=== PATIENT | male | born 1960 | race African-American/Black ===

== ENCOUNTER 2016-05-25 14:31 | Day surgery (SDC) | payer OTHER ==
--- NOTE | 2016-05-24 14:34 | EKG Report ---
Test Performed on : 05/24/2016 10:07:10 AM Test Reason : PAT Blood Pressure : / mmHG Vent. Rate : 050 BPM Atrial Rate : 050 BPM P-R Int : 138 ms QRS Dur : 078 ms QT Int : 408 ms P-R-T Axes : 032 -08 -02 degrees QTc Int : 371 ms Sinus bradycardia. Nonspecific T wave abnormality Abnormal ECG When compared with ECG of 16-APR-2016 11:46, premature ventricular complexes. are no longer present QRS axis shifted right T wave inversion now evident in Anterior leads Confirmed by Romel Grady MD ([id number]) on 05/25/2016 9:39:58 PM
[2016-05-25 11:21] LABS: MANUAL DIFF NEEDED? NO
[2016-05-25 11:23] LABS: BASO% 0.7 % (0.0-0.8); EOS# 0.21 X1000 (0.0-0.7); EOS% 2.7 % (0.0-10.0); HEMATOCRIT 45.1 % (42.0-52.0); HEMOGLOBIN 16.3 g/dL (14.0-18.0); LYMPH% 48.3 % (20.5-51.1); MCH 32.7 PG (27-31); MCHC 36.1 g/dL (33-37); MCV 90.4 FL (81-99); MONO% 13.1 % (1.7-9.3); MPV 12.1 FL (7.4-10.4); NEUT% 35.2 % (42.2-75.2); PLT 131 X1000 (130-400); RBC 4.99 XMIL (4.7-6.1)
[2016-05-25 11:52] LABS: AGAP 15; BUN 11 mg/dL (8-22); CALCIUM 8.6 mg/dL (8.8-10.2); CHLORIDE 96 mmol/L (98-107); COSMO 269; POTASSIUM 4.1 mmol/L (3.5-5.1); SODIUM 133 mmol/L (136-145); TCO2 22 mmol/L (25-35)
[~2016-05-25 14:31] MED LIST: DECADRON ONE; KEFZOL 1 GM/D5W 50 ML ONE; LR 1,000 ML ONE; MARCAINE 0.25% PF/EPI 1:200,000 ONE; NORCO-7.5 ONE; NORCO-7.5 PO PRN; XYLOCAINE 1% ONE; XYLOCAINE-MPF 2% ONE; ZOFRAN IV PRN; ZOFRAN ONE
--- NOTE | 2016-05-25 15:15 | OPERATIVE NOTE ---
PROCEDURE DATE : 05/25/2016 PREOPERATIVE DIAGNOSIS: Left chest wall epidermal cyst. POSTOPERATIVE DIAGNOSIS: Left chest wall epidermal cyst. PROCEDURE: Excision of left chest epidermal cyst. SURGEON: Austin Greenberg MD ANESTHESIA: General. ESTIMATED BLOOD LOSS: 3 mL. COMPLICATIONS: None apparent. SPECIMENS: Cyst. FINDINGS: The cyst measured 3.5 x 1 cm in greatest dimension with margins. TECHNIQUE: He was brought to the operating room and placed supine on the table. General anesthesia was induced. He was prepped and draped in the usual sterile fashion and 0.25% Marcaine with 1% lidocaine was used to anesthetize the skin and subcutaneous tissues around the cyst which was at the left superior outer areola border. An elliptical incision was made with the knife down through the dermis into the subcutaneous fat on the borders of the cyst. This was carried down into the subcutaneous fat circumferentially excising this cyst and overlying skin from the surrounding soft tissue. Cautery was used for hemostasis. The wound was closed with interrupted subcutaneous 3-0 Polysorb and a running 4-0 subcuticular Monocryl and then Steri-Strips. There were no apparent complications. He was awakened in stable condition and transferred to the recovery room.
[2016-05-25 15:32] VITALS: BP 140/88
[2016-05-25] MEDS ORDERED: DIPRIVAN 1% ONE (15:51)
== END 2016-05-25 15:10 | disposition home or self-care (01) ==
LOC: PAT 14:31
PROVIDERS: ATTEND Surgery
DX: L72.0 Epidermal cyst (principal); Z87.891 Personal history of nicotine dependence; I10 Essential (primary) hypertension
CPT/HCPCS: 80048; 85025; 88304; 93005; 93010; J0690; J1100; J2405; J7120; S0020

== ENCOUNTER 2018-06-28 17:02 | Inpatient (IN) ==
--- NOTE | 2018-06-28 17:55 | Diag Imaging Result Doc PS360 ---
EXAM: ABDOMEN FLAT/UPRIGHT 06/28/2018 HISTORY: abd pain TECHNIQUE: Flat and upright abdomen COMMENT: There are air-fluid levels in distended small bowel loops. There is some gas in the stomach and colon without evidence of dilatation. There is some gas and stool in the rectum. There is no evidence of organomegaly or mass. IMPRESSION: Early small bowel obstruction. Electronically signed by Delonte Warner 06/28/2018 5:53 PM
[2018-06-28 21:42] LABS: BASO# 0.08 X1000 (0.0-0.2); BASO% 0.9 % (0.0-0.8); EOS# 0.05 X1000 (0.0-0.7); EOS% 0.6 % (0.0-10.0); HEMATOCRIT 39.3 % (42.0-52.0); HEMOGLOBIN 14.8 g/dL (14.0-18.0); IMM GRAN# 0.02 X1000 (0.0-0.04); IMM GRAN% 0.2 % (0.0-0.5); LYMPH# 2.91 X1000 (1.2-3.4); LYMPH% 34.5 % (20.5-51.1); MCH 33.6 PG (27-31); MCHC 37.7 g/dL (33-37); MCV 89.3 FL (81-99); MONO% 15.4 % (1.7-9.3); MPV 11.9 FL (7.4-10.4); NEUT# 4.08 X1000 (1.4-6.5); NEUT% 48.4 % (42.2-75.2); PLT 128 X1000 (130-400); RDW 14.3 % (11.5-14.5); WBC 8.44 X1000 (4.8-10.8)
[2018-06-28 22:07] LABS: AGAP 11; ALBUMIN 2.9 g/dL (3.5-5.0); ALKALINE PHOSPHATASE 96 U/L (32-122); AMYLASE 101 U/L (20-200); BUN 21 mg/dL (8-22); CALCIUM 9.2 mg/dL (8.8-10.2); CHLORIDE 93 mmol/L (98-107); COSMO 269; CREATININE 1.1 mg/dL (0.7-1.2); ESTIMATED GFR > 60; GLUCOSE 152 mg/dL (70-104); GOT 39 U/L (10-34); GPT 22 U/L (10-44); LIPASE 21 U/L (13-60); POTASSIUM 3.7 mmol/L (3.5-5.1); SODIUM 131 mmol/L (136-145); TCO2 27 mmol/L (25-35); TOTAL PROTEIN 8.4 g/dL (6.3-8.3)
[2018-06-29] LABS: BILIRUBIN URINE 2+ (NEGATIVE); BLOOD URINE TRACE (NEGATIVE); CLARITY CLEAR (CLEAR); COLOR ORANGE; KETONE URINE 1+(Small) mg/dL (NEGATIVE); LEUKOCYTES URINE 1+ (NEGATIVE); NITRITE URINE POSITIVE (NEGATIVE); PH URINE 6.5; PROTEIN URINE 1+(30 mg/dL) mg/dL (NEGATIVE); SP GRAVITY URINE 1.015; UROBILINOGEN URINE 12 mg/dL
[2018-06-29 00:11] LABS: URINE WBC TNTC /HPF (<10)
[2018-06-29 00:16] LABS: URINE EPITHELIAL CELLS <10 /HPF (<10); URINE RBC <10 /HPF (<10)
[2018-06-29 00:17] LABS: URINE BACTERIA 3+ /HFP; URINE CAST WHITE CELL PRESENT /LPF; URINE SOURCE CLEAN CATCH
[2018-06-29] MEDS ORDERED: NS 2,000 ML IV ONE (02:54)
[2018-06-29] MEDS ORDERED: ZOSYN 3.375 GM in NS 50 ML IV ONE (02:55)
--- NOTE | 2018-06-29 07:23 | Diag Imaging Result Doc PS360 ---
EXAM: CT ABD/PELVIS W/IV CONT ONLY INDICATION: pain TECHNIQUE: This exam was performed using automated exposure control, adjustment of mA or kV according to patient size, and/or use of iterative reconstruction technique. COMPARISON: 09/16/2013 FINDINGS: There is mild tree-in-bud opacity involving the lingula suggesting bronchiolitis, likely an atypical infectious process. There is a tiny hypodense focus involving the posterior aspect of the right hepatic lobe superiorly, probably a small cyst. The liver is unremarkable, otherwise. The gallbladder is partially contracted. The spleen, pancreas, adrenal glands, and kidneys are grossly unremarkable. The urinary bladder is nondistended. The appendix is normal. There are multiple moderately distended loops of small bowel with air-fluid levels suggesting obstruction. The transition point is probably in the right lower quadrant (see image 105, series 2). There is mild bowel wall thickening in this region. No discrete mass is identified. Consider obstruction due to adhesion. The remainder of the GI tract is essentially unremarkable. IMPRESSION: 1.Moderately distended loops of small bowel with air-fluid levels and apparent transition point in the right lower quadrant suggesting obstruction. 2.Mild tree-in-bud infiltrate in the lingula suggesting bronchiolitis. Electronically signed by Rodney Lang 06/29/2018 7:21 AM
--- NOTE | 2018-06-29 09:24 | Diag Imaging Result Doc PS360 ---
EXAM: KUB ABDOMEN INDICATION: re-eval sbo, feeling better TECHNIQUE: 2 views COMPARISON: 06/28/2018 FINDINGS: Multiple gas-distended loops of small bowel throughout the abdomen are again noted consistent with bowel obstruction. The degree of distention is approximately stable but it appears to involve more loops of small bowel as compared to the previous study. The abdomen is stable, otherwise. IMPRESSION: Gas-distended loops of small bowel consistent with obstruction that appears to involve more bowel than the previous study. Electronically signed by Rodney Lang 06/29/2018 9:22 AM
[2018-06-29] MEDS ORDERED: ZOFRAN IV PRN (12:42)
[2018-06-29] MEDS: ZOSYN 3.375 GM in NS 50 ML IV SCH ×2 (13:08→18:49)
[2018-06-29 13:50] LABS: HEMATOCRIT 37.9 % (42.0-52.0); MCH 33.9 PG (27-31); MCHC 36.9 g/dL (33-37); MCV 91.8 FL (81-99); MPV 11.9 FL (7.4-10.4); RBC 4.13 XMIL (4.7-6.1); RDW 14.5 % (11.5-14.5); WBC 6.47 X1000 (4.8-10.8)
[2018-06-29 14:03] LABS: AGAP 7; ALBUMIN 2.6 g/dL (3.5-5.0); ALKALINE PHOSPHATASE 88 U/L (32-122); BUN 19 mg/dL (8-22); CALCIUM 8.5 mg/dL (8.8-10.2); CHLORIDE 94 mmol/L (98-107); COSMO 267; CREATININE 0.9 mg/dL (0.7-1.2); ESTIMATED GFR > 60; GLUCOSE 166 mg/dL (70-104); GOT 44 U/L (10-34); GPT 21 U/L (10-44); POTASSIUM 3.5 mmol/L (3.5-5.1); SODIUM 130 mmol/L (136-145); TCO2 29 mmol/L (25-35); TOTAL PROTEIN 7.9 g/dL (6.3-8.3)
--- NOTE | 2018-06-29 14:46 | GENERAL SURGERY CONSULTATION ---
DATE: 06/29/2018 REASON FOR CONSULTATION: Small bowel obstruction. HISTORY OF PRESENT ILLNESS: This is a 58-year-old male, who presents to the emergency department with a several-day history of abdominal pain, diffuse in nature with associated nausea and vomiting and constipation. No exacerbating factors. However, today he has had some relief as he has had multiple bowel movements. His pain has resolved at this time. He is not having nausea or vomiting. PAST MEDICAL HISTORY: None. PAST SURGICAL HISTORY: None pertinent. HOME MEDICATIONS: None. ALLERGIES: No known drug allergies. SOCIAL HISTORY: He smokes about 5 or 6 cigarettes per day. He has 2 to 3 alcoholic drinks per day. REVIEW OF SYSTEMS: Ten systems reviewed and negative, except as noted above. PHYSICAL EXAMINATION: Vital Signs: Temperature 98.5 degrees, pulse 51, respirations 20, blood pressure 106/74, O2 saturation 96%. General: Well-developed, well-nourished male in no distress, who looks his stated age. HEENT: Normocephalic, atraumatic. Extraocular muscles intact. Pupils equal, round, reactive to light. Sclerae anicteric. Moist mucous membranes. Neck: Supple. No thyromegaly. CV: Regular rate and rhythm. Respiratory: Bilateral equal breath sounds. No work of breathing. GI: Soft, nontender, nondistended. No organomegaly or mass. No hernias. He has good bowel sounds. Extremities: No clubbing, cyanosis, or edema. Skin: Warm and dry. No rash. Musculoskeletal: Moves all extremities equally and well. LABORATORY: CBC and complete metabolic profile reviewed and notable for sodium of 131, total bilirubin 3.2, AST 39, ALT 22, alkaline phosphatase 96. IMAGING: Abdominal x-rays done last night showed early small bowel obstruction. An abdominal/pelvis CT scan done last night showed moderately distended loops of small bowel with air- fluid levels and apparent transition point suggestive of a small bowel obstruction. Follow-up x- ray this morning of the abdomen again shows gas-distended loops of small bowel. ASSESSMENT/PLAN: A 58-year-old male with abdominal pain, nausea, vomiting and imaging suggestive of small bowel obstruction. However, his symptoms have resolved. His physical exam is benign. I suspect this was not a mechanical bowel obstruction, and he is getting better. I will start a liquid diet and, if he tolerates this today, then I would let him be discharged. cc: Austin Greenberg MD
[2018-06-29] MEDS: NS 1,000 ML IV ONE ×2 (15:44→18:51)
[2018-06-29 15:49] LABS: INR 1.34; PROTIME 17.6 Seconds (11.0-16.0)
[2018-06-29] MEDS: PROTONIX IV SCH (15:57)
[2018-06-29] MEDS: SODIUM CHLORIDE 0.9% INJ SCH (15:58)
--- NOTE | 2018-06-29 18:57 | Diag Imaging Result Doc PS360 ---
US GB < RUQ (LIMITED) - 06/29/2018 INDICATION: abd pain, distention, elevated LFTs TECHNIQUE: COMPARISON: CT abdomen pelvis earlier 06/29/2018 FINDINGS: The patient is not nothing by mouth. The gallbladder is collapsed. Thick-walled appearance is nonspecific. No biliary dilation. Common bile duct measures 4 mm. The liver is normal. Pancreas is obscured. Main portal vein is patent. Aorta and IVC are mostly obscured. IMPRESSION: Gallbladder collapsed with nonspecific wall thickening. Otherwise negative exam. Electronically signed by Jesus Faith 06/29/2018 6:55 PM
--- NOTE | 2018-06-29 19:51 | HISTORY AND PHYSICAL ---
PRIMARY CARE PROVIDER: Dr. Quang Hart. CHIEF COMPLAINT: Abdominal pain. HISTORY OF PRESENT ILLNESS: Mr. Mcduffie is a 58-year-old male with a history of seizures and cerebral aneurysm, who presents with five days of nausea, vomiting, and abdominal pain. He has been unable to hold down anything, no foods or liquids. He has not had any fever. No hematemesis or hematochezia. He presented to the ER initially last night. A CT of the abdomen and pelvis revealed moderately distended loops of small bowel with air fluid levels with a transition point in the right lower quadrant suggesting obstruction. He was also noted to have mild tree-in-bud infiltrate in the lingula, suggesting bronchiolitis. This morning he is actually feeling somewhat better. He has had some diarrhea and his distention has actually gone down some. However, repeat abdominal x-ray did reveal continued obstruction with more bowel involvement than previous study. His vital signs are stable. He is going to be admitted to [facility] for further treatment and evaluation. Dr. Greenberg with the surgical team has been consulted. PAST MEDICAL HISTORY: 1. Cerebral aneurysm status post craniotomy. 2. Hypertension. 3. Nicotine dependence. 4. Reflux esophagitis. 5. Chronic back and neck pain. PAST SURGICAL HISTORY: He has had brain surgery x2. He has had a cyst removed by Dr. Greenberg on his chest wall and two back surgeries. SOCIAL HISTORY: He smokes around five cigarettes a day. He will smoke marijuana on occasion. He occasionally drinks alcohol. He is , is at the bedside. FAMILY HISTORY: Noncontributory. REVIEW OF SYSTEMS: A 10-point review of systems obtained and found to be negative with the exception of the HPI. HOME MEDICATIONS: Cardizem 240 mg daily, Depakote 500 mg daily, hydrochlorothiazide 25 mg daily. PHYSICAL EXAMINATION: VITAL SIGNS: Blood pressure 126/88, heart rate 72, respiratory rate 18, O2 saturation 97% on room air. Temperature 98 degrees Fahrenheit. GENERAL: Well developed, well nourished, 58-year-old male, lying in hospital bed in no acute distress. NEUROLOGICAL: He is awake, alert, and oriented and follows commands. No focal deficits. HEENT: Head is atraumatic and normocephalic. Pupils are equal, round, and reactive to light. Oral mucosa is dry. NECK: Trachea is midline. There is no JVD. CHEST: Diminished at the bases but clear to auscultation bilaterally. CARDIOVASCULAR: Regular rate and rhythm. S1 and S2 is noted. GASTROINTESTINAL: Epigastric and right upper quadrant tenderness to palpation. Abdomen is soft and slightly distended. No rigidity. Bowel sounds are hypoactive. EXTREMITIES: No edema. Pulses are 1+ bilaterally. DIAGNOSTIC DATA: Abdomen and pelvic CT, please see HPI. Abdomen x-ray shows slightly worsened SBO. WBC 6.47, hemoglobin 14, hematocrit 37.9, platelet count 113,00. Sodium 130, potassium 3.5, chloride 94, C02 29, anion gap 7, BUN 19, creatinine 0.9, glucose 166. Calcium 8.5. Bilirubin 3.1. AST 43, ALT 21, albumin 2.6. TSH 0.99. UA does show nitrite positive, 2+ bilirubin, and trace urine glucose with too numerous to count WBCs, 3+ bacteria. ASSESSMENT AND PLAN: 1. Small bowel obstruction: The patient will be transferred to [facility] where he will be seen by hospitalist group as well as Dr. Greenberg. Dr. Greenberg has ordered clear liquids so will try him on that and see how he does. Will check serial KUBs. Continue intravenous fluids. Also check a right upper quadrant ultrasound as he does have elevated liver function tests. 2. Urinary tract infection: Continue antibiotics. Culture is pending. 3. Elevation in liver function tests: Will check a hepatitis panel and right upper quadrant ultrasound and follow daily comprehensive metabolic panels. He does have decreased protein and platelet function. Will check an INR as well to evaluate his overall synthetic function. He may need Gastroenterology evaluation for possible liver disease. CT does show mild hypodense cysts on the liver, otherwise nothing acute. Will also advise him to stay away from any alcohol or illicit substances. 4. History of cerebral aneurysm: Aware. Will monitor. Denies any headache, visual changes, or neurologic deficits. 5. Nicotine dependence: Will write a nicotine patch and continue cessation education. 6. Deep venous thrombosis prophylaxis with sequential compression devices. Further recommendations to follow. Dictated by TURNER Bautista for Yusef Hernandez MD cc: TURNER Bautista MD
--- NOTE | 2018-06-29 22:29 | HISTORY AND PHYSICAL ---
ADDENDUM TO HISTORY AND PHYSICAL: Patient seen and examined by myself. Full note dictated and discussed with nurse practitioner. Patient presented to the hospital with nausea, vomiting, abdominal pain. Subsequently was noted to have small-bowel obstruction. We will admit to the hospital, treat in the usual fashion. We will ask surgery for evaluation. Advance diet as tolerated. cc: Yusef Hernandez MD
[2018-06-30] MEDS: ZOSYN 3.375 GM in NS 50 ML IV SCH ×4 (01:15→18:16)
[2018-06-30 06:28] LABS: BASO# 0.06 X1000 (0.0-0.2); BASO% 1.2 % (0.0-0.8); EOS# 0.11 X1000 (0.0-0.7); EOS% 2.1 % (0.0-10.0); HEMATOCRIT 32.8 % (42.0-52.0); HEMOGLOBIN 11.9 g/dL (14.0-18.0); IMM GRAN# 0.02 X1000 (0.0-0.04); IMM GRAN% 0.4 % (0.0-0.5); LYMPH# 2.37 X1000 (1.2-3.4); LYMPH% 45.8 % (20.5-51.1); MCH 33.1 PG (27-31); MCHC 36.3 g/dL (33-37); MCV 91.4 FL (81-99); MONO# 0.61 X1000 (0.11-0.59); MONO% 11.8 % (1.7-9.3); MPV 12.3 FL (7.4-10.4); NEUT# 2.01 X1000 (1.4-6.5); NEUT% 38.7 % (42.2-75.2); PLT 88 X1000 (130-400); RBC 3.59 XMIL (4.7-6.1); RDW 13.8 % (11.5-14.5); WBC 5.18 X1000 (4.8-10.8)
[2018-06-30 07:24] LABS: AGAP 7; ALB/GLOB RATIO 0.5; ALKALINE PHOSPHATASE 65 U/L (32-122); BUN 19 mg/dL (8-22); CALCIUM 7.2 mg/dL (8.8-10.2); CHLORIDE 96 mmol/L (98-107); COSMO 260; CREATININE 0.9 mg/dL (0.7-1.2); ESTIMATED GFR > 60; GLUCOSE 108 mg/dL (70-104); GOT 43 U/L (10-34); GPT 21 U/L (10-44); MAGNESIUM 2.2 mg/dL (1.5-2.7); SODIUM 128 mmol/L (136-145); TCO2 25 mmol/L (25-35); TOTAL BILIRUBIN 3.19 mg/dL (0.20-1.00); TOTAL PROTEIN 6.1 g/dL (6.3-8.3)
[2018-06-30 07:34] LABS: LYMPHS 34 % (21-51); MONO 4 % (1-9); SEGS 62 % (42-75)
--- NOTE | 2018-06-30 08:43 | Diag Imaging Result Doc PS360 ---
EXAM: KUB ABDOMEN 06/30/2018 HISTORY: sbo TECHNIQUE: KUB COMMENT: There is diffuse small bowel dilatation. There is some gas present in the colon which is not distended including the rectum. Compared to 06/29/2018 there is less colonic gas. IMPRESSION: Small bowel obstruction. Electronically signed by Delonte Warner 06/30/2018 8:41 AM
--- NOTE | 2018-06-30 12:15 | PROVIDER DOCUMENTATION ---
HPI-Abdominal Pain/GI Problem - General Chief Complaint: Constipation Stated Complaint: ABD PAINS Time Seen by Provider: 06/28/18 21:17 Source: patient, family Allergies/Adverse Reactions: Patient Allergies Allergy/AdvReac Type Severity Reaction Status Date / Time No Known Allergies Allergy Verified 06/29/18 14:42 Home Medications: Home Medication List Medication Instructions Recorded Confirmed Last Taken Type Divalproex [Depakote] 500 mg PO DAILY 09/16/13 06/28/18 06/28/18 09:00 History Hydrochlorothiazide 25 mg PO DAILY 09/16/13 06/28/18 06/28/18 09:00 History Diltiazem HCl [Cardizem Cd] 240 mg PO DAILY 05/24/16 06/28/18 06/28/18 09:00 History Hydrocodone/Acetaminophen [[place] 1 each PO Q4H PRN #25 tablet 05/25/16 06/28/18 Unknown Rx 7.5-325 Tablet] - History of Present Illness-ABD Nature of Presenting Problems: 58yom c/o constipation and abdominal pain for 3 days. He additionally reports nausea, weakness, and loss of appetite. He reports small bowel movement today. He denies fever, chills, diarrhea, cp, and sob. Abdominal Pain Onset Location: reports: generalized abdomen Pain Radiation: reports: no radiation Quality of Pain: reports: aching, cramping, fullness Severity in ED: reports: moderate Onset/Duration: reports: 3 days ago Timing: reports: still present, constant, getting worse Activities at Onset: reports: none Modifying Factors: improves with: nothing Associated Symptoms: reports: constipation, loss of appetite, nausea, weakness. denies: vomiting Last BM: this morning (small bowel movement) Similar Symptoms Previously?: No Recently seen or treated by another doctor?: No Review of Systems - Adult - REVIEW OF SYSTEMS - ADULT Constitutional: reports: other (loss of appetite). denies: chills, fever Eyes: denies: discharge, dry eyes Ears, Nose, Mouth & Throat: denies: ear discharge, ear pain Cardiovascular: denies: chest pain, palpitations Respiratory: denies: cough, shortness of breath Gastrointestinal: reports: abdominal pain, constipation, nausea. denies: diarrhea Genitourinary: denies: dysuria, hematuria Musculoskeletal: reports: muscle weakness. denies: back pain, muscle aches Integumentary: reports: no symptoms reported Neurological: denies: dizziness/vertigo, headache/migraines Psychiatric: reports: no symptoms reported Endocrine: reports: no symptoms reported Hematologic/Lymphatic: reports: no symptoms reported Allergic/Immunologic: reports: no symptoms reported All Other Systems: Reviewed and Negative Past History - Adult - PAST MEDICAL HISTORY-ADULT Review of Records: reports: Old Records Reviewed, Nursing Assessment Review, Medications Reviewed Major Childhood Illnesses: reports: denies history Cardiovascular: reports: HTN Respiratory: reports: denies history Gastrointestinal: reports: denies history Obstetrical/Gynecological: reports: denies history Genitourinary: reports: denies history Musculoskeletal: reports: denies history Neurological: reports: denies history, Seizures/Epilepsy Psychiatric: reports: denies history Endocrine/Immune: reports: denies history Other Conditions: reports: denies history Additional History: cerebral aneurysm, chronic back pain, chronic neck pain - PRIOR SURGERIES/PROCEDURES Surgical/Procedure History: reports: orthopedic (extremity) - IMMUNIZATION STATUS Childhood Immunizations: See Nurse Assessment Flu Vaccine: See Nurse Assessment - FAMILY HISTORY Family History: reviewed, not pertinent - SOCIAL HISTORY Substance Use: denies Living Situation: family Physical Exam-General - PHYSICAL EXAM-ADULT Initial Vital Signs Reviewed: Yes - CONSTITUTIONAL General Appearance: alert, no apparent distress - EYES Eyes: PERRL/EOMI - NECK Neck: non-tender, supple - RESPIRATORY Respiratory: chest non-tender, lungs clear, normal breath sounds, no pleuratic chest pain, no respiratory distress, no accessory muscle use. negative: crackles, wheezing - CARDIOVASCULAR Cardiovascular: regular rate, rhythm, no murmur - GASTROINTESTINAL (ABDOMEN) Abdominal Exam: distended, guarding, rigid, tenderness - MUSCULOSKELETAL Extremity: normal range of motion, non-tender, normal inspection, no pedal edema - SKIN Integumentary: normal color, warm/dry - NEUROLOGIC Neurologic: grossly normal, no motor/sensory deficits - PSYCHIATRIC Psych/Mental Status: normal mood/affect, normal thought content, normal thought process, oriented x 3 Progress - PLAN OF CARE/RESULTS Progress/Plan/Lab Results: Orders Category Date Time Status Saline Loc DIRECTED Care 06/28/18 20:07 Completed NPO Diet 06/28/18 20:[address] ABD/PELVIS W/IV CONT ONLY [CT] Stat Exams 06/28/18 23:14 Completed flat [ABDOMEN FLAT/UPRIGHT] [RAD] Stat Exams 06/28/18 17:28 Completed AMYLASE [CHEM] Stat Lab 06/28/18 21:26 Completed CBC WITH ELECTRONIC DIFF [HEME] Stat Lab 06/28/18 21:26 Completed COMPREHENSIVE METABOLIC PANEL [CHEM] Stat Lab 06/28/18 21:26 Completed LIPASE [CHEM] Stat Lab 06/28/18 21:[address] W/POSS RFLX CULT [URINALYSIS] Stat Lab 06/28/18 23:35 Completed URINE CULTURE [RM] Routine Lab 06/29/18 00:17 Results 0.9% Sodium Chloride Inj [Ns] 2,000 ml Med 06/29/18 02:54 Discontinued IV 125 mls/hr Piperacillin/Tazobactam [Zosyn] 3.375 gm Med 06/29/18 02:55 Discontinued 0.9% Sodium Chloride Inj [Ns] 50 ml IV NOW Transfer/Admit Order [TRANSFER] Routine Transfer 06/29/18 04:49 Completed Result Diagrams: 06/30/18 05:30 06/30/18 05:30 - XRAY 1 XRAY Study: Abdomen Impression: Abnormal (COMMENT: There are air-fluid levels in distended small bowel loops. There is some gas in the stomach and colon without evidence of dilatation. There is some gas and stool in the rectum. There is no evidence of organomegaly or mass. IMPRESSION: Early small bowel obstruction.) - CT/MRI 1 CT Study: Abdomen, Pelvis Impression: Abnormal (FINDINGS: There is mild tree-in-bud opacity involving the lingula suggesting bronchiolitis, likely an atypical infectious process. There is a tiny hypodense focus involving the posterior aspect of the right hepatic lobe superiorly, probably a small cyst. The liver is unremarkable, otherwise. The gallbladder is partially contracted. The spleen, pancreas, adrenal glands, and kidneys are grossly unremarkable. The urinary bladder is nondistended. The appendix is normal. There are multiple moderately distended loops of small bowel with air-fluid levels suggesting obstruction. The transition point is probably in the right lower quadrant (see image 105, series 2). There is mild bowel wall thickening in this region. No discrete mass is identified. Consider obstruction due to adhesion. The remainder of the GI tract is essentially unremarkable. IM PRESSION: 1.Moderately distended loops of small bowel with air-fluid levels and apparent transition point in the right lower quadrant suggesting obstruction. 2.Mild tree-in-bud infiltrate in the lingula suggesting bronchiolitis.) - CONSULTS/PCP/HOSPITALIST Notification #1 *Consult/PCP/Hospitalist*: Dr. Greenberg Time Discussed: 00:04 Consult Disposition: Admit (admit to hospitalist at [place]) #2 Consult: Dr. Rai Time Discussed: 02:00 Consult Disposition: Admit (no current beds available, pt will be admitted when beds are available) Departure - Departure Date of Disposition Decision: 06/30/18 Time of Disposition Decision: 12:21 DIAGNOSIS: Small bowel obstruction Disposition: ACUTE [facility] Certified Medical Emergency: Emergent Condition: Stable - Critical Care Note This patient required my direct & personal management of CC.: No Attestation - Physician/ LILIYA Attestation Patient care was provided by Advanced Practice Provider:: No The physician spent face to face time with patient:: Yes Advanced Practice Provider documentation review:: Supervising physician onsite and consulted in the evaluation and care of this patient. The physician did have a face to face encounter with the patient.
[2018-06-30] MEDS ORDERED: KLOR-CON PO ONE (13:56)
[2018-06-30] MEDS ORDERED: ATIVAN IV PRN (13:59)
[2018-06-30] MEDS ORDERED: THIAMINE 100 MG in NS 50 ML IV SCH (14:00)
[2018-06-30] MEDS: SODIUM CHLORIDE 0.9% INJ SCH (14:50)
[2018-06-30] MEDS: PROTONIX IV SCH (14:50)
[2018-06-30] MEDS: POTASSIUM CHLORIDE 40 MEQ in NS 1,000 ML IV SCH (14:54)
--- NOTE | 2018-06-30 15:39 | PROGRESS NOTE ---
DATE: 06/30/2018 SUBJECTIVE: This patient is feeling much better. He is hyponatremic and hypokalemic, so I will put this patient on IV fluids, normal saline with potassium, and I will also give him a one time dose of potassium by mouth. His abdomen is still distended but he is passing gases. As per the patient, no bowel movement today, but he had a bowel movement yesterday. X-ray today showed some gas pattern in the colon which is not distended including the rectum. Also, there is diffuse small bowel dilatation. Compared with 06/29/2018, there is less colonic gas. The impression is small bowel obstruction, which probably is partial. OBJECTIVE: Vital Signs: Temperature 98.3 degrees, pulse 53, respiratory rate 16, blood pressure 118/78, and oxygen saturation 99 percent on room air. HEENT: Head normocephalic. No trauma. PERRLA. Neck: Supple. No JVD. Central trachea. Chest: Clear to auscultation. No wheezing. No rales. Abdomen: Soft. Distended. Positive bowel sounds but decreased. No signs of peritoneal irritation. Extremities: No edema. No clubbing. No cyanosis. Neurological: The patient is alert and oriented x3. No focal deficits. LABORATORY: WBC 5.1, hemoglobin 11.9, hematocrit 32.8, and platelets 88,000. Sodium 128, potassium 3, chloride 96, bicarbonate 25, BUN 19, creatinine 0.9 glucose 108, and calcium 7.2. ASSESSMENT AND PLAN: 1. Small-bowel obstruction. This patient has been transferred from [facility] to [facility] to be followed and evaluated by Surgery Department. He has been placed on a liquid diet. X-ray showed a small bowel obstruction. He is not having nausea or vomiting today, and he is feeling better. I will continue monitoring this patient. Surgery Department on board. 2. He does have some infiltrates at the level of the lingula, probably bronchiolitis/bronchitis. He has been placed on antibiotics. We will continue with the same management, and we will monitor. 3. Possible UTI. This patient has not been having symptoms. As per the patient, his urine was different and darker before coming to the hospital, but no burning, sensation or pain. No fever. No chills. He has been placed on antibiotics for the possible respiratory infection that will cover the urine as well. 4. Hyponatremia and hypokalemia. I will put this patient on normal saline. I will replace the potassium as well. I will monitor. He seems to be a little bit dry to me, I checked his lab work before, and he has been chronically hyponatremic since 2014. 5. Elevated liver function tests. No clear etiology. We asked for a hepatitis panel. This is actually not a new issue. They have been elevated since 2013. Probably, this patient will need to be evaluated by Gastroenterology Department probably as an outpatient. 6. History of cerebral aneurysm aware. 7. Nicotine dependence. This patient has been highly advised against tobacco use. I will continue with daily cessation education. 8. Deep vein thrombosis prophylaxis with SCD's. cc: Jaime Faith MD
[2018-07-01] MEDS: ZOSYN 3.375 GM in NS 50 ML IV SCH ×2 (00:35→06:29)
[2018-07-01] MEDS: POTASSIUM CHLORIDE 40 MEQ in NS 1,000 ML IV SCH (06:28)
[2018-07-01 07:34] LABS: BASO# 0.15 X1000 (0.0-0.2); BASO% 2.5 % (0.0-0.8); EOS% 1.7 % (0.0-10.0); HEMATOCRIT 33.5 % (42.0-52.0); HEMOGLOBIN 12.2 g/dL (14.0-18.0); IMM GRAN# 0.03 X1000 (0.0-0.04); IMM GRAN% 0.5 % (0.0-0.5); LYMPH# 3.37 X1000 (1.2-3.4); LYMPH% 55.6 % (20.5-51.1); MCH 33.3 PG (27-31); MCHC 36.4 g/dL (33-37); MCV 91.5 FL (81-99); MONO# 0.72 X1000 (0.11-0.59); MONO% 11.9 % (1.7-9.3); MPV 12.2 FL (7.4-10.4); NEUT# 1.69 X1000 (1.4-6.5); NEUT% 27.8 % (42.2-75.2); PLT 104 X1000 (130-400); RBC 3.66 XMIL (4.7-6.1); RDW 13.8 % (11.5-14.5); WBC 6.06 X1000 (4.8-10.8)
[2018-07-01 07:35] VITALS: BP 127/67
[2018-07-01 07:57] LABS: AGAP 10; ALB/GLOB RATIO 0.5; ALKALINE PHOSPHATASE 66 U/L (32-122); BUN 15 mg/dL (8-22); CALCIUM 7.2 mg/dL (8.8-10.2); CHLORIDE 103 mmol/L (98-107); COSMO 266; CREATININE 0.8 mg/dL (0.7-1.2); ESTIMATED GFR > 60; GLUCOSE 109 mg/dL (70-104); GOT 53 U/L (10-34); GPT 24 U/L (10-44); SODIUM 132 mmol/L (136-145); TCO2 19 mmol/L (25-35); TOTAL BILIRUBIN 3.15 mg/dL (0.20-1.00); TOTAL PROTEIN 6.2 g/dL (6.3-8.3)
[2018-07-01 08:02] LABS: EOS 4 % (1-10); LYMPHS 48 % (21-51); MONO 2 % (1-9); NRBC 1 % (0-0); SEGS 44 % (42-75)
--- NOTE | 2018-07-01 10:36 | GENERAL SURGERY PROGRESS NOTE ---
DATE: 07/01/2018 SUBJECTIVE: Patient seems to be doing okay. OBJECTIVE: Vital Signs: Patient is currently afebrile. His vital signs stable. General: No acute distress. HEENT: Normocephalic, atraumatic. Pupils equal, round, reactive to light. Mucous membranes moist. Oropharynx benign. Neck: Supple. Trachea midline. Cardiovascular: Regular rate and rhythm. Lungs: Grossly clear. Abdomen: Soft, nondistended, nontender. Extremities: Moves all extremities. Neurologic: Grossly intact. Skin: No signs of jaundice. Vascular: All extremities perfused. LABORATORY: None this morning as of yet. ASSESSMENT AND PLAN: A 58-year-old with resolving small bowel obstruction. 1. Small bowel obstruction: At this time, the patient seems to be improving from his bowel obstruction. I will advance him to a gastrointestinal soft diet and we will see how he does. 2. Multiple medical comorbidities. Currently being managed by the hospitalist service. cc: Orion Potter MD
[2018-07-01 14:57] LABS: HEPATITIS PROFILE ACUTE SEE COMMENTS
--- NOTE | 2018-07-02 04:32 | DISCHARGE SUMMARY ---
ADMISSION DATE: 06/29/2018 DISCHARGE DATE: 07/01/2018 DIAGNOSES: 1. Small-bowel obstruction, resolved. 2. Infiltrates at the level of the lingula, probably bronchitis, bronchiolitis. 3. Possible urinary tract infection. 4. Hyponatremia and hypokalemia. 5. Elevated liver function test. 6. History of cerebral aneurysm. 7. Nicotine dependence. DIAGNOSTICS: 1. On 06/29/2017, abdominal x-ray reveals gas distended loops of small bowel consistent with obstruction. 2. CT of the abdomen and pelvis revealed moderately distended loops of small bowel with air-fluid levels and apparent transition point in the right lower quadrant suggesting obstruction. Mild tree-in-bud infiltrate in the lingula suggesting bronchiolitis. 3. Abdominal ultrasound reveals gallbladder collapse with nonspecific wall thickening, otherwise negative exam. 4. On 06/30/2018, repeat abdominal x-ray reveals small bowel obstruction with less colonic gas compared to 06/29/2018. MICROBIOLOGY: Urine culture revealed no growth. CONSULTS: Dr. Austin Greenberg, general surgery. HOSPITAL COURSE: Ms Mcduffie presented to the emergency room with several days of diffuse abdominal pain, nausea, vomiting, and constipation. He was found to have a small-bowel obstruction for which he was admitted, placed on bowel rest with IV hydration as well as pain and nausea medications. General Surgery did follow with the patient. He is tolerating a GI soft diet without any nausea, vomiting or abdominal pain. He has had 1 bowel movement. He continues to pass flatus. We trended electrolytes, repleted these as was appropriate. He does have a history of elevated liver function tests and according to our records going back to 2013, although this is not new we have drawn hepatitis panel which is pending and informed the patient that he does need to be evaluated by Gastroenterology. We did discuss with the patient the perils of continuing to smoke. We discussed smoking cessation having been given written materials on admission. DISCHARGE VITAL SIGNS: Blood pressure is 127/67 with a heart rate of 60, respirations are 20, temperature is 98.5 degrees oral with room air saturations 97-100%. DISCHARGE PHYSICAL EXAMINATION: Cardiovascular: Regular rate and rhythm. S1, S2 appreciated. He has no lower extremity edema. Calves are nontender bilaterally with peripheral pulses palpable x4 extremities. Pulmonary: Breath sounds are clear. No increased work of breathing noted. Chest: Rise and fall symmetric with respiration. Chest wall is nontender to palpation. Gastrointestinal: Abdomen is soft, nondistended, nontender with bowel sounds in all 4 quadrants. Neurologic: He is alert and oriented x3. Skin: Warm and dry. DISCHARGE MEDICATIONS: 1. Hydrochlorothiazide 25 mg p.o. daily. 2. Depakote 500 mg p.o. daily. 3. Cardizem CD 240 mg p.o. daily. FOLLOWUP: 1. Dr. Leno Hernandez. He needs to call July 03, to schedule an appointment for followup for elevated liver function test. 2. Dr. Austin Greenberg, general surgery, as needed. 3. Dr. Quang Alexander, his primary care physician. He is to follow up in a week. He needs to call July 03, to schedule an appointment. 4. He has been instructed to call to be seen sooner or return to the emergency room for any syncope, dizziness, chest pain, palpitation, any recurring nausea, vomiting, diarrhea, constipation, abdominal pain, abdominal distention, any black or bloody vomitus or stools, temperature greater than 101, any hematuria or for any questions or concerns that he may have. 5. He is being discharged home in stable condition with family members. TIME SPENT: This is a greater than 30 minute discharge. Dictated by TURNER Stephens for Jaime Faith MD This chart was documented by, TURNER Stephens and accurately reflects the services performed, treatment plan and medical decisions as attested by the providers signature Jaime Faith MD. cc: TURNER Stephens MD Manish Arora, MD MTDD
[2018-07-05 08:31] LABS: HCV BY PCR SEE COMMENTS
== END 2018-07-01 09:35 | disposition home or self-care (01) | DRG 389 ==
LOC: P.ED 17:02 → SUATTDRO 06-29 07:53 → P.EDIPHOLD 06-29 07:53 → 4N 06-29 13:30
PROVIDERS: ATTEND Internal Medicine
CPT/HCPCS: 74000; 74018; 74019; 74020; 74177; 76705; 80053; 80074; 81001; 82150; 82607; 82746; 83690; 83735; 84443; 85025; 85027; 85610; 87088; 87522; 96365; 96366; 99285; A9270; C9113; J2543; J3411; J3480; J7030; Q9967; S0164

== ENCOUNTER 2019-04-20 17:35 | Inpatient (IN) ==
[2019-04-20 18:16] LABS: BASO# 0.02 X1000 (0.0-0.2); BASO% 0.2 % (0.0-0.8); EOS# 0.03 X1000 (0.0-0.7); EOS% 0.3 % (0.0-10.0); HEMATOCRIT 26.1 % (42.0-52.0); IMM GRAN# 0.03 X1000 (0.0-0.04); IMM GRAN% 0.3 % (0.0-0.5); LYMPH# 3.55 X1000 (1.2-3.4); LYMPH% 39.1 % (20.5-51.1); MCH 32.1 PG (27-31); MCHC 34.5 g/dL (33-37); MCV 93.2 FL (81-99); MONO# 1.26 X1000 (0.11-0.59); MONO% 13.9 % (1.7-9.3); MPV 11.5 FL (7.4-10.4); NEUT% 46.2 % (42.2-75.2); PLT 100 X1000 (130-400); RDW 14.4 % (11.5-14.5); WBC 9.09 X1000 (4.8-10.8)
[2019-04-20] MEDS ORDERED: NS 1,000 ML IV ONE ×2 (18:51→18:55)
[2019-04-20 18:56] LABS: ALBUMIN 2.3 g/dL (3.5-5.0); CALCIUM 7.3 mg/dL (8.8-10.2); CREATININE 3.6 mg/dL (0.7-1.2); TOTAL BILIRUBIN 1.2 mg/dL (0.20-1.00); TOTAL PROTEIN 7.7 g/dL (6.3-8.3)
--- NOTE | 2019-04-20 19:23 | PROVIDER DOCUMENTATION ---
This chart was entered by Amy Cartwright Scribe, acting as scribe for Kirt Hussein MD. HPI-General Adult - General Source: patient - History of Present Illness -Gen Adult Nature of Presenting Problems: pt is a 59 yr old male presenting with 3 week complaint of abdominal distention, nausea, constipation and poor appetite, pt also reports several month complaint of increasing pedal edema and tremors to hands. pt also reports decreased urine output. last normal bowel movement more than 3 weeks ago, pt is taking milk of magnesia with minimal relief. pt followed by Dr Hart. Location of Pain/Injury: reports: abdomen, feet Pain Radiation: reports: no radiation Quality of Pain: reports: fullness, pressure, tightness Severity: reports: moderate Onset/Duration: reports: other (3weeks) Timing: reports: getting worse Context/Activities at Onset: reports: light activity Modifying Factors: improves with: other medication (milk of magnesia with minimal relief) Associated Symptoms: reports: constipation, genitourinary problems, muscle aches , nausea. denies: chest pain, fever/chills, shortness of breath Similar Symptoms Previously?: No Recently seen or treated by another doctor?: No <Kirt Hussein - Last Filed: 04/20/19 19:23> <Juan Mcclure - Last Filed: 04/20/19 23:07> - General Chief Complaint: Abdominal Pain Stated Complaint: sick x 3 weeks Time Seen by Provider: 04/20/19 17:57 Allergies/Adverse Reactions: Patient Allergies Allergy/AdvReac Type Severity Reaction Status Date / Time No Known Allergies Allergy Verified 08/19/18 10:51 Home Medications: Home Medication List Medication Instructions Recorded Confirmed Last Taken Type Divalproex [Depakote] 500 mg PO DAILY 09/16/13 06/28/18 06/28/18 09:00 History Hydrochlorothiazide 25 mg PO DAILY 09/16/13 06/28/18 06/28/18 09:00 History Diltiazem HCl [Cardizem Cd] 240 mg PO DAILY 05/24/16 06/28/18 06/28/18 09:00 History Ciprofloxacin HCl [Cipro] 500 mg PO BID #20 tab 08/19/18 Unknown Rx Furosemide [Lasix] 20 mg PO DAILY PRN #14 tab 08/19/18 Unknown Rx Review of Systems - Adult - REVIEW OF SYSTEMS - ADULT Constitutional: reports: fatique, weight gain. denies: chills, fever Eyes: reports: no symptoms reported Ears, Nose, Mouth & Throat: denies: ear pain, sinus problem, throat pain Cardiovascular: reports: edema. denies: chest pain, palpitations, syncope Respiratory: denies: cough, shortness of breath, wheezing Gastrointestinal: reports: abdominal pain, constipation, nausea, poor appetite Genitourinary: reports: other (decreased urine output) Musculoskeletal: reports: muscle aches, muscle weakness Integumentary: reports: no symptoms reported Neurological: reports: tremors Psychiatric: reports: no symptoms reported Endocrine: reports: no symptoms reported Hematologic/Lymphatic: reports: no symptoms reported Allergic/Immunologic: reports: no symptoms reported All Other Systems: Reviewed and Negative <Kirt Hussein - Last Filed: 04/20/19 19:23> Past History - Adult - PAST MEDICAL HISTORY-ADULT Review of Records: reports: Old Records Reviewed, Nursing Assessment Review, Medications Reviewed, Social history reviewed & non-contributory. Major Childhood Illnesses: reports: denies history Cardiovascular: reports: CHF (pt unsure, believes he has been DX as CHF), HTN Respiratory: reports: denies history Gastrointestinal: reports: denies history Obstetrical/Gynecological: reports: denies history Genitourinary: reports: denies history Musculoskeletal: reports: denies history Neurological: reports: denies history, Seizures/Epilepsy Psychiatric: reports: denies history Endocrine/Immune: reports: denies history Other Conditions: reports: denies history Additional History: cerebral aneurysm, chronic back pain, chronic neck pain - PRIOR SURGERIES/PROCEDURES Surgical/Procedure History: reports: orthopedic (extremity), other (cerebral anuerysm repair) - IMMUNIZATION STATUS Childhood Immunizations: See Nurse Assessment Flu Vaccine: See Nurse Assessment - FAMILY HISTORY Family History: reviewed, not pertinent - SOCIAL HISTORY Smoking: cigarettes Provider spent 3-5 mins advising pt. on dangers of tobacco.: Discussed manners to quit use, and f/u contacts for add'l counseling. Substance Use: alcohol Living Situation: family <Kirt Hussein - Last Filed: 04/20/19 19:23> Physical Exam-General - PHYSICAL EXAM-ADULT Initial Vital Signs Reviewed: Yes - CONSTITUTIONAL General Appearance: alert, no apparent distress - EYES Eyes: PERRL/EOMI - HEAD, EARS, NOSE, MOUTH & THROAT HENMT: normocephalic/atraumatic, normal ENT inspection, other (dry oral mucosa) - NECK Neck: non-tender, full range of motion, supple, normal inspection - RESPIRATORY Respiratory: lungs clear, normal breath sounds, no respiratory distress, no accessory muscle use - CARDIOVASCULAR Cardiovascular: normal peripheral pulses, other (2/4 pedal edema). negative: no edema - GASTROINTESTINAL (ABDOMEN) Abdominal Exam: normal bowel sounds, distended, tenderness (minimal diffuse tenderness) - LYMPHATIC Lymphatic: no adenopathy - MUSCULOSKELETAL Back Exam: normal inspection Extremity: normal range of motion, non-tender, pedal edema (2/4 edema) Peripheral Pulses: radial (R): 2+, radial (L): 2+ - SKIN Integumentary: normal color, normal turgor, warm/dry - NEUROLOGIC Neurologic: grossly normal, no motor/sensory deficits - PSYCHIATRIC Psych/Mental Status: normal mood/affect <Kirt Hussein - Last Filed: 04/20/19 19:23> Progress - PLAN OF CARE/RESULTS Progress/Plan/Lab Results: Vital Signs - 8 hr 04/20/19 17:45 Temperature 97.8 F Pulse Rate 80 Respiratory Rate 18 Blood Pressure 108/76 O2 Sat by Pulse Oximetry 94 L Orders Category Date Time Status AMYLASE [CHEM] Stat Lab 04/20/19 17:56 Received BNP [PRO B-NATRIURETIC PEPTIDE] Stat Lab 04/20/19 17:56 Received CBC WITH DIFF [HEME] Stat Lab 04/20/19 17:56 Results COMPREHENSIVE METABOLIC PANEL [CHEM] Stat Lab 04/20/19 17:56 Received LIPASE [CHEM] Stat Lab 04/20/19 17:56 Received URINALYSIS W/POSS RFLX CULT [URINALYSIS] Stat Lab 04/20/19 17:54 Uncollected Result Diagrams: 04/20/19 17:56 04/20/19 17:56 - CHANGE OF SHIFT REPORT (ED Provider) 1 Report Given and Care Transferred to:: Dr Mcclure Time of Transfer: 19:00 Items Pending: Labs, XRAY Results <Kirt Hussein - Last Filed: 04/20/19 19:23> - PLAN OF CARE/RESULTS Progress/Plan/Lab Results: Vital Signs - 8 hr 04/20/19 17:45 04/20/19 19:41 Temperature 97.8 F Pulse Rate 80 63 Respiratory Rate 18 22 Blood Pressure 108/76 92/53 O2 Sat by Pulse Oximetry 94 L 94 L Laboratory Results - last 24 hr 04/20/19 04/20/19 04/20/19 17:56 17:56 17:56 WBC 9.09 RBC 2.80 L Hgb 9.0 L Hct 26.1 L MCV 93.2 MCH 32.1 H MCHC 34.5 RDW Std Deviation 14.4 Plt Count 100 L MPV 11.5 H Immature Gran % (Auto) 0.3 Neut % (Auto) 46.2 Lymph % (Auto) 39.1 Armstrong % (Auto) 13.9 H Eos % (Auto) 0.3 Baso % (Auto) 0.2 Immature Gran # (Auto) 0.03 Neut # (Auto) 4.20 Lymph # (Auto) 3.55 H Armstrong # (Auto) 1.26 H Eos # (Auto) 0.03 Baso # (Auto) 0.02 Sodium 129 L Potassium 5.0 Chloride 94 L Carbon Dioxide 24 L Anion Gap 11 BUN 55 H Creatinine 3.6 H Estimated GFR/1.73 m2 18 BUN/Creatinine Ratio 15 Glucose 137 H Calculated Osmolality 276 Calcium 7.3 L Total Bilirubin 1.20 H AST 35 H ALT 13 Alkaline Phosphatase 65 Gwa-U-Vugbuqsmxvl Pept Total Protein 7.7 Albumin 2.3 L Globulin 5.0 Albumin/Globulin Ratio 0.0 Amylase 98 Lipase 24 04/20/19 17:56 WBC RBC Hgb Hct MCV MCH MCHC RDW Std Deviation Plt Count MPV Immature Gran % (Auto) Neut % (Auto) Lymph % (Auto) Armstrong % (Auto) Eos % (Auto) Baso % (Auto) Immature Gran # (Auto) Neut # (Auto) Lymph # (Auto) Armstrong # (Auto) Eos # (Auto) Baso # (Auto) Sodium Potassium Chloride Carbon Dioxide Anion Gap BUN Creatinine Estimated GFR/1.73 m2 BUN/Creatinine Ratio Glucose Calculated Osmolality Calcium Total Bilirubin AST ALT Alkaline Phosphatase Occ-N-Porilancvwf Pept 385 H Total Protein Albumin Globulin Albumin/Globulin Ratio Amylase Lipase Orders Category Date Time Status Lopez Cath Insertion ORDERED Care 04/20/19 20:06 Active Nursing- Obtain EKG once Care 04/20/19 20:01 Active CHEST-PORTABLE [RAD] Stat Exams 04/20/19 20:[address] ABDOMEN/PELVIS W/O CONTRAST [CT] Stat Exams 04/20/19 18:13 Taken ALCOHOL BLOOD Stat Lab 04/20/19 19:59 Uncollected AMMONIA [CHEM] Stat Lab 04/20/19 19:59 Uncollected AMYLASE [CHEM] Stat Lab 04/20/19 17:56 Completed BLOOD CULTURE [BLDCUL] Stat Lab 04/20/19 19:59 Uncollected BNP [PRO B-NATRIURETIC PEPTIDE] Stat Lab 04/20/19 17:56 Completed CBC WITH DIFF [HEME] Stat Lab 04/20/19 17:56 Completed COMPREHENSIVE METABOLIC PANEL [CHEM] Stat Lab 04/20/19 17:56 Completed LACTATE, PLASMA [CHEM] Stat Lab 04/20/19 19:58 Uncollected LIPASE [CHEM] Stat Lab 04/20/19 17:56 Completed MAGNESIUM [CHEM] Stat Lab 04/20/19 19:59 Uncollected PROTIME WITH INR [COAG] Stat Lab 04/20/19 20:00 Uncollected PTT [COAG] Stat Lab 04/20/19 20:00 Uncollected TROPONIN T HIGH SENSITIVITY Stat Lab 04/20/19 20:00 Uncollected URINALYSIS W/POSS RFLX CULT [URINALYSIS] Stat Lab 04/20/19 17:54 Uncollected VALPROIC ACID [TDM] Stat Lab 04/20/19 17:56 Received phos [PHOSPHORUS] [CHEM] Stat Lab 04/20/19 19:59 Uncollected 0.9% Sodium Chloride Inj [Ns] 1,000 ml Med 04/20/19 18:51 Discontinued IV 999 mls/hr 0.9% Sodium Chloride Inj [Ns] 1,000 ml Med 04/20/19 18:55 Discontinued IV 999 mls/hr 0.9% Sodium Chloride Inj [Ns] 500 ml Med 04/20/19 19:59 Active IV 999 mls/hr Calcium Gluconate 1 gm Med 04/20/19 20:06 Active 0.9% Sodium Chloride Inj [Ns] 50 ml IV NOW Hydromorphone [Dilaudid] Med 04/20/19 19:30 Discontinued 0.5 mg IV NOW ONE Ondansetron [Zofran] Med 04/20/19 19:30 Discontinued 4 mg IV NOW ONE Piperacillin/Tazobactam [Zosyn] 3.375 gm Med 04/20/19 20:02 Active 0.9% Sodium Chloride Inj [Ns] 50 ml IV NOW EKG [EKG] Stat Ther 04/20/19 20:01 Ordered Result Diagrams: 04/20/19 17:56 04/20/19 17:56 - REASSESSMENT Reassessment #1 Time Reassessed: 20:07 Status: improving (Seen and examined by me. Case discussed with Dr. Hussein at shift change. Awaiting CT reports. Labs show CAITLYN with anemia, elebated LFTs, hypocalcemia, possible sepsis. Has transient hypotension. Will give 30ml/kg bolus, IV zosyn d/t abd pain. Has recieved IV dialudid/zofran. Will add levaphed if pressure doesn't come up. Abdomen is tense, appears to be ascites, CT scan prelim by me shows ileus/obstruction and large amount of free fluid in abdomen. Awaiting radiology interp, but will likely need transfer to .) - XRAY 1 XRAY Study: Chest Impression: Abnormal ( Signed CHEST-PORTABLE - 04/20/2019 INDICATION: sepsis COMPARISON: 09/14/2018 FINDINGS: Lung volumes are critically low with bibasilar atelectasis. Otherwise no infiltrates. Heart size is grossly normal. IMPRESSION: Critically low lung volumes. Electronically signed by Jesus Faith 04/20/2019 8:35 PM 04/20/192034 Interpreting Physician: Jesus Faith MD Dictated Date/Time: 04/20/192033 cc: Juan Mcclure MD; None,PCP), See EMR Report - CT/MRI 1 CT Study: Abdomen Impression: Abnormal, See EMR Report ( CT ABDOMEN/PELVIS W/O CONTRAST - INDICATION: distended swollen abdomen COMPARISON: 06/29/2018 FINDINGS: There is some patchy atelectasis in the lung bases. Heart size is normal. Anemia is present. There is moderate ascites. The liver is atrophic with a micronodular contour compatible with severe cirrhosis. Spleen size is normal. Other abdominal organs are normal. No bowel obstruction or inflammation. No free air. Urinary bladder, prostate, and rectum are normal. There are fusion rods at L4-L5. No acute bony lesions. IMPRESSION: Severe cirrhosis. Moderate ascites. This exam was performed using automated exposure control, adjustment of mA or kV according to patient size, and/or use of iterative reconstruction technique Electronically signed by Jesus Faith 04/20/2019 8:28 PM 04/20/192027 Interpreting Physician: Jesus Faith MD Dictated Date/Time: 04/20/192024 cc: Kirt Hussein MD; None,PCP) 2 CT Study: Head Impression: Normal, See EMR Report (Per [facility], no acute intracranial findings, no mass, ICH. There is post-surgical changes of right occipital craniotomy) - CONSULTS/PCP/HOSPITALIST Notification #1 *Consult/PCP/Hospitalist*: [place] Time Discussed: 22:30 Consult Disposition: Admit (to ICU) <Juan Mcclure - Last Filed: 04/20/19 23:07> Departure <Kirt Hussein - Last Filed: 04/20/19 19:23> - Departure Date of Disposition Decision: 04/20/19 Time of Disposition Decision: 23:07 Certified Medical Emergency: Emergent - Critical Care Note This patient required my direct & personal management of CC.: Yes Total Time (mins): 50 Critical Care Statement: This patient required my direct personal management to treat or rule out processes, the absence of which, could potentiallly result in sudden, clinically significant life or limb threatening deterioration. <Juan Mcclure - Last Filed: 04/20/19 23:07> - Departure DIAGNOSIS: Hepatorenal syndrome Cirrhosis of liver with ascites Qualifiers: Hepatic cirrhosis type: alcoholic cirrhosis Qualified Code(s): K70.31 - Alcoholic cirrhosis of liver with ascites Hypotension Qualifiers: Hypotension type: unspecified hypotension type Qualified Code(s): I95.9 - Hypotension, unspecified Anemia Qualifiers: Anemia type: unspecified type Qualified Code(s): D64.9 - Anemia, unspecified Altered mental status Qualifiers: Altered mental status type: somnolence Qualified Code(s): R40.0 - Somnolence Disposition: ADMITTED INPATIENT 09 Condition: Critical Referrals and Follow-Ups: None,PCP [Primary Care Provider] - Attestation - Physician/ LILIYA Attestation Patient care was provided by Advanced Practice Provider:: No The physician spent face to face time with patient:: Yes Advanced Practice Provider documentation review:: Supervising physician onsite and consulted in the evaluation and care of this patient. The physician did have a face to face encounter with the patient. <Juan Mcclure - Last Filed: 04/20/19 23:07> This chart was documented by the indicated scribe, (Amy Cartwright, [place]) and accurately reflects the services I performed and decisions made by me, Kirt Hussein MD, as attested by the provider's signature.
[2019-04-20] MEDS ORDERED: DILAUDID IV ONE ×2 (19:30→22:20)
[2019-04-20] MEDS ORDERED: ZOFRAN IV ONE (19:30)
[2019-04-20] MEDS ORDERED: NS 500 ML IV ONE (19:59)
[2019-04-20] MEDS ORDERED: ZOSYN 3.375 GM in NS 50 ML IV ONE (20:02)
[2019-04-20] MEDS ORDERED: CALCIUM GLUCONATE 1 GM in NS 50 ML IV ONE (20:06)
[2019-04-20 20:25] LABS: INR 1.3; PROTIME 16.9 Seconds (11.0-16.0)
[2019-04-20 20:26] LABS: PTT 30.5 Seconds (22.3-41.8)
[2019-04-20] MEDS ORDERED: LEVOPHED 8 MG in D5 1/2 NS 250 ML IV SCH (20:30)
--- NOTE | 2019-04-20 20:31 | Diag Imaging Result Doc PS360 ---
CT ABDOMEN/PELVIS W/O CONTRAST - 04/20/2019 INDICATION: distended swollen abdomen COMPARISON: 06/29/2018 FINDINGS: There is some patchy atelectasis in the lung bases. Heart size is normal. Anemia is present. There is moderate ascites. The liver is atrophic with a micronodular contour compatible with severe cirrhosis. Spleen size is normal. Other abdominal organs are normal. No bowel obstruction or inflammation. No free air. Urinary bladder, prostate, and rectum are normal. There are fusion rods at L4-L5. No acute bony lesions. IMPRESSION: Severe cirrhosis. Moderate ascites. This exam was performed using automated exposure control, adjustment of mA or kV according to patient size, and/or use of iterative reconstruction technique Electronically signed by Jesus Faith 04/20/2019 8:28 PM
--- NOTE | 2019-04-20 20:37 | Diag Imaging Result Doc PS360 ---
CHEST-PORTABLE - 04/20/2019 INDICATION: sepsis COMPARISON: 09/14/2018 FINDINGS: Lung volumes are critically low with bibasilar atelectasis. Otherwise no infiltrates. Heart size is grossly normal. IMPRESSION: Critically low lung volumes. Electronically signed by Jesus Faith 04/20/2019 8:35 PM
[2019-04-20 20:50] LABS: MAGNESIUM 5.1 mg/dL (1.5-2.7); PHOSPHORUS 6.1 mg/dL (2.7-4.5)
[2019-04-20] MEDS ORDERED: LASIX IV ONE (21:03)
[2019-04-20 21:21] LABS: BE -2.3 mmoll (-3.0-3.0); BLOOD TYPE ARTERIAL; METHB 1.3 % (0.0-1.5); O2(CT) 12.6 mL/dL (15.0-23.0); O2HB 90.8 % (95.0-99.0); PCO2(98.6) 42 mmHg (35-45); PO2(98.6) 70 mmHg (60-100); SAMPLE BLOOD; SAO2 95.6 % (95.0-100.0); THB 9.8 g/dL (11.5-17.4); pH(98.6) 7.35 (7.35-7.45)
[2019-04-20 21:22] LABS: ALLEN TEST YES; MODALITY ROOM AIR
[2019-04-20 22:43] LABS: URINE SOURCE CATH
[2019-04-20 22:48] LABS: BILIRUBIN URINE NEGATIVE (NEGATIVE); BLOOD URINE NEGATIVE (NEGATIVE); COLOR YELLOW; GLUCOSE URINE TRACE mg/dL (NEGATIVE); KETONE URINE NEGATIVE (NEGATIVE); LEUKOCYTES URINE NEGATIVE (NEGATIVE); NITRITE URINE NEGATIVE (NEGATIVE); PROTEIN URINE NEGATIVE (NEGATIVE); SP GRAVITY URINE 1.014; TURBIDITY URINE CLEAR (CLEAR); UR EPITHELIAL CELLS <10 /HPF (<10); URINE BACTERIA NEGATIVE /HPF; URINE RBC <10 /HPF (<10); URINE WBC <10 /HPF (<10); UROBILINOGEN URINE 2 mg/dL (NORMAL)
[2019-04-20 23:16] LABS: UR AMPHETAMINES QUAL NONE DETECTED (NONE DETECT); UR BARBITUATES QUAL NONE DETECTED (NONE DETECT); UR BENZODIAZEPIN QUAL NONE DETECTED (NONE DETECT); UR CANNABINOIDS QUAL PRESUMPTIVE POSITIVE (NONE DETECT); UR COCAINE QUAL NONE DETECTED (NONE DETECT); UR METHADONE QUAL NONE DETECTED (NONE DETECT); UR METHAMPHETAMINE QUAL NONE DETECTED (NONE DETECT); UR OPIATES QUAL PRESUMPTIVE POSITIVE (NONE DETECT); UR OXYCODONE QUAL NONE DETECTED (NONE DETECT); UR PCP QUAL NONE DETECTED (NONE DETECT); UR PROPOXYPHENE QUAL NONE DETECTED (NONE DETECT); UR TCA QUAL NONE DETECTED (NONE DETECT)
[2019-04-20 23:17] LABS: URINE CASTS GRANULAR PRESENT; URINE CRYSTALS NONE SEEN; URINE SMALL ROUND CELLS NONE SEEN; URINE YEAST NONE SEEN
--- NOTE | 2019-04-20 23:37 | ED EKG INTERP ---
This chart was entered by Amy Cartwright Scribe, acting as scribe for Juan Mcclure MD. EKG Interpretation - EKG Time of EKG reading by physician:: 23:32 EKG Read and Signed by:: Juan Mcclure EKG Interpretation (*Must complete 3 of following elements*): Abnormal Rate: 63 Rhythm: nsr QRS: poor R wave progression, other (low voltage QRS) Attestation - Physician/ LILIYA Attestation Patient care was provided by Advanced Practice Provider:: No The physician spent face to face time with patient:: Yes Advanced Practice Provider documentation review:: Supervising physician onsite and consulted in the evaluation and care of this patient. The physician did have a face to face encounter with the patient. This chart was documented by the indicated scribe, (Amy Cartwright, Delores) and accurately reflects the services I performed and decisions made by Ren peguero Kent A., MD, as attested by the provider's signature.
--- NOTE | 2019-04-20 23:50 | EKG Report ---
Test Performed on : 04/20/2019 11:32:54 PM Test Reason : sepsis Blood Pressure : / mmHG Vent. Rate : 063 BPM Atrial Rate : 063 BPM P-R Int : 166 ms QRS Dur : 078 ms QT Int : 406 ms P-R-T Axes : 043 010 015 degrees QTc Int : 415 ms Normal sinus rhythm. Normal ECG When compared with ECG of 14-SEP-2018 10:12, QRS voltage has decreased Confirmed by Denver MAGALLON, Smay Kaplan ([id number]) on 04/23/2019 5:56:26 PM
[2019-04-21] MEDS ORDERED: DILAUDID IV ONE (01:34)
[2019-04-21] MEDS ORDERED: LASIX IV ONE (01:53)
[2019-04-21] MEDS ORDERED: LASIX ONE (02:00)
[2019-04-21] MEDS ORDERED: ALBUMIN 25% IV ONE (02:14)
[2019-04-21] MEDS: ROCEPHIN 2 GM in NS 50 ML IV SCH (03:09)
[2019-04-21] MEDS: PITRESSIN 40 UNIT in NS 100 ML IV SCH (03:19)
--- NOTE | 2019-04-21 04:06 | HISTORY AND PHYSICAL ---
ADDENDUM: PRIMARY CARE PHYSICIAN: Quang Hart MD. HISTORY OF PRESENT ILLNESS: The patient reports a 3-week history of abdominal swelling with subsequent difficulty breathing and abdominal pain. He was seen in the ER today. He also reports that his urine output has declined over the same period of time. He complains of being constipated and has been taking Milk of Magnesia for the last couple of weeks. CT scan was done and it showed severe cirrhosis with moderate ascites. CT scan done less than a year ago, there was no mention of any liver pathology, even though his bilirubin was about the same as it was. Ultrasound ordered at that time to evaluate the reason for elevated LFTs was done, but for some unusual reason, there was no comment on the liver. Currently on his CT scan, it shows moderate ascites. PHYSICAL EXAMINATION: GENERAL: The patient is in a lot of pain. He is alert and oriented x3, although he has a somewhat stuporous gaze. He has positive asterixis. He has icteric sclera. GASTROINTESTINAL: His abdomen is markedly distended and diffusely tender without any rebound or guarding. EXTREMITIES: He has 1+ pitting edema. LABORATORY DATA: His other lab work which I failed to mention, of note is that his BUN is 55, creatinine is 3.6. He had a normal creatinine in August of last year. Oddly enough, his bilirubin has come down to 1.2 from 3 a year ago. ASSESSMENT/PLAN: He was given 3 L of fluid in [place] and given subsequently 40 IV Lasix, I presume the former was given because he was borderline hypotensive and they were concerned he may be septic, but this was later not the case and after realizing this, they gave him Lasix to try and mobilize that fluid, being that some of the fluid was probably going into his peritoneum. My working diagnosis is hepatorenal syndrome, probably and unfortunately type 1, which portends a poor prognosis, which could have been triggered from possible spontaneous bacterial peritonitis. The patient has mild hepatic encephalopathy. The patient has hepatitis C/alcohol-induced cirrhosis, which is the primary insult here. We will start patient on Claforan, which is the approved antibiotic of choice, 1 g q.8, adjust for renal function. Patient is in a lot of pain. We will have to treat him with opioids in the short term, even though with the potential to worsen encephalopathy. The patient will benefit from therapeutic and diagnostic paracentesis in the morning. The decision to start patient on albumin, octreotide, and midodrine will be left to the GI physician. Patient is somewhat between critically ill and non-critically ill. I do believe that if the patient is to undergo paracentesis, albumin and octreotide at least should be started. Alternatively, might start the patient on vasopressin. Our goal is maintain and increase the vascular pressure of GI tract and will start the patient on vasopressin. Hopefully, this may reverse or assist and increase renal profusion. cc: Lurdes Rai MD
[2019-04-21] MEDS: DILAUDID IV PRN ×5 (06:32→23:28)
[2019-04-21 07:04] LABS: INR 1.76; PROTIME 20.9 Seconds (11.0-16.0)
[2019-04-21 08:04] LABS: IRON SATURATION 30 %; TIBC 114 ug/dL; TOTAL IRON 34 ug/dL (53-167); UNBOUND IRON 80 ug/dL (112-346)
[2019-04-21 08:08] LABS: ALB/GLOB RATIO 1.1; ALBUMIN 3.8 g/dL (3.5-5.0); CALCIUM 7.7 mg/dL (8.8-10.2); FERRITIN 799 ng/mL (30-400); MAGNESIUM 4.6 mg/dL (1.5-2.7); PHOSPHORUS 5.6 mg/dL (2.7-4.5); POTASSIUM 5.1 mmol/L (3.5-5.1); TOTAL BILIRUBIN 1.24 mg/dL (0.20-1.00); TOTAL PROTEIN 7.3 g/dL (6.3-8.3)
--- NOTE | 2019-04-21 08:16 | Diag Imaging Result Doc PS360 ---
CT HEAD W/O CONTRAST - 04/20/2019 INDICATION: altered mental status COMPARISON: None FINDINGS: There is mild cerebral atrophy. No intracranial mass or hemorrhage. There are changes of previous right suboccipital craniotomy. No evidence of common location. No cerebellar tonsillar ectopia. No herniation. The sinuses, mastoids, and middle ears are clear. IMPRESSION: No acute disease. This exam was performed using automated exposure control, adjustment of mA or kV according to patient size, and/or use of iterative reconstruction technique Electronically signed by Jesus Faith 04/21/2019 8:14 AM
[2019-04-21 09:45] LABS: BASO# 0.03 X1000 (0.0-0.2); BASO% 0.7 % (0.0-0.8); EOS# 0.01 X1000 (0.0-0.7); EOS% 0.2 % (0.0-10.0); HEMATOCRIT 22.9 % (42.0-52.0); HEMOGLOBIN 7.9 g/dL (14.0-18.0); IMM GRAN# 0.03 X1000 (0.0-0.04); IMM GRAN% 0.7 % (0.0-0.5); LYMPH# 1.47 X1000 (1.2-3.4); LYMPH% 35.6 % (20.5-51.1); MCH 32.9 PG (27-31); MCHC 34.5 g/dL (33-37); MCV 95.4 FL (81-99); MONO# 0.49 X1000 (0.11-0.59); MONO% 11.9 % (1.7-9.3); MPV 10.9 FL (7.4-10.4); NEUT% 50.9 % (42.2-75.2); PLT 64 X1000 (130-400); RDW 14.4 % (11.5-14.5); WBC 4.13 X1000 (4.8-10.8)
[2019-04-21] MEDS ORDERED: FOLIC ACID PO ONE (09:56)
[2019-04-21] MEDS: DEPAKOTE PO SCH (10:24)
[2019-04-21] MEDS: SODIUM CHLORIDE 0.9% INJ SCH (10:25)
[2019-04-21] MEDS: PROTONIX IV SCH (10:25)
[2019-04-21 10:55] LABS: UR CREAT RANDOM 53.2 mg/dL (14-26); UR PROT RANDOM 5.4 mg/dL
[2019-04-21] MEDS: ALBUMIN 25% IV SCH ×3 (11:51→23:27)
[2019-04-21] MEDS: VITAMIN B-1 PO SCH (11:51)
--- NOTE | 2019-04-21 12:53 | HISTORY AND PHYSICAL ---
PRIMARY CARE PROVIDER: Dr. Quang Hart MD. DATE AND TIME: 04/21/2019 at 0200. CHIEF COMPLAINT: Abdominal pain. HISTORY OF PRESENT ILLNESS: Mr. Mcduffie is a 59-year-old male who presented to the ER for complaints of abdominal pain. The patient states for approximately a 3 week period now he has had progressively worsening swelling in his abdomen. He reports pain generalized across his abdomen around to his bilateral flanks, and his back. He does report some intermittent nausea and vomiting at times since his abdominal pain and swelling started. Though he denies any diarrhea, he actually reports that he has been constipated, and has been taking Milk of Magnesia for the last couple of days. He also reports bilateral lower extremity swelling that has been ongoing for approximately 1 month. The patient is reporting some shortness of breath, though this is likely due to his distended abdomen. The patient has not previously had any issues with ascites or having to undergo paracentesis. He does have a history of hepatitis C, and some alcohol use. The patient reports to me at this time that he has drank approximately 5 beers over the whole entire course of March. He does report that he smoked 2 to 3 marijuana cigarettes this morning. He does smoke as well though it is down to 2 to 3 cigarettes a day at this time. The patient is a little unsure about some of his medicines and doses, though did state that he takes Depakote for seizures. He takes lisinopril hydrochlorothiazide for his blood pressure. He does take Cardizem from what I can tell though he cannot tell me exactly why he takes this. He denied any known history of having any irregular heart rhythms or tachy dysrhythmias. Though he denies any fever or body aches, he is reporting chills. He denies any headache or dizziness. He denies any chest pain. He was reporting a little shortness of breath. He denies any cough. He denies any known hematemesis or coffee-ground appearing emesis. He denies any hematochezia or melena. The patient has noted a decrease in the amount of his urine output, though denies any dysuria. He does report the swelling in his bilateral lower extremities from approximately the knee level down bilaterally though denies any other pain, numbness, tingling or swelling in other extremities. Upon evaluation in the ER at [facility], he was noted to be slightly anemic with a hemoglobin of 9 and hematocrit 26. INR is 1.3. He was slightly hyponatremic with a sodium of 129, though does have an acute kidney injury noted with BUN 55 and creatinine of 3.6 with a GFR of 18. Last known creatinine was 0.8 in August of 2018. Though his total bilirubin is elevated at 1.2. This is actually improved from previous studies. Urine drug screen was positive for opiates and cannabinoids. The patient did admittedly state that he smoked marijuana, and he does have a prescription for [place]. Valproic acid level was 72. Serum alcohol was 0. Given laboratory results and patient's physical examination, they did perform a chest x-ray which did not show any acute abnormalities, just low lung volumes. CT abdomen and pelvis though did show severe cirrhosis with moderate ascites. His CT without contrast showed no acute intracranial findings. It looks as though the patient was mildly hypotensive in the ER at [facility]. They did give him what appears to be a total of either 2500 mL normal saline or 3000 mL normal saline. He was given 1 dose of Lasix 40 mg IV after administration of fluids. The patient has been transferred to [facility] for inpatient admission to the ICU. He was resting in the ICU bed. He was awake, alert, and able to answer questions appropriately. The patient is alert and oriented x4. He does maybe have some beginnings of hepatic encephalopathy. He does have asterixis noted in bilateral hands though his ammonia level was within normal limits at 35. He has been placed for inpatient admission. REVIEW OF SYSTEMS: A 14 point review of systems was conducted with the patient, and all were negative except for pertinent positives mentioned above in HPI. PAST MEDICAL HISTORY: 1. Cerebral aneurysm status post craniotomy. 2. Hypertension. 3. Nicotine dependence. 4. Seizure disorder. 5. Reflux esophagitis. 6. Chronic back and neck pain. 7. Reported history of possible COPD. 8. Reported history of possible CHF. 9. History of hepatitis C. PAST SURGICAL HISTORY: 1. Brain surgery x2. 2. Chest wall cyst removal by Dr. Greenberg. 3. Two back surgeries. SOCIAL HISTORY: The patient does live at home. He is a 2 to 3 cigarettes per day smoker, and has done so for 10 to 15 years. He does report that he frequently smokes marijuana and did smoke 2 to 3 marijuana cigarettes reportedly this morning prior to coming to the ER. He reports that he only very rarely occasionally drinks alcohol, and has drank a total of 5 beers during the whole month of March. FAMILY HISTORY: Positive for his mother having a history of lung cancer. His father did not have any known medical problems. He does have 1 brother who had a history of renal failure and was on dialysis. He has a brother who did have what he believed was gastric cancer. ALLERGIES: Patient has no known allergies. HOME MEDICATIONS: We are waiting for the patient's home medication list to be updated and verified. They were able to get verbal report that he does take Depakote daily for seizures. He takes lisinopril/hydrochlorothiazide for blood pressure. He was unsure of exactly for what reason he took Cardizem though does not report any known history of tachycardia or irregular heartbeat. The patient does also have chronic pain and takes I believe [place] for this. We are going to try to contact his pharmacy today on Tuesday once they open to verify his medications and dosages especially his Depakote given his history of seizures. DIAGNOSTIC DATA/LABORATORY RESULTS: White blood cell count is 9990, hemoglobin 9, hematocrit 26.1, and platelet count is 100,000. PT 16.9, INR 1.3, PTT is 30.5. Sodium 129, potassium 5, chloride 94, serum bicarbonate is 24, BUN 55, and creatinine 3.6. GFR of 18, glucose 137, calcium 7.3, phosphorus 6.1, magnesium 5.1, and total bilirubin is 1.2. AST 35, ALT 13, alkaline phosphatase is 65. Ammonia is 35. Troponin T high sensitivity was 48. ProBNP was 385. Amylase is 98. Lipase 24. Lactate is 1.7. Valproic acid level was 72.1. Serum alcohol was 0. Arterial blood gases were obtained on room air, pH 7.35, pCO2 42, PO2 70, HC03 is 23, base excess is -2.3 with a oxyhemoglobin of 90.8, and O2 saturation of 95.6. Urinalysis was obtained via catheter was negative for protein, ketones, blood, nitrites, leukocytes, white blood cells, or bacteria. Urine drug screen was positive for opiates and cannabinoids. EKG showed normal sinus rhythm at a rate of 63 with a QTc of 415. Chest x-ray showed critically low lung volumes, though no other acute abnormalities were noted. CT of the head without contrast did not show any acute intracranial abnormalities. CT abdomen and pelvis without contrast showed severe cirrhosis and moderate ascites. PHYSICAL EXAMINATION: VITAL SIGNS: Temperature 97.9 degrees, heart rate 67, respirations 16, blood pressure is 104/65 with a MAP of 78. Oxygen saturations 98% on room air. GENERAL: Mr. Mcduffie is a pleasant 59-year-old male who is resting in the ICU bed. He was in no acute distress. He was awake, alert, and able to answer questions appropriately. HEENT: Head is atraumatic, normocephalic. Pupils are equal, round, and reactive to light, were 3 mm bilaterally and brisk. Oral mucosa is moist. Oropharynx is clear. NECK: Supple. Trachea midline. CARDIOVASCULAR: Patient has S1-S2 present. No murmurs, gallops, or rubs appreciated with a regular rate and rhythm. PULMONARY: Patient has symmetrical chest expansion bilaterally. Lung sounds clear to auscultation in bilateral full toribio. ABDOMEN: Soft. Slightly firm, and was distended. He did have generalized tenderness noted upon palpation. Bowel sounds were present in all 4 quadrants, and were normoactive. EXTREMITIES: The patient does have 1+ pitting edema noted in bilateral lower extremities from the level of the knee down. Pulse, motor and sensory is intact in all extremities. Radial pulses were 2+ bilaterally. Pedal pulses were 1+ bilaterally. INTEGUMENTARY: The patient's skin color is normal for his race, is dry and intact. NEUROLOGICAL: The patient is alert and oriented to person, place, time, and situation. He is able to move all extremities. There are really no focal neurological deficits noted. The patient did have some asterixis noted upon dorsal flexion of his bilateral hands. ASSESSMENT AND PLAN: 1. Liver cirrhosis. 2. Ascites. 3. History of hepatitis C. For treatment of these, we have placed orders for a diagnostic and therapeutic ultrasound-guided paracentesis in the morning. We have placed orders for peritoneal fluid studies as well. The patient will be NPO at this time. He is experiencing quite a bit of abdominal pain due to his abdominal distention. We have placed p.r.n. orders for pain medication though once his ascites has improved, this pain medication may need to be discontinued given his liver dysfunction, and for altered mental status secondary to this. We have placed a consult with Dr. Molina with Gastroenterology. We will await his evaluation and further recommendations for management. 4. Hepatorenal syndrome. We will continue with treatment as mentioned above for #1, 2 and 3. We will continue with the paracentesis and diagnostic studies of peritoneal fluid. We will place the patient with antibiotics of Rocephin 2 g q.24 hours. The initial choice was Claforan though we do not have this available in our pharmacy. Blood cultures have already been obtained. The patient will given albumin vasopressin. We will await Gastroenterology's evaluation as well. We have also placed a consult with Dr. Dominguez with Nephrology. We will await his recommendations also. 5. Possible spontaneous bacterial peritonitis. We will continue to be as mentioned above from #1. We have obtained blood cultures. We are awaiting diagnostic studies of the peritoneal fluid. We have placed him with IV Rocephin for antibiotic coverage. 6. Hepatic encephalopathy. The patient is alert and oriented to person, place, time, and situation at this time though does have some asterixis noted bilaterally upon dorsal flexion. We will continue to monitor this closely for any worsening symptoms. Ammonia level was within normal limits. We have placed neuro checks. 7. History of seizures. The patient does report he takes Depakote. We are going to confirm this dose. Hopefully, today, his [facility] is open today. We can call and verify this, and we will continue this as well. 8. Deep vein thrombosis prophylaxis provided with sequential compression devices. The patient has been placed in the ICU for close monitoring. We will repeat his CBC and chemistry studies in the morning. We have also added an anemia profile. Further orders and recommendations pending hospital course, diagnostic studies, and physician evaluation. Dictated by TURNER Keyes for Lurdes Rai MD cc: Lurdes Rai MD [facility]
--- NOTE | 2019-04-21 20:17 | NEPHROLOGY CONSULTATION ---
DATE: 04/21/2019 REASON FOR CONSULTATION: Possible hepatorenal syndrome. HISTORY OF PRESENT ILLNESS: Mr. Mcduffie is a 59-year-old, man with a history of cirrhosis secondary to alcohol and hepatitis C. Has a history of CHF, COPD, seizure disorder, and hypertension. He presented to the emergency room with a 3-week period of progressively worsening abdominal distention and lower extremity swelling. These symptoms led to shortness of breath and generalized declining functional status that ultimately resulted in him to come to the emergency room. His initial evaluation found a blood pressure of 108/76 with heart rate 80 and respirations 18. His initial creatinine was 3.6. There was concern for hepatorenal syndrome. He was treated with IV albumin beginning last evening, and continues. With this intervention, his urine output has improved, and he had 1500 mL of urine overnight. Creatinine improved from 3.6 to 3.0 with a concomitant fall in BUN from [address] of the abdomen disclosed "severe cirrhosis, moderate ascites." PAST MEDICAL HISTORY: As above. HOME MEDICATIONS: Include divalproate, diltiazem, hydrocodone, lisinopril, hydrochlorothiazide, cetirizine. ALLERGIES: None. SOCIAL HISTORY: He is . Has a 38-year-old son. He continues to smoke tobacco and marijuana, and very rare alcohol. FAMILY HISTORY: Noncontributory. REVIEW OF SYSTEMS: Noncontributory. PHYSICAL EXAMINATION: Vital Signs: Blood pressure 106/61, heart rate 85, respirations 23. Afebrile. General: No acute distress. Chronically ill. Skin: Warm and dry. Neck: Neck veins are not appreciated. Trachea is midline. HEENT: Facial wasting is present. Chest: PMI is displaced. Heart: Regular with systolic murmur. Lungs: Equal, shallow. A few crackles. Abdomen: Soft, nontender. Bowel sounds are present. He is markedly distended. Extremities: With 2+ to 3+ edema. No clubbing or cyanosis. IMPRESSION/PLAN: Acute kidney injury. Likely prerenal. His lisinopril has been appropriately withheld, and he has received IV albumin and furosemide. He seems to be responding to this therapy, and so we will continue. Lasix will not be ordered in a standing fashion, however. He has modest hyperkalemia with a potassium of 5.0. Moderate hyponatremia with sodium of 129. Continue current care. cc: Vic Dominguez MD
--- NOTE | 2019-04-22 01:11 | GASTROENTEROLOGY CONSULTATION ---
DATE: 04/21/2019 REASON FOR CONSULTATION: Decompensated cirrhosis with ascites. HISTORY OF PRESENT ILLNESS: Mr. Regino Mcduffie is a 59-year-old gentleman with past medical history of hypertension, seizure disorder, GERD, chronic hepatitis C and COPD. He presents with 3 weeks of worsening abdominal distention and lower extremity edema. He reports having intermittent nausea and vomiting, difficulty breathing and taking deep breaths, chills, and diffuse abdominal pain. He has noticed streaks of bright red blood per rectum with straining. No jaundice, chest pain, shortness of breath at rest, fever, gross hematemesis or melena. He has gained about 10 pounds over this same period. He drinks heavily, about 3-4 beers per day. His last drink was yesterday. No family history of liver disease. He denies any prior diagnosis of cirrhosis. He was treated for hepatitis C back in the , which failed. 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 REVIEW OF SYSTEMS: As per HPI, otherwise 12-point review of systems is negative. PAST MEDICAL HISTORY: As per HPI. Tobacco abuse, marijuana abuse, alcoholism. PAST SURGICAL HISTORY: History of brain aneurysm, status post craniotomy and clip; back surgery x2. FAMILY HISTORY: Mother and brother have lung cancer. Another brother had liver cancer. SOCIAL HISTORY: He drinks 3-4 beers per day, 1/4 pack smoker per day, marijuana use. MEDICATIONS: Lisinopril, Depakote, Ambien, hydrocodone. ALLERGIES: No known drug allergies. PHYSICAL EXAMINATION: Vital Signs: Temperature is 98.6 degrees, heart rate 79, respiratory rate 14, blood pressure 90/56, O2 saturation 100% on 2 L nasal cannula. General: The patient is awake, alert, oriented x3. HEENT: Sclerae anicteric. Moist mucous membranes. Extraocular motor intact. Neck: Supple. No JVD or lymphadenopathy. Cardiac: Regular rate and rhythm. No murmurs. Lungs: Clear to auscultation bilaterally. No wheezing. Abdomen: Distended. Tympanic anteriorly with dullness to percussion on the flank. Extremities: Minimal edema. Neurologic: Moving extremities symmetrically bilaterally. He does have some mild asterixis. LABORATORY DATA: White count of 4.13, hemoglobin 9.7 from 9.0, platelets of 64,000. INR of 1.76. Sodium 132, potassium 5.1, chloride 95, bicarbonate 24, anion gap 13, BUN of 51, creatinine 3.0, glucose of 146, calcium 7.7, phosphorus 5.6, magnesium 4.6. Iron 34, ferritin of 799. Total bilirubin of 1.24, AST is 21, ALT of 8, alkaline phosphatase 44. Vitamin B12 is 14.5, folate 8.4. Lipase 24. UA negative. Urine toxicology positive for opiates and cannabinoids. Alcohol not detected. DIAGNOSTIC DATA: CT abdomen and pelvis from 04/20 shows severe cirrhosis with moderate ascites. Chest x-ray shows critically low lung volumes. Head CT shows no acute disease. PROBLEM LIST: - HCV/ETOH Cirrhosis with ascites - Nausea and vomiting - Anemia of chronic disease - Thrombocytopenia - Coagulopathy - Hyponatremia - Acute kidney injury - COPD - Alcoholism ASSESSMENT AND PLAN: Mr. Regino Mcduffie is a 59-year-old gentleman with past medical history of chronic hepatitis C, alcoholism, tobacco abuse, seizure disorder and hypertension. He presents with newly decompensated hepatitis C virus alcohol cirrhosis with ascites. His labs are notable for significant anemia, thrombocytopenia, hyponatremia, acute kidney injury and anemia of chronic disease. He was given an antibiotic on presentation, including ceftriaxone; vasopressin, as his blood pressures were borderline; 100 g of albumin; Dilaudid intravenously in the emergency room. He also was given Zosyn. I recommend that we hold the diuretics at this time, continue albumin 25 g q.6 hours. Low threshold to start him on CIWA protocol; oral thiamine and folate. Clear liquid diet. Trend his liver function tests, CBC and INR. We will give vitamin K in the setting of coagulopathy. The patient will need a diagnostic and therapeutic paracentesis on Tuesday. In the meantime, we will treat supportively and empirically with antibiotics for spontaneous bacterial peritonitis. Thank you for this consult. We will follow with you. Please call with any questions or concerns. [facility]
[2019-04-22] MEDS: ROCEPHIN 2 GM in NS 50 ML IV SCH (02:10)
[2019-04-22] MEDS: DILAUDID IV PRN ×5 (02:58→16:47)
[2019-04-22] MEDS: ALBUMIN 25% IV SCH ×5 (04:44→23:14)
[2019-04-22 06:15] LABS: HEMATOCRIT 23.4 % (42.0-52.0); MCH 33.3 PG (27-31); MCHC 34.2 g/dL (33-37); MCV 97.5 FL (81-99); MPV 11.6 FL (7.4-10.4); RBC 2.4 XMIL (4.7-6.1); RDW 14.6 % (11.5-14.5); WBC 8.48 X1000 (4.8-10.8)
[2019-04-22 06:16] LABS: INR 1.71; PROTIME 20.4 Seconds (11.0-16.0)
[2019-04-22 07:31] LABS: ALB/GLOB RATIO 1.4; ALBUMIN 4.2 g/dL (3.5-5.0); CALCIUM 7.8 mg/dL (8.8-10.2); CREATININE 2.9 mg/dL (0.7-1.2); PHOSPHORUS 5.5 mg/dL (2.7-4.5); POTASSIUM 4.9 mmol/L (3.5-5.1); TOTAL BILIRUBIN 1.07 mg/dL (0.20-1.00); TOTAL PROTEIN 7.2 g/dL (6.3-8.3)
[2019-04-22] MEDS: FOLIC ACID PO SCH (08:43)
[2019-04-22] MEDS: VITAMIN B-1 PO SCH (08:43)
[2019-04-22] MEDS: VITAMIN K 10 MG in NS 50 ML IV SCH (08:43)
[2019-04-22] MEDS: DEPAKOTE PO SCH (08:43)
[2019-04-22] MEDS: PROTONIX IV SCH (09:28)
--- NOTE | 2019-04-22 11:15 | PROVIDER PROGRESS NOTE ---
Progress Note US-GUIDED DIAGNOSTIC AND THERAPEUTIC PARACENTESIS INDICATION: Ascites PROCEDURE MARKETING PR INTERN: Catracho Molina MD ATTENDING PHYSICIAN: Catracho Molina MD Ultrasound used to rich location: Y CONSENT: Consent was obtained from patient prior to the procedure. Indications, risks, and benefits were explained at length. PROCEDURE SUMMARY: A time-out was performed. My hands were washed immediately prior to the procedure. I wore sterile gown and sterile gloves throughout the procedure. The area was cleansed and draped in usual sterile fashion using iodine. Anesthesia was achieved with 1% lidocaine. The _ of the abdomen was prepped and draped in a sterile fashion using iodine. 1% lidocaine was used to numb the skin, soft tissue and peritoneum. The paracentesis catheter was inserted and advanced with negative pressure until clear yellow-colored fluid was aspirated. The catheter was then connected to the vaccutainer and 4.5 liters of ascitic fluid were drained. Ascitic fluid was collected and sent for laboratory analysis. The catheter was removed and no leaking was noted. A bandaid was placed over the puncture wound. The patient tolerated the procedure well without any immediate complications. Estimated blood loss was minimal Impression: Technically successful Ultrasound-guided paracentesis yielding 4500 mL of serous fluid. Patient is receiving albumin 25g every 6 hours.
[2019-04-22 12:21] LABS: BODY FLUID SOURCE PERITONEAL FLUID; WBC BF 320 /cumm
[2019-04-22 12:40] LABS: MONOS 53 %; POLYS 47 %
[2019-04-22 12:47] LABS: ALBUMIN BODY FLUID 1.5 g/dL; GLUCOSE BODY FLUID 140 mg/dL; LDH BODY FLUID 120 U/L; TOTAL PROT BODY FLUID 3.7 g/dL
--- NOTE | 2019-04-22 21:21 | PROGRESS NOTE ---
DATE: 04/22/2019 SUBJECTIVE: The patient was complaining of severe abdominal pain and distention due to his ascites. He underwent a bedside ultrasound guided paracentesis done by Dr. Molina this morning. At this time, he feels much better. OBJECTIVE: Vital Signs: Temperature 98.8 degrees, blood pressure 95/64, heart rate 92, respirations 15, O2 saturations 100% on 2 L nasal cannula. Intake 1.2 L, output is 1.1 L. General: This is a chronically ill-appearing elderly male lying in bed in no acute distress. Heart: S1, S2 normal. Regular rate and rhythm. Lungs: Equal air entry bilaterally. No wheezing. No rales. No rhonchi. Abdomen: Positive bowel sounds. Soft, mildly distended. Extremities: No edema, no cyanosis. Neurologic: The patient is alert and oriented x3. LABS: White blood cell count 8.4, hemoglobin 8, hematocrit 23, platelets 66,000. INR 1.7. Sodium 136, potassium 4.9, chloride 99, CO2 25, BUN 51, creatinine 2.9, glucose 134. Mag 5.5, calcium 7.8, AST 24, ALT 8, alkaline phosphatase 38. ASSESSMENT AND PLAN: 1. Decompensated liver failure in the setting of hepatitis C and alcoholic liver cirrhosis. The patient underwent a paracentesis today at which time 4.2 L of ascitic fluid were removed. Continue supportive care. 2. Status post ultrasound-guided paracentesis secondary to ascites. Continue with albumin. Gastroenterology is following. 3. Acute kidney injury. Unchanged. Continue to monitor closely for improvement. 4. Alcohol dependence. The patient has been counseled about cessation. 5. Anemia. The hemoglobin and hematocrit is low, but stable. 6. Chronic thrombocytopenia. Continue to monitor the platelet count closely. 7. Coagulopathy. Continue on vitamin K. 8. Hepatitis C status post treatment. Aware. cc: Tamiko Gomez MD
[2019-04-22] MEDS: PITRESSIN 40 UNIT in NS 100 ML IV SCH (22:27)
[2019-04-23] MEDS: ROCEPHIN 2 GM in NS 50 ML IV SCH (02:23)
[2019-04-23] MEDS: DILAUDID IV PRN (04:38)
[2019-04-23 06:41] LABS: HEMATOCRIT 21.2 % (42.0-52.0); HEMOGLOBIN 7.3 g/dL (14.0-18.0); MCH 32.6 PG (27-31); MCHC 34.4 g/dL (33-37); MCV 94.6 FL (81-99); MPV 11.5 FL (7.4-10.4); RBC 2.24 XMIL (4.7-6.1); RDW 14.6 % (11.5-14.5); WBC 6.44 X1000 (4.8-10.8)
[2019-04-23 06:55] LABS: ALB/GLOB RATIO 1.5; ALBUMIN 3.7 g/dL (3.5-5.0); CREATININE 2.2 mg/dL (0.7-1.2); POTASSIUM 4.8 mmol/L (3.5-5.1); TOTAL BILIRUBIN 1.18 mg/dL (0.20-1.00); TOTAL PROTEIN 6.1 g/dL (6.3-8.3)
[2019-04-23 07:15] LABS: INR 1.79; PROTIME 21.2 Seconds (11.0-16.0)
--- NOTE | 2019-04-23 09:01 | Diag Imaging Result Doc PS360 ---
EXAM: FLAT/UPRIGHT ABD/1 VIEW CHEST INDICATION: constipation/dyspnea TECHNIQUE: 3 views COMPARISON: Chest radiograph dated 04/20/2019 FINDINGS: There are multiple mildly gas distended loops of small bowel throughout the abdomen suggesting ileus versus low-grade obstruction. Patchy gas is seen within the colon. There is no evidence of large volume free abdominal gas. There is no evidence of organomegaly. Inspiration is suboptimal. There is bibasilar atelectasis similar to the previous study. No definite new consolidation is appreciated, otherwise. The cardiac silhouette is stable. IMPRESSION: 1.Nonspecific mild gaseous distended loops of small bowel throughout the abdomen suggesting ileus versus low-grade obstruction. 2.Low lung volumes and subsegmental atelectasis at the lung bases similar to the previous study. Electronically signed by Rodney Lang 04/23/2019 8:59 AM
[2019-04-23] MEDS ORDERED: DULCOLAX PR ONE (09:27)
[2019-04-23] MEDS: DEPAKOTE PO SCH (10:00)
[2019-04-23] MEDS: VITAMIN K 10 MG in NS 50 ML IV SCH (10:00)
[2019-04-23] MEDS: VITAMIN B-1 PO SCH (10:00)
[2019-04-23] MEDS: FOLIC ACID PO SCH (10:00)
[2019-04-23] MEDS: PROTONIX IV SCH (10:19)
[2019-04-23] MEDS: SODIUM CHLORIDE 0.9% INJ SCH (10:20)
--- NOTE | 2019-04-23 13:03 | GASTROENTEROLOGY PROGRESS NOTE ---
DATE: 04/23/2019 SUBJECTIVE: Mr. Mcduffie is a 59-year-old, male, resting in bed. He has denied any nausea or vomiting and has some abdominal tenderness. He says he feels much better than what it was yesterday. OBJECTIVE: Vital Signs: Temperature 98.2 degrees, pulse 73, respirations 13, blood pressure 103/72, oxygen saturation 99% on 2 L nasal cannula. The patient's weight is 178 pounds. BMI is 28.7 kg/m2. General: He is alert, oriented x3, and in no acute distress. HEENT: Pale conjunctivae. No icterus. PERRL. Neck: Supple. Lungs: Clear to auscultation. Cardiovascular: Regular rate and rhythm. Abdomen: Distended, firm, tender. Hypoactive bowel sounds heard in all 4 quadrants. Extremities: No clubbing, no cyanosis. Generalized edema in the lower extremities. Neurologic: Alert and oriented x3. Laboratory Data: WBCs are 6.44, RBCs 2.24, hemoglobin is 7.3, hematocrit is 21.2, platelet count is 51,000. PT 21.2, INR is 1.79. Sodium 135, potassium 4.8, chloride 99, carbon dioxide 26, anion gap 10, BUN 45, creatinine 2.2, glucose 168, calcium 8.0. Total bilirubin is 1.18, AST 26, ALT 7, alkaline phosphatase 39, albumin is 3.7. Vitamin D is 5.6. TSH is 0.60. His peritoneal fluid has shown WBCs 47, mononuclear WBCs of 53, fluid glucose was 140, total protein was 3.7, fluid albumin was 1.5, and fluid LDH was 120. IMAGING: His abdomen x-ray today showed nonspecific mild gaseous distended loops of small bowel throughout the abdomen, suggesting ileus versus low-grade obstruction, low lung volumes and subsegmental atelectasis at the lung bases, similar to the previous study. IMPRESSION AND PLAN: 1. Hepatitis C. 2. Alcoholism. 3. Tobacco abuse. 4. Seizure disorder. 5. Decompensated cirrhosis. PLAN: Mr. Mcduffie is a 59-year-old, male with a history of hepatitis C, alcoholism, tobacco abuse, seizure disorder, and hypertension. GI is following him for his decompensated cirrhosis with ascites. A paracentesis was done yesterday by Dr. Molina. 4.5 L of ascitic fluid drained. His peritoneal fluid culture has shown no growth and the peritoneal fluid Gram stain has shown a few white blood cells but no bacteria. The patient is currently on antibiotic Rocephin. He is receiving vitamin K 10 mg at 50 mL per hour for his coagulopathy. The patient is on Protonix 40 mg IV daily. He is also on folic acid 1 mg and thiamine 100 mg daily. We will continue to monitor the patient and follow his LFTs, CBCs, and INR. This plan was discussed with Dr. Hernandez. Please call us for any further questions or concerns. Dictated by TURNER Bazan for Leno Hernandez MD cc: Leno Hernandez MD I have seen and examined the patient myself and I agree with the above plan of care. Please call us with any further questions or concerns. MTDD
--- NOTE | 2019-04-23 14:46 | PROVIDER PROGRESS NOTE ---
Progress Note Subjective: no uremic complaints. Objective: temperature 98.2, pulse 73, respirations 13, blood pressure 103/72, 02 sat 99% on 2 L nasal cannula. General: Chronically ill appearing -[place] male in no acute distress. HEENT: normocephalic, atraumatic, conjunctiva pink, pupils equal and reactive. Mucous membranes moist, Trachea midline. Skin: Warm and dry. Neck: supple, 8cm JVD with hepatojugular reflux Cardiovascular: S1s2, regular rate and rhythm. No murmur or gallop. Respiratory: clear with equal air entry Abdomen: firm, distended, nontender. Bowel sounds active. :non inspected, doe in place Extremities: no clubbing, cyanosis, or edema. Neurological: alert, oriented to person, place, and time. Labs: WBC 6.44, hemoglobin 7.3, hematocrit 21.2, platelet count 51, sodium 135, potassium 4.8, chloride 99, carbon dioxide 26, BUN 45, creatinine 2.2, intake 1662, output 1185. Impression: Acute kidney injury. Likely prerenal and not HRS. Adequate urine output with albumin and fluids. Creatinine improving. No changes. Blood pressure. Stable. Fluid volume. 4.2 Liters off from paracentesis. Euvolemic on exam. Anemia. Low, does not meet transfusion criteria. Defer to primary. Electrolytes and acid base balance. Stable. Medication review. No changes.
[2019-04-23] MEDS: PITRESSIN 40 UNIT in NS 100 ML IV SCH (15:30)
[2019-04-23] MEDS: VITAMIN D PO SCH (15:45)
--- NOTE | 2019-04-23 15:50 | PROGRESS NOTE ---
DATE: 04/23/2019 SUBJECTIVE: The patient is resting comfortably in bed. He states that he feels much better. He has had 2 bowel movements and he was able to eat. No acute events noted overnight. OBJECTIVE: Vital Signs: Temperature 98.6 degrees, blood pressure 103/73, heart rate 93, respirations 15, O2 saturation is 96% on 2 L nasal cannula. Intake 1.6 L. Output 1.1 L. General: This is a chronically ill-appearing, elderly male lying in bed, in no acute distress. Heart: S1, S2 normal. Regular rate and rhythm. Lungs: Equal air entry bilaterally. No wheezing. No rales. No rhonchi. Abdomen: Positive bowel sounds. Soft, nontender, nondistended. Extremities: No edema. No cyanosis. Neurologic: The patient is alert and oriented x3. LABS: White blood cell count 6.4, hemoglobin 7.3, hematocrit 21, platelets 51,000. INR 1.79. Sodium 135, BUN 45, creatinine 2.2, glucose 168, potassium 4.8, total bilirubin 1.1. Vitamin D level 5.6. Albumin 3.7. Abdominal x-ray shows an ileus. ASSESSMENT AND PLAN: 1. Acute hypoxemic respiratory failure. We will continue to try and wean the patient off of supplemental oxygen. 2. Severe alcoholic liver cirrhosis with ascites. The patient underwent an ultrasound-guided paracentesis on April 22, at which time 4.5 L of ascites was removed. Continue with the albumin infusion. Further management as per GI. 3. Coagulopathy. The patient is on vitamin K. Continue to monitor the coagulation profile. 4. Acute kidney injury. Slowly improving. Nephrology is following. 5. Vitamin D deficiency. We will start the patient on vitamin D replacement. 6. Seizure disorder. Continue on Depakote. 7. Alcohol dependence. The patient has been counseled about alcohol cessation. 8. Hepatitis C. Aware. 9. Chronic thrombocytopenia. The platelet count is slowly trending downward. We will continue to monitor closely. 10. Anemia. The hemoglobin and hematocrit are trending down. We will continue to monitor. The patient will likely require blood transfusion tomorrow. 11. Ileus. The patient had 2 bowel movements today. 12. Disposition. The patient is stable for transfer to [facility] once the vasopressin has been titrated off. We will consult physical therapy to mobilize the patient. cc: Taimko Gomez MD MTDD
[2019-04-24] MEDS: DILAUDID IV PRN ×6 (01:28→23:34)
[2019-04-24] MEDS: ROCEPHIN 2 GM in NS 50 ML IV SCH (01:28)
[2019-04-24 05:08] LABS: HEMATOCRIT 23.9 % (42.0-52.0); HEMOGLOBIN 8.2 g/dL (14.0-18.0); MCH 32.4 PG (27-31); MCHC 34.3 g/dL (33-37); MCV 94.5 FL (81-99); MPV 11.4 FL (7.4-10.4); RBC 2.53 XMIL (4.7-6.1); RDW 14.9 % (11.5-14.5); WBC 5.95 X1000 (4.8-10.8)
[2019-04-24 05:28] LABS: AGAP 9; ALBUMIN 3.4 g/dL (3.5-5.0); ALKALINE PHOSPHATASE 47 U/L (32-122); BUN 29 mg/dL (8-22); CHLORIDE 101 mmol/L (98-107); COSMO 279; CREATININE 1.3 mg/dL (0.7-1.2); ESTIMATED GFR > 60; GLUCOSE 113 mg/dL (70-104); GOT 35 U/L (10-34); GPT 12 U/L (10-44); INR 1.65; POTASSIUM 4.8 mmol/L (3.5-5.1); PROTIME 19.9 Seconds (11.0-16.0); SODIUM 136 mmol/L (136-145); TCO2 26 mmol/L (25-35); TOTAL PROTEIN 6.7 g/dL (6.3-8.3)
[2019-04-24] MEDS ORDERED: LACTULOSE PO PRN (07:12)
--- NOTE | 2019-04-24 07:51 | Diag Imaging Result Doc PS360 ---
CHEST-PORTABLE - 04/24/2019 INDICATION: dyspnea COMPARISON: 04/23/2019 FINDINGS: Lung volumes have improved but are still severely low. Stable central crowding. Stable hazy atelectasis or infiltrate at the left lung base with obscuration of the diaphragm. Heart size remains grossly normal. IMPRESSION: Very little change from prior. Electronically signed by Jesus Faith 04/24/2019 7:48 AM
--- NOTE | 2019-04-24 07:52 | Diag Imaging Result Doc PS360 ---
ABDOMEN FLAT/UPRIGHT - 04/24/2019 INDICATION: ileus COMPARISON: 04/23/2019 FINDINGS: There has been severe worsening in the severely gaseous distended loops of small bowel. There is very little colon or rectal gas. No free air. IMPRESSION: Worsening distal small bowel obstruction. Electronically signed by Jesus Faith 04/24/2019 7:49 AM
--- NOTE | 2019-04-24 08:25 | PROGRESS NOTE ---
DATE: 04/24/2019 INTERVAL HISTORY: No acute events overnight. His vitals suggested he was hypotensive, requiring vasopressin. Otherwise, he was asymptomatic. SUBJECTIVE: Mr. Mcduffie is awake and answers all questions appropriately. He denies chest pain, shortness of breath, or cough. He denies nausea, vomiting. His abdominal pain is better. We discussed about stopping alcohol and smoking and tobacco and all recreational substances and he understood it. He denies any vision disturbance. VITALS: Temperature of 98.4 degrees pulse 80 respiratory blood pressure 105/66 on vasopressin, saturating 96% on room air. PHYSICAL EXAMINATION: General: Not in acute distress. He is alert he is oriented x3. He does not have any tremors. Mouth: Oral cavity is moist. Lungs: Air entry bilaterally equal. He does have decreased respiratory. No wheeze, rhonchi. Mild crackles in infrascapular region. He has emphysematous chest. Cardiovascular: S1, S2 normal. Regular. No murmur, rub, or gallop. Abdomen: Distended, soft. Tympanic to percussion without any shifting dullness. Active bowel sounds. He has urine catheter. Extremities: No lower extremity edema. INPUT AND OUTPUT: Suggest he had 1.9 L of urine so far. LABORATORY DATA: Suggestive of normal WBC, normocytic anemia, thrombocytopenia, elevated INR. He continues to have improvement in kidney function. No positive microbiological. IMAGING DATA: Chest x-ray suggests no poor respiratory support and atelectasis. There is severe gaseous distention with loops of bowels. There was little colonic or rectal bleed gas. He did have 2 documented bowel movements yesterday. ASSESSMENT AND PLAN: 1. Acute hypoxic respiratory failure due to gaseous distention of abdomen, pressing on the diaphragm as well as left lower lobe infiltrate. Continue oxygen to maintain saturation more than 92%. Incentive spirometry has been ordered. Continue intravenous ceftriaxone. Physical therapy has been ordered. 2. Severe alcoholic liver cirrhosis with history of chronic hepatitis C and now decompensated cirrhosis with ascites, status post 4.5 L of paracentesis. He received a total of 175 g of intravenous albumin. In future I will consider starting him on diuretic once his blood pressure stabilizes. Follow up hepatitis panel. Continue lactulose for 1 to 2 soft formed bowel movements a day as a prevention for hepatic encephalopathy, which appears to have resolved since admission. His coagulopathy and thrombocytopenia is because of cirrhosis and he is receiving intravenous vitamin K and daily CBC. 3. Small-bowel obstruction. He does have active he does have bowel sounds on examination. No tenderness and documented bowel movements yesterday. I will continue to manage him medically and keep him on current diet and stool softeners. 4. Acute kidney injury due to prerenal etiology now improving. Continue to monitor close input and output through Lopez catheter. 5. Shock due to poor nutritional status, intravascular volume depletion due to ascites. Culture data so far negative. There were concerns for spontaneous bacterial peritonitis. Though ascitic fluid Gram stain and culture have been negative, it was performed after a few days of antibiotics. Continue intravenous ceftriaxone and intravenous vasopressin. I will start him on oral midodrine with a close eye over heart rate. 6. Substance use disorder including alcohol, tobacco, and marijuana. He was counseled about stopping these substances. 7. Others: Continue home Depakote for history of brain aneurysm requiring craniotomy and seizure; vitamin D supplementation for vitamin D deficiency; close monitoring of CBC for his normocytic anemia. DISPOSITION: I will continue to monitor patient in ICU. Plan of care discussed with the patient's nursing team. All of their questions have been answered. cc: Kelechi Hutton MD ADDENDUM: I updated Mr. Mcduffie' son at bedside about his clinical condition and answered all of his questions. JAYY
[2019-04-24] MEDS: VITAMIN B-1 PO SCH (08:30)
[2019-04-24] MEDS: DEPAKOTE PO SCH (08:30)
[2019-04-24] MEDS: FOLIC ACID PO SCH (08:30)
[2019-04-24] MEDS: PROAMATINE PO SCH ×4 (08:31→20:56)
[2019-04-24] MEDS: PROTONIX IV SCH (10:39)
[2019-04-24] MEDS: VITAMIN K 10 MG in NS 50 ML IV SCH (11:30)
--- NOTE | 2019-04-24 12:07 | GASTROENTEROLOGY PROGRESS NOTE ---
DATE: 04/24/2019 SUBJECTIVE: Mr. Mcduffie is a 59-year-old male resting in bed. The patient has denied any nausea, vomiting. He does have some abdominal tenderness. The patient had 2 bowel movements yesterday. He has denied having any today. Patient is on a GI soft diet and is tolerating his diet fairly well. OBJECTIVE: Vital Signs: Temperature 97.4 degrees, pulse 99, respirations 14, blood pressure 111/86, and oxygen saturation 98% on 2 L nasal cannula. The patient's weight is 176 pounds. BMI is 28.5 kg/m2. General: The patient is alert and oriented x3, and in no acute distress. HEENT: Pale conjunctivae. No icterus. PERRL. Neck: Supple. Lungs: Clear to auscultation. Cardiovascular: Regular rate and rhythm. Abdomen: Distended, firm, and tender. Hypoactive bowel sounds heard in all 4 quadrants. Extremities: No clubbing. No cyanosis. Generalized edema in the lower extremities. Neurologic: He is alert and oriented x3. Cardiovascular: Patient is tachycardic. LABORATORY DATA: WBCs are 5.95, RBC 2.53, hemoglobin 8.2, hematocrit is 23.9, and platelet count is 57,000. PT is 19.9. An INR is 1.65. Sodium is 136, potassium 4.8, chloride 101, carbon dioxide 26, anion gap 9, BUN 29, creatinine 1.3, glucose 113, calcium 8.0, total bilirubin is 1.70, AST is 35, ALT is 12, alkaline phosphatase is 47. Albumin is 3.4. IMAGING: The patient's abdominal x-ray today showed worsening distal small-bowel obstruction. Chest x-ray today showed very little change from the prior. IMPRESSION AND PLAN: - Decompensated ETOH/HCV cirrhosis with ascites - [place] - SBO - Anemia - Thrombocytopenia - Alcoholism - Chronic HCV - Tobacco abuse - Seizure disorder PLAN: Mr. Mcduffie is a 59-year-old male with a history of hepatitis C, alcoholism, tobacco abuse, seizure disorder, and hypertension. GI has been following him for his decompensated cirrhosis with ascites. Paracentesis done on 04/[address] Molina, and 4.5 L of ascitic fluids was drained. His fluid culture has shown no growth. The peritoneal fluid Gram stain had shown few white blood cells, but no bacteria. The patient is currently receiving antibiotic Rocephin. We will continue it for 1 more day with a total of 5 days. The patient is also on vitamin K 10 mg at 50 mL for his coagulopathy. He is receiving thiamine 100 mg and folic acid 1 mg daily. He is on Protonix 40 mg IV daily. His liver functions have been elevated, we will continue to monitor his LFT's and follow the plan of care per PCP. This plan was discussed with Dr. Molina. Please call us for any further questions or concerns. Dictated by TRUNER Bazan for Catracho Molina MD Physician Attestation I have seen and examined the patient. I have discussed and reviewed the note by Claudia TOMPKINS and agree with findings and plan as documented. MTDD
[2019-04-24 13:27] LABS: HEPATITIS PROFILE ACUTE SEE COMMENTS
--- NOTE | 2019-04-24 13:28 | PROVIDER PROGRESS NOTE ---
Progress Note Subjective: He denies any uremic complaints and voices feeling well. Objective: temperature 97.4, pulse 99, respirations 14, blood pressure 111/86, 02 sat 98% on 2 L nasal cannula. General: Chronically ill appearing -[place] male in no acute distress. HEENT: normocephalic, atraumatic, conjunctiva pink, pupils equal and reactive. Mucous membranes moist, Trachea midline. Skin: Warm and dry. Neck: supple, 6cm JVD with hepatojugular reflux Cardiovascular: S1s2s4, regular rate and rhythm. No murmur or gallop. Respiratory: clear with equal air entry Abdomen: firm, distended, nontender. Bowel sounds active. :non inspected, doe in place Extremities: no clubbing, cyanosis, or edema. Neurological: alert, oriented to person, place, and time. Labs: WBC 5.95, hemoglobin 8.2, hematocrit 23.9, sodium 136, potassium 4.8, chloride 101, carbon dioxide 26, BUN 29, creatinine 1.3. Intake 820, output 1950. Impression: Acute kidney injury. Likely prerenal. Creatinine and urine output continue to improve. No further recommendations. We will sign off and available if needed in the future. Blood pressure. Stable. Fluid volume. Euvolemic on exam except for his ascites. Anemia. Low, does not meet transfusion criteria. Defer to primary. Electrolytes and acid base balance. Stable. Medication review. Lactulose and midodrine started.
--- NOTE | 2019-04-24 13:46 | EKG Report ---
Test Performed on : 04/24/2019 11:56:01 AM Test Reason : TACHYCARDIA Blood Pressure : / mmHG Vent. Rate : 134 BPM Atrial Rate : 134 BPM P-R Int : 140 ms QRS Dur : 070 ms QT Int : 278 ms P-R-T Axes : 032 004 029 degrees QTc Int : 415 ms Sinus tachycardia. Nonspecific ST abnormality Abnormal ECG No previous ECGs available Confirmed by Samy Goff MD ([id number]) on 04/26/2019 7:29:10 AM
[2019-04-24] MEDS: ZOFRAN IV PRN (23:40)
[2019-04-25] MEDS: ROCEPHIN 2 GM in NS 50 ML IV SCH (01:56)
[2019-04-25] MEDS: DILAUDID IV PRN ×4 (02:01→17:10)
[2019-04-25 06:11] LABS: ALB/GLOB RATIO 0.9; ALBUMIN 3.3 g/dL (3.5-5.0); CALCIUM 8.1 mg/dL (8.8-10.2); CREATININE 1.9 mg/dL (0.7-1.2); INR 1.57; POTASSIUM 4.8 mmol/L (3.5-5.1); PROTIME 19.1 Seconds (11.0-16.0); TOTAL BILIRUBIN 1.92 mg/dL (0.20-1.00); TOTAL PROTEIN 6.9 g/dL (6.3-8.3)
--- NOTE | 2019-04-25 07:55 | PROGRESS NOTE ---
DATE: 04/25/2019 INTERVAL HISTORY: I had detailed discussion about the patient's clinical condition with the patient's son at bedside yesterday. I had explained to him about the patient's clinical condition including alcoholic cirrhosis, kidney dysfunction, low blood pressure requiring life support in terms of vasopressors and had answered all of his questions. Mr. Mcduffie had an episode of tachycardia yesterday and I had evaluated him at bedside with an EKG which had suggested sinus tachycardia and his heart rate which initially jumped up to 150 had come down to 110. No other acute overnight events. His Lopez catheter was discontinued. However, he has not had any urine output since then in the night team shifts. SUBJECTIVE: Mr. Mcduffie denies new complaint. He is feeling fine. He denies chest pain, shortness of breath, cough. He denies nausea, vomiting. He had a bowel movement yesterday. VITALS: Temperature of 98.2 degrees, pulse 112, respiratory rate 14, blood pressure 107/63, saturating 99% on room air. PHYSICAL EXAMINATION: General: Not in acute distress. HEENT: Oral cavity is moist. Lungs: Air entry bilaterally equal. No wheeze, rhonchi, crackles. Cardiovascular: S1, S2 normal. Regular. No murmur or gallop. Abdomen: Soft, distended with gas. Tympanic to percussion most of the abdomen, nontender. He does have shifting dullness. Active bowel sounds. Extremities: No lower extremity edema. He does not have urine catheter. Neurologic: He is alert and oriented x3. CBC is pending. INR is 1.5. BMP suggestive of increase in BUN and creatinine. Microbiology: No new data. No new imaging. ASSESSMENT AND PLAN: 1. Acute hypoxic respiratory failure due to compressive atelectasis due to abdominal distention as well as suspected left lower lobe pneumonia, now resolved. Continue to monitor oxygen. He is breathing well on room air. I will keep him on intravenous ceftriaxone for 5 to 7 days. 2. Severe alcoholic liver cirrhosis with history of chronic hepatitis C and now decompensated cirrhosis with ascites status post 4.5 L of paracentesis. He received 175 g of intravenous albumin. Hepatitis panel is pending. He is getting intravenous vitamin K for coagulopathy associated with alcoholic cirrhosis. His thrombocytopenia appears stable. I will follow up with daily CBC. 3. Small-bowel obstruction, likely ileus since he has had multiple bowel movements. There is no tenderness to suggest acute abdomen. Continue him on current diet and stool softeners. 4. Acute kidney injury due to prerenal etiology. He has worsening renal function and no urine output. I asked the nurse to perform a bladder scan. Based on that I will consider putting Lopez catheter. 5. Shock due to intravascular volume depletion due to massive ascites, poor nutritional status. Culture data have been negative though there were concerns for spontaneous bacterial peritonitis. His ascitic fluid, which was performed several days after antibiotics has been unremarkable. He has been status post intravenous vasopressin. I will keep him on midodrine. In future I will consider adding octreotide based on his course. 6. Substance abuse including alcohol, tobacco, marijuana. He was counseled about stopping it. 7. Others. Continue Depakote for history of seizures after brain aneurysm requiring craniotomy; vitamin D supplementation for deficiency. 8. Close monitoring of CBC. DISPOSITION: Continue to monitor patient in the ICU. He still has worsening kidney function and fluctuating heart rate. Plan of care discussed with the nursing team and the patient. All of their questions have been satisfactorily answered. cc: Kelechi Hutton MD
[2019-04-25] MEDS: VITAMIN B-1 PO SCH (08:40)
[2019-04-25] MEDS: FOLIC ACID PO SCH (08:40)
[2019-04-25] MEDS: DEPAKOTE PO SCH (08:40)
[2019-04-25] MEDS: PROAMATINE PO SCH ×2 (08:41→16:31)
[2019-04-25] MEDS: LACTULOSE PO SCH (08:41)
[2019-04-25 08:55] LABS: HEMATOCRIT 30.3 % (42.0-52.0); HEMOGLOBIN 10.3 g/dL (14.0-18.0); MCH 32.5 PG (27-31); MCV 95.6 FL (81-99); MPV 11.1 FL (7.4-10.4); RBC 3.17 XMIL (4.7-6.1); RDW 15.5 % (11.5-14.5); WBC 13.41 X1000 (4.8-10.8)
[2019-04-25] MEDS: ZOFRAN IV PRN ×2 (09:24→20:57)
--- NOTE | 2019-04-25 10:02 | Diag Imaging Result Doc PS360 ---
KUB ABDOMEN - 04/25/2019 INDICATION: Vomiting, rule out obstruction COMPARISON: 04/24/2018 FINDINGS: There is continued worsening in the severe distal small bowel obstruction. IMPRESSION: Severe worsening distal small bowel mechanical obstruction. Electronically signed by Jesus Faith 04/25/2019 9:59 AM
[2019-04-25] MEDS ORDERED: FLOMAX PO ONE (10:48)
--- NOTE | 2019-04-25 11:59 | GASTROENTEROLOGY PROGRESS NOTE ---
DATE: 04/25/2019 SUBJECTIVE: Mr. Mcduffie is a 59-year-old, -Y[place] male. He is sitting in bed. The patient has been having nausea and vomiting with some abdominal tenderness. The patient has denied having any bowel movements today. He is currently NPO. OBJECTIVE: Vital Signs: Temperature 96.8 degrees, pulse 102, respirations 27, blood pressure 127/85, oxygen saturation 97% on room air. The patient's weight is 165 pounds. BMI is 26.7 kg/m2. General: He is alert, oriented x3, and in no acute distress. HEENT: Pale conjunctivae. No icterus. PERRL. Neck: Supple. Lungs: Clear to auscultation. Cardiovascular: Patient is tachycardic and tachypneic. Abdomen: Firm, distended, tender. Hypoactive bowel sounds heard in all 4 quadrants. Extremities: No clubbing, no cyanosis. Generalized edema in the lower extremities. Neurologic: He is alert, oriented x3. Laboratory Data: WBCs of 13.41, RBCs 3.17, hemoglobin is 10.3, hematocrit is 30.3, platelet count is 94,000. PT is 19.1, INR is 1.57. Sodium 136, potassium 4.8, chloride 99, carbon dioxide 24, anion gap 13, BUN 37, creatinine 1.9, glucose 130, calcium 8.1. Total bilirubin 1.92, AST 33, ALT 13, alkaline phosphatase is 56, albumin is 3.3. IMAGING: His abdominal x-ray has shown severe worsening of distal small-bowel mechanical obstruction. CT scan showed mild interval worsening. IMPRESSION PLAN: - Decompensated ETOH/HCV cirrhosis with ascites - CAITLYN - SBO - Anemia - Thrombocytopenia - Alcoholism - Chronic HCV - Tobacco abuse - Seizure disorder PLAN: Mr. Regino Mcduffie is a 59-year-old gentleman with past medical history of chronic hepatitis C, alcoholism, tobacco abuse, seizure disorder, hypertension who presented newly decompensated hepatitis C virus alcohol cirrhosis with ascites and CAITLYN. His course has been complicated by SBO. The patient is now NPO. We have put NG tube with intermittent suction. The patient is currently on antibiotic Rocephin 100 mL per hour. He is receiving Protonix 40 mg IV. He is also getting vitamin B1 100 mg and folic acid 1 mg daily. We will continue to monitor the patient and follow the plan of care per PCP. This plan was discussed with Dr. Molina. Please call us for any further questions or concerns. Dictated by TURNER Bazan for Catracho Molina MD Physician Attestation I have seen and examined the patient. I have discussed and reviewed the note by Claudia TOMPKINS and agree with findings and plan as documented. Changes made in document above MTDD
--- NOTE | 2019-04-25 12:03 | Diag Imaging Result Doc PS360 ---
CHEST-PORTABLE - 04/25/2019 INDICATION: NGT placement COMPARISON: 04/24/2019 FINDINGS: There is a nasogastric tube in good position in the stomach. There is a small bowel obstruction. IMPRESSION: Nasogastric tube in the stomach. Electronically signed by Jesus Faith 04/25/2019 12:00 PM
[2019-04-25] MEDS: PROTONIX IV SCH (12:20)
--- NOTE | 2019-04-25 17:11 | Diag Imaging Result Doc PS360 ---
EXAM: CT ABDOMEN/PELVIS W/O CONTRAST HISTORY: Small bowel obstruction TECHNIQUE: CT abdomen and pelvis without oral or intravenous contrast COMPARISON: 04/20/2019 FINDINGS: There is a small left-sided pleural effusion measuring 2.4 cm posteriorly and inferiorly in the midline. This is slightly larger than on the prior study. Trace right pleural fluid. There are bilateral lower lobe infiltrates. These are more prominent in the left lower lobe than they were. Moderate abdominal fluid similar to the prior exam. There continue to be air distended loops of small bowel. These are slightly more distended than on the prior exam. No change to the organs in the upper abdomen. Severe atherosclerosis. No hydronephrosis. There is a Lopez catheter within the urinary bladder. IMPRESSION: Mild interval worsening This exam was performed using automated exposure control, adjustment of mA or kV according to patient size, and/or use of iterative reconstruction technique. Electronically signed by Luis Coronel 04/25/2019 5:09 PM
[2019-04-25 18:35] LABS: CALCIUM 8.2 mg/dL (8.8-10.2); CREATININE 2.8 mg/dL (0.7-1.2)
[2019-04-25] MEDS ORDERED: ALBUMIN 25% IV ONE (20:00)
[2019-04-25] MEDS: FLAGYL 500 MG/NS 500 MG/100 ML IVPB IV SCH (20:48)
[2019-04-25] MEDS: SANDOSTATIN SUBQ SCH (20:49)
[2019-04-25] MEDS ORDERED: PROAMATINE PO SCH (21:00)
[2019-04-26] MEDS: FLOMAX PO SCH ×2 (00:45→20:11)
[2019-04-26] MEDS: FLAGYL 500 MG/NS 500 MG/100 ML IVPB IV SCH ×4 (01:24→18:24)
[2019-04-26] MEDS: ROCEPHIN 2 GM in NS 50 ML IV SCH (01:24)
[2019-04-26] MEDS: DILAUDID IV PRN ×7 (02:09→22:56)
[2019-04-26] MEDS ORDERED: ALBUMIN 25% IV ONE ×2 (04:00→08:17)
[2019-04-26] MEDS: SANDOSTATIN SUBQ SCH (04:20)
[2019-04-26 05:52] LABS: BASO# 0.02 X1000 (0.0-0.2); BASO% 0.2 % (0.0-0.8); EOS# 0.04 X1000 (0.0-0.7); EOS% 0.5 % (0.0-10.0); HEMATOCRIT 23.3 % (42.0-52.0); LYMPH# 2.66 X1000 (1.2-3.4); LYMPH% 31.8 % (20.5-51.1); MCH 33.5 PG (27-31); MCHC 34.3 g/dL (33-37); MCV 97.5 FL (81-99); MONO% 20.3 % (1.7-9.3); MPV 11.1 FL (7.4-10.4); NEUT# 3.94 X1000 (1.4-6.5); NEUT% 47.2 % (42.2-75.2); PLT 67 X1000 (130-400); RBC 2.39 XMIL (4.7-6.1); RDW 15.5 % (11.5-14.5); WBC 8.36 X1000 (4.8-10.8)
[2019-04-26 06:11] LABS: ALB/GLOB RATIO 1.3; ALBUMIN 3.7 g/dL (3.5-5.0); CALCIUM 8.6 mg/dL (8.8-10.2); CREATININE 3.1 mg/dL (0.7-1.2); POTASSIUM 5.5 mmol/L (3.5-5.1); TOTAL BILIRUBIN 1.97 mg/dL (0.20-1.00); TOTAL PROTEIN 6.6 g/dL (6.3-8.3)
[2019-04-26 06:22] LABS: INR 1.94; PROTIME 22.6 Seconds (11.0-16.0)
[2019-04-26 06:34] LABS: LYMPHS 35 % (21-51); MONO 11 % (1-9); SEGS 54 % (42-75)
[2019-04-26] MEDS ORDERED: LEVOPHED 8 MG in D5 1/2 NS 250 ML IV SCH (08:15)
--- NOTE | 2019-04-26 08:56 | PROGRESS NOTE ---
DATE: 04/26/2019 INTERVAL HISTORY: Mr. Mcduffie yesterday had worsening small bowel obstruction. He was vomiting, so the GI team had started him on an NG tube under suction. I also started him on midodrine along with octreotide and gave him intravenous albumin, which did not help him. In the morning time, he continues to have abdominal distention and NG tube has been placed. SUBJECTIVE: Mr. Mcduffie is awake. He is following simple commands. He denies chest pain, shortness of breath, or cough. He appears slightly confused, though he is following simple commands. OBJECTIVE: Vital Signs: Temperature 98.3 degrees, pulse 87, respiratory rate 18, blood pressure 100/70. He is saturating at 97% on room air. General: He is not in any acute distress. HEENT: Oral cavity is moist. He has an NG tube. Lungs: Air entry bilaterally equal. No wheeze, rhonchi, crackles. Cardiovascular: S1, S2 normal. No murmur, rub, or gallop. He does have poor inspiratory effort. Abdomen: Soft, distended, tympanic to percussion throughout the abdomen. There is only mild dullness which has shifting pattern. No bowel sounds. He is alert. Oriented to himself, place. not entirely to situation or time. GENITOURINARY: He has urine catheter. Extremities: No lower extremity edema. Musculoskeletal: He is able to raise both upper extremity and lower extremity above ground level. He is able to flex and extend knee, ankle, elbow, shoulder and hip joints. Input and output suggests 350 mL of NG tube. His urine output has significantly decreased to 130 mL. LABORATORY DATA: Suggestive of hemoglobin of 8, platelets of 67,000. He does have elevated INR of 1.9. He has hyperkalemia with potassium of 5.5, elevated BUN of 47, creatinine of 3.1. Microbiology: No positive data so far. IMAGING: Abdomen and pelvis CT performed yesterday had interval worsening of small bowel obstruction. ASSESSMENT AND PLAN: 1. Small bowel obstruction. He has not had a bowel movement in 48 hours. Continue NG tube under suction, NPO status, and I will closely monitor electrolytes and follow up electrolytes closely. 2. Acute kidney injury due to prerenal etiology though fractional excretion of sodium initially was more than 1%. Differential includes intravascular volume depletion. The possibility of hepatorenal syndrome could not be ruled out. Continue Lopez catheter for close input and output monitoring. I will repeat BMP. If his blood pressure drops, I will start him on norepinephrine to maintain MAP more than 70 mmHg for possible hepatorenal syndrome. I will give him intravenous albumin and some intravenous fluids. Nephrology team has been reconsulted. 3. Severe alcoholic cirrhosis with history of chronic hepatitis C and now decompensated cirrhosis with ascites status post 4.5 L of paracentesis. His hepatitis panel had positive hepatitis C. His thrombocytopenia coagulopathy is related to alcoholic cirrhosis. I will monitor him with daily CBC. 4. Shock due to intravascular volume depletion due to massive ascites, poor nutritional status. He does have bilateral lower lobe pneumonia and though the ascitic fluid culture was negative, it was drawn several days after antibiotics. I will continue intravenous ceftriaxone and metronidazole. 5. Substance abuse including alcohol, tobacco, marijuana. He was counseled about smoking it in the past. Continue Depakote for history of seizures after brain aneurysm requiring craniotomy. 6. Vitamin D supplementation for deficiency. Considering his thrombocytopenia and coagulopathy I would avoid chemical DVT prophylaxis. Continue pneumatic compression. 7. Disposition. Mr. Mcduffie' condition is still critical. More than 30 minutes of critical care time was spent taking care of this patient thank you. cc: Kelechi Hutton MD MTDD
[2019-04-26] MEDS: PROTONIX IV SCH (09:25)
[2019-04-26] MEDS: VITAMIN B-1 PO SCH (09:32)
[2019-04-26] MEDS: LACTULOSE PO SCH ×4 (09:32→16:00)
[2019-04-26] MEDS: DEPAKOTE PO SCH (09:32)
[2019-04-26] MEDS: FOLIC ACID PO SCH (09:32)
[2019-04-26] MEDS: VITAMIN K 10 MG in NS 50 ML IV SCH (11:09)
[2019-04-26] MEDS: NS 1,000 ML IV SCH ×2 (11:10→15:58)
--- NOTE | 2019-04-26 12:46 | GASTROENTEROLOGY PROGRESS NOTE ---
DATE: 04/26/2019 SUBJECTIVE: Mr. Mcduffie is a 59-year-old, -[place] male resting in bed. The patient has been complaining about his NG tube causing him to have discomfort. The patient is still complaining of nausea and vomiting. He has denied having any bowel movements today and c/o of generalized abdominal tenderness. OBJECTIVE: Vital Signs: Temperature 98.3 degrees, pulse 87, respirations 18, blood pressure 100/70, oxygen saturation 94% on room air. His weight is 165 pounds. BMI is 26.7 kg/m2. General: He is alert, oriented x2, and in no acute distress. HEENT: Pale conjunctivae. Mild icterus. PERRL. NG tube in place. Neck: Supple. Lungs: Clear to auscultation. Cardiovascular: Regular rate and rhythm. Abdomen: Distended, firm, tender. Hypoactive bowel sounds heard in all 4 quadrants. Extremities: No clubbing, no cyanosis. Generalized edema in the lower extremities. Neurologic: He is alert and oriented x3. Labs: WBCs are 8.36, RBCs 2.39, hemoglobin 8.0, hematocrit is 23.3, platelet count is 67,000. PT is 22.6, INR is 1.94. Sodium 136, potassium 5.5, chloride 99, carbon dioxide is 27, anion gap 10, BUN 47, creatinine 31, glucose 117, calcium 8.6. Total bilirubin 1.97, AST 23, ALT 10, alkaline phosphatase is 44. IMAGING: The patient's abdomen and pelvis CT yesterday showed mild interval worsening. His abdominal x-ray has shown that he has worsening distal small bowel mechanical obstruction IMPRESSION PLAN: 1. Pleural effusion. 2. Hepatitis C. 3. Alcoholism. 4. Tobacco abuse. 5. Seizure disorder. 6. Anemia. 7. Low platelets. 8. Constipation 9. Ascites PLAN: Mr. Mcduffie is a 59-year-old, -[place] male with a history of hepatitis C, alcoholism, tobacco abuse, seizure disorder, and hypertension. GI is following him for his decompensated cirrhosis and ascites. The patient is currently having nausea and vomiting. He is having an NG tube in place. His abdominal x-ray has shown that he has worsening distal small bowel mechanical obstruction. CT scan has shown mild interval worsening. The patient has not had any bowel movements. We will be giving him a one time 2 soapsuds enemas and we started him on lactulose 3 times a day via NG tube. We have ordered a paracentesis for his ascitic fluid. We will continue to monitor the patient and follow the plan of care per PCP. This plan was discussed with Dr. Hernandez. Please call us for any further questions or concerns. Dictated by TURNER Bazan for Leno Hernandez MD cc: Leno Hernandez MD I have seen and examined the patient myself and I agree with the above plan of care. Please call us with any questions or concerns. JAYY
--- NOTE | 2019-04-26 12:53 | PROVIDER PROGRESS NOTE ---
Progress Note Subjective: He is upset that he has a nasogastric tube and is denying he has a small bowel obstruction. He denies any complaints.Doe cath was discontinued on the . He only had 500ml output in 24 hours. Bladder scan showed Objective: temperature 97.4, pulse 99, respirations 14, blood pressure 111/86, 02 sat 98% on 2 L nasal cannula. General: Chronically ill appearing -Swazi male in no acute distress. HEENT: normocephalic, atraumatic, conjunctiva pink, pupils equal and reactive. Mucous membranes moist, Trachea midline. Skin: Warm and dry. Neck: supple, 8cm JVD Cardiovascular: S1s2s4, regular rate and rhythm. No murmur or gallop. Respiratory: clear with equal air entry Abdomen: firm, distended, nontender. Bowel sounds active. :non inspected, doe in place with red/orange urine Extremities: no clubbing, cyanosis, or edema. Neurological: alert, oriented to person and place. Labs: WBC 8.36, hemoglobin 8.0, hematocrit 23.3, 67, sodium 136, potassium 5.5, chloride 99, carbon dioxide 27, BUN 47, creatinine 3.1. Intake 250, output 790. Impression: Acute kidney injury. Likely prerenal for intravascular depletion. He is net negative. He had 120ml output from 0600 to 0930 today. We will give him normal saline and see if his kidneys respond. Until then, hold levophed. Blood pressure. Stable. Fluid volume. Euvolemic on exam. Anemia. Low, does not meet transfusion criteria. Electrolytes. Mild Hyperkalemia. Observe. Medication review. No changes.
[2019-04-26 13:07] LABS: HCV BY PCR SEE COMMENTS
[2019-04-26 14:42] LABS: CALCIUM 8.4 mg/dL (8.8-10.2); CREATININE 3.1 mg/dL (0.7-1.2); POTASSIUM 5.1 mmol/L (3.5-5.1)
[2019-04-26 15:06] LABS: URINE SOURCE CATH
[2019-04-26 15:11] LABS: BILIRUBIN URINE NEGATIVE (NEGATIVE); BLOOD URINE MODERATE (NEGATIVE); COLOR ORANGE; GLUCOSE URINE TRACE mg/dL (NEGATIVE); KETONE URINE NEGATIVE (NEGATIVE); LEUKOCYTES URINE SMALL (NEGATIVE); NITRITE URINE NEGATIVE (NEGATIVE); PH URINE 5.5; PROTEIN URINE 50 mg/dL (NEGATIVE); SP GRAVITY URINE 1.019; TURBIDITY URINE CLEAR (CLEAR); UROBILINOGEN URINE NORMAL (NORMAL)
[2019-04-26 15:18] LABS: UR EPITHELIAL CELLS <10 /HPF (<10); URINE BACTERIA NEGATIVE /HPF; URINE RBC <10 /HPF (<10); URINE WBC <10 /HPF (<10)
[2019-04-26 15:25] LABS: UR CREAT RANDOM 135.5 mg/dL (14-26); UR PROT RANDOM 56.2 mg/dL
[2019-04-26 15:44] LABS: URINE CRYSTALS NONE SEEN
[2019-04-27] MEDS: FLAGYL 500 MG/NS 500 MG/100 ML IVPB IV SCH ×4 (00:50→18:00)
[2019-04-27] MEDS: ROCEPHIN 2 GM in NS 50 ML IV SCH (02:11)
[2019-04-27] MEDS: DILAUDID IV PRN ×5 (03:43→20:42)
[2019-04-27 05:50] LABS: BASO# 0.11 X1000 (0.0-0.2); BASO% 1.1 % (0.0-0.8); EOS# 0.03 X1000 (0.0-0.7); EOS% 0.3 % (0.0-10.0); HEMATOCRIT 24.5 % (42.0-52.0); HEMOGLOBIN 8.3 g/dL (14.0-18.0); IMM GRAN# 0.03 X1000 (0.0-0.04); IMM GRAN% 0.3 % (0.0-0.5); LYMPH# 2.11 X1000 (1.2-3.4); LYMPH% 21.5 % (20.5-51.1); MCH 32.7 PG (27-31); MCHC 33.9 g/dL (33-37); MCV 96.5 FL (81-99); MONO# 2.29 X1000 (0.11-0.59); MONO% 23.3 % (1.7-9.3); NEUT# 5.26 X1000 (1.4-6.5); NEUT% 53.5 % (42.2-75.2); PLT 72 X1000 (130-400); RBC 2.54 XMIL (4.7-6.1); WBC 9.83 X1000 (4.8-10.8)
[2019-04-27 06:12] LABS: ALB/GLOB RATIO 1.3; ALBUMIN 3.7 g/dL (3.5-5.0); CALCIUM 8.5 mg/dL (8.8-10.2); CREATININE 2.7 mg/dL (0.7-1.2); POTASSIUM 5.4 mmol/L (3.5-5.1); TOTAL BILIRUBIN 2.33 mg/dL (0.20-1.00); TOTAL PROTEIN 6.6 g/dL (6.3-8.3)
[2019-04-27 06:58] LABS: BANDS 6 % (0-1); EOS 1 % (1-10); LYMPHS 29 % (21-51); MONO 8 % (1-9); SEGS 56 % (42-75)
[2019-04-27] MEDS: DEPACON 250 MG in NS 50 ML IV SCH ×2 (08:18→18:07)
[2019-04-27] MEDS: THIAMINE 100 MG in NS 50 ML IV SCH (08:19)
[2019-04-27] MEDS: LACTULOSE PO SCH ×3 (09:21→17:50)
[2019-04-27] MEDS: FOLIC ACID PO SCH (09:21)
[2019-04-27] MEDS: VITAMIN K 10 MG in NS 50 ML IV SCH (09:31)
[2019-04-27] MEDS: PROTONIX IV SCH (09:31)
[2019-04-27] MEDS: CLINIMIX E 4.25%-5% SOLUTION 1,000 ML IV SCH (09:31)
--- NOTE | 2019-04-27 10:07 | PROGRESS NOTE ---
DATE: 04/27/2019 INTERVAL HISTORY: No acute events overnight. SUBJECTIVE: Mr. Mcduffie is denying any new complaints. He is answering questions appropriately, though he is not sure about the date and year and intermittently appears confused. VITALS: Temperature 97.3 degrees, pulse 113, respiratory 20, blood pressure 97/81. He is saturating 93% on room air. PHYSICAL EXAMINATION: General: Not in acute distress. HEENT: Oral cavity is dry. He has a nasogastric tube. Lungs: Air entry bilaterally equal. No wheeze, rhonchi, crackles. Cardiovascular: S1, S2 normal. No murmur, rub, or gallop. Tachycardic. He does have poor inspiratory effort. Abdomen: Soft, distended. No bowel sounds. Tympanic to percussion. Neuro: He is alert. He is oriented to himself, to the place, not with the year, time or situation entirely. : He has urine catheter. Extremities: No lower extremity edema. Eyes: His pupils are bilaterally equal reacting to light. Input and output suggests he had 800 mL of urine output and 500 mL of NG tube output. LABS: Suggestive of normocytic anemia with hemoglobin of 8.3, platelets 72,000. Potassium of 5.4, BUN of 53, creatinine 2.7. MICROBIOLOGY: No positive data so far. IMAGING: No new imaging. ASSESSMENT AND PLAN: 1. Small-bowel obstruction. Continue NG tube under suction, NPO status and monitor electrolytes. Continue lactulose as per Gastroenterology recommendations. 2. Acute kidney injury due to prerenal etiology. His urine output improved after intravenous fluid resuscitation modestly. Hepatorenal syndrome is also a possibility. Continue Lopez catheter for close input and output monitoring. 3. Severe alcoholic cirrhosis due to chronic active hepatitis C, now decompensated with ascites, status post 4.5 L of a paracentesis. His thrombocytopenia and coagulopathy is related to alcoholic cirrhosis. Continue to monitor CBC, intravenous vitamin K, and patient is likely to undergo paracentesis according to GI team. I will follow up on it. 4. Shock due to intravascular volume depletion and massive ascites requiring intravenous albumin multiple times. I will continue to monitor him. In future I may consider starting him on norepinephrine if he becomes hypotensive again. 5. Substance abuse including alcohol, tobacco, marijuana. Change Depakote to intravenous valproic acid for history of seizures and brain aneurysm requiring craniotomy in the past. 6. Continue vitamin D supplementation for deficiency, intravenous antibiotics, which I will stop after paracentesis fluid results accordingly. 7. Disposition: His condition is critical. More than 30 minutes of critical care time was spent taking care of this patient. I will keep the family updated. cc: Kelechi Hutton MD
--- NOTE | 2019-04-27 12:03 | Diag Imaging Result Doc PS360 ---
EXAM: CHEST-PORTABLE HISTORY: cvl placement TECHNIQUE: Single view COMPARISON: 04/25/2019 FINDINGS: Poor inspiratory effort. Interval placement of a right jugular line. Tip overlies the right atrium. No pneumothorax. Nasogastric tube has been pulled back. This now lies in the mid esophagus. No infiltrates. No cardiomegaly. IMPRESSION: No postprocedural pneumothorax. Nasogastric tube no longer enters the stomach. This report was discussed with Cristela the patient's nurse in ICU on 04/27/2019 at noon and was readback. Electronically signed by Luis Coronel 04/27/2019 12:00 PM
--- NOTE | 2019-04-27 13:47 | GASTROENTEROLOGY PROGRESS NOTE ---
DATE: 04/27/2019 SUBJECTIVE: Mr. Mcduffie is a 59-year-old male. He is resting in bed. The patient was in tears today complaining that he wants his NG tube to be taken out. He is complaining of abdominal pain. The patient has not yet had a bowel movement today. He was given soapsuds enemas yesterday. He is currently n.p.o. and awaiting for his paracentesis to be done. OBJECTIVE: Vital Signs: Temperature 98.2 degrees, pulse 112, respirations 21, blood pressure 102/72, oxygen saturation 97% on room air. General: He is alert, oriented x2. His weight is 167 pounds. BMI is 27.0 kg/m2. HEENT: Pale conjunctivae, mild icterus. PERRL. NG tube in place with intermittent suction. Neck: Supple. Lungs: Clear to auscultation. Cardiovascular: Patient is tachycardic and tachypneic. Abdomen: Firm, distended, tender, hypoactive bowel sounds heard in all four quadrants. Extremities: No clubbing no cyanosis no edema. Pedal pulses 2+ present bilaterally. Neurologic: Alert oriented times 2. LABORATORY DATA: WBCs are 9.83, RBCs 2.54, hemoglobin is 8.3, hematocrit is 24.5, platelet count is 72,000 sodium 140, potassium 5.4, chloride 105, carbon dioxide 22, anion gap 13, BUN 53, creatinine 2.7, glucose 121, calcium is 8.5, total bilirubin is 2.33, AST 22, ALT 8, alkaline phosphatase is 45. The patient's urinalysis yesterday showed urine protein of 50, moderate amount of blood, a small amount of leukocytes. IMAGING: The patient's chest x-ray today has shown no postprocedural pneumothorax. NG tube no longer enters the stomach. IMPRESSION AND PLAN: - Decompensated ETOH/HCV cirrhosis with ascites - CAITLYN - SBO - Anemia - Thrombocytopenia - Alcoholism - Chronic HCV - Tobacco abuse - Seizure disorder PLAN: Mr. Regino Mcduffie is a 59-year-old gentleman with past medical history of chronic hepatitis C, alcoholism, tobacco abuse, seizure disorder, hypertension who presented newly decompensated hepatitis C virus alcohol cirrhosis with ascites and CAITLYN. His course has been complicated by SBO. Surgery was consulted. CT shows worsening SBO; reviewed imaging. NGT placed to LIWS. Continue supportive care. On clinimix and PPI. She is on flagyl and CTX. No signs of PSE. Abdomen is tympanic and TTP throughout. We will continue to monitor the patient and follow the plan of care. This plan was discussed with Dr. Molina. Please call us for any further questions or concerns. Dictated by TURNER Bazan for Catracho Molina MD Physician Attestation I have seen and examined the patient. I have discussed and reviewed the note by Claudia TOMPKINS and agree with findings and plan as documented. Changes made in note above. MTDD
--- NOTE | 2019-04-27 13:49 | Diag Imaging Result Doc PS360 ---
EXAM: CHEST-PORTABLE INDICATION: NGT placement TECHNIQUE: One view COMPARISON: 04/27/2019 FINDINGS: The NG tube projects below the diaphragm and is assumed to be in the lumen of the stomach in the expected position. The visualized portion of the chest is essentially stable. There are distended loops of small bowel consistent with known obstruction. IMPRESSION: NG tube in expected position as described. Electronically signed by Rodney Lang 04/27/2019 1:47 PM
--- NOTE | 2019-04-27 16:25 | OPERATIVE NOTE ---
PROCEDURE DATE: 04/27/2019 SURGEON: Kirt Ellis MD. INDICATIONS: I have been asked to place a central venous line for IV access. DESCRIPTION: The patient was placed in Trendelenburg position. The right upper anterior chest and neck were prepped and draped in a sterile fashion. We anesthetized the skin below the clavicle. We made one attempt to the subclavian vein, but failed to gain access. So, we sheathed the ultrasound probe in a sterile fashion and imaged the right internal jugular vein. We anesthetized the skin, made a stab incision, and accessed the right internal jugular vein. We then passed the guidewire without difficulty. We dilated the tract and then passed the triple- lumen catheter to the extent that it would go. We aspirated blood from each lumen and flushed each lumen with saline. We placed a Biostep patch at the exit site and secured the flange to the skin with the silk contained within the tray. A sterile OpSite was applied. He tolerated it well. A chest x-ray was ordered. cc: Kirt Ellis MD
[2019-04-27 17:37] LABS: CALCIUM 8.5 mg/dL (8.8-10.2); CREATININE 2.4 mg/dL (0.7-1.2); POTASSIUM 5.2 mmol/L (3.5-5.1)
[2019-04-27] MEDS: ZOFRAN IV PRN (17:59)
--- NOTE | 2019-04-27 18:00 | NEPHROLOGY PROGRESS NOTE ---
DATE: 04/27/2019 SUBJECTIVE: The patient resting in bed. He opens his eyes and responds appropriately. OBJECTIVE: Vital Signs: Temperature 98.3 degrees, pulse 116 respiratory rate 12, blood pressure 111/81. Intake 3.1 L output 1.3 L. General: Chronically ill-appearing, middle-aged gentleman resting in bed in no acute distress. HEENT: Normocephalic, atraumatic. Conjunctivae are pink. Oral mucosa moist. Neck: Supple. Trachea midline. Cardiovascular: Regular rate and rhythm. Pulmonary: Clear bilaterally. Abdomen: Distended, firm, positive bowel sounds. : Lopez catheter. Extremities: Trace pretibial edema. No clubbing, cyanosis. Integumentary: Skin is warm and dry. Neurologic: He responds but altered at time. LAB DATA: WBC of 9.8, hemoglobin 8.3 platelets of 72,000 sodium 140, potassium 5.4, CO2 of 22, creatinine 2.7 (3.1). ASSESSMENT AND PLAN: 1. Acute kidney injury. Likely prerenal secondary to intravascular volume depletion. The patient is to have a paracentesis today, and if he has fluid mobility after that, we may see a rise in his creatinine tomorrow. Urine output has been adequate, and his intake yet remains in positive territory over the last 24 hours. No indications for intervention other than current treatment plan, continue. 2. Electrolytes, acid-base balance anemia, these are stable. 3. Nutrition. Clinimix was started today. Dictated by TURNER Peres for Vic Dominguez MD cc: Vic Dominguez MD
[2019-04-27] MEDS: FLOMAX PO SCH (20:42)
[2019-04-28] MEDS: FLAGYL 500 MG/NS 500 MG/100 ML IVPB IV SCH ×4 (00:52→19:07)
[2019-04-28] MEDS: CLINIMIX E 4.25%-5% SOLUTION 1,000 ML IV SCH ×2 (00:52→13:49)
[2019-04-28] MEDS: DILAUDID IV PRN ×4 (00:52→23:55)
[2019-04-28] MEDS: ROCEPHIN 2 GM in NS 50 ML IV SCH (02:25)
[2019-04-28] MEDS: THIAMINE 100 MG in NS 50 ML IV SCH (06:08)
[2019-04-28] MEDS: DEPACON 250 MG in NS 50 ML IV SCH ×2 (06:08→19:07)
[2019-04-28 06:22] LABS: BASO# 0.04 X1000 (0.0-0.2); BASO% 0.4 % (0.0-0.8); EOS# 0.03 X1000 (0.0-0.7); EOS% 0.3 % (0.0-10.0); HEMATOCRIT 23.1 % (42.0-52.0); HEMOGLOBIN 7.9 g/dL (14.0-18.0); IMM GRAN# 0.04 X1000 (0.0-0.04); IMM GRAN% 0.4 % (0.0-0.5); LYMPH# 2.45 X1000 (1.2-3.4); LYMPH% 24.7 % (20.5-51.1); MCH 33.2 PG (27-31); MCHC 34.2 g/dL (33-37); MCV 97.1 FL (81-99); MONO# 2.02 X1000 (0.11-0.59); MONO% 20.4 % (1.7-9.3); MPV 11.2 FL (7.4-10.4); NEUT# 5.33 X1000 (1.4-6.5); NEUT% 53.8 % (42.2-75.2); PLT 60 X1000 (130-400); RBC 2.38 XMIL (4.7-6.1); RDW 16.5 % (11.5-14.5); WBC 9.91 X1000 (4.8-10.8)
[2019-04-28 06:24] LABS: INR 1.92; PROTIME 22.4 Seconds (11.0-16.0)
[2019-04-28 06:35] LABS: ALBUMIN 3.3 g/dL (3.5-5.0); CALCIUM 8.7 mg/dL (8.8-10.2); CREATININE 2.1 mg/dL (0.7-1.2); POTASSIUM 4.9 mmol/L (3.5-5.1); TOTAL BILIRUBIN 2.65 mg/dL (0.20-1.00); TOTAL PROTEIN 6.6 g/dL (6.3-8.3)
[2019-04-28] MEDS: ZOFRAN IV PRN (06:44)
[2019-04-28] MEDS: LACTULOSE PO SCH ×3 (08:24→19:06)
[2019-04-28] MEDS: VITAMIN K 10 MG in NS 50 ML IV SCH (08:24)
[2019-04-28] MEDS: FOLIC ACID PO SCH (08:26)
--- NOTE | 2019-04-28 09:02 | NEPHROLOGY PROGRESS NOTE ---
DATE: 04/28/2019 SUBJECTIVE: Patient is sitting up in a chair. He is awake and alert this morning. OBJECTIVE: Vital Signs: Temperature 97.9 degrees, pulse 124, respiratory rate 16, blood pressure 96/68. Intake 2.6 L. Output 1.6 L via Lopez catheter. General: Chronically ill-appearing gentleman sitting up in a chair. No acute distress. HEENT: Normocephalic, atraumatic. Conjunctivae are pale. Oral mucosa moist. Neck: Supple. No JVD. Cardiovascular: Regular rate and rhythm. Tachy. Pulmonary: He is clear. Abdomen: Distended with positive bowel sounds. Firm. Nontender. : Lopez catheter. Extremities: Trace edema. No clubbing, cyanosis. Integumentary: Skin is warm and dry. Neurologic: Awake and alert today. LAB DATA: WBC of 9.9, hemoglobin 7.9. Sodium 141, potassium 4.9, CO2 25, creatinine 2.1. ASSESSMENT AND PLAN: 1. Acute kidney injury, likely prerenal secondary to intravascular volume depletion in the setting of cirrhosis and ascites. The patient's renal function has continued to improve. Continue to monitor closely for fluid volume shifts. I was told he was to have a paracentesis yesterday. Cannot find that documentation that happened and his abdomen still feels quite tight. 2. Electrolytes, acid-base balance. These are acceptable. 3. Anemia fairly stable. We will defer to Primary. 4. Hypertension, controlled. Dictated by TURNER Peres for Vic Dominguez MD cc: Vic Dominguez MD
[2019-04-28 09:03] LABS: BANDS 6 % (0-1); LYMPHS 24 % (21-51); MONO 18 % (1-9); SEGS 52 % (42-75)
--- NOTE | 2019-04-28 09:21 | PROGRESS NOTE ---
DATE: 04/28/2019 INTERVAL HISTORY: He underwent right-sided central line catheter placement, which he tolerated well. He has not had any bowel movement. He continues to have abdominal distention. SUBJECTIVE: Mr. Mcduffie is sitting in the chair by the bedside. He is asking if the nasogastric tube could be removed. He is asking if he could be fed and I informed him about his small bowel obstruction and bowel rest. VITALS: Temperature of 97.9 degrees, pulse 124, respiratory 16, blood pressure 96/68. He is saturating 97% on room air. PHYSICAL EXAMINATION: Not in any acute distress.HEENT: Oral cavity is dry. Lungs: Air entry bilaterally equal. No wheeze or rhonchi. He had mild crackles inspiratory infrascapular region. He has a right-sided chest central venous catheter. Heart: S1, S2 normal, tachycardic. No murmur, rub, or gallop. Abdomen: Distended, soft, nontender, tympanic to percussion on most part and dullness on the lower abdominal quadrants. No bowel sounds. Extremities: No lower extremity edema. He has urine catheter. HEENT: His pupils are bilaterally equal reacting to light. Oral cavity is moist. Neurologic: He is alert. He is oriented to himself and place, not with the situation. He tells me that he underwent paracentesis yesterday, which is not correct. Input and output suggest 800 mL of urine output, 750 mL of nasogastric tube output. LABS: Suggestive of hemoglobin of 7.9, platelet of 60,000. INR of 1.9, BUN 54, creatinine 2.1 with improvement in acute kidney injury. Calcium of 8.7. He does have hypomagnesemia with magnesium of 3. Total bilirubin is 2.6. MICROBIOLOGY: No new data. No new imaging. Abdominal x-ray has been ordered. ASSESSMENT AND PLAN: 1. Small-bowel obstruction. Continue nasogastric tube under suction, NPO. Physical activity as tolerated. General surgical team has been consulted. Appreciate GI recommendations as well. 2. Acute kidney injury due to intravascular volume depletion. He improved after intravenous fluid resuscitation. Nephrology team on board. 3. Chronic active hepatitis C, alcohol abuse disorder and decompensated cirrhosis with ascites status post 4.5 L of paracentesis on April 23. His thrombocytopenia and coagulopathy is related to his cirrhosis. Continue intravenous vitamin K as per Gastroenterology recommendations. Repeat paracentesis is pending. I will keep him on intravenous thiamine, intravenous Clinimix and oral folic acid as tolerated. I will also keep him on intravenous Protonix. 4. Others: His shock due to intravascular volume depletion and massive ascites requiring intravenous albumin and oral midodrine appears to be stable; he has alcohol, tobacco, and marijuana use disorder; vitamin D deficiency for which he is getting supplementation. I am continuing intravenous valproic acid for history of brain aneurysm causing seizures. DISPOSITION: Continue to monitor patient inside ICU. We will continue physical therapy. Plan of care discussed with the patient. His questions have been answered. I called his and left her a voice message. cc: Kelechi Hutton MD MTDD
[2019-04-28] MEDS: PROTONIX IV SCH (10:34)
[2019-04-28] MEDS ORDERED: DULCOLAX PR ONE (11:41)
--- NOTE | 2019-04-28 12:54 | Diag Imaging Result Doc PS360 ---
EXAM: ABDOMEN FLAT/UPRIGHT INDICATION: Follow up SBO TECHNIQUE: 2 views COMPARISON: 04/25/2019 FINDINGS: There are still gas-distended loops of small bowel throughout the abdomen. However, the degree of distention appears to have improved slightly. No large volume free abdominal gas is appreciated. The abdomen is essentially stable, otherwise. IMPRESSION: Slight improvement of gaseous distention of small bowel. Electronically signed by Rodney Lang 04/28/2019 12:52 PM
--- NOTE | 2019-04-28 14:55 | GENERAL SURGERY CONSULTATION ---
DATE: 04/28/2019 HISTORY OF PRESENT ILLNESS: Mr. Mcduffie is a 59-year-old gentleman, admitted on the with abdominal distention and pain. He said he had some nausea and vomiting, reported some constipation. He says his last colonoscopy was a year 2 ago out at the at the [facility] and apparently was found to be okay. He says he is passing some flatus but he remains distended. PAST MEDICAL HISTORY: Pertinent for hepatitis C, alcohol abuse, nicotine dependence, history of cerebral aneurysm post craniotomy. PAST SURGICAL HISTORY: Includes the brain surgery, back surgeries and chest wall cyst removal. MEDICATIONS: Are listed. SOCIAL HISTORY: He lives at home. He does smoke cigarettes and marijuana. Says he rarely drinks alcohol now. FAMILY HISTORY: Pertinent for lung cancer, renal failure. ALLERGIES: He has no known drug allergies. REVIEW OF SYSTEMS: As noted above. Other subsystems including the other of 10 subsystems are negative. PHYSICAL EXAMINATION: Vital Signs: He is afebrile. Heart rate is 112, blood pressure 87/69. HEENT: NG tube is in place. Lungs: Sound clear. Heart: Regular rate and rhythm. Abdomen: Distended, tympanitic. Bowel sounds are active. Intake and output: Intake 2270, output 1630. Extremities: He does have some peripheral edema. Neurologic: He is awake and alert. LABORATORY DATA: White count 9000, hemoglobin 7.9, hematocrit 23. Protime 22. INR 1.9. BUN 54, creatinine 2.1. Total bilirubin 2.65. ASSESSMENT: His admission CT as well as his subsequent CT shows air in his small bowel as well as colon. The increase in air was noted on his 2nd CT. There is no point of obstruction noted. He has ascites consistent with known cirrhosis. I suspect this is an ileus; however, he has been complaining about symptoms for a month. He does have air in his colon. He seems to have less air in his distal colon and sigmoid. Certainly, an ileus can occur with spontaneous bacterial peritonitis from cirrhosis. PLAN: I would continue with NG suction. I would ask GI to consider him for a flexible sigmoidoscopy study to look and see if there is any pathology in the sigmoid that might enhance this picture of obstruction. cc: Kirt Ellis MD
[2019-04-28] MEDS ORDERED: LR 1,000 ML IV SCH (18:30)
[2019-04-29] MEDS: CLINIMIX E 4.25%-5% SOLUTION 1,000 ML IV SCH ×2 (01:48→15:39)
[2019-04-29] MEDS: ROCEPHIN 2 GM in NS 50 ML IV SCH (01:48)
[2019-04-29] MEDS: FLAGYL 500 MG/NS 500 MG/100 ML IVPB IV SCH ×2 (01:48→06:11)
[2019-04-29] MEDS: DILAUDID IV PRN ×3 (05:01→23:29)
[2019-04-29] MEDS: THIAMINE 100 MG in NS 50 ML IV SCH (06:10)
[2019-04-29] MEDS: DEPACON 250 MG in NS 50 ML IV SCH ×2 (06:11→18:26)
[2019-04-29 06:36] LABS: BASO# 0.03 X1000 (0.0-0.2); BASO% 0.3 % (0.0-0.8); EOS# 0.02 X1000 (0.0-0.7); EOS% 0.2 % (0.0-10.0); HEMATOCRIT 22.6 % (42.0-52.0); HEMOGLOBIN 7.6 g/dL (14.0-18.0); IMM GRAN# 0.06 X1000 (0.0-0.04); IMM GRAN% 0.7 % (0.0-0.5); LYMPH% 25.2 % (20.5-51.1); MCH 32.2 PG (27-31); MCHC 33.6 g/dL (33-37); MCV 95.8 FL (81-99); MONO# 1.68 X1000 (0.11-0.59); MONO% 18.4 % (1.7-9.3); MPV 11.2 FL (7.4-10.4); NEUT# 5.02 X1000 (1.4-6.5); NEUT% 55.2 % (42.2-75.2); PLT 52 X1000 (130-400); RBC 2.36 XMIL (4.7-6.1); RDW 16.9 % (11.5-14.5); WBC 9.11 X1000 (4.8-10.8)
[2019-04-29 06:54] LABS: INR 2.18; PROTIME 24.8 Seconds (11.0-16.0)
[2019-04-29 07:01] LABS: ALB/GLOB RATIO 0.8; ALBUMIN 2.8 g/dL (3.5-5.0); CALCIUM 9.1 mg/dL (8.8-10.2); CREATININE 1.8 mg/dL (0.7-1.2); POTASSIUM 4.8 mmol/L (3.5-5.1); TOTAL BILIRUBIN 2.7 mg/dL (0.20-1.00); TOTAL PROTEIN 6.3 g/dL (6.3-8.3)
--- NOTE | 2019-04-29 07:54 | GENERAL SURGERY PROGRESS NOTE ---
DATE: 04/29/2019 His clinical exam looks about the same. He still is tympanitic. He denies any flatus. We will get a flat plate of his abdomen today. We will talk with GI about a possible flexible sigmoidoscopy to be certain his sigmoid is not obstructed from a tumor. cc: Kirt Ellis MD
[2019-04-29] MEDS: LACTULOSE PO SCH ×3 (08:50→17:20)
[2019-04-29] MEDS: VITAMIN K 10 MG in NS 50 ML IV SCH (08:50)
[2019-04-29] MEDS: DULCOLAX PR SCH ×2 (08:51→21:12)
[2019-04-29] MEDS: FOLIC ACID PO SCH (08:51)
[2019-04-29] MEDS: ZOSYN 2.25 GM in NS 50 ML IV SCH ×3 (09:16→21:13)
[2019-04-29] MEDS: PROTONIX IV SCH (09:17)
--- NOTE | 2019-04-29 09:39 | PROGRESS NOTE ---
DATE: 04/29/2019 INTERVAL HISTORY: General surgical team was consulted and conservative management was recommended. He had a small smear of bowel movement yesterday, though his abdomen is still distended. Mr. Mcduffie denies any new complaints. VITALS: Temperature 97.9 degrees, pulse 113, respiratory 29 blood pressure 103/77, saturating 98% on room air. PHYSICAL EXAMINATION: He is not in any acute distress. He has an NG tube. Oral cavity is dry.Lungs: Air entry bilaterally equal. No wheeze, rhonchi. Mild inspiratory crackles. Abdomen: Distended soft. Tympanic to percussion in the center of the abdomen. Mild dullness towards flanks. I could appreciate some bowel sounds. : He has urine catheter. Extremity: No lower extremity edema. Neurologic: He is alert. He is oriented to himself and place and to some extent with situation. He wanted the NG tube out. LABS: Suggestive of normocytic anemia with hemoglobin of 7.6, platelet of 52,000. He does have elevated INR of 2.1. His BUN is 54, creatinine 1.8. Microbiology no positive data. No new imaging. ASSESSMENT AND PLAN: 1. Small bowel obstruction. Could be related to ileus versus spontaneous bacterial peritonitis contributing to small-bowel obstruction. He denies any known history of abdominal surgery. Continue NG tube under suction, NPO, physical activity as tolerated, lactulose and add bisacodyl suppositories. Gastroenterology team and surgical team on board. Awaiting decrease in INR before any procedure or surgical intervention could be planned. 2. Acute kidney injury due to intravascular volume depletion. I will give him intravenous fluids as necessary. Nephrology team on board. He had adequate urine output through Lopez catheter. Continue Lopez catheter. 3. Chronic active hepatitis C, alcohol abuse, and decompensated cirrhosis with ascites status post 4.5 L of paracentesis on April 23. His thrombocytopenia and coagulopathy is related to his cirrhosis. Continue intravenous vitamin K, repeat paracentesis is pending, continue intravenous thiamine intravenous, Clinimix and folic acid. I will change antibiotics to intravenous Zosyn for suspected spontaneous bacterial peritonitis since he did not respond to intravenous ceftriaxone. Culture data have been negative so far. 4. Others: He has required multiple intravenous albumin, oral midodrine for his suspected hepatorenal syndrome; he does have polysubstance use disorder including alcohol, tobacco, and marijuana and vitamin D deficiency. I am keeping him on his valproic acid for history of seizures and a brain aneurysm. DISPOSITION: The patient's condition is still critical considering decompensated hepatic cirrhosis. I will keep monitoring him in ICU. Plan of care was discussed with him. cc: Kelechi Hutton MD
--- NOTE | 2019-04-29 10:38 | NEPHROLOGY PROGRESS NOTE ---
DATE: 04/29/2019 SUBJECTIVE: Patient resting in bed. No complaints today. OBJECTIVE: Vital Signs: Temperature afebrile, pulse 113, respiratory rate 29, blood pressure 103/77. Intake 3.4 L. Output 2.1 L. 975 of this was urine output. General: Chronically ill-appearing gentleman resting in bed. He is awake and alert. He is in no acute distress. HEENT: Normocephalic, atraumatic. DENISA. Neck: Supple without JVD. Cardiovascular: Tachycardic, regular. Pulmonary: He is clear bilaterally. He is on 2 L nasal cannula. Abdomen: Remains distended with positive bowel sounds. He has an NG tube to LIS. : Lopez catheter. Small amount of urine. Extremities: Trace edema. No clubbing, cyanosis. Integumentary: Skin is warm and dry. LABORATORY DATA: WBC of 9.1, hemoglobin 7.6. Sodium 143, potassium 4.8, CO2 24, BUN 54, creatinine 1.8. ASSESSMENT AND PLAN: 1. Acute kidney injury secondary to intravascular volume depletion in the setting of cirrhosis, ascites. Renal function continues to improve. No changes to current treatment plan. 2. Electrolytes, acid-base balance, anemia. These have been fairly stable. We will defer his anemia to primary. Hypertension is controlled. 3. He had a CT scan that showed increase in air in the small bowel and colon. He has had a surgical consult already. Dictated by TURNER Peres for Vic Dominguez MD cc: Vic Dominguez MD
--- NOTE | 2019-04-29 11:22 | Diag Imaging Result Doc PS360 ---
EXAM: KUB ABDOMEN INDICATION: distended abdomen TECHNIQUE: One view COMPARISON: 04/28/2019 FINDINGS: There are multiple loops of gas-distended small bowel throughout the abdomen that are approximately stable as compared to the previous study. No large volume free abdominal gas is appreciated. The abdomen is stable, otherwise. IMPRESSION: Approximately stable gaseous distention of small bowel. Electronically signed by Rodney Lang 04/29/2019 11:20 AM
[2019-04-29] MEDS: ZOFRAN IV PRN (13:05)
[2019-04-29] MEDS: ALBUMIN 25% IV SCH (21:12)
[2019-04-30] MEDS: DILAUDID IV PRN ×2 (02:47→13:42)
[2019-04-30] MEDS: ALBUMIN 25% IV SCH ×2 (02:55→11:16)
[2019-04-30] MEDS: CLINIMIX E 4.25%-5% SOLUTION 1,000 ML IV SCH ×2 (02:55→17:01)
[2019-04-30] MEDS: ZOSYN 2.25 GM in NS 50 ML IV SCH ×4 (02:55→20:39)
[2019-04-30] MEDS: DEPACON 250 MG in NS 50 ML IV SCH ×2 (05:24→18:08)
[2019-04-30] MEDS: THIAMINE 100 MG in NS 50 ML IV SCH (05:24)
[2019-04-30 05:48] LABS: INR 2.59; PROTIME 28.5 Seconds (11.0-16.0)
[2019-04-30 06:09] LABS: ALB/GLOB RATIO 1.1; ALBUMIN 3.5 g/dL (3.5-5.0); CALCIUM 9.2 mg/dL (8.8-10.2); CREATININE 1.9 mg/dL (0.7-1.2); POTASSIUM 4.7 mmol/L (3.5-5.1); TOTAL BILIRUBIN 2.83 mg/dL (0.20-1.00); TOTAL PROTEIN 6.7 g/dL (6.3-8.3)
[2019-04-30 07:05] LABS: BASO# 0.04 X1000 (0.0-0.2); BASO% 0.5 % (0.0-0.8); EOS# 0.03 X1000 (0.0-0.7); EOS% 0.3 % (0.0-10.0); HEMATOCRIT 21.6 % (42.0-52.0); HEMOGLOBIN 7.3 g/dL (14.0-18.0); IMM GRAN# 0.05 X1000 (0.0-0.04); IMM GRAN% 0.6 % (0.0-0.5); LYMPH# 2.09 X1000 (1.2-3.4); LYMPH% 23.8 % (20.5-51.1); MCH 32.6 PG (27-31); MCHC 33.8 g/dL (33-37); MCV 96.4 FL (81-99); MONO# 1.45 X1000 (0.11-0.59); MONO% 16.5 % (1.7-9.3); MPV 11.8 FL (7.4-10.4); NEUT# 5.12 X1000 (1.4-6.5); NEUT% 58.3 % (42.2-75.2); PLT 39 X1000 (130-400); RBC 2.24 XMIL (4.7-6.1); RDW 17.1 % (11.5-14.5); WBC 8.78 X1000 (4.8-10.8)
[2019-04-30] MEDS ORDERED: NS 500 ML IV ONE (07:24)
[2019-04-30 07:59] LABS: BANDS 4 % (0-1); LYMPHS 18 % (21-51); MONO 6 % (1-9); SEGS 70 % (42-75)
[2019-04-30] MEDS: LACTULOSE PO SCH ×3 (09:03→17:01)
[2019-04-30] MEDS: PROTONIX IV SCH (09:03)
[2019-04-30] MEDS: VITAMIN K 10 MG in NS 50 ML IV SCH (09:03)
[2019-04-30] MEDS: DULCOLAX PR SCH ×2 (09:03→20:37)
[2019-04-30] MEDS: FOLIC ACID PO SCH (09:03)
[2019-04-30] MEDS: SODIUM CHLORIDE 0.9% INJ SCH (09:03)
--- NOTE | 2019-04-30 12:09 | PROGRESS NOTE ---
DATE: 04/30/2019 INTERVAL HISTORY: No acute events overnight. SUBJECTIVE: Mr. Mcduffie says his abdomen is hurting. He has not had any bowel movement. OBJECTIVE: Vital Signs: Temperature of 96.9 degrees, pulse 105, respiratory rate 21, blood pressure 108/73, saturating 100% on room air. General: He appears in mild distress. HEENT: Oral cavity is dry. He has an NG tube. Lungs: Air entry bilaterally equal. No wheeze, rhonchi. He had inspiratory crackles, infrascapular region. Cardiovascular: S1, S2 normal. Tachycardic. No murmur or gallop. Abdomen: Distended, soft. Generalized tenderness. No bowel sounds. Tympanic to percussion in the center of the abdomen. Dullness over towards the end. Input and output suggests he had 900 mL of urine output and 250 mL of NG tube output. LABORATORY DATA: WBC of 8.7, hemoglobin 7.3, platelets 39,000. A unit of packed pheresis platelets have been ordered. INR continues to increase to 2.5. BUN is 58, creatinine 1.9. MICROBIOLOGY: No positive data. IMAGING: No new data. ASSESSMENT AND PLAN: 1. Small-bowel obstruction. Could be related to ileus versus spontaneous bacterial peritonitis contributing to small-bowel obstruction. He denies known history of abdominal surgery. Continue nasogastric tube per suction, nothing by mouth, and physical activity as tolerated. He is also on lactulose and bisacodyl suppositories. Gastroenterology team and surgical team are on board. Appreciate recommendations. 2. Acute kidney injury due to intravascular volume depletion and ascites and hypoalbuminemia. Now appears stable. I will give him intravenous fluids and intravenous albumin as necessary. He has had 800 to 900 mL urine output so far. 3. Chronic active hepatitis C, alcohol abuse, and decompensated cirrhosis with ascites, status post 4.5 liters of paracentesis on 04/23/2019. His thrombocytopenia coagulopathy is due to his cirrhosis. Continue intravenous vitamin K. Repeat paracentesis is pending today. I will keep him on intravenous Zosyn for suspected spontaneous bacterial peritonitis. I will change his ceftriaxone as he continues to have abdominal tenderness. 4. Others. He has required multiple doses of intravenous albumin, oral midodrine, briefly intravenous norepinephrine for his suspected hepatorenal syndrome. He also has history of polysubstance abuse, including alcohol, tobacco, and marijuana, as well as vitamin D deficiency. I will continue him on valproic acid for history of seizures due to brain aneurysm and intracranial bleeding. 5. Disposition. Continue to monitor the patient in intensive care unit. Plan of care discussed with the patient and the nursing team. cc: Kelechi Hutton MD
--- NOTE | 2019-04-30 15:51 | Diag Imaging Result Doc PS360 ---
EXAM: US ABDOMEN-COMPLETE 04/30/2019 HISTORY: ascites TECHNIQUE: Abdominal ultrasound COMMENT: The aorta pancreas inferior vena cava are not well seen due to the patient's body habitus. The kidneys are without evidence of hydronephrosis or mass. There are no gross hepatic abnormalities. The gallbladder wall is somewhat thickened however it is slightly contracted and there are no apparent stones or sediment. This is actually improved since the previous study of 06/29/2018. The spleen is not well seen. There is considerable ascites. Common bile duct measures 7 mm. IMPRESSION: Suboptimal study. Ascites. Gallbladder wall thickening. Electronically signed by Delonte Warner 04/30/2019 3:49 PM
[2019-04-30] MEDS: VITAMIN D PO SCH (15:56)
--- NOTE | 2019-04-30 15:57 | Diag Imaging Result Doc PS360 ---
EXAM: US ABD PARACENTESIS W S/I 04/30/2019 HISTORY: ascitic fluid TECHNIQUE: Ultrasound-guided paracentesis COMMENT: The risks and benefits the procedure including the possibility of bleeding, infection, reaction to lidocaine, or puncture of hollow viscus was discussed with the patient and he agreed to the procedure. Following sterile preparation the skin laterally over the right abdomen and administration 1% lidocaine to the skin and deeper soft tissues, the paracentesis catheter was placed and subsequently 6.2 L of straw-colored fluid was drained. The patient tolerated the procedure well. IMPRESSION: Successful paracentesis. Electronically signed by Delonte Warner 04/30/2019 3:55 PM
--- NOTE | 2019-04-30 16:06 | PROVIDER PROGRESS NOTE ---
Progress Note Subjective: He denies any complaints and says he has been passing gas and stool. However, staff says he has not. Objective: temperature 96.9, pulse 105, respirations 21, blood pressure 108/73, O2 sat 100% on room air. General: Chronically ill appearing -[place] male in no acute distress. HEENT: normocephalic, atraumatic, conjunctiva pink, pupils equal and reactive. Mucous membranes moist, NG tube in place. Trachea midline. Skin: Warm and dry. Neck: supple, no JVD observed. Cardiovascular: S1s2s4, regular rate and rhythm. No murmur or gallop. Respiratory: clear with equal air entry Abdomen: firm, distended, nontender. High pitched tickle noises to right and left upper quadrant. :non inspected, doe in place with orange/ freddy urine Extremities: trace edema to bilateral ankles. Neurological: alert, oriented to person and place. Confused about situation. Labs: WBC 8.78, hemoglobin 7.3, hematocrit 21.6, platelet count 39, sodium 143, potassium 4.7, chloride 108, carbon dioxide 24, BUN 58, creatinine 1.9. Intake 2500, output 1150. Impression: Acute kidney injury. Likely prerenal for intravascular depletion. BUN and Creatinine stable. Blood pressure. Stable. Intravascular Fluid volume. Marked ascites but otherwise no evidence of volume overload. Anemia. Low. Thrombocytopenia. Pheresis platelets ordered by primary Electrolytes and acid base balance. Stable. Medication review. Zosyn started yesterday.
--- NOTE | 2019-04-30 17:02 | GASTROENTEROLOGY PROGRESS NOTE ---
DATE: 04/30/2019 SUBJECTIVE: Mr. Mcduffie is a 59-year-old male resting in bed. The patient has an NG tube in place on intermittent suction. He is still NPO. The patient had not had a bowel movement today. OBJECTIVE: Vital Signs: Temperature 98.8 degrees, pulse 101, respirations 16, blood pressure 69/49. O2 saturation 100% on room air. The patient's weight is 176 pounds. BMI is 28.5 kg/m2. General: He is alert and oriented x2, and in no acute distress. HEENT: Pale conjunctivae. Mild icterus. PERRL. NG tube in place. Neck: Supple. Lungs: Clear to auscultation. Cardiovascular: Patient is tachycardic. Abdomen: Firm. Distended. Tender. Hypoactive bowel sounds heard in all 4 quadrants. Extremities: No clubbing. No cyanosis. Generalized edema. Neurological: Alert and oriented x2. LABORATORY DATA: WBCs are 8.78, RBC 2.24, hemoglobin 7.3, hematocrit is 21.6, and platelet count is 39,000. PT is 28.5. INR is 2.59. Sodium 143, potassium 4.7, chloride 108, carbon dioxide 24, anion gap 11, BUN is 58, and creatinine 1.9. Glucose 157, calcium is 9.2, total bilirubin 2.83, AST 31, ALT 11, alkaline phosphatase is 45, and albumin is 3.5. Abdominal ultrasound today showed suboptimal study, ascites, and gallbladder wall thickening. IMPRESSION AND PLAN: Cirrhosis Ascites Small bowel obstruction versus colonic obstruction vs ileus Thrombocytopenia Anemia Coagulopathy Alcoholism Hepatics C PLAN: Mr. Mcduffie is a 59-year-old male with a history of hepatitis C and cirrhosis. GI is following him for his ascites and decompensated cirrhosis. We have ordered an ultrasound-guided paracentesis of the abdomen and the ascitic fluid studies are pending. The patient is currently on Protonix 40 mg IV. He is on lactulose 30 mg p.o. 3 times a day. The patient is also receiving Clinimix 75 mL for his nutrition. He is on antibiotic Zosyn. He is also on thiamine and folic acid daily. The patient is having constipation, we have ordered rectal tube placement. We will plan to do a flexible sigmoidoscopy to evaluate for any colonic obstruction but we need his platelet counts to be greater than 50,000, and his INR to be less than 1.5. As per PCP patient has received 1 unit of platelets. We will continue to monitor his labs and follow the plan of care per PCP. This plan was discussed with Dr. Hernandez. Please call us for any further questions or concerns. Dictated by TURNER Bazan for Leno Hernandez MD cc: Leno Hernandez MD I have seen and examined the patient myself and I agree with the above plan of care. Please call us with any questions or concerns. JAYY
[2019-04-30 17:44] LABS: TOTAL PROT BODY FLUID 3.4 g/dL
[2019-04-30 17:51] LABS: ALBUMIN BODY FLUID 2.1 g/dL; AMYLASE BODY FLUID 15 U/L
[2019-04-30 18:21] LABS: BODY FLUID SOURCE PERITONEAL FLUID; WBC BF 283 /cumm
[2019-04-30 18:26] LABS: MONOS 51 %; POLYS 49 %
--- NOTE | 2019-04-30 20:10 | GENERAL SURGERY PROGRESS NOTE ---
DATE: 04/30/2019 Mr. Mcduffie's abdomen feels softer after a paracentesis producing 6 L of fluid. He, however, denies flatus. No bowel movement. His platelet count today is 39,000, protime 28.5, INR 2.6. BUN is 58, creatinine is down to 1.9. ASSESSMENT: This is still a bowel obstruction versus ileus. Whenever it is safe to do the sigmoidoscopy, I think that would be valuable information to see if in fact he has any evidence of a rectal tumor. cc: Kirt Ellis MD
[2019-05-01] MEDS: ZOSYN 2.25 GM in NS 50 ML IV SCH ×4 (03:09→20:10)
[2019-05-01] MEDS: DILAUDID IV PRN (03:52)
[2019-05-01] MEDS: CLINIMIX E 4.25%-5% SOLUTION 1,000 ML IV SCH ×3 (05:54→19:00)
[2019-05-01] MEDS: THIAMINE 100 MG in NS 50 ML IV SCH (05:59)
[2019-05-01] MEDS: DEPACON 250 MG in NS 50 ML IV SCH ×2 (05:59→18:17)
[2019-05-01 06:47] LABS: INR 2.46; PROTIME 27.3 Seconds (11.0-16.0)
[2019-05-01 07:03] LABS: ALB/GLOB RATIO 1.1; CREATININE 2.1 mg/dL (0.7-1.2); POTASSIUM 5.4 mmol/L (3.5-5.1); TOTAL BILIRUBIN 2.9 mg/dL (0.20-1.00); TOTAL PROTEIN 5.7 g/dL (6.3-8.3)
[2019-05-01 07:08] LABS: BASO# 0.03 X1000 (0.0-0.2); BASO% 0.3 % (0.0-0.8); EOS# 0.02 X1000 (0.0-0.7); EOS% 0.2 % (0.0-10.0); HEMATOCRIT 20.4 % (42.0-52.0); HEMOGLOBIN 6.9 g/dL (14.0-18.0); IMM GRAN# 0.06 X1000 (0.0-0.04); IMM GRAN% 0.7 % (0.0-0.5); LYMPH# 2.98 X1000 (1.2-3.4); LYMPH% 33.5 % (20.5-51.1); MCH 32.9 PG (27-31); MCHC 33.8 g/dL (33-37); MCV 97.1 FL (81-99); MONO# 1.33 X1000 (0.11-0.59); MONO% 14.9 % (1.7-9.3); NEUT# 4.48 X1000 (1.4-6.5); NEUT% 50.4 % (42.2-75.2); PLT 90 X1000 (130-400); RDW 17.9 % (11.5-14.5)
[2019-05-01] MEDS ORDERED: NS 1,000 ML IV SCH (07:30)
--- NOTE | 2019-05-01 08:33 | Diag Imaging Result Doc PS360 ---
EXAM: FLAT/UPRIGHT ABD/1 VIEW CHEST INDICATION: dyspnea/ileus TECHNIQUE: 3 views COMPARISON: 04/29/2019 FINDINGS: Multiple gas-distended loops of small bowel throughout the abdomen are approximately stable. There is no evidence of large volume free abdominal gas. The remainder of the GI tract is essentially unremarkable. There is suggestion of mild left basilar atelectasis. No new consolidation is identified, otherwise. Cardiac silhouette is stable. IMPRESSION: 1.Approximately stable gaseous distention of small bowel throughout the abdomen. 2.Mild left basilar atelectasis. Electronically signed by Rodney Lang 05/01/2019 8:30 AM
[2019-05-01] MEDS: LACTULOSE PO SCH ×3 (08:55→17:03)
[2019-05-01] MEDS: FOLIC ACID PO SCH (08:55)
[2019-05-01] MEDS: DULCOLAX PR SCH ×2 (08:55→20:10)
[2019-05-01] MEDS: PROTONIX IV SCH (09:13)
[2019-05-01] MEDS: SODIUM CHLORIDE 0.9% INJ SCH (09:13)
[2019-05-01] MEDS ORDERED: ALBUMIN 25% IV ONE (10:31)
--- NOTE | 2019-05-01 15:08 | GENERAL SURGERY PROGRESS NOTE ---
DATE: 05/01/2019 Mr. Rousseau temperature is 99.9 degrees, heart rate 95, blood pressure 97/60. Intakes 2660, output 1100. NG output is only 250 mL. Today his hemoglobin is 6.9, hematocrit 20, white count 8900, platelet count is 90,000. This is after platelet transfusion. Pro time 27.3, INR 2.46, BUN 68, creatinine 2.1, total bilirubin 2.9, AST 61, ALT 16, alk phos 46. ASSESSMENT: His clinical exam was essentially the same. He says he has passed a little flatus. His x-ray continues to show gases distention. It appears that he will not undergo sigmoidoscopy so we will have to evaluate his colon with barium enema, will order that. cc: Kirt Ellis MD
--- NOTE | 2019-05-01 15:52 | Diag Imaging Result Doc PS360 ---
BARIUM ENEMA - 05/01/2019 INDICATION: EVALUATE FOR COLONIC OBSTRUCTION TECHNIQUE: COMPARISON: None FINDINGS: The colon is mostly collapsed but otherwise normal. There is no colonic mass or stricture. There is severe distal small bowel obstruction. This has been previously evaluated, best on the CT from 04/25/2019. IMPRESSION: Negative exam of the colon. High-grade distal small bowel obstruction. Electronically signed by Jesus Faith 05/01/2019 3:50 PM
[2019-05-01 16:12] LABS: HEMATOCRIT 28.3 % (42.0-52.0); HEMOGLOBIN 9.6 g/dL (14.0-18.0)
--- NOTE | 2019-05-01 16:22 | PROVIDER PROGRESS NOTE ---
Progress Note Subjective: He is resting in bed and arouses to verbal stimuli. He voices relief of pressure in his abdomen. He denies any uremic complaints. Objective: temperature 98.4, pulse 107, respiration 16, blood pressure 83/63, 02 sat 99% on room air. General: Chronically ill appearing -[place] male in no acute distress. HEENT: normocephalic, atraumatic, conjunctiva pink, pupils equal and reactive. Mucous membranes moist, NG tube in place. Trachea midline. Skin: Warm and dry. Neck: supple, no JVD observed. Cardiovascular: S1s2, regular rate and rhythm. No murmur or gallop. Respiratory: clear with equal air entry Abdomen: slightly firm, less distended, nontender. High pitched bowel sounds appreciated. :non inspected, doe in place with orange/ freddy urine Extremities: trace edema to bilateral ankles. Neurological: alert, oriented to person and place. Confused about situation. Labs: WBC 8.9, hemoglobin 6.9, hematocrit 20.4, platelet count 90, PT 27.3, sodium 142, potassium 5.4, chloride 109, carbon dioxide 24, BUN 68, creatinine 2.1, intake 2660, output 1100. Impression: Acute kidney injury. Likely prerenal for intravascular depletion. BUN and Creatinine stable. Continue current treatment. Blood pressure. Low, 6 L fluid removal during paracentesis yesterday. We ordered normal saline. However, CBC resulted and a hemoglobin of 6.9 is noted. Cancel normal saline and treat with PRBCs. Intravascular Fluid volume. Euvolemic on exam. Anemia. Low. Transfusion ordered. Electrolytes and acid base balance. Stable. Medication review. Monitor platelets with zosyn. Monitor BUN with clinimix.
--- NOTE | 2019-05-01 16:44 | GASTROENTEROLOGY PROGRESS NOTE ---
DATE: 05/01/2019 SUBJECTIVE: Mr. Mcduffie is a 59-year-old male resting in bed. NG tube in place with intermittent suction. Patient is still NPO. The patient has still not had any bowel movements so far. He did have a rectal tube put in place. OBJECTIVE: Vital signs: Temperature 99.6 degrees, pulse 95, respirations 15, blood pressure 97/60, oxygen saturation 99% on room air. The patient's weight is 173 pounds. BMI is 27.9 kg/m2. General: He is alert, oriented x2, in no acute distress. HEENT: Pale conjunctivae. Mild icterus. PERRL. NGT in place. Neck: Supple. Lungs: Clear to auscultation. Cardiovascular: The patient is tachycardic. Abdomen: Distended, firm, tender. Hypoactive bowel sounds heard in all 4 quadrants. Extremities: No clubbing. No cyanosis. Generalized edema. Neurologic: Alert and oriented x2. LABORATORY DATA: WBC is 8.90, RBC 2.10, hemoglobin 6.9, hematocrit is 20.4, platelet count is 90,000. Sodium 142, potassium 5.4, chloride 109, carbon dioxide 24, anion gap 9, BUN 68, creatinine 2.1, glucose 126, calcium 9.0, total bilirubin 2.90, AST 61, ALT 16, alkaline phosphatase is 46. Cortisol level 11.8. The patient's peritoneal fluid showed WBC of 283, polynuclear WBC is 49, mononuclear WBC is 51, fluid protein of 3.4, fluid amylase of 15, and albumin of 2.1. IMAGING: Abdominal x-ray has shown approximately stable gaseous distention of small bowel throughout the abdomen. Mild left basilar atelectasis. Patient's barium enema has shown a negative exam of the colon. High-grade distal small bowel obstruction. IMPRESSIONS PLAN: - Decompensated ETOH/HCV cirrhosis with ascites - CAITLYN - SBO - Anemia - Thrombocytopenia - Alcoholism - Chronic HCV - Tobacco abuse - Seizure disorder PLAN: Mr. Mcduffie is a 59-year-old male with a history of hepatitis C and cirrhosis. GI is following him for his ascites and decompensated cirrhosis. The patient had a barium enema done today and it showed negative exam of the colon, but he has high-grade distal small bowel obstruction. The patient's abdominal x-ray has shown approximately stable gaseous distention of the small bowel throughout the abdomen. Mild left basilar atelectasis. He is on Clinimix 75 mL for his nutrition. The patient isreceiving Dulcolax 10 mg p.r. twice a day for his bowel regimen. He is on Protonix 40 mg IV daily. We will continue to monitor the patient and follow the plan of care per PCP and the surgeon. This plan was discussed with Dr. Molina. Please call us for any further questions or concerns. Dictated by TURNER Bazan for Catracho Molina MD Physician Attestation I have seen and examined the patient. I have discussed and reviewed the note by Claudia TOMPKINS and agree with findings and plan as documented. In brief, Mr. Mcduffie is a 59 year old man who presented with newly decompensated HCV/ETOH cirrhosis with ascites, empirically treated for SBP, and CAITLYN. His course complicated by high grade SBO with minimal improvement with NGT decompression. Barium enema was negative for colonic mass/obstruction. CAITLYN worsening likely from ATN, less likely HRS. Avoid diuretics. He is NPO and receiving clinimix. Continue PPI. He will likely need surgical intervention. Surgery following; defer mgmt of SBO to surgery. Will follow with you. JAYY
--- NOTE | 2019-05-01 20:36 | PROGRESS NOTE ---
DATE: 05/01/2019 SUBJECTIVE: The patient is resting in bed. He complains of abdominal pain. He currently has an NG tube to low intermittent suction. He was noted to be severely hypotensive this morning and is currently receiving a blood transfusion. OBJECTIVE: Vital Signs: Temperature 99.6 degrees, blood pressure 104/67, heart rate 109, respirations 19, O2 saturations 100% on room air, intake 2.6 L, output 1.1 L. General: This is a chronically ill-appearing elderly male lying in bed in no acute distress. Heart: S1, S2 normal. Tachycardic. Lungs: Equal air entry bilaterally. No wheezing, no rales. Abdomen: Firm with hypoactive bowel sounds. Extremities: No edema, no cyanosis. Neuro: The patient is alert and oriented x3. LABS: White blood cell count 8.9, hemoglobin 9.6, hematocrit 28, platelets 90,000, INR 2.4. Sodium 142, potassium 5.4, chloride 109, CO2 24, BUN 68, creatinine 2.1, glucose 126, total bilirubin 2.9, AST 61, ALT 16, alkaline phosphatase 46, cortisol 11.8. Abdominal x-ray shows gaseous distention of the small bowel throughout the abdomen. Barium enema reveals a high-grade distal small-bowel obstruction. ASSESSMENT AND PLAN: 1. High grade distal small bowel obstruction. The patient currently has an nasogastric tube in place to low intermittent suction. The barium enema is showing a small bowel obstruction as well. Will continue bowel decompression and await further recommendations from the general surgeon. Will continue on Clinimix for nutrition. 2. Acute kidney injury. Unchanged. Will continue on the current course of therapy as directed by the knockup worker. 3. Status post large volume paracentesis secondary to recurrent ascites. The patient received albumin yesterday and again this morning. 4. Decompensated alcoholic liver cirrhosis. Aware. Continue with supportive care. 5. Chronic hepatitis C. Aware. 6. Coagulopathy. We will continue to monitor closely. 7. Hepatic encephalopathy. Improved. Continue on lactulose. 8. Thrombocytopenia. This is likely secondary to the patient's liver cirrhosis. We will continue to monitor closely. 9. Severe anemia. The patient is receiving a blood transfusion. A repeat hemoglobin and hematocrit is due this afternoon. 10. Tobacco dependence. Aware. 11. Seizure disorder. Continue on valproic acid. 12. Disposition. The patient is critically ill with a high risk of mortality. The patient is currently a full code. cc: Tamiko Gomez MD MTDD
[2019-05-02] MEDS: DILAUDID IV PRN ×6 (01:46→21:56)
[2019-05-02] MEDS: ZOSYN 2.25 GM in NS 50 ML IV SCH ×4 (01:59→20:39)
[2019-05-02] MEDS: THIAMINE 100 MG in NS 50 ML IV SCH (06:25)
[2019-05-02] MEDS: DEPACON 250 MG in NS 50 ML IV SCH ×2 (06:25→18:08)
[2019-05-02 06:40] LABS: INR 2.63; PROTIME 28.8 Seconds (11.0-16.0)
[2019-05-02 07:10] LABS: CALCIUM 8.9 mg/dL (8.8-10.2); CREATININE 1.8 mg/dL (0.7-1.2); PHOSPHORUS 4.2 mg/dL (2.7-4.5); POTASSIUM 4.6 mmol/L (3.5-5.1)
--- NOTE | 2019-05-02 07:39 | Diag Imaging Result Doc PS360 ---
EXAM: CHEST-PORTABLE HISTORY: ng TUBE PLACEMENT TECHNIQUE: Chest abdomen single view COMPARISON: 05/01/2019 FINDINGS: There is a nasogastric tube overlying the esophagus and stomach. Persistent distended bowel loops. No organomegaly. IMPRESSION: Nasogastric tube in the stomach. Electronically signed by Luis Coronel 05/02/2019 7:37 AM
[2019-05-02 07:49] LABS: BASO# 0.04 X1000 (0.0-0.2); BASO% 0.4 % (0.0-0.8); EOS# 0.04 X1000 (0.0-0.7); EOS% 0.4 % (0.0-10.0); HEMATOCRIT 26.7 % (42.0-52.0); HEMOGLOBIN 9.1 g/dL (14.0-18.0); IMM GRAN# 0.06 X1000 (0.0-0.04); IMM GRAN% 0.5 % (0.0-0.5); LYMPH# 2.67 X1000 (1.2-3.4); LYMPH% 23.7 % (20.5-51.1); MCH 32.5 PG (27-31); MCHC 34.1 g/dL (33-37); MCV 95.4 FL (81-99); MONO# 1.55 X1000 (0.11-0.59); MONO% 13.8 % (1.7-9.3); MPV 11.4 FL (7.4-10.4); NEUT% 61.2 % (42.2-75.2); PLT 47 X1000 (130-400); RDW 17.9 % (11.5-14.5); WBC 11.26 X1000 (4.8-10.8)
[2019-05-02] MEDS ORDERED: NS 1,000 ML IV ONE ×2 (08:00→15:51)
--- NOTE | 2019-05-02 08:09 | NEPHROLOGY PROGRESS NOTE ---
DATE: 05/02/2019 TIME SEEN: 0710. SUBJECTIVE: Mr. Mcduffie is resting quietly in bed. He arouses to verbal stimuli. Has been moaning aloud this a.m. secondary to abdominal discomfort. NG tube has recently been placed. IMAGING AND LABORATORY DATA: Sodium is 146, potassium 4.6, chloride 112, CO2 of 22, BUN 66, creatinine 1.8, glucose 141. His anion gap is 12. His calcium is 8.9. Phosphorus 4.2. Albumin is 3. His previous hemoglobin is 9.6, with a CBC pending. His PT is 28.8, with an INR of 2.63. Chest x-ray shows NG tube in place with distended small bowel loop. OBJECTIVE: Most Recent Vital Signs: Temperature 98.3 degrees, blood pressure 95/62, heart rate 116, respirations 17. He is on room air. Last recorded saturation 100%. He has had 3060 in, 1380 out, with 470 mL of that to NG tube. General: This is a 59-year-old, male. He is resting quietly in bed. He appears chronically ill. No acute distress. Skin: Warm and dry. HEENT: Normocephalic, atraumatic. Conjunctiva is pale pink. He has DENISA. Mucous membranes are dry. NG tube remains in place to low intermittent suction. Neck: Supple. Trachea midline. No evidence of JVD. Cardiovascular: Regular rate and rhythm. He has an S4 present. Lungs: Clear to auscultation bilaterally. Equal excursion. He is on room air. Abdomen: Slightly firm, slightly distended, nontender. Positive bowel sounds. Genitourinary: Not inspected. Lopez catheter is in place with adequate urine output documented. Extremities: Continues with trace pretibial edema, otherwise no clubbing or cyanosis. Neurological: Alert and oriented to person and place. ASSESSMENT AND PLAN: 1. Acute kidney injury, more than likely prerenal secondary to volume depletion. BUN and creatinine remain stable. BUN disproportionately elevated secondary to his Clinimix infusion. 2. Electrolytes and acid-base balance. These are acceptable. 3. Anemia. Previous hemoglobin of 9.6. INR remains elevated at 2.63. He has a pending CBC this morning. We will evaluate if hemoglobin is low, to transfuse 2 units of packed red blood cells. 4. Fluid volume status. The patient appears volume depleted. If his hemoglobin is low, then we will proceed with 2 units of packed red blood cells for transfusion. If these remain stable, then we will give him 1 liter of normal saline today only, and re-evaluate labs in the morning. Repeated NS at 16:00. romario I would like to thank you for allowing us to follow with this patient. Dictated by TURNER Leon for Vic Dominguez MD Face to face encounter, data reviewed, discussed with Samuel Oneil on 05/02/19. I agree with the above assessment and plan of care. romario cc: TURNER Leon MD [facility]
[2019-05-02] MEDS: DULCOLAX PR SCH ×2 (08:19→20:39)
[2019-05-02] MEDS: LACTULOSE PO SCH ×3 (08:19→17:04)
[2019-05-02] MEDS: FOLIC ACID PO SCH (08:20)
[2019-05-02] MEDS: CLINIMIX E 4.25%-5% SOLUTION 1,000 ML IV SCH (08:27)
[2019-05-02] MEDS: SODIUM CHLORIDE 0.9% INJ SCH (09:57)
[2019-05-02] MEDS: PROTONIX IV SCH (09:57)
--- NOTE | 2019-05-02 11:19 | GENERAL SURGERY PROGRESS NOTE ---
DATE: 05/02/2019 The findings of the barium enema are noted. There is no obstructive lesion noted in his colon. The distal ileum still seems to be the point of concern. Upon admission, his CT scan did not show really evidence of obstruction. There was air in the colon both in the CT scan of 04/20 as well as 04/25. I think we will try to give him contrast barium or at least Gastrografin through his NG tube to see if that will relieve his obstruction, possibly pull water into his small bowel to enhance passage. If this fails to relieve his obstruction, then he will be faced with surgery, but this way, we will left tried every possible method to relieve his obstruction short of surgery. Operation carries high risk in him because of his other medical problems. I have discussed this situation with Mr. Mcduffie and he understands. cc: Kirt Ellis MD
[2019-05-02] MEDS: ALBUMIN 25% IV SCH ×2 (13:32→20:39)
[2019-05-02 13:44] LABS: LYMPHS 37 % (21-51); MONO 2 % (1-9); SEGS 61 % (42-75)
--- NOTE | 2019-05-02 18:38 | GASTROENTEROLOGY PROGRESS NOTE ---
DATE: 05/02/2019 SUBJECTIVE: Mr. Mcduffie is a 59-year-old male resting in bed. He did complain of abdominal pain. The patient has an NG tube in place with low intermittent suction. The patient is still NPO. The patient did have a bowel movement today. He is currently on lactulose 30 mL p.o. 3 times a day. OBJECTIVE: Vital Signs: Temperature 98.1 degrees, pulse 107, respirations 14, blood pressure 93/63, oxygen saturation 99% on room air. His weight is 165 pounds. BMI is 26.6 kg/m2. General: He is alert, oriented x3, and in no acute distress. HEENT: Pale conjunctivae. Mild icterus. NG tube in place. Neck: Supple. Lungs: Clear to auscultation. Cardiovascular: Patient is tachycardic. Abdomen: Abdomen is firm, distended, tender. Hypoactive bowel sounds heard in all 4 quadrants. Extremities: No clubbing. No cyanosis. No edema. Neurologic: He is alert and oriented x3. LABORATORY DATA: WBCs 11.26, RBCs 2.80, hemoglobin 9.1, hematocrit is 26.7, platelet count is 47,000. PT is 28.8, INR is 2.63. Sodium 146, potassium 4.6, chloride 112, carbon dioxide 22, anion gap 12, BUN 66, creatinine is 1.8, glucose is 141, calcium is 8.9, phosphorus is 4.2, albumin is 3.0. IMAGING: Chest x-ray today has shown nasogastric tube in place overlying the esophagus and the stomach. Persistent distending bowel lobes. No organomegaly. The patient had a barium enema done yesterday and it showed that it was a negative exam of the colon. High-grade distal small bowel obstruction. Abdominal x-ray showed approximately stable gaseous distention of small bowel throughout the abdomen. Mild left basilar atelectasis. IMPRESSIONS PLAN: - Decompensated ETOH/HCV cirrhosis with ascites - CAITLYN - SBO - Anemia - Thrombocytopenia - Alcoholism - Chronic HCV - Tobacco abuse - Seizure disorder PLAN: Mr. Mcduffie is a 59-year-old male with a history of hepatitis C and cirrhosis. GI is following him for his ascites and decompensated cirrhosis. The patient's chest x-ray today has shown that he has persistent distended bowel loops. No organomegaly. The patient's albumin has been low. We have ordered albumin 25 g every 6 hours with the parameters if his albumin level is greater than 3.5 we can stop it. We will continue patient with lactulose. He is on PPIs daily. Patient is also receiving Clinimix 75 mL for his nutrition. He is on antibiotic, Zosyn. We will continue to monitor the patient and follow the plan of care per PCP. This plan was discussed with Dr. Molina. Please call us for any further questions or concerns. Dictated by TURNER Bazan for Catracho Molina MD Physician Attestation I have seen and examined the patient. I have discussed and reviewed the note by Claudia TOMPKINS and agree with findings and plan as documented. In brief, Mr. Mcduffie is a 59 year old man who presented with newly decompensated HCV/ETOH cirrhosis with ascites, empirically treated for SBP, and CAITLYN. His course complicated by high grade SBO with minimal improvement with NGT decompression. Barium enema was negative for colonic mass/obstruction. CAITLYN worsening likely from ATN, less likely HRS. Avoid diuretics. Will given albumin today. He is NPO and receiving clinimix. Continue PPI. Surgery following; defer mgmt of SBO to surgery. Will follow with you. JAYY
--- NOTE | 2019-05-02 20:23 | PROGRESS NOTE ---
DATE: 05/02/2019 SUBJECTIVE: The patient is resting comfortably. He has been complaining of abdominal pain on and off. He did have 2 bowel movements yesterday and 1 early this morning. OBJECTIVE: Vital Signs: Temperature 98.6 degrees, blood pressure 102/68, heart rate 109, respirations 15, O2 saturations 100% on room air. Intake 3.8 L, output 2.1 L. General: This is a chronically ill-appearing elderly male lying in bed in no acute distress. Heart: S1, S2 normal. Tachycardic. Lungs: Equal air entry bilaterally. No wheezing. No rales. Abdomen: Positive bowel sounds. Soft. Distended. Extremities: Trace pedal edema. No cyanosis. No calf tenderness. Neurologic: The patient is alert and oriented x3. LABORATORY DATA: White blood cell count 11, hemoglobin 9.1, hematocrit 26, platelets 47,000. INR 2.6. The sodium 146, potassium 4.6, chloride 112, CO2 22, BUN 66, creatinine 1.8, glucose 141, albumin 3. Chest x-ray shows persistent distended bowel loops. ASSESSMENT AND PLAN: 1. Small bowel obstruction. We will continue to monitor closely for improvement. Management as per the general surgeon. 2. Acute kidney injury. Improved today. The patient's urine output remains adequate. 3. Status post a large volume paracentesis secondary to recurrent ascites. Stable at this time. 4. Decompensated alcoholic liver cirrhosis. Aware. Continue with supportive care. 5. Chronic hepatitis C. Aware. 6. Thrombocytopenia. The platelet count is lower today. The patient does not have any active bleeding. We will continue to monitor closely. 7. Hepatic encephalopathy. Improved. 8. Coagulopathy. The INR is a little bit higher today. Will order vitamin K to be given in the morning. 9. Anemia. Stable. 10. Seizure disorder. Continue on valproic acid. 11. Tobacco dependence. Aware. 12. Disposition. The patient is currently a full code. The patient remains critically ill with a high risk of mortality. cc: Tamiko Gomez MD [facility]
[2019-05-03] MEDS: ALBUMIN 25% IV SCH ×2 (01:17→07:30)
[2019-05-03] MEDS: CLINIMIX E 4.25%-5% SOLUTION 1,000 ML IV SCH ×2 (01:17→10:41)
[2019-05-03] MEDS: ZOSYN 2.25 GM in NS 50 ML IV SCH ×4 (04:02→20:20)
[2019-05-03 04:42] LABS: BASO# 0.04 X1000 (0.0-0.2); BASO% 0.5 % (0.0-0.8); EOS# 0.06 X1000 (0.0-0.7); EOS% 0.7 % (0.0-10.0); HEMATOCRIT 21.8 % (42.0-52.0); HEMOGLOBIN 7.4 g/dL (14.0-18.0); IMM GRAN# 0.07 X1000 (0.0-0.04); IMM GRAN% 0.8 % (0.0-0.5); LYMPH# 2.44 X1000 (1.2-3.4); LYMPH% 28.4 % (20.5-51.1); MCH 33.2 PG (27-31); MCHC 33.9 g/dL (33-37); MCV 97.8 FL (81-99); MONO# 1.04 X1000 (0.11-0.59); MONO% 12.1 % (1.7-9.3); MPV 11.5 FL (7.4-10.4); NEUT# 4.93 X1000 (1.4-6.5); NEUT% 57.5 % (42.2-75.2); RBC 2.23 XMIL (4.7-6.1); RDW 18.5 % (11.5-14.5); WBC 8.58 X1000 (4.8-10.8)
[2019-05-03 04:43] LABS: PLT 34 X1000 (130-400)
[2019-05-03 05:09] LABS: ALBUMIN 3.2 g/dL (3.5-5.0); CREATININE 1.6 mg/dL (0.7-1.2); PHOSPHORUS 3.8 mg/dL (2.7-4.5); POTASSIUM 4.6 mmol/L (3.5-5.1)
[2019-05-03 05:29] LABS: INR 3.05; PROTIME 32.5 Seconds (11.0-16.0)
[2019-05-03] MEDS: DILAUDID IV PRN ×6 (05:44→23:19)
[2019-05-03] MEDS: THIAMINE 100 MG in NS 50 ML IV SCH (06:10)
[2019-05-03] MEDS: DEPACON 250 MG in NS 50 ML IV SCH ×2 (06:10→18:10)
[2019-05-03] MEDS ORDERED: VITAMIN K 10 MG in NS 50 ML IV ONE (08:00)
[2019-05-03] MEDS: DULCOLAX PR SCH ×2 (08:57→20:20)
[2019-05-03] MEDS: LACTULOSE PO SCH ×3 (08:58→16:09)
[2019-05-03] MEDS: FOLIC ACID PO SCH (08:58)
[2019-05-03] MEDS: PROTONIX IV SCH (09:15)
[2019-05-03] MEDS: SODIUM CHLORIDE 0.9% INJ SCH (09:16)
--- NOTE | 2019-05-03 12:28 | GENERAL SURGERY PROGRESS NOTE ---
DATE: 05/03/2019 Mr. Mcduffie is afebrile. Heart rate is 112, blood pressure 107/66. 4270 in, 1450 out. He had 200 recorded out of his NG tube. He has had a small bowel movement. He has passed a little flatus. His small-bowel follow-through at 20 hours shows some air in his colon. Contrast is still in his small bowel. I would recommend to allow the contrast to migrate on into the colon if it will to see if it will help induce active bowel activity. If he is not improved over the weekend, then we would certainly consider him for operative intervention. We would have to correct his coagulopathy as best as possible before considering operative intervention. Dr. Greenberg will cover in my absence. cc: Kirt Ellis MD
--- NOTE | 2019-05-03 13:27 | GASTROENTEROLOGY PROGRESS NOTE ---
DATE: 05/03/2019 SUBJECTIVE: Mr. Mcduffie is a 59-year-old, male. He is resting in bed. Has an NG tube in place on low intermittent suction. The patient is still n.p.o. The patient did have 1 bowel movement yesterday. He is still complaining of abdominal tenderness. OBJECTIVE: Vital Signs: Temperature 98.2 degrees, pulse is 98, respirations 15, blood pressure 120/78, oxygen saturation 100% on room air. The patient's weight is 165 pounds. BMI is 26.6 kg/m2. General: He is alert and oriented x3, and in no acute distress. HEENT: Pale conjunctivae. Mild icterus. NG tube in place. Neck: Supple. Lungs: Clear to auscultation. Cardiovascular: The patient is tachycardic. Abdomen: Firm, distended, tender. Hypoactive bowel sounds heard in all 4 quadrants. Extremities: No clubbing, no cyanosis. Generalized edema in the lower extremities. Neurologic: He is alert and oriented x3. IMAGING AND LABORATORY DATA: WBCs 8.58, RBCs 2.23, hemoglobin is 7.4, hematocrit is 21.8, platelet count is 34,000. PT 32.5, INR is 3.05. Sodium 146, potassium 4.6, chloride 114, carbon dioxide 23, anion gap 9, BUN 58, creatinine is 1.6, glucose 154, calcium is 9.0. Phosphorus is 3.8. Albumin is 3.6. IMAGING: The patient's chest x-ray yesterday showed nasogastric tube in the stomach. They did an upper GI and a small bowel series yesterday; awaiting the results. His barium enema has shown that there was negative exam of the colon, high-grade distal small-bowel obstruction. IMPRESSION AND PLAN: Small bowel obstruction Cirrhosis Ascites Chronic Active Hepatitis C Anemia Coagulopathy Thrombocytopenia PLAN Mr. Mcduffie is a 59-year-old, male with a history of hepatitis C and cirrhosis. Gastroenterology is following him for his ascites and decompensated cirrhosis. The patient's albumin level has come up, so we have stopped his albumin. Surgery is following the patient for his SBO, and waiting for his INR to get stabilized. The patient is NPO and is receiving Clinimix for his nutrition. We will continue with PPI's and lactulose. We will continue to monitor the patient and follow the plan of care per PCP and the surgeon. This plan was discussed with Dr. Hernandez. Please call us for any further questions or concerns. Dictated by TURNER Bazan for Leno Hernandez MD cc: Leno Hernandez MD I have seen and examined the patient myself and I agree with the above plan of care. Please call us with any questions or concerns.Follow up in clinic in 4-6 weeks. JAYY
[2019-05-03 14:42] LABS: HEMATOCRIT 27.3 % (42.0-52.0)
--- NOTE | 2019-05-03 19:01 | NEPHROLOGY PROGRESS NOTE ---
DATE: 05/03/2019 Time Seen: 07:20 SUBJECTIVE: Mr. Mcduffie is resting in bed. He does not make eye contact. No verbal response. OBJECTIVE: Vital Signs: Temperature 98.2 degrees, blood pressure 98/69, heart rate is 107, respirations are 13, he is on 2 L nasal cannula, last recorded saturation 98%, he has had 4270 in and he has had 1450 out. He is currently 8 L positive. LABORATORY: Sodium is 146, potassium 4.6, chloride 114, CO2 is 23, BUN 58, creatinine 1.6, glucose 154, anion gap of 9, calcium 9, phosphorus 3.8, albumin 3.2. White count 8.58, hemoglobin 7.4, hematocrit 21.8 with a platelet count of 34,000. His ProTime is 32.5 with an INR 3.05. PHYSICAL EXAMINATION: General: This is a 59-year-old white male who is currently resting quietly in bed. He appears chronically ill. He is in no acute distress. Skin: Warm and dry. HEENT: Normocephalic, atraumatic. Conjunctiva is pale. He has DENISA. Mucous membranes are dry. Neck: Supple, trachea midline. He has positive JVD. Cardiovascular: Regular rate and rhythm. Tachycardic on the monitor. Decreased inspiratory effort. Lungs: Decreased breath sounds to the posterior bases otherwise shallow. Remains on O2 support. Abdomen: Soft, quiet bowel sounds present. Genitourinary: Not inspected. Lopez catheter is in place. Extremities: Have trace pretibial edema. No clubbing or cyanosis. Neurological: He is alert and oriented x3. ASSESSMENT AND PLAN: 1. Acute kidney injury. This has slowly resolved. BUN remains slightly elevated at 58, but the creatinine has improved to 1.6. He has had adequate urine output. Related to cirrhosis, hypoalbuminemia, ascites. 2. Electrolytes and acid-base balance patient continues to slowly improve with acidosis. 3. Anemia. Coagulopathy. The INR is elevated into the 3 range. Vitamin K was to be ordered. He is to receive 1 unit of packed red blood cells today. I would like to thank you for allowing us to follow with this patient. Dictated by TURNER Leon for Vic Dominguez MD Face to face encounter, data reviewed, discussed with Samuel Oneil on 05/03/19. I agree with the above assessment and plan of care. cc: TURNER Leon MD [facility]TDD
--- NOTE | 2019-05-03 21:03 | PROGRESS NOTE ---
DATE: 05/03/2019 SUBJECTIVE: The patient is resting in bed. He has been complaining of persistent abdominal pain and back pain. OBJECTIVE: Vital Signs: Temperature 98.3 degrees, blood pressure 107/71, heart rate 101, respirations 20, O2 saturation 100% on 2 L nasal cannula. Intake 4.2 L. Output 1.4 L. General: This is a chronically ill-appearing elderly male lying in bed in no acute distress. Heart: S1, S2 normal. Tachycardic. Lungs: Equal air entry bilaterally. No wheezing. No rales. Abdomen: Firm and distended. Hypoactive bowel sounds. Extremities: 1+ edema bilaterally. Neurologic: The patient is alert and oriented x3. LABORATORY DATA: White blood cell count 8.5, hemoglobin 9, hematocrit 27, platelets 34,000. INR 3. Sodium 146, potassium 4.6, chloride 114, CO2 23, BUN 58, creatinine 1.6, glucose 154. ASSESSMENT AND PLAN: 1. Small bowel obstruction. The patient's abdomen is pretty distended. He continues to complain of persistent abdominal pain. The patient did have a liquid bowel movement early this morning. Continue with management as directed by the general surgeon. 2. Acute kidney injury. Slowly improving. Management as per the brands editor. 3. Status post large volume paracentesis secondary to recurrent ascites. Aware. 4. Decompensated alcoholic liver cirrhosis. Aware. 5. Chronic hepatitis C. Aware. 6. Thrombocytopenia. Worse today. The patient has no active bleeding at this time. We will continue to monitor closely and transfuse as necessary. 7. Coagulopathy. Worse today. We will give the patient another dose of vitamin K today. 8. Anemia. Stable. 9. Hypernatremia. We will continue to monitor closely. 10. Seizure disorder. Continue on valproic acid. 11. Tobacco dependence. Aware. 12. Disposition. The patient remains critically ill with a high risk of mortality. cc: Tamiko Gomez MD MTDD
[2019-05-04] MEDS: DILAUDID IV PRN ×5 (02:06→22:39)
[2019-05-04] MEDS: ZOSYN 2.25 GM in NS 50 ML IV SCH ×4 (02:07→20:44)
[2019-05-04 05:56] LABS: BASO# 0.06 X1000 (0.0-0.2); BASO% 0.5 % (0.0-0.8); EOS# 0.06 X1000 (0.0-0.7); EOS% 0.5 % (0.0-10.0); HEMATOCRIT 30.4 % (42.0-52.0); IMM GRAN# 0.06 X1000 (0.0-0.04); IMM GRAN% 0.5 % (0.0-0.5); LYMPH% 26.2 % (20.5-51.1); MCH 31.6 PG (27-31); MCHC 32.9 g/dL (33-37); MCV 96.2 FL (81-99); MONO# 1.48 X1000 (0.11-0.59); MONO% 12.9 % (1.7-9.3); MPV 11.7 FL (7.4-10.4); NEUT# 6.77 X1000 (1.4-6.5); NEUT% 59.4 % (42.2-75.2); RBC 3.16 XMIL (4.7-6.1); RDW 18.7 % (11.5-14.5); WBC 11.43 X1000 (4.8-10.8)
[2019-05-04 05:58] LABS: PLT 34 X1000 (130-400)
[2019-05-04 05:59] LABS: INR 2.5; PROTIME 27.6 Seconds (11.0-16.0)
[2019-05-04 06:05] LABS: ESTIMATED GFR > 60
[2019-05-04] MEDS: DEPACON 250 MG in NS 50 ML IV SCH ×2 (06:05→18:25)
[2019-05-04] MEDS: THIAMINE 100 MG in NS 50 ML IV SCH (06:05)
[2019-05-04 06:06] LABS: AGAP 7; ALBUMIN 3.2 g/dL (3.5-5.0); BUN 51 mg/dL (8-22); CALCIUM 9.2 mg/dL (8.8-10.2); CHLORIDE 118 mmol/L (98-107); COSMO 313; CREATININE 1.3 mg/dL (0.7-1.2); GLUCOSE 154 mg/dL (70-104); PHOSPHORUS 3.6 mg/dL (2.7-4.5); POTASSIUM 4.7 mmol/L (3.5-5.1); SODIUM 149 mmol/L (136-145); TCO2 24 mmol/L (25-35)
--- NOTE | 2019-05-04 06:46 | Diag Imaging Result Doc PS360 ---
FLAT/UPRIGHT ABD/1 VIEW CHEST - 05/04/2019 INDICATION: obstruction/dyspnea TECHNIQUE: COMPARISON: Multiple exams FINDINGS: Support lines and tubes are stable. The chest remains clear. There is extensive barium in the distal obstructed small bowel. Very little gas in colon. No rectal gas. IMPRESSION: Persistent distal small bowel obstruction. Electronically signed by Jesus Faith 05/04/2019 6:43 AM
--- NOTE | 2019-05-04 07:52 | Diag Imaging Result Doc PS360 ---
GI/SW/ BOWEL - 05/02/2019 INDICATION: possible sbo TECHNIQUE: 13 images were obtained COMPARISON: CT from 04/25/2018 FINDINGS: There is a nasogastric tube. There is a severe, distal small bowel obstruction. This is stable from prior exams. Even after 20 hours of imaging, contrast did not pass into the cecum. There is only trace gas in the transverse colon. No rectal gas. No stool. IMPRESSION: High-grade distal small bowel obstruction. Electronically signed by Jesus Faith 05/04/2019 7:50 AM
[2019-05-04] MEDS ORDERED: VITAMIN K 10 MG in NS 50 ML IV ONE (08:00)
[2019-05-04] MEDS: CLINIMIX E 4.25%-5% SOLUTION 1,000 ML IV SCH (08:21)
[2019-05-04] MEDS: D5W 1,000 ML IV SCH ×2 (08:21→19:48)
[2019-05-04] MEDS: FOLIC ACID PO SCH (08:31)
[2019-05-04] MEDS: DULCOLAX PR SCH ×2 (08:31→20:44)
[2019-05-04] MEDS: LACTULOSE PO SCH ×3 (08:31→16:22)
[2019-05-04] MEDS: PROTONIX IV SCH (10:00)
--- NOTE | 2019-05-04 11:03 | GASTROENTEROLOGY PROGRESS NOTE ---
DATE: 05/04/2019 SUBJECTIVE: Mr. Mcduffie is a 59-year-old male. He is resting in bed with NG tube in place with low intermittent suction. The patient is complaining of abdominal pain. He is NPO. The patient denied having any bowel movements today. OBJECTIVE: Vital Signs: Temperature 97 degrees, pulse 110, respirations 17, blood pressure 117/89, oxygen saturation 99% on room air. The patient's weight is 182 pounds, BMI is 29.5 kg/m2. General: He is alert, oriented x3, in no acute distress. HEENT: Pale conjunctivae mild icterus. PERRL. NG tube in place. Neck: Supple. Lungs: Clear to auscultation. Cardiovascular: Patient is tachycardic. Abdomen: Firm, distended, tender. Hypoactive bowel sounds heard in all 4 quadrants. Extremities: No clubbing, no cyanosis. Generalized edema in the lower extremities. Neurologic: Alert and oriented x3. LABORATORY DATA: WBC is 11.43, RBC is 3.16, hemoglobin is 10.0, hematocrit is 30.4, platelet count is 34,000. PT 27.6, INR is 2.50. Chemistry is sodium is 149, potassium is 4.7, chloride is 118, carbon dioxide 24, anion gap 7, BUN 51, creatinine is 1.3, glucose 154, calcium is 9.2. Phosphorus is 6.6. The patient's albumin is 3.2. IMPRESSION AND PLAN: - Decompensated ETOH/HCV cirrhosis with ascites - CAITLYN - SBO - Anemia - Thrombocytopenia - Alcoholism - Coagulopathy - Tobacco abuse - Seizure disorder PLAN: Mr. Mcduffie is a 59-year-old male with a history of hepatitis C and cirrhosis. GI has been following him for his ascites and decompensated cirrhosis. The patient currently has small-bowel obstruction for which Surgery is following him. The patient's abdominal x-ray today showed persistent distal small-bowel obstruction. We will continue him on PPI daily. The patient is on Clinimix at 50 mL/hour for his nutrition. We will continue to monitor the patient and follow the plan of care per PCP and the surgeon. This plan was discussed with Dr. Molina. Please call us for any further questions or concerns. Dictated by TURNER Bazan for Catracho Molina MD Physician Attestation I have seen and examined the patient. I have discussed and reviewed the note by Claudia TOMPKINS and agree with findings and plan as documented. Changes made in document above. MTDD
--- NOTE | 2019-05-04 18:12 | NEPHROLOGY PROGRESS NOTE ---
DATE: 05/04/2019 SUBJECTIVE: He is awake, alert. He wants the tube out of his nose but no other specific complaints. OBJECTIVE: Vital Signs: Blood pressure 117/89, heart rate 110, respirations 17, afebrile. Intake is 2.8 L. Output 1.6 L. General: No acute distress. Chronically ill. Skin: Warm and dry. Neck: Neck veins are not appreciated. Heart: Regular, tachycardic with an S4. Lungs: Equal. No crackles are audible. Abdomen: Markedly distended and ballotable bowel sounds are present. Extremities: Zero to trace edema. IMPRESSION: Acute kidney injury. He has developed two episodes of acute kidney injury during hospitalization, both which responded to intravenous fluids. The unfortunate conundrum is that as we address his intravascular volume depletion he develops worsening ascites. We have given albumin on multiple occasions and his albumin today is 3.2 so I do not think he would benefit from more. His creatinine is down to 3.1 so we are minimizing his fluids overall. No further recommendations. cc: Vic Dominguez MD
--- NOTE | 2019-05-04 19:16 | PROGRESS NOTE ---
DATE: 05/04/2019 SUBJECTIVE: The patient is lying down in the recliner. He has no complaints at this time. His abdomen remains severely distended. OBJECTIVE: Vital Signs: Temperature 98.6 degrees blood pressure 98/61, heart rate 97, respirations 18, O2 saturation 98% on 2 L nasal cannula. Intake 2.8 L, output 1.6 L. General: This is a chronically ill-appearing elderly male lying on a recliner in no acute distress. Heart: S1, S2. Normal. Tachycardic. Lungs: Equal air entry bilaterally. No wheezing. No rales. No rhonchi. Abdomen: Hypoactive bowel sounds. Severely distended abdomen. Extremities: No edema. No cyanosis. Neurologic: The patient is alert and oriented x3. LABS: White blood cell count 11, hemoglobin 10, hematocrit 30, platelets 34,000. INR 2.5. BUN 51, creatinine 1.3 glucose 154, sodium 149, potassium 4.7, chloride 118, CO2 24. Abdominal x-ray reveals a persistent distal small bowel obstruction. ASSESSMENT AND PLAN: 1. Small bowel obstruction. Unchanged on today's imaging. Management as per the general surgeon. Possible surgical intervention planned for this week. 2. Acute kidney injury. Slowly improving. Continue to monitor the patient's urine output. Will avoid nephrotoxic agents. 3. Status post large volume paracentesis secondary to recurrent ascites. The patient may have more ascites present in his abdomen. 4. Decompensated alcoholic liver cirrhosis. Aware. 5. Chronic hepatitis C. Aware. 6. Thrombocytopenia. Stable. The patient is not actively bleeding. We will continue to monitor. 7. Coagulopathy. Improved. The patient received vitamin K yesterday. Will give another dose today. Will likely need FFP prior to surgery. 8. Hypernatremia. We will start the patient on D5W. 9. Seizure disorder. Continue on valproic acid. 10. Anemia. Stable. 11. Disposition. The patient is a full code. We will continue with the current treatment plan. cc: Tamiko Gomez MD MTDD
[2019-05-04] MEDS: MINERAL OIL NG SCH (20:44)
--- NOTE | 2019-05-04 21:34 | GENERAL SURGERY PROGRESS NOTE ---
DATE: 05/04/2019 SUBJECTIVE: The patient reports feeling a little better today with less abdominal discomfort. He feels some nauseated though during my exam. He reports passing some flatus and he and the nurse confirm at least a small passage of stool today. OBJECTIVE: Temperature 96.4 degrees, pulse 102, respiratory rate 19, blood pressure 122/92, O2 saturation 100%. General: Chronically ill-appearing man in no acute distress. CV: Tachycardic and regular. Respiratory: No increased work of breathing. GI: Distended, tight, nontender. LABORATORY: White blood cell count 04388, hemoglobin 10, hematocrit 30, platelet count 34,000. INR 2.5. Sodium 149, potassium 4.7, chloride 118, BUN 51, creatinine 1.3. IMAGING: Abdominal x-ray today shows persistent distal small bowel obstruction with very little gas in the colon. ASSESSMENT/PLAN: 59-year-old male with distal small bowel obstruction of unknown etiology in the setting of severe ascites, portal hypertension, and liver failure. He is not in any condition for surgery this evening. Dr. Ellis is considering laparoscopy with or without laparotomy next week. I will add mineral oil to his NG tube to try to encourage passage of barium through the small bowel. Continue the NG tube to low wall suction otherwise, and begin to replace his platelets and clotting factors in case Dr. Ellis does operate on him. cc: Austin Greenberg MD
[2019-05-05] MEDS: DILAUDID IV PRN ×4 (02:23→16:15)
[2019-05-05] MEDS: CLINIMIX E 4.25%-5% SOLUTION 1,000 ML IV SCH (02:37)
[2019-05-05] MEDS: ZOSYN 2.25 GM in NS 50 ML IV SCH ×4 (02:38→20:42)
[2019-05-05] MEDS: THIAMINE 100 MG in NS 50 ML IV SCH (06:02)
[2019-05-05] MEDS: DEPACON 250 MG in NS 50 ML IV SCH ×2 (06:02→19:18)
[2019-05-05 06:45] LABS: HEMATOCRIT 29.8 % (42.0-52.0); HEMOGLOBIN 9.7 g/dL (14.0-18.0); MCH 31.5 PG (27-31); MCHC 32.6 g/dL (33-37); MCV 96.8 FL (81-99); RBC 3.08 XMIL (4.7-6.1); RDW 18.8 % (11.5-14.5); WBC 11.24 X1000 (4.8-10.8)
[2019-05-05 06:46] LABS: BASO# 0.06 X1000 (0.0-0.2); BASO% 0.5 % (0.0-0.8); EOS# 0.09 X1000 (0.0-0.7); EOS% 0.8 % (0.0-10.0); IMM GRAN# 0.03 X1000 (0.0-0.04); IMM GRAN% 0.3 % (0.0-0.5); LYMPH# 3.24 X1000 (1.2-3.4); LYMPH% 28.8 % (20.5-51.1); MONO# 1.45 X1000 (0.11-0.59); MONO% 12.9 % (1.7-9.3); MPV 11.7 FL (7.4-10.4); NEUT# 6.37 X1000 (1.4-6.5); NEUT% 56.7 % (42.2-75.2)
[2019-05-05 07:02] LABS: INR 2.51; PROTIME 27.8 Seconds (11.0-16.0)
[2019-05-05 07:03] LABS: ESTIMATED GFR > 60
[2019-05-05 07:04] LABS: PLT 31 X1000 (130-400)
--- NOTE | 2019-05-05 07:13 | Diag Imaging Result Doc PS360 ---
EXAM: FLAT/UPRIGHT ABD/1 VIEW CHEST HISTORY: dyspnea/small bowel obstruction TECHNIQUE: Four views COMPARISON: 05/04/2019 FINDINGS: There is contrast within distal small bowel loops. Several bowel loops measure over 5 cm. No passage into the colon. Poor inspiratory effort. No change in the right jugular line. No cardiomegaly. Left basilar atelectasis. IMPRESSION: Persistent small bowel obstruction with no improvement Electronically signed by Luis Coronel 05/05/2019 7:10 AM
[2019-05-05 07:27] LABS: AGAP 10; ALBUMIN 2.8 g/dL (3.5-5.0); BUN 54 mg/dL (8-22); CALCIUM 8.9 mg/dL (8.8-10.2); CHLORIDE 116 mmol/L (98-107); COSMO 308; CREATININE 1.3 mg/dL (0.7-1.2); GLUCOSE 140 mg/dL (70-104); PHOSPHORUS 3.6 mg/dL (2.7-4.5); POTASSIUM 5.1 mmol/L (3.5-5.1); SODIUM 146 mmol/L (136-145); TCO2 20 mmol/L (25-35)
[2019-05-05] MEDS ORDERED: VITAMIN K 10 MG in NS 50 ML IV ONE (08:00)
[2019-05-05] MEDS ORDERED: ROBINUL ONE (08:00)
[2019-05-05] MEDS ORDERED: VERSED ONE (08:00)
[2019-05-05] MEDS: MINERAL OIL NG SCH ×2 (08:20→20:41)
[2019-05-05] MEDS: LACTULOSE PO SCH ×3 (08:20→16:12)
[2019-05-05] MEDS: FOLIC ACID PO SCH (08:20)
[2019-05-05] MEDS: DULCOLAX PR SCH ×2 (08:20→20:43)
[2019-05-05] MEDS: PROTONIX IV SCH (09:18)
[2019-05-05] MEDS: D5W 1,000 ML IV SCH ×2 (09:18→23:19)
[2019-05-05 09:45] LABS: ANISOCYTOSIS 1+; BASO 1 % (0-1); EOS 1 % (1-10); LYMPHS 29 % (21-51); MONO 8 % (1-9); SEGS 55 % (42-75)
[2019-05-05 09:46] LABS: BURR CELLS 2+; HYPOCHROM 2+
[2019-05-05] MEDS ORDERED: NS 500 ML IV SCH (13:30)
[2019-05-05] MEDS: ZOFRAN IV PRN (14:53)
[2019-05-05] MEDS: MORPHINE IV PRN ×2 (19:18→21:37)
--- NOTE | 2019-05-05 21:21 | PROGRESS NOTE ---
DATE: 05/05/2019 SUBJECTIVE: The patient is resting comfortably in bed. He has no complaints at this time. He had 1 bowel movement last night. OBJECTIVE: Vital signs: Temperature 97.6 degrees, blood pressure 103/65, heart rate 88, respirations 18, O2 saturation 93% on room air. General: This is a chronically ill-appearing elderly male, lying in bed in no acute distress. Heart: S1, S2 normal. Regular rate and rhythm. Lungs: Equal air entry bilaterally. No wheezing. No rales. Abdomen: Positive bowel sounds. Firm, distended, tympanic. Extremities: Edema 1+ bilaterally. Neurologic: The patient is alert and oriented x4. LABORATORY DATA: White blood cell count 11, hemoglobin 9.7, hematocrit 29, platelets 31,000. Sodium 146, potassium 5, chloride 116, CO2 is 20, BUN 54, creatinine 1.3, glucose 140. DIAGNOSTIC DATA: Abdominal x-ray reveals persistent small-bowel obstruction. ASSESSMENT AND PLAN: 1. Small-bowel obstruction. Unchanged. Further management as per the general surgeon. 2. Acute kidney injury. Stable. We will continue to monitor closely. Avoid nephrotoxic agents. 3. Status post large-volume paracentesis secondary to refractory ascites. The patient likely has recurrence of his ascites. Continue to monitor closely. 4. Decompensated alcoholic liver cirrhosis. Aware. 5. Thrombocytopenia. The patient will receive 2 units of platelets today. 6. Coagulopathy. Unchanged. The patient will require fresh frozen plasma prior to surgical intervention. He has received vitamin K for the last few days. 7. Hypernatremia. Slightly improved. Continue on D5W. 8. Seizure disorder. Continue on valproic acid. 9. Chronic hepatitis C. Aware. 10. Anemia. Stable. cc: Tamiko Gomez MD [facility]
--- NOTE | 2019-05-05 22:37 | GENERAL SURGERY PROGRESS NOTE ---
DATE: 05/05/2019 SUBJECTIVE: The patient reports no worsening of abdominal pain. He remains quite distended and in some discomfort. OBJECTIVE: Vital Signs: He is afebrile. Vital signs are stable. General: He is awake and alert, appears chronically ill, in no acute distress. CV: Tachycardic and regular. Respiratory: No increased work of breathing. GI: Firm, distended, minimally tender. LABORATORY: White blood cell count 11, hemoglobin 9, hematocrit 29, platelet count 31,000, INR 2.5. ASSESSMENT AND PLAN: A 59-year-old male with persistent small bowel obstruction in the setting of liver failure and thrombocytopenia. We will go ahead and order fresh frozen plasma. He is getting vitamin K. Hopefully, his INR will improve. He is also getting platelets as it appears that he may ultimately come to surgical intervention in the near future. cc: Austin Greenberg MD
--- NOTE | 2019-05-05 23:48 | NEPHROLOGY PROGRESS NOTE ---
DATE: 05/05/2019 SUBJECTIVE: He is about the same. No complaints. OBJECTIVE: Vital Signs: Blood pressure 104/75, heart rate 94, respiration 18, afebrile. General: No acute distress, lying on his left side. Lungs: Equal, clear. Abdomen: Distended, soft. Extremities: No edema. IMPRESSION: Acute kidney injury. Laboratories are roughly stable over the last 48 hours. Intravascular volume depletion that has been treated successfully. No changes at this time. cc: Vic Dominguez MD
[2019-05-06] MEDS: MORPHINE IV PRN ×6 (01:51→20:55)
[2019-05-06] MEDS: ZOFRAN IV PRN (01:51)
[2019-05-06] MEDS: ZOSYN 2.25 GM in NS 50 ML IV SCH ×4 (03:02→20:56)
--- NOTE | 2019-05-06 04:29 | GASTROENTEROLOGY PROGRESS NOTE ---
DATE: 05/05/2019 SUBJECTIVE: Resting in bed. His family was at bedside. As per the patient's sister and brother- in-law, patient is not passing any bowels, he has small-bowel obstruction. He is being followed by Dr. Ellis and Dr. rGeenberg. He is NPO. He is on fresh frozen plasma and platelets, and he was getting Clinimix, which has been held for now since the patient is getting blood products transfused. OBJECTIVE: Vital signs: Temperature 97.4 degrees, pulse of 98, respiratory 20, blood pressure 91/74, saturating 94% on room air. Body weight of 169 pounds 6 ounces. BMI 27.3 kg/m2. General Appearance: Moderately-built, lying in bed, in no acute distress. HEENT: Positive pallor. Mild icterus. NG tube in place. Neck: Supple. Abdomen: Distended, tympanic on percussion. Positive ascites. Extremities: No cyanosis, clubbing. Neurology: He is awake, alert, oriented, answers simple questions. LABS: Hemoglobin and hematocrit is 9.7 and 29.8, white count 11.24, platelet count of 31,000. PT of 27.8, INR 2.5. Sodium 140, potassium 5.1, chloride 116, bicarb of 29, anion gap 10, BUN of 54, creatinine 1.3. Glucose of 140, calcium is 8.9, phosphorus 3.6, total albumin of 2.8. Abdominal x-ray done today showing persistent small-bowel obstruction with no improvement. Several bowel loops measure over 5 cm. No passage of the colon. IMPRESSION AND PLAN: 1. Small-bowel obstruction being followed by general surgery. 2. Cirrhosis secondary to history of alcoholism and chronic active hepatitis. 3. Ascites. 4. Chronic hepatitis C. 5. Anemia. 6. Coagulopathy and thrombocytopenia. RECOMMENDATION: We will continue with the current plan of care. We will continue on Clinimix for nutritional support. He may need to be transitioned to TPN per the primary team. He is receiving blood products, platelets and FFP to help correct the coagulopathy and thrombocytopenia related to liver cirrhosis. General surgery is following him, possible laparotomy may be needed but the risks of any surgery is high. Keeping in mind his history of chronic liver disease and liver cirrhosis. He is on Dulcolax per rectal b.i.d. for bowel regimen. He is getting thiamine once daily. He is on pain relief with IV morphine. He is also getting Medrol 30 mL per NG b.i.d. per Dr. Greenberg. He is on lactulose 30 mL p.o. t.i.d. He is getting vitamin K IV once for the last 2 days. He is on Protonix once daily for GI prophylaxis. We will continue to watch his labs for now. The above plans were discussed with the patient and the family at bedside. All questions answered. Please call us with any further questions. cc: MD Michael Kennedy MD
[2019-05-06] MEDS: DEPACON 250 MG in NS 50 ML IV SCH ×2 (06:01→20:56)
[2019-05-06] MEDS: THIAMINE 100 MG in NS 50 ML IV SCH (06:01)
[2019-05-06 06:32] LABS: BASO# 0.03 X1000 (0.0-0.2); BASO% 0.3 % (0.0-0.8); EOS# 0.08 X1000 (0.0-0.7); EOS% 0.7 % (0.0-10.0); HEMATOCRIT 29.1 % (42.0-52.0); HEMOGLOBIN 9.7 g/dL (14.0-18.0); LYMPH# 2.84 X1000 (1.2-3.4); LYMPH% 26.3 % (20.5-51.1); MCH 32.6 PG (27-31); MCHC 33.3 g/dL (33-37); MCV 97.7 FL (81-99); MONO# 1.21 X1000 (0.11-0.59); MONO% 11.2 % (1.7-9.3); MPV 11.9 FL (7.4-10.4); NEUT# 6.64 X1000 (1.4-6.5); NEUT% 61.5 % (42.2-75.2); PLT 63 X1000 (130-400); RBC 2.98 XMIL (4.7-6.1); RDW 18.6 % (11.5-14.5)
[2019-05-06 07:01] LABS: INR 1.95; PROTIME 22.7 Seconds (11.0-16.0)
[2019-05-06 07:58] LABS: CALCIUM 9.1 mg/dL (8.8-10.2); CREATININE 1.5 mg/dL (0.7-1.2); PHOSPHORUS 3.4 mg/dL (2.7-4.5); POTASSIUM 4.5 mmol/L (3.5-5.1)
[2019-05-06] MEDS: FOLIC ACID PO SCH (08:40)
[2019-05-06] MEDS: LACTULOSE PO SCH ×3 (08:40→16:06)
[2019-05-06] MEDS: MINERAL OIL NG SCH ×2 (08:40→20:56)
[2019-05-06] MEDS: DULCOLAX PR SCH ×2 (08:41→20:56)
[2019-05-06] MEDS: PROTONIX IV SCH (10:03)
[2019-05-06] MEDS: CLINIMIX E 4.25%-5% SOLUTION 1,000 ML IV SCH (10:03)
--- NOTE | 2019-05-06 15:30 | GENERAL SURGERY PROGRESS NOTE ---
DATE: 05/06/2019 SUBJECTIVE: The patient has no new complaints. Continues to have abdominal distention and discomfort. No bowel function recorded yet. OBJECTIVE: He is afebrile, pulse 102, blood pressure 100/80, O2 saturation 100%. General: Chronically ill-appearing male lying still in bed, in no acute distress. GI: Distended, tympanic, tight. Minimally tender though. Laboratory: White blood cell count 10.8, hemoglobin 9.7, hematocrit 29, platelet count 63,000. INR 1.9. ASSESSMENT/PLAN: A 59-year-old male with liver failure and small bowel obstruction with coagulopathy and thrombocytopenia. His platelets have improved and are at a reasonable level. His INR also has improved. We will order another unit of fresh frozen plasma. Dr. Ellis will reevaluate him tomorrow for possible surgical intervention. cc: Austin Greenberg MD
[2019-05-06] MEDS: VITAMIN K 10 MG in NS 50 ML IV SCH (16:03)
[2019-05-06] MEDS ORDERED: NS 250 ML ONE (16:53)
[2019-05-07] MEDS: MORPHINE IV PRN ×4 (00:23→20:14)
[2019-05-07] MEDS: CLINIMIX E 4.25%-5% SOLUTION 1,000 ML IV SCH ×2 (00:23→11:48)
--- NOTE | 2019-05-07 04:10 | GASTROENTEROLOGY PROGRESS NOTE ---
DATE: 05/06/2019 REASON FOR VISIT: Resting in bed. He complains of abdominal soreness. Abdomen is distended. Surgery is following, likely planning for laparotomy tomorrow. He has NG tube in place. He has not passed any flatus or moved bowels. He has not passed any flatus. OBJECTIVE: Vital Signs: Temperature 96.7 degrees, pulse 101, respiratory rate 19, blood pressure 84/64 and saturating 97% on room air. Body weight of 180 pounds and 7 ounces. BMI 29.1 kg per meter sq. General: Moderately malnourished lying in bed in no acute distress. HEENT: Pale conjunctiva. Mild icterus. NG tube in place. Neck: Supple. Abdomen: Distended. Tympanic on percussion. Positive ascites. Extremities: No cyanosis or clubbing. Neurologic: He is alert and awake answering some questions. LABORATORY: Hemoglobin and hematocrit 9.7 and 29.1, white count of 10.8, platelet count of 63,000 sodium 143, potassium 4.5, chloride 111, bicarb 22, anion gap 10, BUN of 58, creatinine 1.5, glucose of 131, calcium 9.1, phosphorus 3.4, albumin of 3.0, INR 1.95, and PT of 22.7. IMPRESSION AND PLAN: 1. Small bowel obstruction being followed by General Surgery. 2. Cirrhosis secondary to history of alcoholism and chronic active hepatitis C. 3. Chronic active hepatitis C. 4. Ascites. 5. Anemia. 6. Coagulopathy. 7. Thrombocytopenia. RECOMMENDATIONS: 1. We will continue with the current plan of care. He will continue to be on Clinimix for nutritional support. He is getting FFP's and platelets to help correct the coagulopathy and thrombocytopenia associated with liver cirrhosis. General Surgery is following him. They are planning for possible surgery tomorrow. He is also on Dulcolax per rectal b.i.d. He is getting thiamine once daily. He is on pain control IV morphine. He is on lactulose 30 mL p.o. t.i.d. He is getting vitamin K IV once daily. Per the primary care team, he is on Protonix once daily for GI prophylaxis. He is on Zofran 4 mg IV q.4-6 hours as needed. He is on antibiotics with IV Zosyn per the primary care team. 2. The above plans discussed with the patient, and all questions answered. Discussed with RN at bedside, and all questions answered. Please call with any further questions. cc: MD Tamiko Kennedy MD Dr. Walker MTDD
--- NOTE | 2019-05-07 04:13 | PROGRESS NOTE ---
DATE: 05/06/2019 SUBJECTIVE: The patient is resting comfortably. The patient has been moaning in pain on and off all day according to the nursing staff. His abdomen remains firm and distended. OBJECTIVE: Vital Signs: Temperature 97.1 degrees, blood pressure 126/90, heart rate 95, respirations 19, O2 saturations 100% on 2 L nasal cannula. Intake 2.4 L, and output 1 L. General: This is a chronically ill-appearing elderly male lying in bed in no acute distress. Heart: S1, S2 normal. Lungs: Equal air entry bilaterally. No wheezing. No rales. No rhonchi. Abdomen: Positive bowel sounds. Firm and distended. Extremities: 1+ edema bilaterally. Neurologic: The patient is alert and oriented x3. LABORATORY: White blood cell count 10, hemoglobin 9.7, hematocrit 29, and platelets 63,000. INR 1.9, sodium 143, potassium 4.5, chloride 111, CO2 22, BUN 58, creatinine 1.5, glucose 131, and albumin 3. ASSESSMENT AND PLAN: 1. Small bowel obstruction. We will await further recommendations from the general surgeon regarding surgical intervention. 2. Acute kidney injury. Stable. Continue to avoid nephrotoxic agents. 3. Status post large volume paracentesis secondary to refractory ascites. Aware. 4. Alcoholic liver cirrhosis. Aware. 5. Thrombocytopenia. Improved. The patient received 2 units of platelets yesterday. 6. Coagulopathy. Improved. The patient received 1 unit of FFP yesterday. He will probably require another unit prior to surgery. 7. Seizure disorder. Continue on valproic acid. 8. Chronic hepatitis C. Aware. 9. Gastrointestinal prophylaxis. Continue on Protonix. cc: Tamiko Gomez MD MTDD
[2019-05-07] MEDS: ZOSYN 2.25 GM in NS 50 ML IV SCH ×4 (04:27→20:14)
[2019-05-07] MEDS: THIAMINE 100 MG in NS 50 ML IV SCH (06:00)
[2019-05-07] MEDS: DEPACON 250 MG in NS 50 ML IV SCH ×2 (06:00→19:32)
[2019-05-07 06:10] LABS: HEMATOCRIT 29.3 % (42.0-52.0); HEMOGLOBIN 9.8 g/dL (14.0-18.0); MCH 32.7 PG (27-31); MCHC 33.4 g/dL (33-37); MCV 97.7 FL (81-99); MPV 12.5 FL (7.4-10.4); RDW 18.6 % (11.5-14.5); WBC 12.87 X1000 (4.8-10.8)
[2019-05-07 06:40] LABS: INR 1.99
[2019-05-07 06:50] LABS: ALB/GLOB RATIO 0.7; ALBUMIN 2.8 g/dL (3.5-5.0); CALCIUM 8.9 mg/dL (8.8-10.2); CREATININE 1.9 mg/dL (0.7-1.2); POTASSIUM 5.2 mmol/L (3.5-5.1); TOTAL BILIRUBIN 6.52 mg/dL (0.20-1.00); TOTAL PROTEIN 6.6 g/dL (6.3-8.3)
[2019-05-07] MEDS: VITAMIN K 10 MG in NS 50 ML IV SCH (08:39)
[2019-05-07] MEDS: DULCOLAX PR SCH ×2 (08:39→20:14)
[2019-05-07] MEDS: MINERAL OIL NG SCH ×2 (08:39→20:14)
[2019-05-07] MEDS: LACTULOSE PO SCH ×3 (08:39→17:01)
[2019-05-07] MEDS: FOLIC ACID PO SCH (08:39)
--- NOTE | 2019-05-07 10:28 | PROGRESS NOTE ---
DATE: 05/07/2019 SUBJECTIVE: The patient is resting comfortably in bed. He continues to complain of abdominal pain. No acute events noted overnight. OBJECTIVE: Vital Signs: Temperature 98.2 degrees, blood pressure 91/70, heart rate 104, respirations 24, and O2 saturations 99% on room air. Intake 2.1 liters, output 715. General: This is a chronically ill-appearing elderly male lying in bed in no acute distress. Heart: S1 and S2 normal. Tachycardic. Lungs: Clear to auscultation bilaterally. No wheezing. No rales. No rhonchi. Abdomen: Hypoactive bowel sounds. Firm and distended. Extremities: Trace pedal edema. Neurologic: The patient is alert and oriented x4. LABS: White blood cell count 12, hemoglobin 9.8, hematocrit 29, platelets 46,000. INR 1.9. Sodium 144, potassium 5.2, chloride 112, CO2 of 22, BUN 72, creatinine 1.9, glucose 124. AST 43, ALT 17, and alkaline phosphatase 97, albumin 2.8. ASSESSMENT AND PLAN: 1. Small bowel obstruction. Unchanged. Surgery is planned on Tuesday. 2. Acute kidney injury. BUN and creatinine are worse today. The patient continues to have adequate urine output. We will await further recommendations from the utilization manager. 3. Status post large volume paracentesis secondary to refractory ascites. Aware. The patient likely has reaccumulated the ascites at this time. 4. Alcoholic liver cirrhosis. Aware. 5. Thrombocytopenia. The patient received 2 units of platelets on Tuesday. However, the platelet count is now down to 46,000 today. Will transfuse 2 units of platelets. 6. Coagulopathy. Improved. Continue to monitor closely. We will give the patient a dose of vitamin K today. The patient received fresh frozen plasma on Tuesday. Will also give 1 unit of FFP. 7. Seizure disorder. Continue on the valproic acid. 8. Chronic hepatitis C. Aware. 9. Severe protein-calorie malnutrition. The patient is currently receiving Clinimix. 10. Gastrointestinal prophylaxis. Continue on Protonix. cc: Tamiko Gomez MD [facility]
[2019-05-07] MEDS: PROTONIX IV SCH (11:24)
--- NOTE | 2019-05-07 12:46 | GENERAL SURGERY PROGRESS NOTE ---
DATE: 05/07/2019 SUBJECTIVE: Mr. Mcduffie' clinical exam is the same. He has passed minimal amount of flatus, he says. OBJECTIVE: Vital Signs: He is afebrile. Heart rate 96, blood pressure 101/64. Abdomen: His abdomen is distended and tympanitic. I'S AND O'S: Intake is 2165, output 715. LABORATORY DATA: His white count is 12,800, hemoglobin 9.8, hematocrit 29.3, pro-time 23, INR 1.99, BUN 72, creatinine 1.9. PLAN: The plan will be to proceed with laparoscopy, possible laparotomy tomorrow, that is 05/07/2019. I have discussed this with him, the benefits, risks. He understands and agrees to proceed. We will have to give him platelets preoperatively as well as fresh frozen plasma in preparation for his intervention. cc: Kirt Ellis MD
[2019-05-07] MEDS ORDERED: NS 500 ML IV ONE (12:55)
--- NOTE | 2019-05-07 14:23 | PROVIDER PROGRESS NOTE ---
Progress Note Subjective: He denies any complaints. When asked if he felt pressure in his abdomen while laying flat he said yes. Objective: temperature 96.7, pulse 96, respirations 19, blood pressure 101/64, 02 sat 100% on room air. General: Chronically ill appearing -[place] male in no acute distress. HEENT: normocephalic, atraumatic, conjunctiva pink, pupils equal and reactive. Mucous membranes moist, NG tube in place to LIS. Trachea midline. Skin: Warm and dry. Neck: supple, 6cm JVD observed. Cardiovascular: S1s2s4, tachycardic rate and rhythm. No murmur or gallop. Respiratory: clear with equal air entry Abdomen: firm, distended, nontender. High pitched tickle noises :non inspected, doe in place with orange/ freddy urine Extremities: t1+ pitting edema to BLE. Neurological: alert, oriented to person and place. Confused about situation. Labs: WBC 12.87, hemoglobin 9.8, hematocrit 29.3, platelet count 46, sodium 144, potassium 5.2, chloride 112, BUN 72, creatinine 1.9, albumin 2.8. Intake 2165, output 715. Impression: Acute kidney injury. Likely prerenal with intravascular depletion despite edema and ascites. BUN and Creatinine elevated. Albumin prn. rg Blood pressure. Stable. Intravascular Fluid volume. Euvolemic. Possibly dry. Anemia. Stable. Thrombocytopenia.2 units FFP given yesterday. Electrolytes and acid base balance. Stable. Medication review. On zosyn, started morphine 2 days ago.
[2019-05-07] MEDS: ALBUMIN 25% IV SCH (15:20)
[2019-05-07] MEDS: VITAMIN D PO SCH (15:49)
--- NOTE | 2019-05-07 17:42 | GASTROENTEROLOGY PROGRESS NOTE ---
DATE: 05/07/2019 SUBJECTIVE: Mr. Mcduffie is a 59-year-old, male resting in bed. NG tube in place. The patient is still complaining of abdominal discomfort and pain. He has denied having any bowel movements today. OBJECTIVE: Vital signs: Temperature is 96.7, pulse 94, respirations 18, blood pressure 97/71, oxygen saturation 100% on room air. His weight is 180 pounds. BMI is 29.1 kg/m2. General: He is alert and oriented x3 in no acute distress. HEENT: Pale conjunctivae. Mild icterus. PERRL. Neck: Supple. Lungs: Clear to auscultation. Cardiovascular: Regular rate and rhythm. Abdomen: Firm, distended, tender. Hypoactive bowel sounds in all four quadrants. Extremities: No clubbing, no cyanosis. Generalized edema. Neurological: He is alert and oriented x3. LABORATORY DATA: WBC is 12.87, RBC is 3.0, hemoglobin is 9.8, hematocrit is 29.3, platelet count is 46,000, PT 23.0. INR is 1.96. Sodium 144, potassium 5.2, chloride 112, carbon dioxide 22, anion gap 10, BUN 72, creatinine 1.9, glucose is 154, calcium is 8.9, total bilirubin 6.52, AST 43, ALT 70, alkaline phosphatase of 97. Albumin is 2.8. IMPRESSION AND PLAN: Small bowel obstruction Cirrhosis Ascites Hepatitis C Coagulopathy Thrombocytopenia PLAN: Mr. Mcduffei is a 59-year-old male with a history of cirrhosis. GI has been following for his ascites and decompensated cirrhosis. The patient's platelet count today is 46,000, and his PT is 23, and INR is 1.9. Patient has so far received 3 units of fresh frozen plasma and 3 units of platelets. As per surgery, they are planning to do the surgery tomorrow. We will continue to monitor the patient and follow the plan of care per PCP and the surgeon. This plan was discussed with Dr. Hernandez. Please call us for any further questions or concerns. Dictated by TURNER Bazan for Leno Hernandez MD cc: Leno Hernandez MD I have seen and examined the patient myself and I agree with the above plan of care. I have spoken to Dr Ellis as well. Please call us with any questions or concerns. MTDD
[2019-05-08] MEDS: MORPHINE IV PRN ×5 (00:03→20:00)
[2019-05-08] MEDS: ZOSYN 2.25 GM in NS 50 ML IV SCH ×4 (03:03→21:52)
[2019-05-08] MEDS: THIAMINE 100 MG in NS 50 ML IV SCH (06:19)
[2019-05-08] MEDS: DEPACON 250 MG in NS 50 ML IV SCH ×2 (06:19→19:00)
--- NOTE | 2019-05-08 06:37 | Diag Imaging Result Doc PS360 ---
FLAT/UPRIGHT ABD/1 VIEW CHEST - 05/08/2019 INDICATION: dyspnea/small bowel obstruction TECHNIQUE: COMPARISON: 05/05/2019 FINDINGS: Stable right central line and nasogastric tube in good position. Lung volumes remain critically low. No dense infiltrates. There is a stable severe distal small bowel obstruction. There is still a lot of barium in the distal small bowel. IMPRESSION: No change from prior. Electronically signed by Jesus Faith 05/08/2019 6:35 AM
[2019-05-08 06:55] LABS: INR 2.04; PROTIME 23.5 Seconds (11.0-16.0)
[2019-05-08 07:07] LABS: HEMATOCRIT 24.5 % (42.0-52.0); HEMOGLOBIN 8.1 g/dL (14.0-18.0); MCH 31.9 PG (27-31); MCHC 33.1 g/dL (33-37); MCV 96.5 FL (81-99); MPV 11.9 FL (7.4-10.4); RBC 2.54 XMIL (4.7-6.1); RDW 18.6 % (11.5-14.5); WBC 11.5 X1000 (4.8-10.8)
[2019-05-08 07:40] LABS: ALB/GLOB RATIO 0.8; ALBUMIN 3.1 g/dL (3.5-5.0); CALCIUM 8.8 mg/dL (8.8-10.2); CREATININE 1.8 mg/dL (0.7-1.2); POTASSIUM 4.3 mmol/L (3.5-5.1); TOTAL BILIRUBIN 5.61 mg/dL (0.20-1.00); TOTAL PROTEIN 6.9 g/dL (6.3-8.3)
[2019-05-08] MEDS: DULCOLAX PR SCH ×2 (08:01→21:49)
[2019-05-08] MEDS: VITAMIN K 10 MG in NS 50 ML IV SCH (08:01)
[2019-05-08] MEDS: CLINIMIX E 4.25%-5% SOLUTION 1,000 ML IV SCH ×2 (08:43→16:24)
[2019-05-08] MEDS: ALBUMIN 25% IV SCH (08:44)
[2019-05-08] MEDS: FOLIC ACID PO SCH (08:51)
[2019-05-08] MEDS: LACTULOSE PO SCH ×3 (08:52→17:59)
[2019-05-08] MEDS: MINERAL OIL NG SCH (08:53)
[2019-05-08] MEDS ORDERED: DIPRIVAN 1% ONE (09:31)
[2019-05-08] MEDS ORDERED: XYLOCAINE-MPF 2% ONE (09:31)
[2019-05-08] MEDS ORDERED: QUELICIN (DOSE) ONE (09:32)
[2019-05-08] MEDS ORDERED: ROBINUL ONE (09:32)
[2019-05-08] MEDS ORDERED: NIMBEX ONE (10:16)
[2019-05-08] MEDS ORDERED: ALBUMIN 25% ONE ×2 (10:22)
[2019-05-08] MEDS ORDERED: SENSORCAINE-MPF 0.5%/EPI 1:200,000 ONE (10:24)
[2019-05-08] MEDS ORDERED: LR 1,000 ML ONE (10:24)
[2019-05-08] MEDS ORDERED: NEO-SYNEPHRINE ONE ×2 (10:57→11:58)
[2019-05-08] MEDS ORDERED: STERILE WATER INJ. ONE (10:57)
[2019-05-08] MEDS ORDERED: VERSED ONE (12:12)
--- NOTE | 2019-05-08 12:14 | PROGRESS NOTE ---
DATE: 05/08/2019 INTERVAL HISTORY: No acute events overnight. He has not had any bowel movement. He is likely to undergo surgery today. SUBJECTIVE: Mr. Mcduffie denies any complaints. He says that he is to go for surgery today because of his abdomen still being distended. He denies any chest pain or shortness of breath. OBJECTIVE: Vital Signs: Temperature 96.6 degrees, pulse 89, respiratory rate 17, blood pressure 110/81, he is saturating 100% on room air. General: He is not in acute distress. HEENT: Oral cavity is dry. He has scleral icterus. He also has swelling of his bilateral upper and lower extremities. Lungs: Air entry bilaterally equal. No wheeze or rhonchi. He does have inspiratory crackles in the infra-axillary region. Heart: S1, S2 normal. No murmur or gallop. Abdomen: Significantly distended. Tympanic to percussion. No bowel sounds. Nontender. He has a urine catheter. He also has a right-sided internal jugular catheter, NG tube. Neurologic: He is alert. He is oriented to himself, and partially with the situation. LABORATORY DATA: Suggestive of WBC of 11.5, hemoglobin 8.1, platelets 55,000. Sodium of 146, chloride 114, BUN 74, creatinine 1.8. MICROBIOLOGY: No positive data. IMAGING: Abdominal x-ray performed this morning shows that he still has distal small-bowel obstruction with a lot of barium in the distal small bowel. ASSESSMENT AND PLAN: 1. Small-bowel obstruction of unclear etiology, which did not get better with conservative management. The patient is likely to undergo surgical intervention today. Appreciate General Surgery recommendations. I will continue to monitor his electrolytes, and replete as necessary. 2. Acute kidney injury due to prerenal acute renal failure due to intravascular volume depletion, hypoalbuminemia in the setting of liver cirrhosis. I will continue to monitor electrolytes, and Nephrology team has been on board. He has been receiving intravenous albumin. I will keep close input and output monitoring through Lopez catheter. 3. Decompensated liver cirrhosis with history of alcohol abuse and chronic active hepatitis C leading to ascites, coagulopathy, and thrombocytopenia. Continue intravenous vitamin K as per Gastroenterology recommendation. He is status post 6 units of red blood cells, 7 units of fresh frozen plasma, and 7 units of platelet transfusion during this hospital admission. 4. History of seizure disorder. Continue intravenous valproate. Continue intravenous thiamine for alcohol abuse. He is not showing any signs of withdrawal at the moment; intravenous pantoprazole for stress ulcer prophylaxis, oral folic acid. 5. Nutrition. Continue intravenous Clinimix until his oral intake improves. 6. Disposition. His condition is critical. More than 30 minutes of critical care time was spent in taking of this patient. I will keep the family informed. cc: Kelechi Hutton MD
--- NOTE | 2019-05-08 12:41 | PROVIDER PROGRESS NOTE ---
Progress Note Subjective: He denies any uremic complaints. Objective: temperature 96.6, pulse 90, respiration 16, blood pressure 110/81, O2 sat 100% on room air. General: Chronically ill appearing -Dutch male in no acute distress. HEENT: normocephalic, atraumatic, conjunctiva pink, pupils equal and reactive. Mucous membranes moist, NG tube in place to LIS. Trachea midline. Skin: Warm and dry. Neck: supple, 8cm JVD observed. Cardiovascular: S1s2s4, tachycardic rate and rhythm. No murmur or gallop. Respiratory: clear with equal air entry Abdomen: firm, distended, nontender. Hypoactive bowel sounds. :non inspected, doe in place with orange/ freddy urine Extremities: 1+ pitting edema to BLE. Neurological: alert, oriented to person and place. Confused about situation. Labs: WBC 11.5, hemoglobin 8.1, hematocrit 24.5, platelet count 55, PT 23.5, fibrinogen 168, sodium 146, potassium 4.3, chloride 114, carbon dioxide 20, BUN 74, creatinine 1.8, albumin 3.1. Intake 2950, outfit 950. Impression: Acute kidney injury. Likely prerenal from intravascular depletion related to third spacing into the abdomen and hypoalbuminemia.. BUN and Creatinine stable. He is going for an exploratory lap today and paracentesis. Blood pressure. Stable. Intravascular Fluid volume. Euvolemic. Albumin restarted yesterday. Anemia. Stable. Thrombocytopenia. FFP given this AM. Electrolytes and acid base balance. Stable. Nutrition. Clinimix Medication review. No changes.
[2019-05-08] MEDS: PROTONIX IV SCH (13:22)
[2019-05-08 13:33] LABS: ALLEN TEST YES; BE -6.3 mmoll (-3.0-3.0); BLOOD TYPE ARTERIAL; METHB 1.1 % (0.0-1.5); O2(CT) 11.2 mL/dL (15.0-23.0); O2HB 97.6 % (95.0-99.0); PCO2(98.6) 35 mmHg (35-45); PO2(98.6) 141 mmHg (60-100); SAMPLE BLOOD; SAO2 99.8 % (95.0-100.0); SRATE 14 BPM; THB 7.9 g/dL (11.5-17.4); TVOL 500 mL; pH(98.6) 7.34 (7.35-7.45)
[2019-05-08 13:35] LABS: MODALITY VENTILATOR
[2019-05-08] MEDS: LEVOPHED 8 MG in D5 1/2 NS 250 ML IV SCH (14:33)
[2019-05-08 14:42] LABS: BASO# 0.03 X1000 (0.0-0.2); BASO% 0.6 % (0.0-0.8); EOS# 0.03 X1000 (0.0-0.7); EOS% 0.6 % (0.0-10.0); HEMATOCRIT 22.9 % (42.0-52.0); HEMOGLOBIN 7.3 g/dL (14.0-18.0); IMM GRAN# 0.02 X1000 (0.0-0.04); IMM GRAN% 0.4 % (0.0-0.5); LYMPH# 2.18 X1000 (1.2-3.4); LYMPH% 40.4 % (20.5-51.1); MCH 30.2 PG (27-31); MCHC 31.9 g/dL (33-37); MCV 94.6 FL (81-99); MONO# 0.22 X1000 (0.11-0.59); MONO% 4.1 % (1.7-9.3); MPV 11.2 FL (7.4-10.4); NEUT# 2.91 X1000 (1.4-6.5); NEUT% 53.9 % (42.2-75.2); PLT 63 X1000 (130-400); RBC 2.42 XMIL (4.7-6.1); RDW 19.7 % (11.5-14.5); WBC 5.39 X1000 (4.8-10.8)
[2019-05-08 15:27] LABS: ALB/GLOB RATIO 1.5; ALBUMIN 3.2 g/dL (3.5-5.0); CALCIUM 8.3 mg/dL (8.8-10.2); CREATININE 1.9 mg/dL (0.7-1.2); POTASSIUM 4.4 mmol/L (3.5-5.1); TOTAL BILIRUBIN 3.97 mg/dL (0.20-1.00); TOTAL PROTEIN 5.4 g/dL (6.3-8.3)
--- NOTE | 2019-05-08 15:52 | PROVIDER PROGRESS NOTE ---
Progress Note The patient has been seen and examined. A full dictation to follow.
--- NOTE | 2019-05-08 20:30 | OPERATIVE NOTE ---
PROCEDURE DATE: 05/08/2019 PROCEDURE: Diagnostic laparoscopy; laparotomy with open appendectomy and ileocolonic [id number] bypass. SURGEON: Kirt Ellis MD. CONTINUITY MANAGER: Raul Perla RN. PREOP DIAGNOSIS: 1. Small-bowel obstruction. 2. Portal venous hypertension with ascites. 3. Cirrhosis of the liver. POSTOP DIAGNOSIS: 1. Small-bowel obstruction. 2. Portal venous hypertension with ascites. 3. Cirrhosis of the liver. FINDINGS: That the distal ileum did not have any evidence of band occlusion or adhesion. No tumor was present. The only abnormality was some mild thickening of the distal ileum. DESCRIPTION OF PROCEDURE: Satisfactory general endotracheal anesthesia was achieved. The abdomen was prepped and draped in a sterile fashion. We anesthetized the skin above the umbilicus, incised the skin vertically into the abdominal cavity using a 10 trocar, Optiview technique. We decompressed the abdominal cavity by draining over 3 L of fluid. Then, we were able to insufflate, add another 11 trocar in the right upper quadrant and a 5 trocar in the mid hypogastrium. We continued to drain ultimately over 6 L of ascitic fluid. We then airplaned the patient to the left. We could visualize the cecum. We then visualized the small bowel that was dilated and we identified the terminal ileum. The terminal ileum felt somewhat thickened when palpating it with laparoscopic instruments. No adhesion was present. The appendix was identified and curled. Because of the apparent thickening to the ileum, I decided to go ahead and open the patient, so we made a midline incision. After making a midline incision, we then were able to palpate the ileum, and there was no tumor present and again was only mildly thickened. I would not even consider it consistent with Crohn's. We did mobilize the cecum from the retroperitoneum. I did decide to mobilize the appendix and I was able to lift it out of the retroperitoneum and staple it at its base using a PEDRO LUIS blue cartridge 60 mm long. The trying to mobilize the cecum and the ileum up in order to do some intervention, we did get quite a bit of bleeding from the retroperitoneum, so we packed it off. I decided at this point that resection with removal of this segment carried quite a bit more risk with further dissection in the retroperitoneum, so I decided simply to do a [id number] bypass which would bypass this questionably abnormal segment of ileum, so I chose a spot in the dilated small bowel and then the cecum. We placed 3-0 silk pursestring in both, opened both and introduced the each limb of the PEDRO LUIS blue cartridge stapler 60 mm long and then did a [id number] stapled anastomosis. The open end of the bowel was then grasped with Allis and closed with a TA 60 blue cartridge. We then inverted the staple line where we had closed the bowel with interrupted 3-0 silks in a Lembert fashion. This thereby completed a side- by-side stapled anastomosis between the ileum proximal to its most distal segment and the proximal cecal area. An additional 3-0 silk stitch was placed at the opposite end of the staple line. We then looked at the retroperitoneum. There was oozing. We achieved acceptable hemostasis with electrocautery. We then placed a significant 5 g of Avitene into the area followed by a Gel-Foam wafer and then simply left it to assist with complete hemostasis. I did feel like the hemostasis was acceptable to proceed with closure. We then closed the peritoneum with 2-0 chromic. We closed the fascia with running #2 Prolene. The right upper quadrant trocar site was closed with 2- 0 Polysorb stitch x3. The skin was then closed at the midline incision in the right upper quadrant trocar site with bud. Sterile dressings were applied. He tolerated it satisfactorily, was sent to recovery room in stable but serious condition. cc: Kirt Ellis MD
[2019-05-08] MEDS: ATIVAN IV PRN (23:07)
[2019-05-09] MEDS: MORPHINE IV PRN ×3 (00:25→21:15)
[2019-05-09] MEDS: LEVOPHED 8 MG in D5 1/2 NS 250 ML IV SCH ×3 (01:09→21:15)
[2019-05-09] MEDS: ZOSYN 2.25 GM in NS 50 ML IV SCH ×4 (03:41→21:14)
[2019-05-09] MEDS: CLINIMIX E 4.25%-5% SOLUTION 1,000 ML IV SCH ×2 (04:23→19:03)
[2019-05-09 04:47] LABS: ALLEN TEST YES; BE -8.2 mmoll (-3.0-3.0); BLOOD TYPE ARTERIAL; HCO3-(ACT) 18.6 mmoll (20.0-26.0); METHB 1.1 % (0.0-1.5); O2HB 98.1 % (95.0-99.0); PCO2(98.6) 28 mmHg (35-45); PO2(98.6) 148 mmHg (60-100); SAMPLE BLOOD; SAO2 100.7 % (95.0-100.0); SRATE 14 BPM; TVOL 500 mL; pH(98.6) 7.37 (7.35-7.45)
[2019-05-09 04:53] LABS: MODALITY VENTILATOR
[2019-05-09 05:49] LABS: BASO# 0.05 X1000 (0.0-0.2); BASO% 0.3 % (0.0-0.8); EOS# 0.05 X1000 (0.0-0.7); EOS% 0.3 % (0.0-10.0); HEMATOCRIT 25.3 % (42.0-52.0); HEMOGLOBIN 8.2 g/dL (14.0-18.0); IMM GRAN# 0.08 X1000 (0.0-0.04); IMM GRAN% 0.5 % (0.0-0.5); LYMPH# 3.37 X1000 (1.2-3.4); LYMPH% 20.9 % (20.5-51.1); MCH 30.1 PG (27-31); MCHC 32.4 g/dL (33-37); MONO# 1.56 X1000 (0.11-0.59); MONO% 9.7 % (1.7-9.3); NEUT# 11.04 X1000 (1.4-6.5); NEUT% 68.3 % (42.2-75.2); PLT 83 X1000 (130-400); RBC 2.72 XMIL (4.7-6.1); RDW 20.9 % (11.5-14.5); WBC 16.15 X1000 (4.8-10.8)
[2019-05-09 05:54] LABS: INR 2.69; PROTIME 29.4 Seconds (11.0-16.0)
[2019-05-09] MEDS: THIAMINE 100 MG in NS 50 ML IV SCH (06:00)
[2019-05-09] MEDS: DEPACON 250 MG in NS 50 ML IV SCH ×2 (06:00→19:03)
[2019-05-09 06:07] LABS: ALB/GLOB RATIO 0.9; ALBUMIN 2.7 g/dL (3.5-5.0); CALCIUM 8.3 mg/dL (8.8-10.2); CREATININE 2.7 mg/dL (0.7-1.2); MAGNESIUM 2.6 mg/dL (1.5-2.7); PHOSPHORUS 5.7 mg/dL (2.7-4.5); POTASSIUM 5.7 mmol/L (3.5-5.1); TOTAL BILIRUBIN 5.67 mg/dL (0.20-1.00); TOTAL PROTEIN 5.6 g/dL (6.3-8.3)
--- NOTE | 2019-05-09 06:59 | PULMONOLOGY CONSULTATION ---
DATE: 05/08/2019 REQUESTING PROVIDER: Dr. Siddhartha Hutton. REASON FOR CONSULTATION: Ventilator management. HISTORY OF PRESENT ILLNESS: This is a 59-year-old male with medical history of cerebral aneurysm, hypertension, nicotine dependence, seizure disorder, gastroesophageal reflux with esophagitis, possible COPD, possible congestive heart failure, history of hepatitis C. He was initially admitted on 04/21/2019 with decompensated liver failure in the setting of hepatitis C and alcoholic liver cirrhosis and acute kidney injury. During this hospital stay, patient developed small bowel obstruction. He underwent surgical intervention today and after the surgery, he remained intubated and transferred to ICU for further evaluation and management. Patient currently still intubated and sedated. He was just transferred from surgery. There is no family at the bedside. All other information is obtained from the E-chart. PAST MEDICAL HISTORY: 1. Cerebral aneurysm, status post craniotomy. 2. Hypertension. 3. Nicotine dependence. 4. Seizure disorder. 5. Gastroesophageal reflux disease with reflux esophagitis. 6. Chronic back and neck pain. 7. Possible COPD with tobacco use. 8. Possible congestive heart failure. 9. Hepatitis C. PAST SURGICAL HISTORY: 1. Brain surgery x2. 2. Chest wall cyst removal. 3. Back surgery x2. SOCIAL HISTORY: Per H and P. Patient lives at home. He smokes 2 to 3 cigarettes per day for over 10 to 15 years. He smokes marijuana frequently. He drinks alcohol occasionally. He has no history of illicit drug use. FAMILY HISTORY: Positive for lung cancer, renal failure and gastric cancer. ALLERGIES: No known drug allergies. REVIEW OF SYSTEMS: Unable to be obtained. PHYSICAL EXAMINATION: Vital Signs: Temperature 96.7, blood pressure 105/70, pulse 84, respiratory rate 14, oxygen saturation 100% on mechanical ventilator with spontaneous rate 14, FiO2 of 60%, tidal volume 500 and PEEP 5. General: Lying in bed intubated and sedated. No acute distress noted. HEENT: Atraumatic, normocephalic. ET tube in place. Trachea midline. Mucosa pink and dry. Respiratory: Mechanical ventilated. Symmetrical excursion. Clear to auscultation bilaterally with some mild inspiratory crackles bibasilarly. Cardiovascular: Regular rate and rhythm with S1 and S2 appreciated. Gastrointestinal: Round, and mildly distended. Abdominal midline surgical incision side covered with dry and clean dressing. No bowel sounds noted. Neurologic: Sedated, unresponsive to verbal stimuli. Extremities: Bilateral lower extremity pitting edema 1+. No cyanosis. No clubbing. LAB DATA: White blood cell 5.39, hemoglobin 7.3, hematocrit 22.9, platelet 63,000. PTT 23.5, INR 2.04, fibrinogen 168.0. Sodium 146, potassium 4.4, chloride 114, carbon dioxide 20, BUN 74, creatinine 1.9, glucose 117. ABG, pH 7.34, pCO2 35, PO2 141, HC03 20, base excess -6.3, oxyhemoglobin 97.6 on AC mechanical ventilator with spontaneous rate 14, FiO2 of 60%, tidal volume 500 and PEEP 5. IMAGING DATA: Abdominal x-ray today showed lung volumes remain critical low, no dense infiltrates, stable severe distal small bowel obstruction, a lot of barium in the distal small bowel. ASSESSMENT: This is a 59-year-old male with a medical history of cerebral aneurysm, hypertension, nicotine dependence, seizure disorder, gastroesophageal reflux disease with reflux esophagitis, chronic back and neck pain, possible COPD, possible congestive heart failure and hepatitis C. He has been admitted since 04/20/2019 with decompensated liver failure in the setting of hepatitis C and alcoholic liver cirrhosis and acute kidney injury. He developed small bowel obstruction and underwent surgical intervention today. After surgery, he remained intubated and transferred to ICU for further evaluation and management. 1. Acute respiratory failure. 2. Shock. 3. Acute renal failure. 4. Acute abdominal small bowel obstruction status post surgical intervention. 5. Decompensated liver thyrosis with history of alcohol abuse and chronic active hepatitis C leading to ascites. 6. Possible COPD with tobacco use. PLAN: 1. Ventilator check and titrate to patient's needs per clinical protocol with closely monitoring. 2. Sedation with p.r.n. Ativan and morphine. 3. Follow up with ABG, CBC, BMP and chest x-ray. 4. Tobacco cessation education when appropriate. 5. Further recommendations pending hospital course. Thank you for the courtesy of this consult. Dr. Westbrook did the examination, evaluation and management orders. TURNER did the dictation only for Dr. Westbrook, according to his direction. TOTAL EVALUATION TIME IN MINUTES: 34 minutes. Dictated by TURNER Manriquez for David Westbrook MD cc: TURNER Manriquez MD MTDD
--- NOTE | 2019-05-09 07:14 | Diag Imaging Result Doc PS360 ---
EXAM: CHEST-1 VIEW 05/09/2019 HISTORY: SOB TECHNIQUE: AP portable at 0514 COMMENT: There is an endotracheal tube with its tip slightly below the thoracic inlet and an NG tube with its tip in the stomach. There is a right internal jugular central venous catheter with its tip in the right atrium. The inspiration is somewhat suboptimal. There is retrocardiac opacity in the left lower lobe which was also present on 05/08/2019. IMPRESSION: Atelectasis versus pneumonia left lower lobe. Electronically signed by Delonte Warner 05/09/2019 7:12 AM
[2019-05-09] MEDS ORDERED: D50W SYRINGE IV ONE (07:29)
[2019-05-09] MEDS ORDERED: ALBUTEROL 0.5% INH CONC FOR HYPERKALEMIA INH ONE (07:29)
[2019-05-09] MEDS ORDERED: HUMALOG IV ONE (07:29)
[2019-05-09 07:53] LABS: LYMPHS 16 % (21-51); SEGS 76 % (42-75)
[2019-05-09] MEDS: FOLIC ACID PO SCH (08:20)
[2019-05-09] MEDS: DULCOLAX PR SCH ×2 (08:21→21:09)
[2019-05-09] MEDS: LACTULOSE PO SCH ×3 (08:49→18:56)
[2019-05-09] MEDS ORDERED: SODIUM BICARBONATE 8.4% 150 MEQ in D5W 1,000 ML IV SCH (09:00)
[2019-05-09] MEDS: PROTONIX IV SCH (09:03)
[2019-05-09] MEDS: VITAMIN K 10 MG in NS 50 ML IV SCH (09:05)
[2019-05-09] MEDS: ALBUMIN 25% IV SCH (09:28)
--- NOTE | 2019-05-09 11:15 | GASTROENTEROLOGY PROGRESS NOTE ---
DATE: 05/09/2019 SUBJECTIVE: The patient continues to have abdominal pain, abdominal distention, inability to have bowel movements. He is preparing to go to the OR for exploratory laparoscopy with Dr. Ellis. OBJECTIVE: Vital Signs: His vital signs have been stable. He does have some tachycardia and some low temperature 96.5 degrees, blood pressure 98/60, heart rate of 16 with O2 saturation 100% on room air. General: The patient is cachectic, chronically ill-appearing, in moderate distress from pain. HEENT: There is some mild scleral icterus, but moist mucous membranes. Extraocular movements intact. Neck: Supple. No JVD or lymphadenopathy. Cardiac: Tachycardic, regular rhythm. No murmurs. Lungs: Clear to auscultation anteriorly. Abdomen: Tense, distended, tympanic with ascites. Extremities: No clubbing, cyanosis, or edema. Neurologic: He is alert and oriented x3. Moving all extremities symmetrically. LABORATORIES: From the morning show a white count of 5.3, hemoglobin 7.3, platelets of 62,000. INR 2. Sodium 146, potassium 4.4, chloride of 114, bicarbonate 20, BUN of 74, creatinine of 1.9, glucose of 117, bilirubin 3.9, AST of 27, ALT of 12, alkaline phosphatase 57, total protein of 5.4, albumin of 3.2. IMAGING: Shows stable NG tube in place, no dense infiltrates. There is stable severe distal small bowel obstruction. There is still a lot of barium in the distal small. ASSESSMENT AND PLAN: Mr. Regino Mcduffie is a 59-year-old gentleman with a past medical history who presented with newly decompensated hemoglobin of alcohol cirrhosis with ascites, empirically treated for spontaneous bacterial endocarditis, acute kidney injury, and course complicated by high-grade small bowel obstruction. The patient is going to the operating room today for exploratory laparotomy, and recommended using colloid over crystalloid for fluid resuscitation, maintain his platelets of 50,000, and minimize sedating medications postoperatively. Continue antibiotics, trending his coagulation and CBC and creatinine. We will follow closely and monitor for signs of hepatic encephalopathy and bleeding postoperatively. We will follow with you. Please call with questions.
--- NOTE | 2019-05-09 11:34 | PROGRESS NOTE ---
DATE: 05/09/2019 INTERVAL HISTORY: Mr. Mcduffie underwent laparoscopy, laparotomy, appendectomy and ileocolic bypass yesterday. There was no real adhesions or point of obstruction identifiable during surgery. He was intubated during surgery and he was transferred back to ICU on ventilator. Since then, he was detected to be hypotensive and was started on intravenous norepinephrine. SUBJECTIVE: He is currently not on sedation. He usually wakes up to strong verbal stimuli and is able to synchronize with the ventilator. VITALS: Temperature of 97.5 degrees, pulse 108, respiratory 23, blood pressure 97/76. He is saturating 100% on 40% mechanical ventilation. PHYSICAL EXAMINATION: Does not appear in any acute distress. He has scleral icterus, endotracheal tube, urine catheter, right-sided internal jugular catheter. Lungs: Air entry bilaterally equal. No wheeze or rhonchi. Crackles bilateral infrascapular region. Cardiovascular: S1, S2 normal. No murmur, rub, or gallop. Abdomen: Distended, tympanic to percussion. No bowel sounds. His NG tube under suction. : He has urine catheter. Extremities: He has mild bilateral lower extremity edema. Neurologic: He flickers to strong verbal stimuli. Input and Output: Suggest 4.9 L of input, 7.7 L of output including 6.9 L of ascites aspirate. His urine output has been just 165 mL. LABS: Suggestive of WBC of 16,000, hemoglobin 8.2, platelet 83,000. His ABG suggest a lactic acidosis of 4.6. He does have hyperkalemia with potassium of 5.7, BUN 83, creatinine 2.7. MICROBIOLOGY: No new data. IMAGING: Chest x-ray suggests atelectasis versus pneumonia of left lower lobe. ASSESSMENT AND PLAN: 1. Small bowel obstruction of unclear etiology, which did not get better with conservative management. He is status post laparotomy on 05/08/2019 with ileocolic bypass without any identifiable reason of obstruction. I will continue to monitor his electrolytes and replete as necessary. 2. Septic shock in the setting of multiple comorbidities, suspected peritonitis, pneumonia and intravascular volume depletion leading to hypovolemia. Continue intravenous Zosyn, intravenous norepinephrine to maintain MAP more than 65 mmHg. 3. Acute kidney injury due to prerenal acute renal failure due to intravascular volume depletion, hypoalbuminemia, and multiple paracentesis. I will give him intravenous bicarbonate for 1 L and additional intravenous albumin. We will follow up with followup with close input and output and BMP. Appreciate Nephrology recommendation. 4. Decompensated liver cirrhosis with history of alcohol abuse and chronic active hepatitis C with ascites, coagulopathy and thrombocytopenia. Continue intravenous vitamin K and transfusion as necessary. He is status post 6 PRBC, 7 units of FFP and 7 units of platelet transfusion during this hospital admission. 5. History of seizure disorder. Continue intravenous valproate. 6. Others: Continue intravenous thiamine for alcohol abuse, intravenous pantoprazole for stress ulcer prophylaxis with folic acid, intravenous Clinimix for nutrition. DISPOSITION: I will continue to monitor patient inside the hospital. His condition is critical. More than 30 minutes of critical care time was spent in taking care of Mr. hui. I called the patient's who herself just had a surgery. I informed Mrs. Mcduffie that Mr. Mcduffie has been critical. I explained to her about Mr. hui liver failure, kidney failure, need for ventilator and pressor medication and his critical condition and I answered all of her questions. TIME SPENT: More than 30 minutes of critical care time was spent in taking of this patient. cc: Kelechi Hutton MD
--- NOTE | 2019-05-09 11:46 | GASTROENTEROLOGY PROGRESS NOTE ---
DATE: 05/09/2019 SUBJECTIVE: Mr. Mcduffie is a 59-year-old, male, resting in bed. He is currently on a mechanical ventilator, sedated. Unable to assess the patient. Nursing staff at the bedside giving him medications. The patient has still not had any bowel movements. OBJECTIVE: Vital Signs: Temperature 98.1 degrees, pulse 108, respirations 16, blood pressure 101/59, oxygen saturation 100% on mechanical ventilation. The patient's weight is 181 pounds. BMI is 29.3 kg/m2. General: The patient is on a ventilator, sedated, unable to assess. HEENT: Pale conjunctivae. Mild icterus. PERRL. Neck: Supple. Lungs: Coarse wheezing heard in the anterior toribio. Cardiovascular: The patient is tachycardic. Abdomen: Firm, distended. Midline incision is dry and intact. Hypoactive bowel sounds heard in all 4 quadrants. Extremities: No clubbing, no cyanosis. Generalized edema in the lower extremities. Neurologic: Unable to assess. The patient is on the mechanical ventilator. LABORATORY DATA: WBC 16.15, RBCs 2.72, hemoglobin is 8.2, hematocrit is 25.3, platelet count is 83,000. PT 29.4, INR is 2.69. Sodium 141, potassium 5.7, chloride 110, carbon dioxide 15, anion gap is 16, BUN is 83, creatinine is 2.7, glucose 101, calcium 8.3. Phosphorus 5.7, magnesium 2.6. Total bilirubin is 5.67, AST 67, ALT 20, alkaline phosphatase is 71, albumin is 2.7. IMAGING: Chest x-ray today showed atelectasis versus pneumonia in the left lower lobe. IMPRESSION AND PLAN: SBO s/p laparotomy Cirrhosis Ascites Hepatitis C Coagulopathy Thrombocytopenia Hypoalbuminemia PLAN: Mr. Mcduffie is a 59-year-old, male with a history of cirrhosis. GI is following him for his ascites and decompensated cirrhosis. The patient had surgery done yesterday. He had a laparotomy with open appendectomy and ileocolonic [id number]-gb-[id number] bypass. The patient is now currently on a mechanical ventilator, sedated. He is receiving Clinimix for his nutrition. He has received albumin and vitamin K one dose today per PCP. We will continue to monitor the patient and follow the plan of care per PCP and the surgeon. This plan was discussed with Dr. Molina. Please call us for any further questions or concerns. Dictated by TUNRER Bazan for Catracho Molina MD MTDZay
[2019-05-09] MEDS ORDERED: ALBUMIN 25% IV ONE (12:00)
--- NOTE | 2019-05-09 14:34 | PROVIDER PROGRESS NOTE ---
Progress Note Dr. Westbrook Progress Note/Pulmonary and or critical care Subjective: The patient is intubated and sedated with PRN Ativan and Morphine. The last morphine was given over 6 hours ago. He is still very lethargic. He opens his eyes briskly when his name is called. He is still hypotensive with Levophed on at 23 mcg/min. Patients and sister at the bedside. Input is appreciated from Dr. Hutton and other teams on the case. Objective: Vital Signs: T 98.2 (no fever in last 24 hours), DE 104, RR 13, BP 98/59 and SaO2 100% on AC 14, 40%, 500, 5. I/O -2774 ml Physical Examination: General: Intubated. Lying in bed with no acute distress noted. HEENT: Normocephalic. Trachea midline. ET tube in place. Chest: Mechanically ventilated. Decreased air entry bilaterally. CVS: Regular rate and rhythm with S1 and S2 appreciated. Abdomen: Rounded and mildly distended. Dressing in the abdominal midline. No bowel sounds appreciated. Extremities: BLE and BUE pitting edema 1+. No cyanosis. No clubbing. Neuro: Sedated. Labs and Radiology: Laboratory Results 05/05/19 05/08/19 05/08/19 11:25 14:13 14:13 WBC 5.39 RBC 2.42 L Hgb 7.3 L Hct 22.9 L MCV 94.6 MCH 30.2 MCHC 31.9 L RDW Std Deviation 19.7 H Plt Count 63 L MPV 11.2 H Immature Gran % (Auto) 0.4 Neut % (Auto) 53.9 Lymph % (Auto) 40.4 Sampson % (Auto) 4.1 Eos % (Auto) 0.6 Baso % (Auto) 0.6 Immature Gran # (Auto) 0.02 Neut # (Auto) 2.91 Lymph # (Auto) 2.18 Sampson # (Auto) 0.22 Eos # (Auto) 0.03 Baso # (Auto) 0.03 Segmented Neutrophils Lymphocytes Unidentified Cells PT INR Specimen Type Sample Site pH pCO2 pO2 HCO3 Base Excess Oxyhemoglobin ABG O2 Sat (Calculated) ABG O2 Saturation ABG Carboxyhemoglobin ABG Methemoglobin Agustin Test A-a O2 Difference Total Hemoglobin Lactate Blood Gas Modality Vent Mode Spontaneous Rate FiO2 % Tidal Volume PEEP Sodium 146 H Potassium 4.4 Chloride 114 H Carbon Dioxide 20 L Anion Gap 12 BUN 74 H Creatinine 1.9 H Estimated GFR/1.73 m2 44 BUN/Creatinine Ratio 39 Glucose 117 H Calculated Osmolality 313 Calcium 8.3 L Phosphorus Magnesium Total Bilirubin 3.97 H AST 27 ALT 12 Alkaline Phosphatase 57 Total Protein 5.4 L Albumin 3.2 L Globulin 2.2 Albumin/Globulin Ratio 1.5 Crossmatch See Detail 05/09/19 05/09/19 05/09/19 04:37 04:45 04:45 WBC 16.15 H D RBC 2.72 L Hgb 8.2 L Hct 25.3 L MCV 93.0 MCH 30.1 MCHC 32.4 L RDW Std Deviation 20.9 H Plt Count 83 L D MPV 13.0 H Immature Gran % (Auto) 0.5 Neut % (Auto) 68.3 Lymph % (Auto) 20.9 Sampson % (Auto) 9.7 H Eos % (Auto) 0.3 Baso % (Auto) 0.3 Immature Gran # (Auto) 0.08 H Neut # (Auto) 11.04 H Lymph # (Auto) 3.37 Sampson # (Auto) 1.56 H Eos # (Auto) 0.05 Baso # (Auto) 0.05 Segmented Neutrophils 76 H Lymphocytes 16 L Unidentified Cells 8.0 PT 29.4 H INR 2.69 D Specimen Type ARTERIAL Sample Site R RADIAL pH 7.37 pCO2 28 L pO2 148 H HCO3 18.6 L Base Excess -8.2 L Oxyhemoglobin 98.1 ABG O2 Sat (Calculated) 10.0 L ABG O2 Saturation 100.7 H ABG Carboxyhemoglobin 1.50 ABG Methemoglobin 1.1 Agustin Test YES A-a O2 Difference 102.0 Total Hemoglobin 7.0 L Lactate 4.60 H* Blood Gas Modality VENTILATOR Vent Mode A/C Spontaneous Rate 14 FiO2 % 40.0 Tidal Volume 500 PEEP 5.0 Sodium Potassium Chloride Carbon Dioxide Anion Gap BUN Creatinine Estimated GFR/1.73 m2 BUN/Creatinine Ratio Glucose Calculated Osmolality Calcium Phosphorus Magnesium Total Bilirubin AST ALT Alkaline Phosphatase Total Protein Albumin Globulin Albumin/Globulin Ratio Crossmatch 05/09/19 04:45 WBC RBC Hgb Hct MCV MCH MCHC RDW Std Deviation Plt Count MPV Immature Gran % (Auto) Neut % (Auto) Lymph % (Auto) Sampson % (Auto) Eos % (Auto) Baso % (Auto) Immature Gran # (Auto) Neut # (Auto) Lymph # (Auto) Sampson # (Auto) Eos # (Auto) Baso # (Auto) Segmented Neutrophils Lymphocytes Unidentified Cells PT INR Specimen Type Sample Site pH pCO2 pO2 HCO3 Base Excess Oxyhemoglobin ABG O2 Sat (Calculated) ABG O2 Saturation ABG Carboxyhemoglobin ABG Methemoglobin Agustin Test A-a O2 Difference Total Hemoglobin Lactate Blood Gas Modality Vent Mode Spontaneous Rate FiO2 % Tidal Volume PEEP Sodium 141 Potassium 5.7 H D Chloride 110 H Carbon Dioxide 15 L Anion Gap 16 BUN 83 H Creatinine 2.7 H Estimated GFR/1.73 m2 30 BUN/Creatinine Ratio 31 Glucose 101 Calculated Osmolality 307 Calcium 8.3 L Phosphorus 5.7 H Magnesium 2.6 Total Bilirubin 5.67 H AST 67 H ALT 20 Alkaline Phosphatase 71 Total Protein 5.6 L Albumin 2.7 L Globulin 2.9 Albumin/Globulin Ratio 0.9 Crossmatch Assessment: Acute respiratory failure. Shock. Atelectasis vs. pneumonia LLL. Small-bowel obstruction, portal venous hypertension with ascites and cirrhosis of the liver. s/p diagnostic laparoscopy, laparotomy with open appendectomy and ileocolonic fgja-rz-voun bypass by Dr. Ellis on 05/08/19. Decompensated liver cirrhosis with history of alcohol abuse and chronic active hepatitis C leading to ascites, coagulopathy and thrombocytopenia. Acute kidney injury, likely prerenal from intravascular depletion related to third spacing into the abdomen and hypoalbunemia. S/P paracentesis with 6.2 L of fluid aspirated on 04/30/19. Dr. Dominguez on board. Prognosis is guarded. Plan: Continue current treatment and supportive care per admitting and other teams on the case. No weaning trials today as patient stays on pressor. We check Ventilator settings and titrate to Patients needs per clinical protocols. We will keep closely monitoring on patients clinical response. We titrate Sedation (PRN Ativan and morphine) to the patients needs per clinical protocols. We will keep closely monitoring on patients clinical response. We titrate Pressor (Levophed) to the patients needs per clinical protocols. We will keep closely monitoring. Antibiotic (Zosyn). Appropriate DVT and GI prophylaxis. Discuss patient's condition and care plan with patient's family at the bedside and all questions have been answered. Evaluation time in minutes: 32 minutes.
--- NOTE | 2019-05-09 15:56 | PROVIDER PROGRESS NOTE ---
Progress Note Subjective: intubated without sedation. Opens eyes and squeezing hands on command. Objective: temperature 97.5, pulse 108, respirations 16, blood pressure 101/59, 02 sat 100% on 40% FiO2 mechanical ventilation. General: Chronically ill appearing -[place] male in no acute distress. HEENT: normocephalic, atraumatic, conjunctiva pink, pupils equal and reactive. Mucous membranes moist, NG tube in place to LIS. Trachea midline. Skin: Warm and dry. Neck: supple, 8cm JVD observed. Cardiovascular: S1s2s4, regular rate and rhythm. No murmur or gallop. Respiratory: clear with equal air entry Abdomen: less firm, less distended, nontender. Hypoactive bowel sounds. :non inspected, doe in place with orange/ freddy urine Extremities: 1+ pitting edema to BLE. Neurological: alert, unable to assess orientation. Labs: WBC 16.15, hemoglobin 8.2, hematocrit 25.3, platelet count 83, sodium 141, potassium 5.7, chloride 110, carbon dioxide 15, BUN 83, creatinine 2.7, phosphorus 5.7, albumin 2.7. Intake 4941, output 7715. Impression: Acute kidney injury. Likely intravascular volume depletion related to third spacing into the abdomen and Hypoalbuminemia. Albumin and IVF ordered by primary. Blood pressure. Low. Stable on levophed. Intravascular Fluid volume. Albumin and 1 liter fluid ordered by primary. Had 6 L paracentesis yesterday. Anemia. Stable. 1 unit PRBC given yesterday. Thrombocytopenia. 3 units FFP and 1 unit pheresis platelets given yesterday. Electrolytes and acid base balance. Stable. Nutrition. Clinimix Medication review. No changes.
--- NOTE | 2019-05-09 18:19 | GENERAL SURGERY PROGRESS NOTE ---
DATE: 05/09/2019 SUBJECTIVE: Mr. Mcduffie is on the ventilator. He does arouse to the spoken word. Heart rate is 109 and blood pressure 97/76. His intake as recorded as 4941, output 7715. He drained almost 7 L of fluid at the time of the surgery yesterday. LABORATORY DATA: [place] [address], hemoglobin 8.2, hematocrit 25.3, and platelet count is 83,000. His ProTime is 29.4, INR 2.7. A pH 7.37, pCO2 28, PO2 148, and base deficit 8.2. Sodium 141, potassium 5.7, BUN 83 and creatinine 2.7. ASSESSMENT: He is 1 day postop laparotomy with ileocolonic bypass and appendectomy. No doubt he is prerenal in view of the significant shift of fluid into his abdomen after drainage of the 7 L of ascites yesterday. We will continue with supportive care. He is receiving extra IV fluids, which is appropriate. cc: Kirt Ellis MD
[2019-05-09] MEDS: ATIVAN IV PRN (22:34)
[2019-05-10] MEDS: LEVOPHED 8 MG in D5 1/2 NS 250 ML IV SCH ×2 (03:04→22:02)
[2019-05-10] MEDS: ZOSYN 2.25 GM in NS 50 ML IV SCH ×4 (03:04→20:53)
[2019-05-10 05:06] LABS: ALLEN TEST YES; BE -3.6 mmoll (-3.0-3.0); BLOOD TYPE ARTERIAL; HCO3-(ACT) 22.2 mmoll (20.0-26.0); O2(CT) 9.5 mL/dL (15.0-23.0); PCO2(98.6) 23 mmHg (35-45); PO2(98.6) 178 mmHg (60-100); SAMPLE BLOOD; SAO2 100.2 % (95.0-100.0); SRATE 14 BPM; THB 6.6 g/dL (11.5-17.4); TVOL 500 mL; pH(98.6) 7.52 (7.35-7.45)
[2019-05-10 05:09] LABS: MODALITY VENTILATOR
[2019-05-10] MEDS: MORPHINE IV PRN ×2 (05:17→22:51)
[2019-05-10] MEDS: DEPACON 250 MG in NS 50 ML IV SCH ×2 (06:04→18:39)
[2019-05-10] MEDS: THIAMINE 100 MG in NS 50 ML IV SCH (06:34)
[2019-05-10 06:38] LABS: BASO# 0.05 X1000 (0.0-0.2); BASO% 0.3 % (0.0-0.8); EOS# 0.14 X1000 (0.0-0.7); EOS% 0.8 % (0.0-10.0); HEMATOCRIT 20.3 % (42.0-52.0); HEMOGLOBIN 6.6 g/dL (14.0-18.0); IMM GRAN# 0.16 X1000 (0.0-0.04); IMM GRAN% 0.9 % (0.0-0.5); LYMPH# 3.38 X1000 (1.2-3.4); LYMPH% 18.6 % (20.5-51.1); MCH 29.7 PG (27-31); MCHC 32.5 g/dL (33-37); MCV 91.4 FL (81-99); MONO# 2.37 X1000 (0.11-0.59); MONO% 13.1 % (1.7-9.3); NEUT# 12.05 X1000 (1.4-6.5); NEUT% 66.3 % (42.2-75.2); RBC 2.22 XMIL (4.7-6.1); RDW 20.5 % (11.5-14.5); WBC 18.15 X1000 (4.8-10.8)
[2019-05-10 06:40] LABS: PLT 39 X1000 (130-400)
--- NOTE | 2019-05-10 06:40 | Diag Imaging Result Doc PS360 ---
CHEST-1 VIEW - 05/10/2019 INDICATION: SOB COMPARISON: 05/09/2019 FINDINGS: Support lines and tubes are stable and in good position. Stable critically low lung volumes. There is some shifting atelectasis in the midlungs bilaterally. Overall degree is stable. Heart size remains normal. No large pleural effusion. IMPRESSION: Shifting atelectasis in the midlungs. Critical low lung volumes. Little change from prior. Electronically signed by Jesus Faith 05/10/2019 6:38 AM
[2019-05-10 07:25] LABS: ALB/GLOB RATIO 1.3; ALBUMIN 3.2 g/dL (3.5-5.0); CALCIUM 8.5 mg/dL (8.8-10.2); CREATININE 2.8 mg/dL (0.7-1.2); POTASSIUM 5.3 mmol/L (3.5-5.1); TOTAL BILIRUBIN 7.07 mg/dL (0.20-1.00); TOTAL PROTEIN 5.6 g/dL (6.3-8.3)
[2019-05-10] MEDS: CLINIMIX E 4.25%-5% SOLUTION 1,000 ML IV SCH ×2 (07:40→20:52)
[2019-05-10] MEDS ORDERED: NS 500 ML IV ONE (08:22)
[2019-05-10] MEDS: FOLIC ACID 1 MG in NS 50 ML IV SCH (09:53)
[2019-05-10] MEDS: LACTULOSE PO SCH ×3 (09:59→16:05)
[2019-05-10] MEDS: PROTONIX IV SCH (09:59)
[2019-05-10] MEDS: DULCOLAX PR SCH ×2 (09:59→22:52)
[2019-05-10] MEDS: VITAMIN K 10 MG in NS 50 ML IV SCH (10:46)
--- NOTE | 2019-05-10 11:32 | GASTROENTEROLOGY PROGRESS NOTE ---
DATE: 05/10/2019 SUBJECTIVE: Mr. Regino Mcduffie is a 59-year-old, male. He is resting in bed, currently on a mechanical ventilator. The patient has still not had a bowel movement. Unable to assess patient. He is sedated. OBJECTIVE: Vital Signs: Temperature 97.4 degrees, pulse 114, respirations 30, blood pressure 98/56, oxygen saturation 100% on mechanical ventilator. The patient's weight is 188 pounds. BMI is 30.5 kg/m2. General: Patient on mechanical ventilator, unable to assess. HEENT: Pale conjunctivae. Mild icterus. PERRL. Neck: Supple. Decreased breath sounds heard bilaterally. Cardiovascular: Patient is tachycardic and tachypneic. Abdomen: Firm, distended. Midline incision with dressing intact. Hypoactive bowel sounds heard in all 4 quadrants. Extremities: No clubbing, no cyanosis. Generalized edema in the lower extremities. Neurologic: Unable to assess patient. Labs: WBCs are 18.15, RBCs 2.22, hemoglobin is 6.6, hematocrit is 20.3, platelet count is 39,000. Sodium is 141, potassium is 5.3, chloride 105, carbon dioxide 21, anion gap 15, BUN 91, creatinine 2.8, glucose 125, calcium is 8.5. Total bilirubin is 7.07, AST is 87, ALT is 27, alkaline phosphatase is 80, albumin is 3.2. IMAGING: Chest x-ray has shown shifting atelectasis in the mid lungs, critical low lung volumes, little change from the prior. IMPRESSION AND PLAN: 1. SBO s/p laparotomy. 2. Cirrhosis. 3. Ascites. 4. Anemia. 5. Coagulopathy. 6. Thrombocytopenia. 7. Hypoalbuminemia. PLAN: Mr. Mcduffie is a 59-year-old, male with a history of cirrhosis. GI has been following him for his ascites and decompensated cirrhosis. The patient had a recent laparotomy with open appendectomy and an ileocolonic ryrv-wr-tpaa bypass. The patient is currently on a mechanical ventilator. We have ordered an ultrasound-guided paracentesis for tomorrow. The patient is also receiving vitamin K 10 mg IV for his coagulopathy. The patient's hemoglobin and hematocrit are 6.6 and 20.3. As per PCP, he has orders to transfuse 1 unit of packed red blood cells. We will continue him with PPIs daily, lactulose, Dulcolax suppository twice a day. The patient is on antibiotic, Zosyn. He is receiving Clinimix 75 mL for his nutrition. We will continue to monitor the patient and follow the plan of care per PCP. This plan was discussed with Dr. Hernandez. Please call us for any further questions or concerns. Dictated by TURNER Bazan for Leno Hernandez MD cc: Leno Hernandez MD I have seen and examined the patient myself and I agree with the above plan of care. Please call us with any questions or concerns. MTDZay
--- NOTE | 2019-05-10 13:16 | PROGRESS NOTE ---
DATE: 05/10/2019 INTERVAL HISTORY: No acute events overnight. He did develop thrombocytopenia and lactic acidosis. His urine output improved after intravenous fluids and albumin yesterday. His potassium had decreased after treatment yesterday. SUBJECTIVE: He is intubated. He is not on sedation, but he is not fully awake and alert. PHYSICAL EXAMINATION: Vitals: His temperature is 97.4 degrees, pulse 114, respiratory rate 30, blood pressure 98/56. He is saturating 100% on mechanical ventilation. General: He is intubated. He has a NG tube. He has a right-sided internal jugular venous catheter. Lungs: Air entry bilaterally equal. Bilateral rhonchi and mild crackles. No wheezes. Cardiovascular: S1, S2 normal. Tachycardic. No murmur or gallop. Abdomen: Distended tympanic to percussion most of the abdomen. He also has dullness on the flank. Extremities: He has mild bilateral lower extremity edema. Neurologic: He responds to strong verbal stimuli and starts flickering his eyes. He is also following simple commands like squeezing my fingers. Input and output suggests his urine output had picked up and had 630 mL in the last 24 hours. LABS: Suggestive of WBC of 8000, hemoglobin 6.6, platelet of 39,000. A pH of 7.5, potassium of 5.3. BUN 91, creatinine 2.8. MICROBIOLOGY: No positive data. X-RAYS: Chest x-ray performed today morning has atelectasis in the mid lungs. ASSESSMENT AND PLAN: 1. Small bowel obstruction of unclear etiology, status post failed conservative management and status post laparotomy on May 08 with ileocolic bypass. He has not had any bowel sounds or bowel movement. I will continue to replete electrolytes as necessary. Appreciate surgery team's recommendations. 2. Septic shock in the setting of positive multiple comorbidities, suspected peritonitis, pneumonia, and intravascular volume depletion due to hypoalbuminemia. Continue intravenous Zosyn, intravenous norepinephrine to maintain MAP more than 65 mmHg. Culture data has been unremarkable. 3. Acute kidney injury, recurrent, due to acute renal failure due to intravascular volume depletion in the setting of hypoalbuminemia and paracentesis. I will continue to monitor his kidney function. He has been requiring intermittent intravenous fluids and intravenous albumin. Appreciate Nephrology recommendation. Continue Lopez catheter. 4. Decompensated liver cirrhosis with history of alcohol abuse and chronic active hepatitis C with ascites, coagulopathy and thrombocytopenia. Continue intravenous vitamin K and transfusion as necessary. He is status post 6 packed red blood cells, 7 fresh frozen plasma, and 7 units of platelet. I will give additional unit of packed red blood cells for his acute blood loss anemia likely because of blood loss sustained during surgery. 5. History of seizure disorder. Continue intravenous valproate. 6. Others. Continue intravenous thiamine and folic acid for alcohol abuse, pantoprazole for stress ulcer prophylaxis, intravenous Clinimix for nutrition. 7. Disposition: More than 30 minutes of critical care time was spent in care of this patient. Yesterday I had a discussion about plan of care with his on the phone, and all of her questions were satisfactorily answered. cc: Kelechi Hutton MD
[2019-05-10] MEDS: ATIVAN IV PRN (16:05)
--- NOTE | 2019-05-10 16:18 | PROVIDER PROGRESS NOTE ---
Progress Note Dr. Westbrook Progress Note/Pulmonary and or critical care Subjective: The patient is intubated. He is obtunded with no response to verbal or tactile stimuli at this time. He is on Levophed at 23 mcg/min. His abdomen stays distended and firm. GI is planning another paracentesis tomorrow. No family at the bedside. Input is appreciated from Dr. Hutton and other teams on the case. Objective: Vital Signs: T 97.4 (no fever in last 24 hours), PA 109, RR 18, BP 98/56 and SaO2 100% on AC 14, 40%, 500, 5. I/O +4077 ml Physical Examination: General: Intubated. Lying in bed with no acute distress noted. HEENT: Normocephalic. Trachea midline. ET tube in place. Chest: Mechanically ventilated. Good air entry bilaterally. CVS: Regular rate and rhythm with S1 and S2 appreciated. Abdomen: Rounded and distended. Dressing in the abdominal midline. Decreased bowel sounds appreciated. Extremities: BLE and BUE pitting edema 1+. No cyanosis. No clubbing. Neuro: Sedated. Labs and Radiology: Laboratory Results 05/05/19 05/10/19 05/10/19 11:25 04:56 05:15 WBC 18.15 H RBC 2.22 L Hgb 6.6 L D Hct 20.3 L MCV 91.4 MCH 29.7 MCHC 32.5 L RDW Std Deviation 20.5 H Plt Count 39 L* D MPV Not Reportable Immature Gran % (Auto) 0.9 H Neut % (Auto) 66.3 Lymph % (Auto) 18.6 L Gem % (Auto) 13.1 H Eos % (Auto) 0.8 Baso % (Auto) 0.3 Immature Gran # (Auto) 0.16 H Neut # (Auto) 12.05 H Lymph # (Auto) 3.38 Gem # (Auto) 2.37 H Eos # (Auto) 0.14 Baso # (Auto) 0.05 Specimen Type ARTERIAL Sample Site R RADIAL pH 7.52 H pCO2 23 L pO2 178 H HCO3 22.2 Base Excess -3.6 L Oxyhemoglobin 97.0 ABG O2 Sat (Calculated) 9.5 L ABG O2 Saturation 100.2 H ABG Carboxyhemoglobin 1.20 ABG Methemoglobin 2.0 H Agustin Test YES A-a O2 Difference 78.0 Total Hemoglobin 6.6 L Lactate 2.90 H Blood Gas Modality VENTILATOR Vent Mode A/C Spontaneous Rate 14 FiO2 % 40.0 Tidal Volume 500 PEEP 5.0 Sodium Potassium Chloride Carbon Dioxide Anion Gap BUN Creatinine Estimated GFR/1.73 m2 BUN/Creatinine Ratio Glucose Calculated Osmolality Calcium Total Bilirubin AST ALT Alkaline Phosphatase Total Protein Albumin Globulin Albumin/Globulin Ratio Blood Type Antibody Screen Crossmatch See Detail 05/10/19 05/10/19 05:15 08:54 WBC RBC Hgb Hct MCV MCH MCHC RDW Std Deviation Plt Count MPV Immature Gran % (Auto) Neut % (Auto) Lymph % (Auto) Gem % (Auto) Eos % (Auto) Baso % (Auto) Immature Gran # (Auto) Neut # (Auto) Lymph # (Auto) Gem # (Auto) Eos # (Auto) Baso # (Auto) Specimen Type Sample Site pH pCO2 pO2 HCO3 Base Excess Oxyhemoglobin ABG O2 Sat (Calculated) ABG O2 Saturation ABG Carboxyhemoglobin ABG Methemoglobin Agustin Test A-a O2 Difference Total Hemoglobin Lactate Blood Gas Modality Vent Mode Spontaneous Rate FiO2 % Tidal Volume PEEP Sodium 141 Potassium 5.3 H Chloride 105 Carbon Dioxide 21 L Anion Gap 15 BUN 91 H Creatinine 2.8 H Estimated GFR/1.73 m2 28 BUN/Creatinine Ratio 33 Glucose 125 H Calculated Osmolality 311 Calcium 8.5 L Total Bilirubin 7.07 H AST 87 H ALT 27 Alkaline Phosphatase 80 Total Protein 5.6 L Albumin 3.2 L Globulin 2.4 Albumin/Globulin Ratio 1.3 Blood Type O POSITIVE Antibody Screen NEGATIVE Crossmatch See Detail Assessment: Acute respiratory failure. Shock. Atelectasis vs. pneumonia LLL. CXR today shows shifting atelectasis in the midlungs and critical low lung volumes. Small-bowel obstruction, portal venous hypertension with ascites and cirrhosis of the liver. s/p diagnostic laparoscopy, laparotomy with open appendectomy and ileocolonic [id number]-zv-[id number] bypass by Dr. Ellis on 05/08/19. Decompensated liver cirrhosis with history of alcohol abuse and chronic active hepatitis C leading to ascites, coagulopathy and thrombocytopenia (worsening). Acute kidney injury, likely prerenal from intravascular depletion related to third spacing into the abdomen and hypoalbunemia. S/P paracentesis with 6.2 L of fluid aspirated on 04/30/19. Alkalemia with respiratory alkalosis and AG metabolic acidosis. Prognosis is guarded. Plan: Continue current treatment and supportive care per admitting and other teams on the case. No weaning trials today as patient stays on pressor. We check Ventilator settings and titrate to Patients needs per clinical protocols. We will keep closely monitoring on patients clinical response. We titrate Sedation (PRN Ativan and morphine) to the patients needs per clinical protocols. We will keep closely monitoring on patients clinical response. We titrate Pressor (Levophed) to the patients needs per clinical protocols. We will keep closely monitoring. Antibiotic (Zosyn). Appropriate DVT and GI prophylaxis. Evaluation time in minutes: 35 minutes.
--- NOTE | 2019-05-10 20:31 | PROVIDER PROGRESS NOTE ---
Progress Note Subjective: intubated without sedation. Opens eyes and squeezing hands on command. Will cough against the vent when attempting to mouth words. Objective: temperature 97.4, pulse 114, respirations 30, blood-pressure 98/56, O2 sat 100% and 40% FiO2 mechanical ventilation. General: Chronically ill appearing -[place] male in no acute distress. HEENT: normocephalic, atraumatic, conjunctiva pink, pupils equal and reactive. Mucous membranes moist, NG tube in place. Trachea midline. Skin: Warm and dry. Neck: supple, 6-8cm JVD observed. Cardiovascular: S1s2s4, regular rate and rhythm. No murmur or gallop. Respiratory: scattered rhonchi with equal air entry Abdomen: slightly firm, distended, nontender. Hypoactive bowel sounds. :non inspected, doe in place with orange/ freddy urine Extremities:2+ pitting edema to BLE. Neurological: aroused to verbal stimuli, unable to assess orientation. Labs: WBC 18.15, hemoglobin 6.6, hematocrit 20.3, platelet count 39, sodium 141, potassium 5.3, chloride 105, carbon dioxide 21, anion gap 15, BUN 91, creatinine 2.8, albumin 3.2. Intake 4707, output 630. Impression: Acute kidney injury. Likely prerenal for intravascular depletion related to third spacing into the abdomen and Hypoalbuminemia secondary to chronic liver failure. BUN disproportionately elevated due to clinimix. Creatinine stable. Albumin improved. His abdomen has more distention today and he is 4L positive since yesterday. Blood pressure. Low. Stable on levophed. Intravascular Fluid volume contracted with extravascular volume expansion. He also has a hemoglobin on 6.6. Primary ordered a PRBC transfusion. Anemia. Stable. 1 unit PRBC ordered. Folic Acid started. Thrombocytopenia. Likely caused by liver failure. Remains on zosyn. Electrolytes and acid base balance. Mild Hyperkalemia. D50 syringe x1 and 10 units insulin given by primary. Nutrition. Clinimix. Monitor BUN. Medication review. No changes.
--- NOTE | 2019-05-10 23:43 | GENERAL SURGERY PROGRESS NOTE ---
DATE: 05/10/2019 TIME SEEN: 4:30 p.m. SUBJECTIVE: Mr. Mcduffie remains on the ventilator. OBJECTIVE: Heart rate 106, blood pressure 100 systolic. His abdomen remains distended and tympanitic. He really is not putting out very much in his NG tube. LABORATORY DATA: White count today is 18,000, hemoglobin has fallen to 6.6, hematocrit 20. Base deficit is 3.6. Lactate is 2.9. BUN is up to 91, creatinine is stable at 2.8. PLAN: I would simply recommend a unit of packed cells. Continue with IV nourishment. His bowel is characterized by an ileus. If he gets off the ventilator, I do think we should try some alimentation. cc: Kirt Ellis MD
[2019-05-11] MEDS: ZOSYN 2.25 GM in NS 50 ML IV SCH ×4 (02:33→21:35)
[2019-05-11] MEDS: LEVOPHED 8 MG in D5 1/2 NS 250 ML IV SCH ×2 (04:26→11:17)
[2019-05-11 06:03] LABS: INR 2.42; MAGNESIUM 2.5 mg/dL (1.5-2.7); PHOSPHORUS 6.4 mg/dL (2.7-4.5)
[2019-05-11 06:20] LABS: CALCIUM 8.4 mg/dL (8.8-10.2); CREATININE 2.5 mg/dL (0.7-1.2); POTASSIUM 5.5 mmol/L (3.5-5.1)
[2019-05-11 06:58] LABS: ALLEN TEST YES; BE -3.8 mmoll (-3.0-3.0); BLOOD TYPE ARTERIAL; PCO2(98.6) 28 mmHg (35-45); PO2(98.6) 95 mmHg (60-100); SAMPLE BLOOD; SRATE 14 BPM; TVOL 500 mL; pH(98.6) 7.44 (7.35-7.45)
[2019-05-11 07:04] LABS: MODALITY VENTILATOR
[2019-05-11] MEDS: THIAMINE 100 MG in NS 50 ML IV SCH (07:25)
[2019-05-11 07:28] LABS: BASO# 0.05 X1000 (0.0-0.2); BASO% 0.3 % (0.0-0.8); EOS# 0.12 X1000 (0.0-0.7); EOS% 0.7 % (0.0-10.0); HEMOGLOBIN 7.9 g/dL (14.0-18.0); IMM GRAN% 1.7 % (0.0-0.5); LYMPH# 4.06 X1000 (1.2-3.4); LYMPH% 23.2 % (20.5-51.1); MCH 29.9 PG (27-31); MCHC 32.9 g/dL (33-37); MCV 90.9 FL (81-99); MONO# 2.56 X1000 (0.11-0.59); MONO% 14.6 % (1.7-9.3); NEUT# 10.39 X1000 (1.4-6.5); NEUT% 59.5 % (42.2-75.2); RBC 2.64 XMIL (4.7-6.1); RDW 19.5 % (11.5-14.5); WBC 17.48 X1000 (4.8-10.8)
[2019-05-11 07:31] LABS: PLT 27 X1000 (130-400)
--- NOTE | 2019-05-11 07:39 | Diag Imaging Result Doc PS360 ---
EXAM: CHEST-1 VIEW INDICATION: SOB TECHNIQUE: One view COMPARISON: 05/10/2019 FINDINGS: Support tubes and lines are in stable positions. Lung volumes remain low. Midlung zone atelectasis is approximately stable. No new consolidation is identified. Cardiac silhouette is stable. IMPRESSION: Stable chest. Electronically signed by Rodney Lang 05/11/2019 7:36 AM
[2019-05-11] MEDS: DEPACON 250 MG in NS 50 ML IV SCH ×2 (07:49→18:11)
[2019-05-11 07:51] LABS: LYMPHS 30 % (21-51); SEGS 52 % (42-75)
[2019-05-11] MEDS: LACTULOSE PO SCH (08:07)
[2019-05-11] MEDS: VITAMIN K 10 MG in NS 50 ML IV SCH (08:33)
[2019-05-11] MEDS: FOLIC ACID 1 MG in NS 50 ML IV SCH (08:33)
[2019-05-11] MEDS: DULCOLAX PR SCH ×2 (08:33→22:19)
[2019-05-11] MEDS: MORPHINE IV PRN ×2 (08:33→22:19)
[2019-05-11] MEDS: SODIUM CHLORIDE 0.9% INJ SCH (09:35)
[2019-05-11] MEDS: PROTONIX IV SCH (09:35)
[2019-05-11] MEDS: ATIVAN IV PRN ×2 (09:35→23:58)
[2019-05-11] MEDS: CLINIMIX E 4.25%-5% SOLUTION 1,000 ML IV SCH (09:35)
[2019-05-11] MEDS ORDERED: ALBUMIN 25% IV ONE (10:01)
--- NOTE | 2019-05-11 10:36 | PROVIDER PROGRESS NOTE ---
Progress Note US-GUIDED DIAGNOSTIC AND THERAPEUTIC PARACENTESIS INDICATION: Ascites PROCEDURE MICROSTRATEGY ARCHITECT: Catracho Molina MD ATTENDING PHYSICIAN: Catracho Molina MD Ultrasound used to rich location: Y PROCEDURE SUMMARY: A time-out was performed. My hands were washed immediately prior to the procedure. I wore sterile gown and sterile gloves throughout the procedure. The area was cleansed and draped in usual sterile fashion using iodine. Anesthesia was achieved with 1% lidocaine. The LLQ of the abdomen was prepped and draped in a sterile fashion using iodine. 1% lidocaine was used to numb the skin, soft tissue and peritoneum. The paracentesis catheter was inserted and advanced with negative pressure until serosanginous fluid was aspirated. The catheter was then connected to the vaccutainer and 4 liters of ascitic fluid were drained. Ascitic fluid was collected and sent for laboratory analysis. The catheter was removed and no leaking was noted. A bandaid was placed over the puncture wound. The patient tolerated the procedure well without any immediate complications. Estimated blood loss was minimal Impression: Technically successful Ultrasound-guided paracentesis yielding 4000 mL of serosanginous fluid. Patient is receiving albumin 50g. No complications.
--- NOTE | 2019-05-11 10:59 | PROGRESS NOTE ---
DATE: 05/11/2019 INTERVAL HISTORY: No acute events overnight. SUBJECTIVE: Mr. Mcduffie is intubated and currently not responding. VITAL SIGNS: Temperature of 98.4 degrees, pulse 108, respiratory rate 14, blood pressure 118/74, he is saturating 100% on mechanical ventilation. PHYSICAL EXAMINATION: General: He is intubated. He has an NG tube. He has a right-sided internal jugular venous catheter. He has a urine catheter. Lungs: Air entry bilaterally equal. No wheeze. He has bilateral rhonchi without crackles. Cardiovascular: S1, S2 normal. Tachycardic. No murmur, rub or gallop. Abdomen: Distended, tympanic to percussion most of the abdomen. There is mild dullness over the flank. Extremities: He has lower extremity edema. Neurologic: He has intact pupillary reflex, intact cough, intact corneal reflexes. He is not responding to strong verbal stimuli today, though starts flickering to painful stimuli in all extremities. INPUT AND OUTPUT: Suggests he had 1 L of urine output yesterday. LABORATORY [place]: [place] [address], hemoglobin 7.9, platelet 27,000. His PO2 of 95 on mechanical ventilation. BUN of 97, creatinine 2.5. MICROBIOLOGY: No data. IMAGING: Chest x-ray performed today is a stable chest. ASSESSMENT AND PLAN: 1. Small-bowel obstruction of unclear etiology, status post failed conservative management and now status post laparotomy on May 08 with the ileocolic bypass. He does not have any bowel sounds and appears to be developing ileus. I will continue to monitor his electrolytes which currently appear within acceptable range. Appreciate surgical team's recommendation. 2. Septic shock in the setting of multiple comorbidities including suspected peritonitis, pneumonia, as well as a degree of recurrent hypovolemia due to hypoalbuminemia and extravascular fluid accumulation in terms of ascites. Continue intravenous Zosyn, norepinephrine to maintain MAP more than 65 mmHg. 3. Recurrent acute kidney injury due to acute renal failure due to intravascular volume depletion due to hypoalbuminemia and 3rd space fluid loss. I will follow up with albumin and will infuse intravenous albumin as necessary. Continue Lopez catheter for close input and output monitoring. 4. Decompensated liver cirrhosis with history of alcohol abuse and chronic active hepatitis C with ascites, coagulopathy and thrombocytopenia. Continue intravenous vitamin K, RBC, platelet and fresh frozen plasma as necessary. Gastroenterology team is planning paracentesis today. I will follow up with the ascitic fluid results. 5. Others. Continue intravenous valproate for history of seizures, intravenous thiamine and folic acid for alcohol abuse, pantoprazole for stress ulcer prophylaxis, intravenous Clinimix for nutrition. DISPOSITION: Mr. Mcduffie' condition is critical. He has been in the hospital for 20 days without much improvement in his condition and now he is intubated, requiring pressors. I have been talking to his about goals of care and Palliative Care team is on board. cc: Kelechi Hutton MD
[2019-05-11 11:21] LABS: BODY FLUID SOURCE PERITONEAL FLUID; WBC BF 2055 /cumm
[2019-05-11 11:22] LABS: MONOS 28 %; POLYS 72 %
[2019-05-11 11:23] LABS: ALLEN TEST YES; BE -2.7 mmoll (-3.0-3.0); BLOOD TYPE ARTERIAL; HCO3-(ACT) 22.8 mmoll (20.0-26.0); O2HB 95.9 % (95.0-99.0); PCO2(98.6) 31 mmHg (35-45); PO2(98.6) 122 mmHg (60-100); SAMPLE BLOOD; THB 7.2 g/dL (11.5-17.4); pH(98.6) 7.44 (7.35-7.45)
[2019-05-11 11:24] LABS: MODALITY VENTILATOR
--- NOTE | 2019-05-11 12:21 | Diag Imaging Result Doc PS360 ---
KUB ABDOMEN - 05/11/2019 INDICATION: evaluate for constipation or obstruction COMPARISON: 05/08/2019 FINDINGS: There is still high-grade small bowel obstruction. A very minimal amount of the contrast, which was administered on 05/02/2019, has made it into the colon. The remainder is still all of the distal small bowel. IMPRESSION: High-grade distal small bowel obstruction. Electronically signed by Jesus Faith 05/11/2019 12:19 PM
--- NOTE | 2019-05-11 17:07 | PULMONOLOGY PROGRESS NOTE ---
DATE: 05/11/2019 INTERIM HISTORY: Dr. Catracho Molina was at the bedside. He is currently performing a paracentesis and has more than 3 L removed. The patient remains on mechanical ventilation. He received some sedation earlier. He is arousable but does not follow commands. OBJECTIVE: Vital Signs: The patient has been afebrile for the last 24 hours. Blood pressure 106/63, heart rate 102 respiratory rate 17, oxygen saturation 100%. HEENT: HEENT pupils are equal. Sclera are icteric. Oropharynx appears dry. Neck: Supple. Chest: Reveals rhonchi bilaterally. Cardiac: S1-S2. Abdomen: Reveals mild increase in tympany. Extremities: Reveal trace edema. LABORATORY DATA: Abdominal film is not change compared to 05/08/2027 and suggests high-grade small- bowel obstruction. Chest x-ray reveals generous cardiac silhouette, mild increased markings, left greater than right base, endotracheal tube in good position. Arterial blood gas reveals a pH of 7.44, pCO2 of 28, pO2 of 95 with a lactate of 3.3. IMPRESSION: A 59-year-old with: 1. Radiographic appearance of bowel obstruction without specific etiology on laparotomy. 2. Acute hypoxemic respiratory failure. 3. Pneumonia. 4. Liver failure. 5. Septic shock with ongoing vasopressor requirements. PLAN: 1. Complete paracentesis per Dr. Molina. 2. Continue current antibiotic regimen. 3. Spontaneous breathing trial today to evaluate possible extubation. 4. Continue Clinimix. 5. Prognosis is guarded. cc: Maikol Cartagena MD
--- NOTE | 2019-05-11 17:25 | GENERAL SURGERY PROGRESS NOTE ---
DATE: 05/11/2019 It is three days after his laparotomy and ileocolostomy. He remains on the ventilator. He is afebrile, heart rate of 100, blood pressure 113/63. He does have some bowel sounds today. NG output is really negligible. His white count is 17,000, hemoglobin 7.9, hematocrit 24. After transfusion, platelet count is 27,000. A pH is 7.44, pCO2 31, pO2 122, base deficit is 2.7. Lactate 2.3, BUN 97, creatinine 2.5. He continues seriously ill. I think that we should consider using his NG tube for tube feedings beginning early next week and try to use his bowel for nourishment. His prognosis remains very poor. cc: Kirt Ellis MD
--- NOTE | 2019-05-11 18:17 | NEPHROLOGY PROGRESS NOTE ---
DATE: 05/11/2019 SUBJECTIVE: He is still on the ventilator. Eyes are open. OBJECTIVE: Vital Signs: Blood pressure 113/63, heart rate 105, respirations 16, afebrile. General: No acute distress. Skin: Warm and dry. Neck: Veins are still distended. Heart: Regular with S4. Lungs: Equal. No crackles. Abdomen: Soft, distended, but less intense. Extremities: Edema 1+. IMPRESSION/PLAN: Acute kidney injury. Intravascular volume depletion. He had a large volume paracentesis today. His kidney function seems to wax and wane related to his volume status and albumin infusions. He remains on norepinephrine. No changes today. cc: Vic Dominguez MD
--- NOTE | 2019-05-11 21:00 | PROVIDER PROGRESS NOTE ---
Progress Note S: O: Last Vital Signs Temp 97.5 F L 05/11/19 20:00 Pulse 98 H 05/11/19 20:16 Resp 15 05/11/19 20:16 BP 106/64 05/11/19 20:16 Pulse Ox 100 05/11/19 20:16 Height 5 ft 6 in Weight 197 lb 3.2 oz 05/11/19 05/11/19 05/11/19 04:41 04:41 04:41 WBC 17.48 H Hgb 7.9 L D Plt Count 27 L* D INR Sodium 138 Potassium 5.5 H Chloride 105 Carbon Dioxide 19 L BUN 97 H Creatinine 2.5 H Glucose 143 H Calcium 8.4 L Phosphorus 6.4 H Magnesium 2.5 Fluid WBC Fluid Polynuclear WBCs 05/11/19 05/11/19 04:41 10:30 WBC Hgb Plt Count INR 2.42 Sodium Potassium Chloride Carbon Dioxide BUN Creatinine Glucose Calcium Phosphorus Magnesium Fluid WBC 2055 Fluid Polynuclear WBCs 72
[2019-05-12] MEDS: CLINIMIX E 4.25%-5% SOLUTION 1,000 ML IV SCH ×2 (00:11→12:13)
[2019-05-12] MEDS: ZOSYN 2.25 GM in NS 50 ML IV SCH ×4 (02:11→20:44)
[2019-05-12 04:51] LABS: ALLEN TEST YES; BE -1.4 mmoll (-3.0-3.0); BLOOD TYPE ARTERIAL; HCO3-(ACT) 23.8 mmoll (20.0-26.0); METHB 2.4 % (0.0-1.5); O2(CT) 12.7 mL/dL (15.0-23.0); O2HB 96.4 % (95.0-99.0); PCO2(98.6) 31 mmHg (35-45); PO2(98.6) 163 mmHg (60-100); SAMPLE BLOOD; SAO2 100.5 % (95.0-100.0); SRATE 14 BPM; THB 9.1 g/dL (11.5-17.4); TVOL 500 mL; pH(98.6) 7.46 (7.35-7.45)
[2019-05-12 04:52] LABS: MODALITY VENTILATOR
[2019-05-12] MEDS: LEVOPHED 8 MG in D5 1/2 NS 250 ML IV SCH ×2 (05:14→23:58)
[2019-05-12 06:09] LABS: INR 2.56; PROTIME 28.2 Seconds (11.0-16.0)
[2019-05-12 06:13] LABS: BASO# 0.04 X1000 (0.0-0.2); BASO% 0.4 % (0.0-0.8); EOS# 0.07 X1000 (0.0-0.7); EOS% 0.6 % (0.0-10.0); HEMATOCRIT 23.2 % (42.0-52.0); HEMOGLOBIN 7.6 g/dL (14.0-18.0); IMM GRAN# 0.09 X1000 (0.0-0.04); IMM GRAN% 0.8 % (0.0-0.5); LYMPH% 22.4 % (20.5-51.1); MCH 29.9 PG (27-31); MCHC 32.8 g/dL (33-37); MCV 91.3 FL (81-99); MONO# 1.89 X1000 (0.11-0.59); MONO% 16.9 % (1.7-9.3); MPV 11.5 FL (7.4-10.4); NEUT# 6.57 X1000 (1.4-6.5); NEUT% 58.9 % (42.2-75.2); RBC 2.54 XMIL (4.7-6.1); RDW 19.4 % (11.5-14.5); WBC 11.16 X1000 (4.8-10.8)
[2019-05-12 06:21] LABS: CALCIUM 8.9 mg/dL (8.8-10.2); CREATININE 2.1 mg/dL (0.7-1.2); POTASSIUM 4.9 mmol/L (3.5-5.1)
[2019-05-12 06:23] LABS: ALB/GLOB RATIO 0.8; ALBUMIN 2.5 g/dL (3.5-5.0); TOTAL BILIRUBIN 10.16 mg/dL (0.20-1.00); TOTAL PROTEIN 5.8 g/dL (6.3-8.3)
[2019-05-12] MEDS: DEPACON 250 MG in NS 50 ML IV SCH ×2 (06:27→18:48)
[2019-05-12] MEDS: THIAMINE 100 MG in NS 50 ML IV SCH (07:32)
[2019-05-12] MEDS: FOLIC ACID 1 MG in NS 50 ML IV SCH (07:33)
--- NOTE | 2019-05-12 07:42 | Diag Imaging Result Doc PS360 ---
EXAM: CHEST-1 VIEW HISTORY: SOB TECHNIQUE: Single view COMPARISON: 05/11/2019 FINDINGS: No change in the endotracheal tube, nasogastric tube, or the right jugular line. No pneumothorax. The lungs are poorly expanded. No cardiomegaly. There are infiltrates in the lower left lung. These are less prominent. There is a small left pleural effusion. IMPRESSION: Mild interval improvement Electronically signed by Luis Coronel 05/12/2019 7:40 AM
--- NOTE | 2019-05-12 07:44 | GENERAL SURGERY PROGRESS NOTE ---
DATE: 05/12/2019 SUBJECTIVE: Discussed case with nurse. He did have a paracentesis yesterday and had several liters out. He is still on the ventilator, but not waking up significantly, even though he passed his weaning trials to probably be safely extubated. He is still on a little bit of Levophed per the nursing staff. OBJECTIVE: On exam, he is not very interactive. His abdomen appears to be distended, but this may be related to some residual ascites. LABS: Laboratories were reviewed. Of note, his platelet count is 38. His INR is still elevated. His bilirubin has now approached 10, with the majority of it being direct. PLAN: From a surgical point of view, we did continue supportive care. He is still considerably sick. We will hold off on any tube feeds at the moment, but we will continue to monitor him. cc: Orion Potter MD
[2019-05-12 08:11] LABS: PLT 38 X1000 (130-400)
[2019-05-12] MEDS: DULCOLAX PR SCH ×2 (08:47→20:44)
[2019-05-12] MEDS: VITAMIN K 10 MG in NS 50 ML IV SCH (08:48)
[2019-05-12] MEDS: PROTONIX IV SCH (09:26)
[2019-05-12] MEDS: SODIUM CHLORIDE 0.9% INJ SCH (09:26)
--- NOTE | 2019-05-12 09:37 | PROGRESS NOTE ---
DATE: 05/12/2019 INTERVAL HISTORY: Mr. Mcduffie was very lethargic after spontaneous breathing trial yesterday, so he was not extubated. He continues to require low dose of norepinephrine. SUBJECTIVE: He is still lethargic but a little more awake than yesterday. VITAL SIGNS: Temperature 97.1 degrees, pulse 95, respiratory rate 21, blood pressure 122/80. He is saturating 100% on mechanical ventilation. PHYSICAL EXAMINATION: General: He does not appear in any acute distress. HEENT: He has scleral icterus. Right internal jugular central venous catheter, urine catheter, endotracheal tube. Oral cavity has a pool of saliva which I discussed with the nurse about suction. Lungs: Air entry bilaterally equal. No wheeze. He has bilateral rhonchi without crackles. Cardiovascular: S1, S2 normal. No murmur, rub, or gallop. Abdomen: Distended. Midline scar of laparotomy with bud on. Tympanic to percussion and dullness on the flank. Extremities: Bilateral lower extremity edema. Neurologic: He has intact pupillary corneal reflex, intact cough. He is not moving his extremities to painful stimuli, though he is moving his head in all directions at the time of my evaluation. INPUT AND OUTPUT: Suggest -2.8 L so far. LABORATORY DATA: Suggestive of decreasing leukocytosis, hemoglobin of 7.6, platelet of 38,000. BUN of 96, creatinine of 2.1. MICROBIOLOGY: No new microbiological data. IMAGING: Chest x-ray performed has mild interval improvement. Abdominal x-ray has high-grade distal small-bowel obstruction. ASSESSMENT AND PLAN: 1. Small-bowel obstruction of unclear etiology, status post failed conservative management and now status post laparotomy on May 08 with ileocolic bypass. He continues to have abdominal distention because of ileus. Continue n.p.o. 2. Septic shock in the setting of suspected peritonitis, pneumonia as well as hypovolemic shock due to hypoalbuminemia and frequent paracenteses. Continue intravenous Zosyn, norepinephrine to maintain MAP more than 65. 3. Recurrent acute kidney injury due to acute renal failure due to intravascular volume depletion due to hypoalbuminemia and 3rd space fluid loss. He received intravenous albumin yesterday after paracentesis. We will continue Lopez catheter for close input and output monitoring. 4. Decompensated liver cirrhosis with history of alcohol abuse and chronic active hepatitis C with ascites, coagulopathy and thrombocytopenia. Continue intravenous vitamin K, RBC, platelets and fresh frozen plasma transfusion as necessary. GI team on board. Follow up ascitic fluid results. 5. Others. Continue valproate for a history of seizure, thiamine and folic acid for alcohol abuse, pantoprazole for stress ulcer prophylaxis, and intravenous Clinimix for nutrition. DISPOSITION: Mr. Rousseau condition is critical. I will get in touch with the family again today to discussed about his critical illness. cc: Kelechi Hutton MD
[2019-05-12 11:40] LABS: ALLEN TEST YES; BE -1.9 mmoll (-3.0-3.0); BLOOD TYPE ARTERIAL; HCO3-(ACT) 23.4 mmoll (20.0-26.0); METHB 2.7 % (0.0-1.5); O2(CT) 14.4 mL/dL (15.0-23.0); O2HB 95.9 % (95.0-99.0); PCO2(98.6) 33 mmHg (35-45); PO2(98.6) 184 mmHg (60-100); SAMPLE BLOOD; SAO2 100.1 % (95.0-100.0); THB 10.4 g/dL (11.5-17.4); pH(98.6) 7.43 (7.35-7.45)
[2019-05-12 11:42] LABS: MODALITY VENTILATOR
--- NOTE | 2019-05-12 13:43 | PULMONOLOGY PROGRESS NOTE ---
DATE: 05/12/2019 SUBJECTIVE: The patient does open his eyes to stimulation. He appears comfortable on a spontaneous breathing trial. He does not follow commands. OBJECTIVE: Vital Signs: The patient has been afebrile for the last 24 hours. Blood pressure 107/67, heart rate 95, respiratory rate 20, oxygen saturation 100%. HEENT: Pupils are equal and reactive. Oropharynx appears clear. Neck: Supple. Chest: Reveals good air entry bilaterally. Cardiac exam: S1, S2. Abdomen: Mildly distended with diminished bowel sounds. Extremities: Reveal trace edema. LABORATORIES: Arterial blood gas reveals pH 7.43, pCO2 of 33, pO2 of 184 on a breathing trial. Sodium 140, potassium 4.9, chloride 108, bicarbonate 22, BUN 96, creatinine 2.1, bilirubin 10.16. Microbiology reveals no new growth. IMPRESSION: A 59-year-old with: 1. Radiographic appearance of small bowel obstruction with no specific etiology found on laparotomy. 2. Hypoxemic respiratory failure. 3. Liver failure with elevated bilirubin. 4. Renal failure. 5. Continue vasopressor requirement. PLAN: 1. Initiate spontaneous breathing trial, which is in progress. 2. Evaluate for extubation later today. 3. Discontinue morphine and Ativan, which may have delayed clearance given his severe liver dysfunction. cc: Maikol Cartagena MD
[2019-05-13] MEDS: ZOSYN 2.25 GM in NS 50 ML IV SCH ×4 (02:37→20:38)
[2019-05-13] MEDS: CLINIMIX E 4.25%-5% SOLUTION 1,000 ML IV SCH ×2 (02:37→14:41)
[2019-05-13 04:41] LABS: ALLEN TEST YES; BE -2.8 mmoll (-3.0-3.0); BLOOD TYPE ARTERIAL; HCO3-(ACT) 22.8 mmoll (20.0-26.0); METHB 2.3 % (0.0-1.5); O2(CT) 11.4 mL/dL (15.0-23.0); O2HB 96.6 % (95.0-99.0); PCO2(98.6) 27 mmHg (35-45); PO2(98.6) 137 mmHg (60-100); SAMPLE BLOOD; SRATE 14 BPM; THB 8.2 g/dL (11.5-17.4); TVOL 500 mL; pH(98.6) 7.48 (7.35-7.45)
[2019-05-13 04:42] LABS: MODALITY VENTILATOR
[2019-05-13 05:49] LABS: BASO# 0.04 X1000 (0.0-0.2); BASO% 0.4 % (0.0-0.8); EOS# 0.06 X1000 (0.0-0.7); EOS% 0.6 % (0.0-10.0); HEMATOCRIT 23.5 % (42.0-52.0); HEMOGLOBIN 7.7 g/dL (14.0-18.0); IMM GRAN# 0.12 X1000 (0.0-0.04); IMM GRAN% 1.2 % (0.0-0.5); LYMPH# 3.02 X1000 (1.2-3.4); LYMPH% 29.7 % (20.5-51.1); MCH 29.8 PG (27-31); MCHC 32.8 g/dL (33-37); MCV 91.1 FL (81-99); MONO# 2.22 X1000 (0.11-0.59); MONO% 21.8 % (1.7-9.3); MPV 12.2 FL (7.4-10.4); NEUT# 4.71 X1000 (1.4-6.5); NEUT% 46.3 % (42.2-75.2); PLT 36 X1000 (130-400); RBC 2.58 XMIL (4.7-6.1); RDW 19.6 % (11.5-14.5); WBC 10.17 X1000 (4.8-10.8)
[2019-05-13] MEDS: THIAMINE 100 MG in NS 50 ML IV SCH (06:02)
[2019-05-13] MEDS: DEPACON 250 MG in NS 50 ML IV SCH ×2 (06:02→18:11)
[2019-05-13 06:04] LABS: MAGNESIUM 2.6 mg/dL (1.5-2.7); PHOSPHORUS 5.5 mg/dL (2.7-4.5)
[2019-05-13 06:07] LABS: CALCIUM 8.5 mg/dL (8.8-10.2); CREATININE 2.2 mg/dL (0.7-1.2); POTASSIUM 5.2 mmol/L (3.5-5.1)
[2019-05-13 06:23] LABS: INR 2.9; PROTIME 31.2 Seconds (11.0-16.0)
[2019-05-13] MEDS: LEVOPHED 8 MG in D5 1/2 NS 250 ML IV SCH ×3 (06:55→23:55)
--- NOTE | 2019-05-13 07:19 | GENERAL SURGERY PROGRESS NOTE ---
DATE: 05/13/2019 Discussed the case with the nurse. He is still on the ventilator. They did have to go up on his Levophed. The patient is not really that interactive at all. He was not interactive during attempted weaning trial yesterday. From a surgical point of view, I will still hold off on tube feeds given the fact that he has had to go up on his pressors. Keep NG tube in place and we will continue to monitor. cc: Orion Potter MD
--- NOTE | 2019-05-13 07:34 | Diag Imaging Result Doc PS360 ---
EXAM: CHEST-1 VIEW 05/13/2019 HISTORY: SOB TECHNIQUE: AP portable at 0523 COMMENT: There is an endotracheal tube with its tip at the thoracic inlet and an NG tube with its tip below the diaphragm. There is bibasilar platelike atelectasis and hazy opacity particularly over the left lower lobe. This is slightly worse than on the previous study of 05/12/2019 IMPRESSION: Slightly worsened pulmonary edema and/or pneumonia. Electronically signed by Delonte Warner 05/13/2019 7:32 AM
[2019-05-13] MEDS: FOLIC ACID 1 MG in NS 50 ML IV SCH (07:49)
[2019-05-13] MEDS: VITAMIN K 10 MG in NS 50 ML IV SCH (08:27)
[2019-05-13] MEDS: DULCOLAX PR SCH ×2 (08:27→21:19)
[2019-05-13] MEDS: SODIUM CHLORIDE 0.9% INJ SCH (09:35)
[2019-05-13] MEDS: PROTONIX IV SCH (09:35)
[2019-05-13 09:43] LABS: PREALBUMIN < 3.0 mg/dL (20-40); TRIGLYCERIDES 44 mg/dL (39-160)
--- NOTE | 2019-05-13 13:01 | PROGRESS NOTE ---
DATE: 05/13/2019 INTERVAL HISTORY: No acute events overnight. SUBJECTIVE: Mr. Mcduffie remains lethargic. VITALS: Temperature 98.5 degrees, pulse 103, respiratory rate 24, blood pressure 98/68, he is saturating 100% on mechanical ventilation. PHYSICAL EXAMINATION: He has scleral icterus, right internal jugular central venous catheter, urine catheter, endotracheal tube. Oral cavity is moist. Lungs: Air entry bilaterally equal. No wheeze. He has bilateral rhonchi. No crackles. S1, S2 normal. No murmur, rub, or gallop. Abdomen: Distended. Midline scar of laparotomy with bud on. Tympanic to percussion on most of the abdomen, dullness on the flank. He has bilateral lower extremity edema. He has intact pupillary and corneal reflexes, intact cough. On giving painful stimuli to all extremities, he starts moving his head but does not does not withdraw to painful stimuli. Input and output suggests he had 1 liquid brown bowel movement and he also had some bowel sounds on my examination. His urine output is 1.4 L. LABS: Suggestive of WBC of 10,000, hemoglobin 7.7, platelets 36,000. INR of 2.9. PO2 of 137 on ventilator. BUN of 100, creatinine of 2.2. MICROBIOLOGY: No positive data. IMAGING: Chest x-ray suggests slightly worsened pulmonary edema and/or pneumonia. ASSESSMENT AND PLAN: 1. Small-bowel obstruction, status post failed conservative management and now status post laparotomy on May 08 with ileocolic bypass. He continues to have abdominal distention because of ileus. He does have hypoactive bowel sounds on my exam today. Appreciate surgery recommendation about challenging him with tube feeds. 2. Septic shock in the setting of suspected peritonitis, pneumonia, as well as hypovolemic shock due to hypoalbuminemia and frequent paracenteses. Continue intravenous Zosyn, norepinephrine to maintain MAP more than 65. 3. Recurrent acute kidney injury due to acute renal failure due to intravascular volume depletion due to hypoalbuminemia and third-space fluid loss. Continue intravenous albumin as needed and Lopez catheter for close input and output monitoring. 4. Decompensated liver cirrhosis with history of alcohol abuse and chronic active hepatitis C with ascites, coagulopathy, and thrombocytopenia. Continue intravenous vitamin K. I will transfuse RBCs and platelets with fresh frozen plasma as necessary. Gastroenterology team on board. Ascitic fluid culture has been negative. 5. Others. Continue valproate for history of seizure, thiamine and folic acid for alcohol abuse, pantoprazole for stress ulcer prophylaxis, and intravenous Clinimix for nutrition. Dietitian has been consulted for starting total parenteral nutrition. DISPOSITION: I will continue to monitor patient in the ICU. His condition is critical. More than 30 minutes of critical care time were spent in taking of this patient. cc: Kelechi Hutton MD
--- NOTE | 2019-05-13 15:12 | PULMONOLOGY PROGRESS NOTE ---
DATE: 05/13/2019 INTERIM HISTORY: Patient was left on spontaneous breathing trial yesterday due to poor mental status. Last evening he developed tachypneic and was placed back on mechanical ventilation. The patient has not received sedation. He does not follow commands. He will open his eyes to painful stimulation. OBJECTIVE: Vital Signs: The patient has been afebrile for the last 24 hours. He remains on Levophed. Blood pressure 108/68, heart rate 103, respiratory rate 24, oxygen saturation 100%. HEENT: Pupils are equal and reactive. Oropharynx is clear. Neck: Supple. Chest: Reveals coarse rhonchi bilaterally. Cardiac exam: S1, S2. Abdomen: Soft. Abdomen reveals increased tympany with no bowel sounds. Extremities: Reveal 1+ peripheral edema. LABORATORIES: White blood count 10.17, hemoglobin 10.7, platelet count 36,000. Sodium 138, potassium 5.2, chloride 106, bicarbonate 18, BUN 100, creatinine 2.2, ammonia 82. Arterial blood gas, pH 7.48, pCO2 of 27, pO2 of 136. IMPRESSIONS: A 59-year-old with: 1. Liver failure with elevated bilirubin. 2. Ongoing shock with vasopressor requirement. 3. Acute renal failure. 4. Small bowel obstruction. 5. Hepatic encephalopathy. PLAN: 1. Maintain patient on spontaneous breathing trial as tolerated. He will not be extubated due to poor mental status. 2. Hold sedation as tolerated. 3. Continue vasopressors. 4. Prognosis guarded. cc: Maikol Cartagena MD
[2019-05-13] MEDS ORDERED: D10W 1,000 ML IV PRN (17:28)
[2019-05-13] MEDS ORDERED: [UNRECOGNIZED DRUG - NUTRITION] IV SCH ×5 (17:30)
[2019-05-13] MEDS: LIPOSYN 20% 250 ML IV SCH (18:00)
[2019-05-13] MEDS ORDERED: LACTULOSE MISC SCH (18:00)
[2019-05-13] MEDS: NON-FORMULARY BULK MED MISC SCH (23:13)
[2019-05-14] MEDS: ZOSYN 2.25 GM in NS 50 ML IV SCH ×4 (03:04→20:26)
[2019-05-14 04:48] LABS: ALLEN TEST YES; BE -2.7 mmoll (-3.0-3.0); BLOOD TYPE ARTERIAL; HCO3-(ACT) 22.8 mmoll (20.0-26.0); METHB 2.1 % (0.0-1.5); O2(CT) 12.1 mL/dL (15.0-23.0); O2HB 96.9 % (95.0-99.0); PCO2(98.6) 27 mmHg (35-45); PO2(98.6) 151 mmHg (60-100); SAMPLE BLOOD; SAO2 99.9 % (95.0-100.0); SRATE 14 BPM; THB 8.6 g/dL (11.5-17.4); TVOL 500 mL; pH(98.6) 7.48 (7.35-7.45)
[2019-05-14 04:49] LABS: MODALITY VENTILATOR
[2019-05-14 06:08] LABS: INR 2.46; PROTIME 27.3 Seconds (11.0-16.0)
[2019-05-14 06:40] LABS: ALB/GLOB RATIO 0.4; ALBUMIN 2.1 g/dL (3.5-5.0); CALCIUM 8.6 mg/dL (8.8-10.2); DIRECT BILIRUBIN 8.5 mg/dL (0.00-0.20); POTASSIUM 4.6 mmol/L (3.5-5.1); TOTAL BILIRUBIN 12.94 mg/dL (0.20-1.00); TOTAL PROTEIN 6.9 g/dL (6.3-8.3)
[2019-05-14 06:41] LABS: CHOLESTEROL 25 mg/dL (0-200); MAGNESIUM 2.5 mg/dL (1.5-2.7); PHOSPHORUS 5.2 mg/dL (2.7-4.5); PREALBUMIN < 3.0 mg/dL (20-40); TRIGLYCERIDES 56 mg/dL (39-160)
--- NOTE | 2019-05-14 06:46 | Diag Imaging Result Doc PS360 ---
CHEST-1 VIEW - 05/14/2019 INDICATION: SOB COMPARISON: 05/13/2019 FINDINGS: The right central line has been adjusted or replaced, this now appears shorter. The catheter tip is in the SVC. Stable endotracheal tube and nasogastric tube in good position. Stable patchy bibasilar atelectasis. No new infiltrates. Heart size remains normal. There is probably a trace left pleural effusion. IMPRESSION: Right central line adjusted or replaced, now appearing shorter. Otherwise no change from prior. Electronically signed by Jesus Faith 05/14/2019 6:43 AM
[2019-05-14] MEDS: DEPACON 250 MG in NS 50 ML IV SCH (06:49)
[2019-05-14] MEDS: THIAMINE 100 MG in NS 50 ML IV SCH (06:49)
[2019-05-14 07:54] LABS: BASO# 0.06 X1000 (0.0-0.2); BASO% 0.6 % (0.0-0.8); EOS# 0.09 X1000 (0.0-0.7); EOS% 0.9 % (0.0-10.0); HEMATOCRIT 23.6 % (42.0-52.0); HEMOGLOBIN 7.8 g/dL (14.0-18.0); IMM GRAN# 0.08 X1000 (0.0-0.04); IMM GRAN% 0.8 % (0.0-0.5); LYMPH# 3.56 X1000 (1.2-3.4); LYMPH% 36.3 % (20.5-51.1); MCH 30.2 PG (27-31); MCHC 33.1 g/dL (33-37); MCV 91.5 FL (81-99); MONO# 1.18 X1000 (0.11-0.59); NEUT# 4.83 X1000 (1.4-6.5); NEUT% 49.4 % (42.2-75.2); RBC 2.58 XMIL (4.7-6.1); RDW 19.9 % (11.5-14.5)
--- NOTE | 2019-05-14 07:55 | GENERAL SURGERY PROGRESS NOTE ---
DATE: 05/14/2019 SUBJECTIVE: He is afebrile. Heart rate 106, blood pressure 101/62. Intake 2513; output 2220. NG output was 250. It is bilious. There is some mention of some liquid green bowel movement. Pro time shows an INR of 2.4. Gas exchange is noted. BUN is 93, creatinine 2.0, bilirubin is up to 12.94. ASSESSMENT AND PLAN: I will hold off on any attempted tube feedings, possibly in view of his seeming deterioration in status. His prognosis remains poor at this point. cc: Kirt Ellis MD
[2019-05-14] MEDS: LEVOPHED 8 MG in D5 1/2 NS 250 ML IV SCH ×2 (08:29→18:16)
[2019-05-14] MEDS: DULCOLAX PR SCH ×2 (08:56→20:27)
[2019-05-14] MEDS: FOLIC ACID 1 MG in NS 50 ML IV SCH (08:56)
[2019-05-14] MEDS: PROTONIX IV SCH (09:41)
[2019-05-14] MEDS: VITAMIN K 10 MG in NS 50 ML IV SCH (10:16)
[2019-05-14] MEDS: NON-FORMULARY BULK MED MISC SCH ×2 (10:26→21:59)
--- NOTE | 2019-05-14 10:30 | GASTROENTEROLOGY PROGRESS NOTE ---
DATE: 05/14/2019 SUBJECTIVE: Resting in bed. He is intubated, vented. He has NG tube in place. According to the nursing staff, the patient had a small liquid bowel movement yesterday. He continues to be coagulopathic and thrombocytopenic. He is getting TPN for nutrition. No fever spikes in the last 24 hours. OBJECTIVE: Vital signs: Temperature 97.6 degrees, pulse of 188, respiratory 25, blood pressure 108/75, satting 100% on mechanical at 40% FiO2. He is on Levophed drip. General: He is moderately malnourished. Lying in bed, intubated and vented. HEENT: Positive NG tube, positive ET tube. Positive pallor. Positive icterus. Neck: Neck is supple. Abdomen: Abdomen is midline. [place] noted. Mildly distended in abdomen. No guarding. Extremities: No cyanosis, clubbing. Neurologic: Neuro-[place]: He opens his eyes to commands. LABS: Hemoglobin and hematocrit is 7.8 and 23.6, white count of 9.8, platelet count of 25. INR of 2.46. PT of 27.3. ABG showing pH of 7.48, pCO2 27, PO2 121. This is on ventilator. On 40% FiO2. Sodium 141, potassium 4.6, chloride 110, bicarbonate of 18, anion gap 13. BUN of 93, creatinine of 2, glucose of 169, calcium is 8.6, phosphorus 5.2, magnesium 2.5. Total bilirubin is 12.94, AST 59, ALT 17, alkaline phosphatase 130, total protein 6.2, albumin of 2.1, pre albumin less than 3. Triglycerides of 56/25. Peritoneal fluid taken out showed 205 white cells and 72% polymorphonuclears. Peritoneal fluid showed no growth and no anaerobes were isolated this. Was on 05/11/2019. X-RAYS: Chest x-ray done showed right central line trim machine adjuster replaced, now appearing shorter. NG tube in good position, stable ET tube. Stable patchy bibasilar atelectasis. There is probable trace left pleural effusion. IMPRESSION AND PLAN: 1. Small obstruction, status post failed conservative management and status post laparotomy on May 08 with ileocolic bypass by Dr. Ellis. Dr. Ellis is following. 2. Cirrhosis. 3. Ascites. 4. Active hepatitis C. 5. History of alcoholism. 6. Septic shock. 7. Thrombocytopenia. 8. Coagulopathy. 9. Acute kidney injury. 10. Septic shock with suspected peritonitis pneumonia on Levophed drip. 11. Hypoalbuminemia and malnutrition. RECOMMENDATIONS: 1. We will continue watch the lab work. He continues on TPN. He is on bowel regimen with Dulcolax. Surgery team has a hold off on starting tube feeds and avoiding any medicines per NG tube. He is on norepinephrine drip per the primary care team for hypotension. He is on antibiotics with Zosyn. Continues on thiamine once daily and IV valproic acid for history of seizures. He is also on folic acid once daily. 2. Continue to watch his liver enzymes. We will start on vitamin D 3 10 mg once for 3 days to help with the coagulopathy. The above plans discussed with the patient's nurse at bedside. All questions answered. Please call with any further questions. cc: Dr. Brennen Hernandez MD
[2019-05-14 11:07] LABS: LYMPHS 42 % (21-51); MONO 6 % (1-9); SEGS 50 % (42-75)
[2019-05-14 11:12] LABS: PLT 25 X1000 (130-400)
[2019-05-14] MEDS: VITAMIN D PO SCH (13:54)
[2019-05-14] MEDS: ALBUMIN 25% IV SCH (15:52)
[2019-05-14] MEDS: LIPOSYN 20% 250 ML IV SCH ×2 (17:04→17:19)
--- NOTE | 2019-05-14 18:08 | PROGRESS NOTE ---
DATE: 05/14/2019 INTERVAL HISTORY: No acute events overnight. He was started on lactulose enema for elevated ammonia level and he had a greenish bowel movement. SUBJECTIVE: He remains obtunded on ventilator not requiring any sedative medications. VITALS: Temperature of 97.4 degrees, pulse 98, respiratory 18, blood pressure 118/78, he is saturating 100% on 40% mechanical ventilation. PHYSICAL EXAMINATION: He has a right internal jugular central venous catheter, urine catheter, endotracheal tube. Oral cavity is moist. Air entry bilaterally equal. No wheeze, rhonchi, crackles. S1, S2 normal. No murmur, rub, or gallop.Abdomen: Distended, soft. Midline scar of laparotomy with bud on, tympanic to percussion, dullness on the flank. No bowel sounds. He has bilateral lower extremity edema and bilateral upper extremity edema. He has intact pupillary and corneal as well as cough reflex. He does not move his arms and legs to painful stimuli. He keeps on moving his head to strong verbal stimuli. Input and output suggests his urine output has been 500 mL today. LABS: Suggestive of hemoglobin of 7.8, platelet of 25,000, his PO2 is 151 on ventilator. He has stable BUN and improving creatinine to 2. He continues to have rising liver function test. No new microbiological data. Chest x-ray suggests right central line adjusted or replaced now appearing shorter otherwise no change from the prior. ASSESSMENT AND PLAN: 1. Small bowel obstruction status post failed conservative management and now status post laparotomy in May 08 with ileocolic bypass. Unfortunately he continues to have abdominal distention because of ileus. I will appreciate Surgery recommendations about challenging him with medications or tube feeds in future. He did not have bowel sounds on my today's examination. 2. Acute encephalopathy. This could be multifactorial in the setting of critical illness acquired delirium, hepatic encephalopathy. Nonconvulsive seizure needs to be ruled out as well and new cerebrovascular accident needs to be ruled out as well. I will order an EEG to rule out nonconvulsive epilepsy. I will also or order head CT to rule out CVA. Stop Valproate considering worsening liver function and start him on Keppra. 3. Acute Respiratory failure post surgery: He remains intubated. He doesn't require any sedatives. Appreciate pulmonology recs for ventilator management. 3. Septic shock in the setting of suspected peritonitis, pneumonia as well as hypovolemic shock due to hypoalbuminemia and requiring frequent paracentesis. Continue intravenous Zosyn and norepinephrine to maintain MAP more than 65. 4. Recurrent acute kidney injury due to acute renal failure due to intravascular volume depletion due to hypoalbuminemia and 3rd space fluid loss. Continue intravenous albumin as needed and Lopez catheter for close input and output monitoring . 5. Decompensated liver cirrhosis with history of alcohol abuse and chronic active hepatitis C with ascites, coagulopathy and thrombocytopenia, continue intravenous vitamin K and RBC and platelet and fresh frozen plasma transfusion as necessary. I will keep him on rectal lactulose for his suspected hepatic encephalopathy, gastroenterology team has ordered intravenous vitamin K. 6. Others, continue intravenous valproate for history of seizure, thiamine and folic acid for alcohol abuse, pantoprazole for stress prophylaxis and intravenous Clinimix for nutrition, diet has been consulted for starting total parenteral nutrition. DISPOSITION: Continue monitor patient in ICU. TIME SPENT: More than 30 minutes critical care time was spent taking of this patient. Plan of care discussed with the nursing team. Yesterday I called patient's and significant other on the phone and had a detailed discussion about patient critical condition and had answered all of their questions. I also discussed the plan of care with Mr. Mcduffie's son at bedside today. cc: Kelechi Hutton MD MTDD
[2019-05-14] MEDS: KEPPRA 500 MG in NS 100 ML IV SCH (18:15)
[2019-05-14] MEDS: [UNRECOGNIZED DRUG - NUTRITION] IV SCH ×5 (18:16)
--- NOTE | 2019-05-14 19:26 | PROVIDER PROGRESS NOTE ---
Progress Note Subjective: intubated without sedation. Does not follow commands. Objective: temperature 97.9, pulse 113, respiration 16, blood pressure 108/68, O2 sat 100% and 40% FiO2 mechanical ventilation. General: Chronically ill appearing -[place] male in no acute distress. HEENT: normocephalic, atraumatic, conjunctiva pink, pupils equal and reactive. Mucous membranes moist, NG tube in place. Trachea midline. Skin: Warm and dry. Neck: supple, 8cm JVD observed. Cardiovascular: S1s2, regular rate and rhythm. Gallop appreciated.No murmur. Respiratory: scattered rhonchi with equal air entry. Abdomen: slightly firm, distended, nontender. Hypoactive bowel sounds to the upper quadrants, no bowel sounds to the lower quadrants. :non inspected, doe in place with orange/ freddy urine Extremities:2+ pitting edema to BLE. Neurological: aroused to verbal stimuli, unable to assess orientation. Labs: WBC 9.8, hemoglobin 7.8, hematocrit 23.6, platelet count 25, sodium 141, potassium 4.6, chloride 110, carbon dioxide 18, BUN 93, creatinine 2.0, albumin 2.1. Intake 2513, output 2220. Impression: Acute kidney injury. Likely prerenal for intravascular depletion related to third spacing into the abdomen and Hypoalbuminemia secondary to chronic liver failure. BUN and creatinine stable. There are no indications for urgent renal replacement therapy at this time. Blood pressure. Low. Stable on norepinephrine. Intravascular Fluid volume contracted with extravascular volume expansion. Albumin 2.1 Anemia. Stable. Folic Acid started. Thrombocytopenia. Likely caused by liver failure. Remains on zosyn. Phytonadione in place. Electrolytes and acid base balance. Nutrition. TPN and lipids. Medication review. No changes
[2019-05-15] MEDS: ZOSYN 2.25 GM in NS 50 ML IV SCH ×4 (02:15→20:00)
[2019-05-15 05:26] LABS: ALLEN TEST YES; BE -2.4 mmoll (-3.0-3.0); BLOOD TYPE ARTERIAL; HCO3-(ACT) 23.1 mmoll (20.0-26.0); O2(CT) 13.7 mL/dL (15.0-23.0); O2HB 96.8 % (95.0-99.0); PCO2(98.6) 23 mmHg (35-45); PO2(98.6) 116 mmHg (60-100); SAMPLE BLOOD; SAO2 99.4 % (95.0-100.0); SRATE 14 BPM; THB 9.9 g/dL (11.5-17.4); TVOL 14 mL; pH(98.6) 7.53 (7.35-7.45)
[2019-05-15 06:07] LABS: MODALITY VENTILATOR
[2019-05-15] MEDS: KEPPRA 500 MG in NS 100 ML IV SCH ×2 (06:09→18:03)
[2019-05-15] MEDS: THIAMINE 100 MG in NS 50 ML IV SCH (06:09)
--- NOTE | 2019-05-15 06:49 | PULMONOLOGY PROGRESS NOTE ---
DATE: 05/14/2019 SUBJECTIVE: The patient remains lethargic. He will not follow commands. He was on a spontaneous breathing trial, but was placed back on mechanical ventilation for tachypnea. OBJECTIVE: Vital Signs: The patient has been afebrile for the last 24 hours. Blood pressure 113/70, heart rate 100, respiratory rate 16, oxygen saturation 100%. HEENT: Pupils are equal and reactive but sclerae are icteric. Oropharynx appears dry. Neck: Supple. Chest: Reveals coarse rhonchi bilaterally. Cardiac: Regular rate. Normal S1, normal S2. Abdomen: Mildly distended with increased tympany. Extremities: No edema. LABORATORY DATA: Arterial blood gas reveals a pH of 7.48, pCO2 of 27, and pO2 of 151. Sodium 141, potassium 4.6, chloride 110, bicarbonate 18, BUN 93, creatinine 2.0, total bilirubin 12.9, and alkaline phosphatase 130. IMAGING STUDIES: Chest x-ray reveals patchy bibasilar infiltrates. IMPRESSION: This is a 59-year-old with: 1. Liver failure. 2. Ongoing vasopressor requirement. 3. Acute renal failure. 4. Functional small bowel obstruction. 5. Hepatic encephalopathy. PLAN: 1. Daily weaning trials. Weaning will be difficult with ongoing encephalopathy. 2. Continue dialysis per nephrology. 3. Continue vasopressors. 4. Guarded prognosis. cc: Maikol Cartagena MD
--- NOTE | 2019-05-15 07:01 | Diag Imaging Result Doc PS360 ---
EXAM: CHEST-1 VIEW HISTORY: SOB TECHNIQUE: Single view COMPARISON: 05/14/2019 FINDINGS: No change in the endotracheal tube, nasogastric tube, or the right jugular line. There are infiltrates and/or atelectasis in the left base. There may be a tiny left pleural effusion as well. No cardiomegaly. IMPRESSION: No interval improvement. Electronically signed by Luis Coronel 05/15/2019 6:37 AM
[2019-05-15 07:02] LABS: INR 2.81; PROTIME 30.4 Seconds (11.0-16.0)
[2019-05-15 07:30] LABS: CALCIUM 9.3 mg/dL (8.8-10.2); MAGNESIUM 2.9 mg/dL (1.5-2.7); PHOSPHORUS 4.2 mg/dL (2.7-4.5); POTASSIUM 3.9 mmol/L (3.5-5.1)
[2019-05-15] MEDS: FOLIC ACID 1 MG in NS 50 ML IV SCH (07:50)
[2019-05-15 07:52] LABS: BASO# 0.03 X1000 (0.0-0.2); BASO% 0.4 % (0.0-0.8); EOS# 0.07 X1000 (0.0-0.7); EOS% 0.8 % (0.0-10.0); HEMATOCRIT 21.6 % (42.0-52.0); IMM GRAN# 0.04 X1000 (0.0-0.04); IMM GRAN% 0.5 % (0.0-0.5); LYMPH# 2.65 X1000 (1.2-3.4); LYMPH% 32.1 % (20.5-51.1); MCH 29.9 PG (27-31); MCHC 32.4 g/dL (33-37); MCV 92.3 FL (81-99); MONO# 1.04 X1000 (0.11-0.59); MONO% 12.6 % (1.7-9.3); NEUT# 4.42 X1000 (1.4-6.5); NEUT% 53.6 % (42.2-75.2); PLT 12 X1000 (130-400); RBC 2.34 XMIL (4.7-6.1); RDW 19.9 % (11.5-14.5); WBC 8.25 X1000 (4.8-10.8)
[2019-05-15] MEDS: LEVOPHED 8 MG in D5 1/2 NS 250 ML IV SCH (08:23)
--- NOTE | 2019-05-15 09:25 | Diag Imaging Result Doc PS360 ---
EXAM: CT HEAD W/O CONTRAST HISTORY: encephalopathy TECHNIQUE: CT head without contrast COMPARISON: 04/20/2019 FINDINGS: No parenchymal hemorrhage. No epidural or subdural hematoma. No subarachnoid hemorrhage. There has been a right posterior craniotomy. There is mild atrophy. No mass identified on this noncontrasted exam. No hydrocephalus. No sinus opacification. IMPRESSION: No hemorrhage. Mild atrophy. This exam was performed using automated exposure control, adjustment of mA or kV according to patient size, and/or use of iterative reconstruction technique. Electronically signed by Luis Coronel 05/15/2019 9:23 AM
[2019-05-15] MEDS: VITAMIN K 10 MG in NS 50 ML IV SCH (09:30)
[2019-05-15] MEDS: PROTONIX IV SCH (09:30)
[2019-05-15] MEDS: DULCOLAX PR SCH ×2 (09:31→20:00)
[2019-05-15] MEDS: ALBUMIN 25% IV SCH (09:31)
[2019-05-15] MEDS: LACTULOSE PO SCH ×3 (10:17→17:42)
--- NOTE | 2019-05-15 11:17 | GASTROENTEROLOGY PROGRESS NOTE ---
DATE: 05/15/2019 SUBJECTIVE: Mr. Mcduffie is a 59-year-old, male, resting in bed. He is intubated and on a mechanical ventilator. NG tube in place. The patient's last bowel movement was on 05/13/2019. He is currently NPO. The patient is receiving TPN and lipids for his nutrition but it is currently on hold per surgeon. EEG is being performed as patient has not been responsive. He has been getting lactulose enemas. OBJECTIVE: Vital Signs: Temperature 97.7 degrees, pulse 112, respirations 28, blood pressure 104/67, oxygen saturation 99% on mechanical ventilator. The patient's weight is 191 pounds. BMI is 30.8 kg/m2. General: Patient is resting in bed, intubated and sedated. HEENT: Pale conjunctivae. Positive scleral icterus. NG tube in place and a mechanical ventilator in place. Neck: Supple. Coarse rhonchi is heard in the anterior toribio. Cardiovascular: Patient is tachycardic and tachypneic. Abdomen: Distended, firm. Midline incisions with bud, dry and intact. Hypoactive bowel sounds heard in all 4 quadrants. Extremities: No clubbing, no cyanosis. Generalized edema. Neurologic: The patient is sedated, on mechanical ventilator, unable to assess. Labs: WBCs are 8.25, RBCs 2.34, hemoglobin is 7.0, hematocrit is 21.6, platelet count is 12,000. PT 13.4, INR is 2.81. Sodium 141, potassium 3.9, chloride 109, carbon dioxide 18, anion gap 14, BUN 88, creatinine 2.0, glucose 164, calcium 9.3, phosphorus 4.2, magnesium 2.9. The patient's chest x-ray today has shown no interval improvement. His head CT has shown no hemorrhage, mild atrophy. IMPRESSION AND PLAN: - AMS - Septic shock - Secondary peritonitis - Probable HCAP - Small bowel obstruction, s/p laparotomy with ileocecal bypass - Decompensated ETOH/HCV cirrhosis with ascites - CAITLYN - Anemia - Thrombocytopenia - Coagulopathy - Severe protein calorie malnutrition PLAN: Mr. Mcduffie is a 59-year-old, male with hepatitis C and a history of alcoholism, cirrhosis, and ascites. The patient's TPN and lipids are currently on hold. His platelet count was 12,000. The patient has orders to receive 2 units of platelets per PCP. He is currently receiving vitamin K 10 mg at 50 mL IV for his coagulopathy. He is on folic acid and thiamine IV. He is receiving antibiotic, Zosyn. The patient is also receiving 50,000 units of vitamin D. We will continue him on PPIs daily. The patient is also on lactulose 30 mL p.o. 3 times a day via NG tube. We will continue to monitor the patient, provide supportive care and follow the plan of care per PCP and the surgeon. This plan was discussed with Dr. Molina. Please call us for any further questions or concerns. Dictated by TURNER Bazan for Catracho Molina MD Physician Attestation I have seen and examined the patient. I have discussed and reviewed the note by Claudia TOMPKINS and agree with findings and plan as documented. In brief, Mr. Mcduffie is a 59 year old man who presented with newly decompensated HCV/ETOH cirrhosis with ascites, empirically treated for SBP, and CAITLYN. His course complicated by high grade SBO s/p laparotomy with ileocecal bypass. Post- op his course has been complicated by secondary peritonitis, HCAP, worsening AMS, thrombocytopenia, and decompensated liver disease. He is comatose and off sedation. We have started him on scheduled lactulose PO through NGT to see if PSE may be contributing to his AMS. Will need neurology to weigh in to see if patient has cerebral insult. EEG results pending. Overall, prognosis is poor. Trending LFTs, maintain plts >20K, and hgb >7. Recommend continued GOC discussion. MTDD
--- NOTE | 2019-05-15 12:42 | GENERAL SURGERY PROGRESS NOTE ---
DATE: 05/15/2019 OBJECTIVE: He is afebrile. Heart rate is 102. Blood pressure 99/63. His abdomen remains distended and tympanitic. Bowel sounds are heard. He has had some liquid bowel movements over the past 2 days. LABORATORY DATA: White count is 8200, hemoglobin 7, hematocrit 21, platelet count 12,000. ProTime 30, INR 2.8. Gases are noted with a pH is 7.53. His BUN has drifted down to 88, creatinine is down to 2.0. PLAN: The plan will be to start dropping in some tube feedings to start challenging his stomach and bowel for function. We will use Hepatic-Aid to reduce any risk for hepatic encephalopathy, worsening. cc: Kirt Ellis MD
[2019-05-15] MEDS ORDERED: LASIX IV ONE (12:47)
[2019-05-15] MEDS: SOLU-MEDROL IV SCH ×2 (13:05→18:36)
[2019-05-15] MEDS ORDERED: NS 500 ML IV ONE (14:27)
[2019-05-15] MEDS ORDERED: NS 500 ML ONE (14:37)
[2019-05-15] MEDS ORDERED: [UNRECOGNIZED DRUG - NUTRITION] IV SCH ×5 (18:00)
[2019-05-15] MEDS: LIPOSYN 20% 250 ML IV SCH (18:02)
[2019-05-15] MEDS: [UNRECOGNIZED DRUG - NUTRITION] IV SCH ×5 (18:29)
--- NOTE | 2019-05-15 19:23 | PROVIDER PROGRESS NOTE ---
Progress Note Subjective: intubated without sedation. Does not follow commands. Objective: temperature General: Chronically ill appearing -[place] male in no acute distress. HEENT: normocephalic, atraumatic, conjunctiva pink, pupils equal and reactive. Mucous membranes moist, NG tube in place. Trachea midline. Skin: Warm and dry. Neck: supple, 8cm JVD observed. Cardiovascular: S1s2, regular rate and rhythm. Gallop appreciated.No murmur. Respiratory: scattered rhonchi with equal air entry. Abdomen: slightly firm, distended, nontender. Hypoactive bowel sounds to the upper quadrants, no bowel sounds to the lower quadrants. :non inspected, doe in place with orange/ freddy urine Extremities:2+ pitting edema to BLE. Neurological: aroused to verbal stimuli, unable to assess orientation. Impression: Acute kidney injury. Likely prerenal for intravascular depletion related to third spacing into the abdomen and Hypoalbuminemia secondary to chronic liver failure. BUN and creatinine stable. There are no indications for urgent renal replacement therapy at this time. Blood pressure. Low. Stable on norepinephrine. Intravascular Fluid volume contracted with extravascular volume expansion. Albumin 2.1 Receiving albumin. Anemia. Stable. Folic Acid started. Thrombocytopenia. Likely caused by liver failure. Remains on zosyn. Phytonadione in place. Electrolytes and acid base balance. Nutrition. TPN and lipids.
--- NOTE | 2019-05-15 19:48 | PROVIDER PROGRESS NOTE ---
Progress Note Dr. Westbrook Progress Note/Pulmonary and or critical care Subjective: The patient remained intubated. His eyes widely open with blinking noted. He is unresponsive to any verbal or tactile stimuli. He is on Levophed at 7mcg/min at this time. RN at the bedside reports that patient developed tachypnea up to 40s at an earlier time which is stable within the normal limit at this time. No family at the bedside. Input is appreciated from Dr. Smith and other teams on the case. Objective: Vital Signs: T 97.6 (no fever in last 24 hours), GA 115, RR 31, BP 104/64 and SaO2 97% on AC 14, 30%, 500, 5. I/O +4077 ml Physical Examination: General: Intubated. Lying in bed with no acute distress noted. HEENT: Normocephalic. Trachea midline. ET tube in place. Chest: Mechanically ventilated. Good air entry bilaterally. CVS: Regular rate and rhythm with S1 and S2 appreciated. Abdomen: Rounded and distended. Soft. Decreased bowel sounds noted. Extremities: Sequential boot on BLE. BLE and BUE pitting edema 1+. Neuro: Unresponsive without sedation. Labs and Radiology: Laboratory Results 05/14/19 05/14/19 05/14/19 19:57 20:06 23:14 WBC RBC Hgb Hct MCV MCH MCHC RDW Std Deviation Plt Count MPV Immature Gran % (Auto) Neut % (Auto) Lymph % (Auto) [place] % (Auto) Eos % (Auto) Baso % (Auto) Immature Gran # (Auto) Neut # (Auto) Lymph # (Auto) [place] # (Auto) Eos # (Auto) Baso # (Auto) PT INR Specimen Type Sample Site pH pCO2 pO2 HCO3 Base Excess Oxyhemoglobin ABG O2 Sat (Calculated) ABG O2 Saturation ABG Carboxyhemoglobin ABG Methemoglobin Agustin Test A-a O2 Difference Total Hemoglobin Lactate Blood Gas Modality Vent Mode Spontaneous Rate FiO2 % Tidal Volume PEEP Sodium Potassium Chloride Carbon Dioxide Anion Gap BUN Creatinine Estimated GFR/1.73 m2 BUN/Creatinine Ratio Glucose POC Glucose 211 H 186 H Calculated Osmolality Calcium Phosphorus Magnesium Valproic Acid 84.70 Blood Type Antibody Screen Crossmatch 05/15/19 05/15/19 05/15/19 04:10 04:40 05:30 WBC 8.25 RBC 2.34 L Hgb 7.0 L Hct 21.6 L MCV 92.3 MCH 29.9 MCHC 32.4 L RDW Std Deviation 19.9 H Plt Count 12 L* D MPV Not Reportable Immature Gran % (Auto) 0.5 Neut % (Auto) 53.6 Lymph % (Auto) 32.1 [place] % (Auto) 12.6 H Eos % (Auto) 0.8 Baso % (Auto) 0.4 Immature Gran # (Auto) 0.04 Neut # (Auto) 4.42 Lymph # (Auto) 2.65 [place] # (Auto) 1.04 H Eos # (Auto) 0.07 Baso # (Auto) 0.03 PT INR Specimen Type ARTERIAL Sample Site R RADIAL pH 7.53 H pCO2 23 L pO2 116 H HCO3 23.1 Base Excess -2.4 Oxyhemoglobin 96.8 ABG O2 Sat (Calculated) 13.7 L ABG O2 Saturation 99.4 ABG Carboxyhemoglobin 0.60 ABG Methemoglobin 2.0 H Agustin Test YES A-a O2 Difference 69.0 Total Hemoglobin 9.9 L Lactate 2.20 Blood Gas Modality VENTILATOR Vent Mode A/C Spontaneous Rate 14 FiO2 % 30.0 Tidal Volume 14 PEEP 5.0 Sodium Potassium Chloride Carbon Dioxide Anion Gap BUN Creatinine Estimated GFR/1.73 m2 BUN/Creatinine Ratio Glucose POC Glucose 204 H Calculated Osmolality Calcium Phosphorus Magnesium Valproic Acid Blood Type Antibody Screen Crossmatch 05/15/19 05/15/19 05/15/19 05:30 05:30 07:38 WBC RBC Hgb Hct MCV MCH MCHC RDW Std Deviation Plt Count MPV Immature Gran % (Auto) Neut % (Auto) Lymph % (Auto) [place] % (Auto) Eos % (Auto) Baso % (Auto) Immature Gran # (Auto) Neut # (Auto) Lymph # (Auto) [place] # (Auto) Eos # (Auto) Baso # (Auto) PT 30.4 H INR 2.81 Specimen Type Sample Site pH pCO2 pO2 HCO3 Base Excess Oxyhemoglobin ABG O2 Sat (Calculated) ABG O2 Saturation ABG Carboxyhemoglobin ABG Methemoglobin Agustin Test A-a O2 Difference Total Hemoglobin Lactate Blood Gas Modality Vent Mode Spontaneous Rate FiO2 % Tidal Volume PEEP Sodium 141 Potassium 3.9 D Chloride 109 H Carbon Dioxide 18 L Anion Gap 14 BUN 88 H Creatinine 2.0 H Estimated GFR/1.73 m2 42 BUN/Creatinine Ratio 44 Glucose 164 H POC Glucose 174 H Calculated Osmolality 312 Calcium 9.3 Phosphorus 4.2 Magnesium 2.9 H Valproic Acid Blood Type Antibody Screen Crossmatch 05/15/19 05/15/19 05/15/19 08:05 11:04 15:17 WBC RBC Hgb Hct MCV MCH MCHC RDW Std Deviation Plt Count MPV Immature Gran % (Auto) Neut % (Auto) Lymph % (Auto) [place] % (Auto) Eos % (Auto) Baso % (Auto) Immature Gran # (Auto) Neut # (Auto) Lymph # (Auto) [place] # (Auto) Eos # (Auto) Baso # (Auto) PT INR Specimen Type Sample Site pH pCO2 pO2 HCO3 Base Excess Oxyhemoglobin ABG O2 Sat (Calculated) ABG O2 Saturation ABG Carboxyhemoglobin ABG Methemoglobin Agustin Test A-a O2 Difference Total Hemoglobin Lactate Blood Gas Modality Vent Mode Spontaneous Rate FiO2 % Tidal Volume PEEP Sodium Potassium Chloride Carbon Dioxide Anion Gap BUN Creatinine Estimated GFR/1.73 m2 BUN/Creatinine Ratio Glucose POC Glucose 164 H 191 H Calculated Osmolality Calcium Phosphorus Magnesium Valproic Acid Blood Type O POSITIVE Antibody Screen NEGATIVE Crossmatch See Detail 05/15/19 19:10 WBC RBC Hgb Hct MCV MCH MCHC RDW Std Deviation Plt Count MPV Immature Gran % (Auto) Neut % (Auto) Lymph % (Auto) [place] % (Auto) Eos % (Auto) Baso % (Auto) Immature Gran # (Auto) Neut # (Auto) Lymph # (Auto) [place] # (Auto) Eos # (Auto) Baso # (Auto) PT INR Specimen Type Sample Site pH pCO2 pO2 HCO3 Base Excess Oxyhemoglobin ABG O2 Sat (Calculated) ABG O2 Saturation ABG Carboxyhemoglobin ABG Methemoglobin Agustin Test A-a O2 Difference Total Hemoglobin Lactate Blood Gas Modality Vent Mode Spontaneous Rate FiO2 % Tidal Volume PEEP Sodium Potassium Chloride Carbon Dioxide Anion Gap BUN Creatinine Estimated GFR/1.73 m2 BUN/Creatinine Ratio Glucose POC Glucose 214 H Calculated Osmolality Calcium Phosphorus Magnesium Valproic Acid Blood Type Antibody Screen Crossmatch Assessment: Acute respiratory failure. Shock. Atelectasis vs. pneumonia LLL. CXR today shows LLL infiltrates +/- atelectasis with a tiny left pleural effusion. Small-bowel obstruction, portal venous hypertension with ascites and cirrhosis of the liver. s/p diagnostic laparoscopy, laparotomy with open appendectomy and ileocolonic [id number] bypass by Dr. Ellis on 05/08/19. Decompensated liver cirrhosis with history of alcohol abuse and chronic active hepatitis C leading to ascites, coagulopathy and thrombocytopenia (worsening). Acute kidney injury, likely prerenal from intravascular depletion related to third spacing into the abdomen and hypoalbunemia. S/P paracentesis with 6.2 L of fluid aspirated on 04/30/19. Alkalemia with respiratory alkalosis and AG metabolic acidosis. Hepatic encephalopathy. Prognosis is guarded. Plan: Continue current treatment and supportive care per admitting and other teams on the case. We checked Ventilator settings and titrate to Patients needs per clinical protocols. We will keep closely monitoring on patients clinical response. We titrated Pressor (Levophed) to the patients needs per clinical protocols. We will keep closely monitoring. Antibiotic (Zosyn). Solu-Medrol. Appropriate DVT and GI prophylaxis. Case was discussed with his RN and Dr Gomez. Neuorlogy is consulted. Evaluation time in minutes: 32 minutes.
--- NOTE | 2019-05-15 21:32 | PROGRESS NOTE ---
DATE: 05/15/2019 SUBJECTIVE: The patient is unresponsive on the ventilator. He is currently undergoing an EEG. OBJECTIVE: Vital Signs: Temperature 97.5 degrees, blood pressure 123/79, heart rate 102, respirations 26, O2 saturation is 100% on the mechanical ventilator, FiO2 of 30%. Intake 1.3 L, output 840. General: This is a chronically ill-appearing, elderly male, currently unresponsive on the ventilator. Heart: S1, S2 normal. Tachycardic. Lungs: Coarse breath sounds bilaterally. Abdomen: Hypoactive bowel sounds. Distended. Extremities: Edema 2+ to the lower extremities. Neurologic: The patient is unresponsive. LABS: White blood cell count 8.2, hemoglobin 7, hematocrit 21, platelets 12,000. INR 2.8. Sodium 141, potassium 3.9, chloride 109, CO2 of 18, BUN 88, creatinine 2, glucose 164, magnesium 2.9. ASSESSMENT AND PLAN: 1. Acute hypoxemic respiratory failure. Continue with ventilatory support as directed by the foreclosure paralegal. 2. Small bowel obstruction status post ileocolic bypass. The patient currently has NG tube output, but no bowel movements yet. 3. Global encephalopathy. EEG was done today. We will also consult with the neurologist for further recommendations. 4. Liver cirrhosis with refractory ascites. Aware. 5. Septic shock. The patient is currently on Zosyn. 6. Acute kidney injury. Multifactorial. The patient is currently receiving albumin infusions. Nephrology is following. 7. Severe protein-calorie malnutrition. The patient is on TPN. 8. Severe thrombocytopenia. We will transfuse 2 units of platelets today. 9. Hepatic encephalopathy. The patient's lactulose dosage has been adjusted by Dr. Molina. 10. Seizure disorder. Continue on Keppra. 11. Anemia. Will transfuse 1 unit of packed red blood cells today. 12. Hepatitis C. Aware. 13. Coagulopathy. Unchanged. 14. Disposition. The patient is critically ill with a high risk of mortality. The patient is currently a full code. cc: Tamiko Gomez MD MTDD
--- NOTE | 2019-05-15 21:59 | NEUROLOGY CONSULTATION ---
DATE: 05/15/2019 REASON FOR CONSULTATION: Encephalopathy. HISTORY OF PRESENT ILLNESS: This is a 59-year-old black male who was admitted 04/20/2019 with complaints of 3 weeks of increased abdominal pain and distention with lower extremity swelling. He has history of craniotomy for aneurysm and a history of seizures. He was admitted with decompensated liver cirrhosis, alcoholic and chronic hepatitis C with ascites. He has had acute renal failure, coagulopathy, empirically treated for spontaneous bacterial peritonitis. He developed a high-grade small-bowel obstruction. He has had septic shock. The patient had to undergo exploratory laparotomy on May 08, 2019 and had an ileocolonic bypass and appendectomy. He was intubated then and has not been able to be extubated since that time. Nurse at the bedside reports that he was following commands just after the surgery while intubated, but at some point since that time, he has stopped following commands. I do not see sedatives on board. I did see p.r.n. morphine and possibly a p.r.n. lorazepam, but that was dosed on May 08, 2019, and I do not believe there has been any since. Head CT was obtained today that did not show acute findings. There is evidence of a right posterior craniotomy and mild cerebral atrophy. Laboratory [place], his BUN peaked at 100 two days ago, currently 88, creatinine currently 2.0. Blood glucose have been 160s to 204. AST peaked at 87 five days ago, current 59. Ammonia was 82 on 05/13/2019. Valproic acid level was 84.7 yesterday, normal range. The patient's Depakote was switched to Keppra yesterday due to continued liver failure. He has had normal sodium. PAST MEDICAL HISTORY: Includes right posterior craniotomy apparently for aneurysmal repair, seizures, chronic hepatitis C, hypertension, COPD, possible CHF. There is report of brain surgery x2, two back surgeries. ALLERGIES: No known drug allergies listed. CURRENT MEDICATIONS: Reviewed in the chart. Apparently, he was taking Depakote for seizures, uncertain the dose. He is not taking that now. He is currently receiving levetiracetam 500 mg q.12 hours since yesterday. He is also on thiamine, Zosyn, norepinephrine, lactulose, methylprednisolone, folic acid. It looks like the last dose of morphine was on May 08, 2019, and he may have had a dose of lorazepam that day. I am not certain about that. I do not see doses after that the best I can tell. FAMILY HISTORY: Positive for lung cancer, renal failure. SOCIAL HISTORY: He smokes cigarettes and marijuana, occasional alcohol in the form of beer. REVIEW OF SYSTEMS: Unobtainable. PHYSICAL EXAMINATION: Vital Signs: He is currently afebrile. His temperature is 97.1 degrees, blood pressure current 118/74. There have been some intermittent low readings typically 80s to 90s systolic but some in the 70s. Pulse 103. He is breathing over the ventilator. Neurologic: Mr. Mcduffie is supine in bed with eyes open. He is on the ventilator. He has a right gaze preference, but that is overcome, and I can get his eyes to cross the midline all the way to the left. His pupils are equal, round, and reactive to light. They are about 3 mm in both eyes. Gaze is conjugate. There is full horizontal eye movement with passive head turning. He does not blink to threat. Corneal responses are present bilaterally. He has a gag reflex. Face appears to be symmetric. I did not see a grimace. He is breathing over the vent currently. He does not follow commands. He does not regard. He does not have purposeful movement during my time at the bedside. I did not see response with sternal rub. With mild nail bed pressure on the left hand, he seemed to consistently withdrawal. I got less of a response on the right side. With mild nail bed pressure of the left lower extremity, I saw brief and subtle movement, which could have been withdrawing but may have represented triple flexion. I had less response on the right lower extremity. Reflexes were absent. Plantar response was silent. There was no clonus. Tone appeared equal in the limbs. DIAGNOSTICS: Noncontrasted head CT. No acute findings. There was a right posterior craniotomy, mild cerebral atrophy. Labs as stated above. All reviewed in the chart. Platelet count of 12,000 currently. ASSESSMENT AND PLAN: Global encephalopathy. There may have been subtle less response over the right limbs compared to the left. He does have at least some intact brainstem reflexes. Etiology is likely multifactorial with multiple ongoing medical conditions. Cannot definitely rule out underlying cerebral insult. Negative head CT is noted. Recommend continued treatment of his multiple medical conditions. An EEG has been ordered, and I will review that. I will also check a Keppra level given his renal failure. That medication was started by the primary team yesterday in place of the chronic Depakote. We will need to be cautious if we are going to use the Keppra also. Continue to hold all sedating medications. Thank you for the consultation. cc: Nena Nguyen MD
[2019-05-16] MEDS: SOLU-MEDROL IV SCH ×4 (01:59→19:09)
[2019-05-16] MEDS: ZOSYN 2.25 GM in NS 50 ML IV SCH ×4 (02:00→21:42)
[2019-05-16 04:53] LABS: ALLEN TEST YES; BE -7.6 mmoll (-3.0-3.0); BLOOD TYPE ARTERIAL; METHB 1.3 % (0.0-1.5); O2(CT) 10.1 mL/dL (15.0-23.0); PO2(98.6) 180 mmHg (60-100); SAMPLE BLOOD; SAO2 100.1 % (95.0-100.0); SRATE 14 BPM; TVOL 500 mL; pH(98.6) 7.51 (7.35-7.45)
[2019-05-16 05:03] LABS: PCO2(98.6) 18 mmHg (35-45)
[2019-05-16 05:04] LABS: MODALITY VENTILATOR
[2019-05-16] MEDS: KEPPRA 500 MG in NS 100 ML IV SCH ×2 (05:58→18:25)
[2019-05-16] MEDS: THIAMINE 100 MG in NS 50 ML IV SCH (06:00)
[2019-05-16 06:02] LABS: BASO# 0.01 X1000 (0.0-0.2); BASO% 0.1 % (0.0-0.8); HEMATOCRIT 24.1 % (42.0-52.0); IMM GRAN# 0.05 X1000 (0.0-0.04); IMM GRAN% 0.6 % (0.0-0.5); LYMPH# 1.08 X1000 (1.2-3.4); LYMPH% 13.1 % (20.5-51.1); MCH 30.2 PG (27-31); MCHC 33.2 g/dL (33-37); MCV 90.9 FL (81-99); MONO# 0.53 X1000 (0.11-0.59); MONO% 6.4 % (1.7-9.3); NEUT# 6.58 X1000 (1.4-6.5); NEUT% 79.8 % (42.2-75.2); RBC 2.65 XMIL (4.7-6.1); RDW 19.1 % (11.5-14.5); WBC 8.25 X1000 (4.8-10.8)
[2019-05-16 06:03] LABS: PLT 28 X1000 (130-400)
[2019-05-16 06:33] LABS: ALB/GLOB RATIO 0.7; ALBUMIN 2.9 g/dL (3.5-5.0); CALCIUM 9.4 mg/dL (8.8-10.2); DIRECT BILIRUBIN 8.9 mg/dL (0.00-0.20); MAGNESIUM 2.6 mg/dL (1.5-2.7); PHOSPHORUS 4.4 mg/dL (2.7-4.5); POTASSIUM 3.7 mmol/L (3.5-5.1); TOTAL BILIRUBIN 14.7 mg/dL (0.20-1.00); TOTAL PROTEIN 7.3 g/dL (6.3-8.3)
--- NOTE | 2019-05-16 07:21 | Diag Imaging Result Doc PS360 ---
EXAM: CHEST-1 VIEW 05/16/2019 HISTORY: SOB TECHNIQUE: AP portable at 0523 COMMENT: There is an endotracheal tube with its tip below the thoracic inlet and an NG tube which passes into the fundus of the stomach. There is a right internal jugular central venous catheter with its tip in the right atrium. There is atelectasis versus pneumonia present in the left lower lobe. This has not changed appreciably since 05/15/2019. IMPRESSION: Atelectasis versus pneumonia left lower lobe. Electronically signed by Delonte Warner 05/16/2019 7:19 AM
[2019-05-16 07:22] LABS: LYMPHS 15 % (21-51); MONO 6 % (1-9); SEGS 79 % (42-75)
--- NOTE | 2019-05-16 08:30 | PROGRESS NOTE ---
DATE: 05/16/2019 SUBJECTIVE: The patient is currently on the ventilator, minimally responsive. He is currently on Levophed drip at 3 mcg/hour. No acute events noted overnight. OBJECTIVE: Vital Signs: Temperature 97.2 degrees, blood pressure 103/66, heart rate 91, respirations 27, O2 saturation 99% on the mechanical ventilator. Intake 3 L. Urine output 1.4 L. General: This is a chronically ill-appearing, elderly male currently on the ventilator. HEENT: Normocephalic, atraumatic. PERRLA, EOMI. Heart: S1, S2 normal. Regular rate and rhythm. Lungs: Coarse breath sounds bilaterally with crackles. Abdomen: No bowel sounds, firm and distended. The bud are in place. Extremities: 3+ edema bilaterally. Neurologic: The patient is unresponsive. DIAGNOSTIC DATA: White blood cell count 8.2, hemoglobin 8, hematocrit 24, platelets 28,000. Sodium 145, potassium 3.7, chloride 110, CO2 15, BUN 94, creatinine 2, glucose 261. Chest x-ray, atelectasis versus left lower lobe pneumonia. ASSESSMENT AND PLAN: 1. Acute hypoxemic respiratory failure. The patient remains ventilator- dependent. Management as per the data abstractor. 2. Small bowel obstruction status post laparotomy with an open appendectomy and ileocolonic bypass. The patient currently has an NG tube to low intermittent suction. No bowel movements so far. General Surgery is following. 3. Global encephalopathy. Unchanged. An EEG was done yesterday. We will await the report. Neurology is following. 4. Alcoholic liver cirrhosis with refractory ascites. Aware. 5. Septic shock. The patient remains on Levophed and Zosyn. 6. Acute kidney injury. Multifactorial. Unchanged. Continue with supportive care. The patient is currently receiving albumin daily. 7. Severe protein calorie malnutrition. The TPN is on hold. 8. Severe thrombocytopenia. Slightly improved. The patient received 2 units of platelets yesterday. We will continue to monitor closely. No active bleeding noted. 9. Coagulopathy. Stable. 10. Hepatic encephalopathy. The patient is currently on lactulose. 11. Seizure disorder. Continue on Keppra. 12. Hepatitis C. Aware. 13. Anemia. Improved. We will continue to monitor closely and transfuse p.r.n. 14. Metabolic acidosis. Aware. Continue to monitor closely. 15. Possible pneumonia. We will order blood and sputum cultures. Continue on Zosyn for now. We will also check a procalcitonin level. 16. Hyperglycemia. Will start sliding scale insulin and monitor the blood glucose closely. 17. Disposition. The patient is critically ill with a high risk of mortality. The patient is currently a full code. I will call and update the patient's . Palliative Care is following. cc: Tamkio Gomez MD MTDD
[2019-05-16] MEDS: DULCOLAX PR SCH ×2 (08:46→21:42)
[2019-05-16] MEDS: LACTULOSE PO SCH ×3 (08:46→18:29)
[2019-05-16] MEDS: FOLIC ACID 1 MG in NS 50 ML IV SCH (08:46)
[2019-05-16] MEDS: ALBUMIN 25% IV SCH (08:46)
[2019-05-16] MEDS: LEVOPHED 8 MG in D5 1/2 NS 250 ML IV SCH (08:47)
[2019-05-16] MEDS: VITAMIN K 10 MG in NS 50 ML IV SCH (08:47)
--- NOTE | 2019-05-16 08:52 | EKG Report ---
Test Performed on : 05/15/2019 5:34:32 PM Test Reason : ICU. NO EKG ORDER FOR MUSE Blood Pressure : / mmHG Vent. Rate : 101 BPM Atrial Rate : 101 BPM P-R Int : 140 ms QRS Dur : 074 ms QT Int : 356 ms P-R-T Axes : 045 -10 256 degrees QTc Int : [address] & T wave abnormality, consider inferior ischemia ST & T wave abnormality, consider anterolateral ischemia Abnormal ECG When compared with ECG of 24-APR-2019 11:56, T wave inversion more evident in Inferior leads T wave inversion now evident in Anterolateral leads Confirmed by Owen MAGALLON, Erin Martinez ([id number]) on 05/16/2019 1:00:50 PM
[2019-05-16] MEDS: PROTONIX IV SCH (09:47)
--- NOTE | 2019-05-16 10:04 | GENERAL SURGERY PROGRESS NOTE ---
DATE: 05/16/2019 Mr. Mcduffie did not really tolerate tube feedings last night. His NG tube is back on suction today. We are using Nepro simply because we do not have a hepatic formula. I think we should try again. I do think we should be careful about the amount of amino acids he receives in his TPN as a potential cause for an increase in his ammonia level. cc: Kirt Ellis MD
[2019-05-16 10:22] LABS: HEMOGLOBIN A1C 5.5 % (4.8-6.0)
--- NOTE | 2019-05-16 11:39 | GASTROENTEROLOGY PROGRESS NOTE ---
DATE: 05/16/2019 SUBJECTIVE: Mr. Mcduffie is a 59-year-old male. He is resting in bed, intubated and on a mechanical ventilator. NG tube in place. OBJECTIVE: Vital Signs: Temperature 97.2 degrees, pulse 82, respirations 25, blood pressure 102/66, oxygen saturation 100% on mechanical ventilator. The patient's weight is 193 pounds, BMI is 31.2 kg/m2. General: Patient is chronically ill on a mechanical ventilator. HEENT: Pale conjunctivae. Scleral icterus. Neck: Supple. Lungs: Coarse rhonchi heard in the anterior toribio. Cardiovascular: Regular rate and rhythm. The patient is tachypneic. Abdomen: Warm, distended. Elmer are dry and intact in the midline area. Extremities: No clubbing, no cyanosis, 2+ pitting edema bilaterally. Neurologic: The patient is unresponsive and on a mechanical ventilator. LABORATORY DATA: WBCs are 8.25, RBCs 2.65, hemoglobin 8.0, hematocrit is 24.1, platelet count is 28,000. Sodium 145, potassium 3.7, chloride 110, carbon dioxide 15, anion gap is 20, BUN is 94, creatinine is 2.0, glucose is 261, calcium 9.4. Phosphorus 4.4, magnesium 2.6. Total bilirubin 14.70, AST 38, ALT 14, alkaline phosphatase is 94, albumin is 2.9. IMAGING: Patient's chest x-ray showed atelectasis versus pneumonia, left lower lobe. IMPRESSION AND PLAN: 1. Small-bowel obstruction s/p laparotomy with ileocecal bypass. 2. Cirrhosis. 3. Ascites. 4. Hepatitis C. 5. History of alcoholism. 6. Septic shock. 7. Thrombocytopenia. 8. Coagulopathy. 9. Acute kidney injury. 10. Hypoalbuminemia. 11. Malnutrition. PLAN: Mr. Mcduffie is a 59-year-old male with hepatitis C and history of alcoholism, cirrhosis and ascites. GI is following him fro his cirrhosis and ascites. The patient's TPN is currently on hold. He is receiving vitamin K. The patient is also on folic acid and thiamine IV and antibiotic Zosyn. The patient is on Levophed 8 mg IV. The patient is also receiving lactulose 30 mL p.o. 3 times a day via NG tube. Palliative Care is following the patient. The patient had an EEG done yesterday. Awaiting the results of the EEG. We will continue to monitor the patient, provide supportive care and follow the plan of care per PCP and the surgeon. This plan was discussed with Dr. Molina. Please call us for any further questions or concerns. Dictated by TURNER Bazan for Catracho Molina MD MTDD
--- NOTE | 2019-05-16 12:22 | NEUROLOGY PROGRESS NOTE ---
DATE: 05/16/2019 SUBJECTIVE: Mr. Mcduffie was admitted with global encephalopathy. Dr. Nguyen saw him for Neurology evaluation earlier. He continues intubated, mechanically ventilated. There is report of prior seizure disorder, but no recognized seizure here. His EEG shows very low amplitude marked slowing. OBJECTIVE: On exam, there is minimal lateral eye movement with passive head turning. There was initial corneal reflex bilaterally, which rapidly fatigued. Pupils are small and I do not see definite reaction to bright light. I did not see spontaneous limb movement, but there is a little bit of leg withdrawal with noxious stimulation over the sole of the foot bilaterally. IMPRESSION: Global encephalopathy. EEG is consistent with severe encephalopathy and carries a very poor prognosis. I believe that his clinical course and EEG findings would support a plan to withdraw support. Thank you for asking Neurology to see Mr. Mcduffie. cc: MD JAYY Dolan III
--- NOTE | 2019-05-16 15:07 | PROVIDER PROGRESS NOTE ---
Progress Note Dr. Westbrook Progress Note/Pulmonary and or critical care Subjective: The patient remained intubated. His eyes half closed without blinking noted. He is unresponsive to any verbal or tactile stimuli. He is on Levophed at 1mcg/min at this time. We discuss patients case with Dr. Srivastava who reports that patients EEG is consistent with severe encephalopathy and his prognosis is very poor. No family at the bedside. NG tube feeding tried yesterday, but failed. TPN is on hold currently per GI specialist. Input is appreciated from Dr. Smith and other teams on the case. Objective: Vital Signs: No fever in last 24 hours, IN 82, RR 25, BP 102/66 and SaO2 100% on AC 14, 30%, 500, 5. I/O +882 ml Physical Examination: General: Intubated. Lying in bed with no acute distress noted. HEENT: Normocephalic. Trachea midline. ET tube in place. Chest: Mechanically ventilated. Decreased air entry bilaterally. CVS: Regular rate and rhythm with S1 and S2 appreciated. Abdomen: Rounded and distended. Soft. Decreased bowel sounds noted. Extremities: Sequential boot on BLE. BLE and BUE pitting edema 1+. Neuro: Unresponsive without sedation. Labs and Radiology: Laboratory Results 05/14/19 05/14/19 05/15/19 07:57 12:22 08:05 WBC RBC Hgb Hct MCV MCH MCHC RDW Std Deviation Plt Count MPV Immature Gran % (Auto) Neut % (Auto) Lymph % (Auto) [place] % (Auto) Eos % (Auto) Baso % (Auto) Immature Gran # (Auto) Neut # (Auto) Lymph # (Auto) [place] # (Auto) Eos # (Auto) Baso # (Auto) Segmented Neutrophils Lymphocytes Monocytes Specimen Type Sample Site pH pCO2 pO2 HCO3 Base Excess Oxyhemoglobin ABG O2 Sat (Calculated) ABG O2 Saturation ABG Carboxyhemoglobin ABG Methemoglobin Agustin Test A-a O2 Difference Total Hemoglobin Lactate Blood Gas Modality Vent Mode Spontaneous Rate FiO2 % Tidal Volume PEEP Sodium Potassium Chloride Carbon Dioxide Anion Gap BUN Creatinine Estimated GFR/1.73 m2 BUN/Creatinine Ratio Glucose POC Glucose 162 H 167 H Estimat Average Glucose Hemoglobin A1c Calculated Osmolality Calcium Phosphorus Magnesium Total Bilirubin Direct Bilirubin AST ALT Alkaline Phosphatase Rwl-G-Iexnepxwlpf Pept Total Protein Albumin Globulin Albumin/Globulin Ratio Acetone Level Crossmatch See Detail 05/15/19 05/15/19 05/15/19 15:17 19:10 23:57 WBC RBC Hgb Hct MCV MCH MCHC RDW Std Deviation Plt Count MPV Immature Gran % (Auto) Neut % (Auto) Lymph % (Auto) [place] % (Auto) Eos % (Auto) Baso % (Auto) Immature Gran # (Auto) Neut # (Auto) Lymph # (Auto) [place] # (Auto) Eos # (Auto) Baso # (Auto) Segmented Neutrophils Lymphocytes Monocytes Specimen Type Sample Site pH pCO2 pO2 HCO3 Base Excess Oxyhemoglobin ABG O2 Sat (Calculated) ABG O2 Saturation ABG Carboxyhemoglobin ABG Methemoglobin Agustin Test A-a O2 Difference Total Hemoglobin Lactate Blood Gas Modality Vent Mode Spontaneous Rate FiO2 % Tidal Volume PEEP Sodium Potassium Chloride Carbon Dioxide Anion Gap BUN Creatinine Estimated GFR/1.73 m2 BUN/Creatinine Ratio Glucose POC Glucose 191 H 214 H 248 H Estimat Average Glucose Hemoglobin A1c Calculated Osmolality Calcium Phosphorus Magnesium Total Bilirubin Direct Bilirubin AST ALT Alkaline Phosphatase Ehl-K-Rchrekndgii Pept Total Protein Albumin Globulin Albumin/Globulin Ratio Acetone Level Crossmatch 05/16/19 05/16/19 05/16/19 04:10 04:48 05:00 WBC 8.25 RBC 2.65 L Hgb 8.0 L Hct 24.1 L MCV 90.9 MCH 30.2 MCHC 33.2 RDW Std Deviation 19.1 H Plt Count 28 L* D MPV 12.0 H Immature Gran % (Auto) 0.6 H Neut % (Auto) 79.8 H Lymph % (Auto) 13.1 L Powell % (Auto) 6.4 Eos % (Auto) 0.0 Baso % (Auto) 0.1 Immature Gran # (Auto) 0.05 H Neut # (Auto) 6.58 H Lymph # (Auto) 1.08 L [place] # (Auto) 0.53 Eos # (Auto) 0.00 Baso # (Auto) 0.01 Segmented Neutrophils 79 H Lymphocytes 15 L Monocytes 6 Specimen Type ARTERIAL Sample Site R RADIAL pH 7.51 H pCO2 18 L* pO2 180 H HCO3 19.0 L Base Excess -7.6 L Oxyhemoglobin 98.0 ABG O2 Sat (Calculated) 10.1 L ABG O2 Saturation 100.1 H ABG Carboxyhemoglobin 0.80 ABG Methemoglobin 1.3 Agustin Test YES A-a O2 Difference 11.0 Total Hemoglobin 7.0 L Lactate 4.80 H* Blood Gas Modality VENTILATOR Vent Mode A/C Spontaneous Rate 14 FiO2 % 30.0 Tidal Volume 500 PEEP 5.0 Sodium Potassium Chloride Carbon Dioxide Anion Gap BUN Creatinine Estimated GFR/1.73 m2 BUN/Creatinine Ratio Glucose POC Glucose 256 H Estimat Average Glucose Hemoglobin A1c Calculated Osmolality Calcium Phosphorus Magnesium Total Bilirubin Direct Bilirubin AST ALT Alkaline Phosphatase Kvj-E-Zmgokneqibo Pept Total Protein Albumin Globulin Albumin/Globulin Ratio Acetone Level Crossmatch 05/16/19 05/16/19 05/16/19 05:00 05:00 08:13 WBC RBC Hgb Hct MCV MCH MCHC RDW Std Deviation Plt Count MPV Immature Gran % (Auto) Neut % (Auto) Lymph % (Auto) [place] % (Auto) Eos % (Auto) Baso % (Auto) Immature Gran # (Auto) Neut # (Auto) Lymph # (Auto) [place] # (Auto) Eos # (Auto) Baso # (Auto) Segmented Neutrophils Lymphocytes Monocytes Specimen Type Sample Site pH pCO2 pO2 HCO3 Base Excess Oxyhemoglobin ABG O2 Sat (Calculated) ABG O2 Saturation ABG Carboxyhemoglobin ABG Methemoglobin Agustin Test A-a O2 Difference Total Hemoglobin Lactate Blood Gas Modality Vent Mode Spontaneous Rate FiO2 % Tidal Volume PEEP Sodium 145 Potassium 3.7 Chloride 110 H Carbon Dioxide 15 L Anion Gap 20 BUN 94 H Creatinine 2.0 H Estimated GFR/1.73 m2 42 BUN/Creatinine Ratio 47 Glucose 261 H D POC Glucose 301 H Estimat Average Glucose Hemoglobin A1c Calculated Osmolality 327 Calcium 9.4 Phosphorus 4.4 Magnesium 2.6 Total Bilirubin 14.70 H Direct Bilirubin 8.90 H AST 38 H ALT 14 Alkaline Phosphatase 94 Zrm-P-Xgtpwyxegte Pept 7444 H Total Protein 7.3 Albumin 2.9 L Globulin 4.4 Albumin/Globulin Ratio 0.7 Acetone Level Crossmatch 05/16/19 05/16/19 08:40 09:48 WBC RBC Hgb Hct MCV MCH MCHC RDW Std Deviation Plt Count MPV Immature Gran % (Auto) Neut % (Auto) Lymph % (Auto) [place] % (Auto) Eos % (Auto) Baso % (Auto) Immature Gran # (Auto) Neut # (Auto) Lymph # (Auto) [place] # (Auto) Eos # (Auto) Baso # (Auto) Segmented Neutrophils Lymphocytes Monocytes Specimen Type Sample Site pH pCO2 pO2 HCO3 Base Excess Oxyhemoglobin ABG O2 Sat (Calculated) ABG O2 Saturation ABG Carboxyhemoglobin ABG Methemoglobin Agustin Test A-a O2 Difference Total Hemoglobin Lactate Blood Gas Modality Vent Mode Spontaneous Rate FiO2 % Tidal Volume PEEP Sodium Potassium Chloride Carbon Dioxide Anion Gap BUN Creatinine Estimated GFR/1.73 m2 BUN/Creatinine Ratio Glucose POC Glucose Estimat Average Glucose 111 Hemoglobin A1c 5.5 Calculated Osmolality Calcium Phosphorus Magnesium Total Bilirubin Direct Bilirubin AST ALT Alkaline Phosphatase Xoi-X-Axdrzmzcmuv Pept Total Protein Albumin Globulin Albumin/Globulin Ratio Acetone Level NEGATIVE Crossmatch Assessment: Acute respiratory failure. Shock. Atelectasis vs. pneumonia LLL. Small-bowel obstruction, portal venous hypertension with ascites and cirrhosis of the liver. s/p diagnostic laparoscopy, laparotomy with open appendectomy and ileocolonic tusj-wx-[id number] bypass by Dr. Ellis on 05/08/19. Decompensated liver cirrhosis with history of alcohol abuse and chronic active hepatitis C leading to ascites, coagulopathy and thrombocytopenia (worsening). Acute kidney injury, likely prerenal from intravascular depletion related to third spacing into the abdomen and hypoalbunemia. S/P paracentesis with 6.2 L of fluid aspirated on 04/30/19. Alkalemia with respiratory alkalosis and AG metabolic acidosis. Global encephalopathy. EEG done yesterday. Dr. Srivastava is on board. Prognosis is poor. Plan: Continue current treatment and supportive care per admitting and other teams on the case. We checked Ventilator settings and titrate to Patients needs per clinical protocols. We will keep closely monitoring on patients clinical response. We titrated Pressor (Levophed) to the patients needs per clinical protocols. We will keep closely monitoring. Antibiotic (Zosyn). Solu-Medrol. Appropriate DVT and GI prophylaxis. Evaluation time in minutes: 33 minutes.
[2019-05-16] MEDS: HUMULIN R SUBQ SCH ×3 (16:54→20:42)
[2019-05-16] MEDS ORDERED: [UNRECOGNIZED DRUG - OTHER] IV SCH ×4 (18:00)
[2019-05-16] MEDS ORDERED: AMINOSYN IV SCH ×4 (18:00)
[2019-05-16] MEDS ORDERED: M V I IV SCH ×4 (18:00)
[2019-05-16] MEDS ORDERED: TPN ELECTROLYTES IV SCH ×4 (18:00)
[2019-05-16] MEDS: LIPOSYN 20% 250 ML IV SCH (18:25)
--- NOTE | 2019-05-16 18:56 | EEG REPORT ---
DATE: 05/15/2019 COMMENT: This is a digitally recorded EEG done portably in the ICU on a patient with persistent coma, prior seizure history. FINDINGS: The record is composed of very low amplitude and very slow activity symmetrically across the hemispheres, maximal amplitude 20 to 30 microvolts centrally and frontally, maximum frequency poorly sustained 4 hertz centrally. There is some sweat and muscle contraction artifact which does not hinder interpretation. There was no response to photic stimulation. There was no response to noxious stimulation. There was no variation to correlate with spontaneous drowsing or sleep. INTERPRETATION: Abnormal EEG because of voltage suppression and marked generalized slowing. CORRELATION: This is indicative of severe encephalopathy and carries very poor prognosis. cc: MD Kelechi Dolan III, MD MTDD
--- NOTE | 2019-05-16 21:48 | PROVIDER PROGRESS NOTE ---
Progress Note Subjective: intubated without sedation. His eyes are darting back and forth. He does not arouse to verbal or tactile stimuli. Objective: temperature 97.2, pulse 82, respirations 25, blood pressure 102/66, 02 sat 100% on 30% FiO2 mechanical ventilation. General: Chronically ill appearing -[place] male in no acute distress. HEENT: normocephalic, atraumatic, conjunctiva pink, pupils equal and sluggish, darting to the left and right. Mucous membranes dry, NG tube to low intermittent suction. Trachea midline. Skin: Warm and dry. Neck: supple, 8cm JVD observed. Cardiovascular: S1s2S4, regular rate and rhythm. Gallop appreciated.No murmur. Respiratory: coarse lung sounds with equal air entry. Abdomen: slightly firm, distended even more than yesterday, nontender. Hypoactive bowel sounds. : non inspected, doe in place with freddy urine Extremities: 3+ pitting edema to BLE. Neurological: unable to arouse Labs: WBC 8.25, hemoglobin 8.0, hematocrit 24.1, platelet count 28, lactate 4.8, sodium 145, potassium 3.7, chloride 110, carbon dioxide 15, BUN 94, creatinine 2.0. Intake 3022, output 2140. Impression: Acute kidney injury. Likely prerenal with intravascular depletion related to third spacing into the abdomen and Hypoalbuminemia secondary to chronic liver failure. BUN and creatinine stable. There are no indications for urgent renal replacement therapy at this time and would not be a good candidate considering his comorbidities. Blood pressure. Low. Stable on norepinephrine. Intravascular Fluid volume contracted with extravascular volume expansion. Albumin 2.9. Anemia. Stable. 1 unit PRBC transfused yesterday Thrombocytopenia. Likely caused by liver failure. 2 units pheresis platelets transfused yesterday. Electrolytes. Stable. Anion gap acidosis. Likely renal failure and lactate related. We will order an acetone. Nutrition. Tube feeding on hold. Lipids and TPN in place. Medication review. Insulin and solumedrol.
[2019-05-17] MEDS: HUMULIN R SUBQ SCH ×7 (00:39→22:37)
[2019-05-17] MEDS: SOLU-MEDROL IV SCH ×4 (00:45→18:28)
[2019-05-17] MEDS: ZOSYN 2.25 GM in NS 50 ML IV SCH ×4 (03:04→21:09)
[2019-05-17 04:28] LABS: ALLEN TEST YES; BLOOD TYPE ARTERIAL; HCO3-(ACT) 20.3 mmoll (20.0-26.0); PCO2(98.6) 26 mmHg (35-45); PO2(98.6) 96 mmHg (60-100); SAMPLE BLOOD; SRATE 14 BPM; TVOL 500 mL; pH(98.6) 7.42 (7.35-7.45)
[2019-05-17 04:46] LABS: MODALITY VENTILATOR
[2019-05-17] MEDS: THIAMINE 100 MG in NS 50 ML IV SCH (06:07)
[2019-05-17] MEDS: KEPPRA 500 MG in NS 100 ML IV SCH ×2 (06:07→18:28)
[2019-05-17 06:32] LABS: BASO# 0.02 X1000 (0.0-0.2); BASO% 0.3 % (0.0-0.8); EOS# 0.01 X1000 (0.0-0.7); EOS% 0.1 % (0.0-10.0); HEMATOCRIT 25.3 % (42.0-52.0); HEMOGLOBIN 8.4 g/dL (14.0-18.0); IMM GRAN# 0.03 X1000 (0.0-0.04); IMM GRAN% 0.4 % (0.0-0.5); LYMPH# 1.43 X1000 (1.2-3.4); LYMPH% 20.7 % (20.5-51.1); MCH 30.2 PG (27-31); MCHC 33.2 g/dL (33-37); MONO# 0.49 X1000 (0.11-0.59); MONO% 7.1 % (1.7-9.3); MPV 12.1 FL (7.4-10.4); NEUT# 4.93 X1000 (1.4-6.5); NEUT% 71.4 % (42.2-75.2); RBC 2.78 XMIL (4.7-6.1); RDW 19.7 % (11.5-14.5); WBC 6.91 X1000 (4.8-10.8)
[2019-05-17 06:33] LABS: PLT 16 X1000 (130-400)
[2019-05-17 06:34] LABS: INR 2.75; PROTIME 29.9 Seconds (11.0-16.0)
[2019-05-17 06:43] LABS: ALB/GLOB RATIO 0.6; ALBUMIN 2.7 g/dL (3.5-5.0); TOTAL BILIRUBIN 12.89 mg/dL (0.20-1.00); TOTAL PROTEIN 7.1 g/dL (6.3-8.3)
[2019-05-17 06:55] LABS: CALCIUM 9.2 mg/dL (8.8-10.2); POTASSIUM 3.8 mmol/L (3.5-5.1)
[2019-05-17 06:57] LABS: MAGNESIUM 2.8 mg/dL (1.5-2.7); PHOSPHORUS 3.7 mg/dL (2.7-4.5)
--- NOTE | 2019-05-17 07:37 | Diag Imaging Result Doc PS360 ---
EXAM: CHEST-1 VIEW INDICATION: SOB TECHNIQUE: One view COMPARISON: 05/16/2019 FINDINGS: Support tubes and lines are in stable positions. Lung volumes are low similar to the previous study. The very vague opacity at the left lung base is approximately stable. No new consolidation is identified. Cardiac silhouette is stable. IMPRESSION: Stable chest. Electronically signed by Rodney Lang 05/17/2019 7:34 AM
[2019-05-17] MEDS ORDERED: ATIVAN IV ONE (08:41)
[2019-05-17] MEDS: VITAMIN K 10 MG in NS 50 ML IV SCH (08:54)
[2019-05-17] MEDS: LACTULOSE PO SCH ×3 (08:54→17:17)
[2019-05-17] MEDS: FOLIC ACID 1 MG in NS 50 ML IV SCH (08:54)
[2019-05-17] MEDS: DULCOLAX PR SCH ×3 (08:54→21:01)
--- NOTE | 2019-05-17 09:08 | GENERAL SURGERY PROGRESS NOTE ---
DATE: 05/17/2019 SUBJECTIVE: Mr. Mcduffie remains unresponsive. Heart rate is 87, blood pressure 100/69. His abdomen is softer today. By report, he did pass flatus last night. His NG output was 350, however. ASSESSMENT: Encouraged by the passage of some flatus. His bowel function still remains markedly abnormal, and I think it is fruitless to try the tube feedings again today. Will re-evaluate tomorrow. His prognosis remains poor. cc: Kirt Ellis MD
[2019-05-17] MEDS: PROTONIX IV SCH (11:11)
--- NOTE | 2019-05-17 11:21 | GASTROENTEROLOGY PROGRESS NOTE ---
DATE: 05/17/2019 SUBJECTIVE: Mr. Mcduffie is a 59-year-old, male, resting in bed. The patient is intubated, on a mechanical ventilator. Eyes are half open. Does not respond to tactile or verbal stimuli. NG tube in place with low intermittent suction. OBJECTIVE: Vital Signs: Temperature 97.6 degrees, pulse 87, respirations 26, blood pressure 100/69, oxygen saturation 100% on mechanical ventilator. The patient's weight is 188 pounds. BMI is 30.4 kg/m2. General: The patient is chronically ill and is on a mechanical ventilator. HEENT: Pale conjunctivae. Scleral icterus. Neck: Supple. Lungs: Diminished breath sounds heard in the anterior lobes. Cardiovascular: Regular rate and rhythm. Patient is tachypneic. Abdomen: Distended, firm. Elmer are dry and intact in the midline area. Hypoactive bowel sounds heard in all 4 quadrants. Extremities: No clubbing, no cyanosis. There is 2+ pitting edema bilaterally. Neurologic: The patient is unresponsive and is on a mechanical ventilator. Labs: WBCs are 6.91, RBCs 2.78, hemoglobin is 8.4, hematocrit is 25.3, platelet count is 16,000. PT 29.9, INR is 2.75. Sodium 145, potassium 3.8, chloride 111, carbon dioxide 16, anion gap 18, BUN 107, creatinine is 2.0, glucose 249, calcium 9.2, phosphorus 3.7, magnesium 2.8. Total bilirubin is 12.89, AST 36, ALT 14, alkaline phosphatase is 90, albumin is 2.7. IMAGING: Chest x-ray today has shown stable chest. EEG report shows that it is an abnormal EEG because of the voltage suppression and marked generalized slowing. IMPRESSION AND PLAN: Decompensated liver Cirrhosis Ascites Encephalopathy Anemia Coagulopathy Thrombocytopenia SBO s/p laparotomy with ileocecal bypass Chronic Hepatitis C PLAN: Mr. Mcduffie is a 59-year-old, male with hepatitis C and a history of alcoholism, cirrhosis, and ascites. GI is following him for his cirrhosis and ascites. The patient is currently on Levophed drip. He is on TPN and lipids for his nutrition. The patient is receiving lactulose 30 mL 3 times a day via NG tube. He is also receiving folic acid and thiamine IV. The patient is on antibiotic, Zosyn every 6 hours. We will continue him on PPIs daily. Patient is also receiving Keppra 500 mg IV for his seizures. We will continue to monitor the patient, provide supportive care, and follow the plan of care per PCP and surgeon. This plan was discussed with Dr. Hernandez. Please call us for any further questions or concerns. Dictated by TURNER aBzan for Leno Hernandez MD cc: Leno Hernandez MD I have seen and examined the patient myself and I agree with the above plan of care. Please call us with any further questions or concerns. [facility]
--- NOTE | 2019-05-17 13:54 | PROVIDER PROGRESS NOTE ---
Progress Note Subjective: intubated without sedation. He does not arouse to verbal or tactile stimuli. Objective: temperature 97.6, pulse 87, respirations 26, blood pressure 100/69, O2 sat 100% on 30% FiO2 mechanical ventilation. General: Chronically ill appearing -[place]uanian male in no acute distress. HEENT: normocephalic, atraumatic, conjunctiva pink, pupils equal and sluggish. Mucous membranes dry, NG tube to low intermittent suction with maroon output. Trachea midline. Skin: Warm and dry. Neck: supple, 8cm JVD observed. Cardiovascular: S1s2S4, regular rate and rhythm. Gallop appreciated.No murmur. Respiratory: coarse lung sounds with equal air entry. Abdomen: slightly firm, nontender. Hypoactive bowel sounds,better than yesterday. : non inspected, doe in place with freddy urine Extremities: 3+ pitting edema to BLE. Neurological: unable to arouse Labs: WBC 6.91, hemoglobin 8.4, hematocrit 25.3, platelet count 16, arterial lactate 5.10, sodium 145, potassium 3.8, chloride 111, carbon dioxide 16, BUN 107, creatinine 2.0, Ill be home in 2.7. Acetone level negative. Intake 1558, output 1100. Impression: Acute kidney injury. No changes. Blood pressure. Low. Stable on norepinephrine. Intravascular Fluid volume contracted with extravascular volume expansion. Albumin given. Anemia. Low, but stable. Thrombocytopenia. Likely caused by liver failure. Aware. Electrolytes. Stable. Anion gap acidosis. Likely renal failure and lactate related. Acetone negative. Nutrition. Tube feeding remains on hold. Lipids and TPN in place. Medication review. No changes.
[2019-05-17] MEDS: ATIVAN IV PRN ×2 (14:40→22:38)
[2019-05-17] MEDS: MORPHINE IV PRN ×2 (15:10→22:37)
[2019-05-17] MEDS ORDERED: NS NEB INH SCH (15:30)
[2019-05-17] MEDS: ATROVENT NEB INH SCH ×3 (15:52→23:00)
[2019-05-17] MEDS: XOPENEX NEB INH SCH ×3 (15:52→23:01)
--- NOTE | 2019-05-17 16:03 | PROVIDER PROGRESS NOTE ---
Progress Note Dr. Westbrook Progress Note/Pulmonary and or critical care Subjective: The patient remained intubated. He is unresponsive to any pain stimuli. He is off Levophed at this time. RN reports tachypnea once in a while. Family apparently just left. Oksana RN from the Palliative Care team reports that has been thinking about withdrawing care, but she need talk with other family members first. Input is appreciated from Dr. Smith and other teams on the case. Objective: Vital Signs: T 98.2 (no fever in last 24 hours), DE 107, RR 40, BP 101/61 and SaO2 97% on AC 14, 30%, 500, 5. I/O +458 ml Physical Examination: General: Intubated. Lying in bed with no acute distress noted. HEENT: Normocephalic. Trachea midline. ET tube in place. Chest: Mechanically ventilated. Diminished air entry bilaterally. CVS: Regular rate and rhythm with S1 and S2 appreciated. Abdomen: Rounded and distended. Soft. Decreased bowel sounds noted. Extremities: BLE and BUE pitting edema 1+. Neuro: Unresponsive without sedation. Labs and Radiology: Laboratory Results 05/15/19 05/16/19 05/16/19 08:05 18:36 21:35 WBC RBC Hgb Hct MCV MCH MCHC RDW Std Deviation Plt Count MPV Immature Gran % (Auto) Neut % (Auto) Lymph % (Auto) [place] % (Auto) Eos % (Auto) Baso % (Auto) Immature Gran # (Auto) Neut # (Auto) Lymph # (Auto) [place] # (Auto) Eos # (Auto) Baso # (Auto) PT INR Specimen Type Sample Site pH pCO2 pO2 HCO3 Base Excess Agustin Test A-a O2 Difference Lactate Blood Gas Modality Vent Mode Spontaneous Rate FiO2 % Tidal Volume PEEP Sodium Potassium Chloride Carbon Dioxide Anion Gap BUN Creatinine Estimated GFR/1.73 m2 BUN/Creatinine Ratio Glucose POC Glucose 320 H 327 H Calculated Osmolality Calcium Phosphorus Magnesium Total Bilirubin Direct Bilirubin AST ALT Alkaline Phosphatase Total Protein Albumin Globulin Albumin/Globulin Ratio Blood Type O POSITIVE Antibody Screen NEGATIVE Crossmatch See Detail 05/17/19 05/17/19 05/17/19 00:37 02:59 04:18 WBC RBC Hgb Hct MCV MCH MCHC RDW Std Deviation Plt Count MPV Immature Gran % (Auto) Neut % (Auto) Lymph % (Auto) [place] % (Auto) Eos % (Auto) Baso % (Auto) Immature Gran # (Auto) Neut # (Auto) Lymph # (Auto) [place] # (Auto) Eos # (Auto) Baso # (Auto) PT INR Specimen Type ARTERIAL Sample Site R RADIAL pH 7.42 pCO2 26 L pO2 96 HCO3 20.3 Base Excess -6.0 L Agustin Test YES A-a O2 Difference 85.0 Lactate 5.10 H* Blood Gas Modality VENTILATOR Vent Mode A/C Spontaneous Rate 14 FiO2 % 30.0 Tidal Volume 500 PEEP 5.0 Sodium Potassium Chloride Carbon Dioxide Anion Gap BUN Creatinine Estimated GFR/1.73 m2 BUN/Creatinine Ratio Glucose POC Glucose 268 H 277 H Calculated Osmolality Calcium Phosphorus Magnesium Total Bilirubin Direct Bilirubin AST ALT Alkaline Phosphatase Total Protein Albumin Globulin Albumin/Globulin Ratio Blood Type Antibody Screen Crossmatch 05/17/19 05/17/19 05/17/19 05:30 05:30 05:30 WBC 6.91 RBC 2.78 L Hgb 8.4 L Hct 25.3 L MCV 91.0 MCH 30.2 MCHC 33.2 RDW Std Deviation 19.7 H Plt Count 16 L* D MPV 12.1 H Immature Gran % (Auto) 0.4 Neut % (Auto) 71.4 Lymph % (Auto) 20.7 [place] % (Auto) 7.1 Eos % (Auto) 0.1 Baso % (Auto) 0.3 Immature Gran # (Auto) 0.03 Neut # (Auto) 4.93 Lymph # (Auto) 1.43 [place] # (Auto) 0.49 Eos # (Auto) 0.01 Baso # (Auto) 0.02 PT INR Specimen Type Sample Site pH pCO2 pO2 HCO3 Base Excess Agustin Test A-a O2 Difference Lactate Blood Gas Modality Vent Mode Spontaneous Rate FiO2 % Tidal Volume PEEP Sodium 145 Potassium 3.8 Chloride 111 H Carbon Dioxide 16 L Anion Gap 18 BUN 107 H Creatinine 2.0 H Estimated GFR/1.73 m2 42 BUN/Creatinine Ratio 54 Glucose 249 H POC Glucose Calculated Osmolality 331 Calcium 9.2 Phosphorus 3.7 Magnesium 2.8 H Total Bilirubin Direct Bilirubin AST ALT Alkaline Phosphatase Total Protein Albumin Globulin Albumin/Globulin Ratio Blood Type Antibody Screen Crossmatch 05/17/19 05/17/19 05/17/19 05:30 05:30 06:29 WBC RBC Hgb Hct MCV MCH MCHC RDW Std Deviation Plt Count MPV Immature Gran % (Auto) Neut % (Auto) Lymph % (Auto) [place] % (Auto) Eos % (Auto) Baso % (Auto) Immature Gran # (Auto) Neut # (Auto) Lymph # (Auto) [place] # (Auto) Eos # (Auto) Baso # (Auto) PT 29.9 H INR 2.75 Specimen Type Sample Site pH pCO2 pO2 HCO3 Base Excess Agustin Test A-a O2 Difference Lactate Blood Gas Modality Vent Mode Spontaneous Rate FiO2 % Tidal Volume PEEP Sodium Potassium Chloride Carbon Dioxide Anion Gap BUN Creatinine Estimated GFR/1.73 m2 BUN/Creatinine Ratio Glucose POC Glucose 231 H Calculated Osmolality Calcium Phosphorus Magnesium Total Bilirubin 12.89 H Direct Bilirubin 8.00 H AST 36 H ALT 14 Alkaline Phosphatase 90 Total Protein 7.1 Albumin 2.7 L Globulin 4.4 Albumin/Globulin Ratio 0.6 Blood Type Antibody Screen Crossmatch 05/17/19 05/17/19 11:03 15:14 WBC RBC Hgb Hct MCV MCH MCHC RDW Std Deviation Plt Count MPV Immature Gran % (Auto) Neut % (Auto) Lymph % (Auto) [place] % (Auto) Eos % (Auto) Baso % (Auto) Immature Gran # (Auto) Neut # (Auto) Lymph # (Auto) [place] # (Auto) Eos # (Auto) Baso # (Auto) PT INR Specimen Type Sample Site pH pCO2 pO2 HCO3 Base Excess Agustin Test A-a O2 Difference Lactate Blood Gas Modality Vent Mode Spontaneous Rate FiO2 % Tidal Volume PEEP Sodium Potassium Chloride Carbon Dioxide Anion Gap BUN Creatinine Estimated GFR/1.73 m2 BUN/Creatinine Ratio Glucose POC Glucose 236 H 205 H Calculated Osmolality Calcium Phosphorus Magnesium Total Bilirubin Direct Bilirubin AST ALT Alkaline Phosphatase Total Protein Albumin Globulin Albumin/Globulin Ratio Blood Type Antibody Screen Crossmatch Assessment: Acute respiratory failure. Shock. Atelectasis vs. pneumonia LLL. CXR today shows stable chest. Small-bowel obstruction, portal venous hypertension with ascites and cirrhosis of the liver. s/p diagnostic laparoscopy, laparotomy with open appendectomy and ileocolonic uvvo-ez-effi bypass by Dr. Ellis on 05/08/19. Decompensated liver cirrhosis with history of alcohol abuse and chronic active hepatitis C leading to ascites, coagulopathy and thrombocytopenia (worsening). Acute kidney injury, likely prerenal from intravascular depletion related to third spacing into the abdomen and hypoalbunemia. S/P paracentesis with 6.2 L of fluid aspirated on 04/30/19. Alkalemia with respiratory alkalosis and AG metabolic acidosis. Global encephalopathy. EEG done yesterday. Dr. Srivastava is on board. Prognosis is poor. Plan: We checked Ventilator settings and titrated to Patients needs per clinical protocols. We will keep closely monitoring on patients clinical response. We titrated sedation with prn Ativan and Morphine to the patients needs per clinical protocols. We will keep closely monitoring. Antibiotic (Zosyn). Solu-Medrol. We start bronchodilators including Xopenex and Atrovent. Appropriate DVT and GI prophylaxis. Evaluation time in minutes: 34 minutes.
[2019-05-17] MEDS ORDERED: HALDOL IV ONE (16:07)
[2019-05-17] MEDS: ATIVAN 20 MG in NS 190 ML IV SCH ×2 (16:50→22:00)
[2019-05-17] MEDS ORDERED: [UNRECOGNIZED DRUG - OTHER] IV SCH ×4 (18:00)
[2019-05-17] MEDS ORDERED: M V I IV SCH ×4 (18:00)
[2019-05-17] MEDS ORDERED: TPN ELECTROLYTES IV SCH ×4 (18:00)
[2019-05-17] MEDS ORDERED: AMINOSYN IV SCH ×4 (18:00)
[2019-05-17] MEDS: LIPOSYN 20% 250 ML IV SCH (18:06)
--- NOTE | 2019-05-17 18:44 | PROGRESS NOTE ---
DATE: 05/17/2019 SUBJECTIVE: The patient remains unresponsive on the ventilator. He is currently on 1 mcg of Levophed, and he had a small bowel movement this morning. OBJECTIVE: Vital Signs: Temperature 99.5, blood pressure 114/64, heart rate 119, respirations 42, O2 saturation 100% on the mechanical ventilator. Intake 1.5 L, output 1.1 L. General: This is a chronically ill-appearing elderly male currently unresponsive on the ventilator. HEENT: Normocephalic, atraumatic. Oral mucosa is moist. Trachea is midline. ET tube is in place. Heart: S1, S2 normal. Tachycardic. Lungs: Coarse breath sounds bilaterally. Abdomen: Hypoactive bowel sounds. Firm, distended. [place] are in place. Extremities: 3+ edema in the legs. Neurologic: The patient is unresponsive. LABS: White blood cell count 6.9, hemoglobin 8.4, hematocrit 25, platelets 16. INR 2.75. Sodium 145, potassium 3.8, chloride 111, CO2 16, BUN 107, creatinine 2, glucose 249, total bilirubin 12, direct bilirubin 8, AST 36, ALT 14, alkaline phosphatase 90. ASSESSMENT AND PLAN: 1. Acute hypoxemic respiratory failure. The patient remains ventilator dependent. Management as per the hide mill man. 2. Small bowel obstruction, status post laparotomy with an open appendectomy and ileocolonic bypass. The patient is not tolerating tube feeds. General Surgery is following. 3. Global encephalopathy. The patient's EEG shows minimal brain activity. The patient has a poor prognosis for recovery. 4. Decompensated alcoholic liver cirrhosis with refractory ascites. Aware. 5. Septic shock. The patient is on a low dose of Levophed. The blood cultures and peritoneal fluid cultures remain negative. Continue on Zosyn. 6. Acute kidney injury. Multifactorial. Unchanged. Continue with supportive care. 7. Severe protein calorie malnutrition. Continue on total parenteral nutrition. 8. Severe thrombocytopenia. We will transfuse 2 units of platelets today. 9. Anemia. Stable. 10. Coagulopathy. Aware. Continue to monitor closely. The patient was noted to have some blood in the ET tube. 11. Hepatitis C. Aware. 12. Seizure disorder. Continue on Keppra. 13. Metabolic acidosis. Unchanged. 14. Hyperglycemia. Continue on sliding-scale insulin. 15. Disposition: The patient is currently a full code. The patient remains critically ill with a high risk of mortality. Bethany Lanza with Palliative Care and I both met with the patient's and son this afternoon and updated them both on the patient's overall poor prognosis given his multiple medical issues. They both stated that they wanted to go home and discuss it further with the family, and will let us know what their decision is soon. We will continue with the current treatment plan at this time. cc: Tamiko Gomez MD MTDD
[2019-05-18] MEDS: SOLU-MEDROL IV SCH ×2 (01:58→06:42)
[2019-05-18] MEDS: ATIVAN 20 MG in NS 190 ML IV SCH ×5 (03:15→16:08)
[2019-05-18] MEDS: HUMULIN R SUBQ SCH ×2 (03:23→07:19)
[2019-05-18] MEDS: ZOSYN 2.25 GM in NS 50 ML IV SCH ×2 (03:28→09:08)
[2019-05-18] MEDS: XOPENEX NEB INH SCH ×2 (03:39→07:42)
[2019-05-18] MEDS: ATROVENT NEB INH SCH ×2 (03:39→07:42)
[2019-05-18 04:39] LABS: ALLEN TEST YES; BLOOD TYPE ARTERIAL; HCO3-(ACT) 17.2 mmoll (20.0-26.0); PCO2(98.6) 20 mmHg (35-45); PO2(98.6) 174 mmHg (60-100); SAMPLE BLOOD; SRATE 14 BPM; TVOL 500 mL
[2019-05-18 04:40] LABS: MODALITY VENTILATOR
[2019-05-18 06:24] LABS: BASO# 0.01 X1000 (0.0-0.2); BASO% 0.1 % (0.0-0.8); HEMATOCRIT 21.6 % (42.0-52.0); HEMOGLOBIN 7.1 g/dL (14.0-18.0); IMM GRAN# 0.05 X1000 (0.0-0.04); IMM GRAN% 0.6 % (0.0-0.5); LYMPH# 0.93 X1000 (1.2-3.4); LYMPH% 10.7 % (20.5-51.1); MCH 30.3 PG (27-31); MCHC 32.9 g/dL (33-37); MCV 92.3 FL (81-99); MONO# 0.62 X1000 (0.11-0.59); MONO% 7.2 % (1.7-9.3); MPV 12.1 FL (7.4-10.4); NEUT# 7.05 X1000 (1.4-6.5); NEUT% 81.4 % (42.2-75.2); PLT 55 X1000 (130-400); RBC 2.34 XMIL (4.7-6.1); RDW 20.1 % (11.5-14.5); WBC 8.66 X1000 (4.8-10.8)
[2019-05-18] MEDS: THIAMINE 100 MG in NS 50 ML IV SCH (06:41)
[2019-05-18] MEDS: KEPPRA 500 MG in NS 100 ML IV SCH (06:41)
[2019-05-18 06:58] LABS: ALB/GLOB RATIO 0.6; ALBUMIN 2.5 g/dL (3.5-5.0); CALCIUM 9.3 mg/dL (8.8-10.2); CREATININE 2.9 mg/dL (0.7-1.2); DIRECT BILIRUBIN 8.5 mg/dL (0.00-0.20); PHOSPHORUS 6.7 mg/dL (2.7-4.5); POTASSIUM 4.6 mmol/L (3.5-5.1); TOTAL BILIRUBIN 12.85 mg/dL (0.20-1.00)
--- NOTE | 2019-05-18 06:59 | Diag Imaging Result Doc PS360 ---
EXAM: CHEST-1 VIEW HISTORY: SOB TECHNIQUE: Single view COMPARISON: 05/17/2019 FINDINGS: No change in the endotracheal tube, nasogastric tube, or in the right jugular line. There are infiltrates and atelectasis in the lower left. There may be a tiny left pleural effusion as well. Right lung remains clear. IMPRESSION: No significant interval change. Electronically signed by Luis Coronel 05/18/2019 6:57 AM
--- NOTE | 2019-05-18 07:02 | Diag Imaging Result Doc PS360 ---
EXAM: ABDOMEN FLAT/UPRIGHT HISTORY: constipation/recent bowel surgery TECHNIQUE: Two views COMPARISON: 05/11/2019 FINDINGS: There are midline skin bud. Contrast remains in the colon. There is less contrast in the distal small bowel than on the prior study the small bowel loops are less distended. No organomegaly. IMPRESSION: Interval improvement Electronically signed by Luis Coronel 05/18/2019 7:00 AM
[2019-05-18] MEDS: ATIVAN IV PRN (07:22)
[2019-05-18 07:28] LABS: INR 2.51; PROTIME 27.8 Seconds (11.0-16.0)
[2019-05-18] MEDS ORDERED: ATIVAN IV ONE (07:38)
[2019-05-18] MEDS ORDERED: DILANTIN IV ONE (07:59)
--- NOTE | 2019-05-18 08:06 | PROGRESS NOTE ---
DATE: 05/18/2019 SUBJECTIVE: The patient is currently unresponsive on the ventilator. He is currently on 4 mcg of Levophed. He is now in status epilepticus. He is also currently on an Ativan drip. OBJECTIVE: Vital Signs: Temperature 98.6 degrees, blood pressure 98/57, heart rate 118, respirations 34, and O2 saturations 100% on mechanical ventilator. Intake 2.9 liters, output 925. General: This is a chronically ill-appearing elderly male, currently sedated on the ventilator. HEENT: Normocephalic, atraumatic. Oral mucosa is moist. Trachea is midline. ET tube is in place. Heart: S1 and S2 normal. Tachycardic. Lungs: Coarse breath sounds bilaterally. Abdomen: No bowel sounds. Distended. The bud are in place. Extremities: There is 3+ edema in the legs. Neurologic: The patient is unresponsive. LABS: White blood cell count 8.6, hemoglobin 7.1, hematocrit 21, platelets 55,000. ABG, pH of 7.4, pCO2 of 20, PO2 of 174, bicarbonate 17, lactate 9, glucose 241. ASSESSMENT AND PLAN: 1. Acute hypoxemic respiratory failure. The patient is currently on an Ativan drip and he is actively having seizures. Further management as per the drawing frame tender. 2. Status epilepticus. Will order a loading dose of dilantin and continue on keppra and the ativan drip. 3. Small bowel obstruction status post laparotomy with an open appendectomy and ileocolonic bypass. The patient is currently on total parenteral nutrition. General Surgery is following. 4. Global encephalopathy. Worse. 5. Decompensated alcoholic liver cirrhosis with refractory ascites. Aware. 6. Shock. The patient remains on a low dose of Levophed and antibiotic therapy. So far, the cultures remain negative. 7. Acute kidney injury. Multifactorial. Worse today. Nephrology is following. 8. Severe protein-calorie malnutrition. Continue on total parenteral nutrition. 9. Thrombocytopenia. Improved. The patient received 2 units of platelets yesterday. 10. Anemia. The hemoglobin and hematocrit are slowly trending downward. We will continue to monitor closely and transfuse as needed. 11. Hepatitis C. Aware. 12. Coagulopathy. Aware. 13. Seizure disorder. Continue on Keppra. 14. Anion gap metabolic acidosis. Multifactorial. Worse today. 15. Hyperglycemia. Continue on sliding scale insulin. 16. Disposition. The patient's medical condition has deteriorated significantly since last night. He is now in status epilepticus and he is having arrhythmias and is exhibiting multiorgan failure. I called and updated the patient's who decided to make the patient a DNR level 1. She will be in later today with the rest of her family to make further decisions. cc: Tamiko Gomez MD MTDD
[2019-05-18] MEDS ORDERED: DILANTIN 1,000 MG in NS 100 ML IV ONE (08:30)
[2019-05-18] MEDS ORDERED: ALBUMIN 25% IV SCH (09:00)
[2019-05-18] MEDS: DULCOLAX PR SCH (09:09)
[2019-05-18] MEDS: LACTULOSE PO SCH (09:09)
[2019-05-18] MEDS: PROTONIX IV SCH (09:09)
[2019-05-18] MEDS: SODIUM CHLORIDE 0.9% INJ SCH (09:09)
[2019-05-18] MEDS: FOLIC ACID 1 MG in NS 50 ML IV SCH (09:10)
[2019-05-18] MEDS: MORPHINE IV PRN ×4 (09:41→14:42)
[2019-05-18] MEDS ORDERED: ATIVAN IM PRN (09:44)
[2019-05-18] MEDS ORDERED: MORPHINE IV PRN (09:47)
[2019-05-18] MEDS ORDERED: ATIVAN IV PRN (09:53)
[2019-05-18] MEDS ORDERED: ATROPINE 1 % OPHTH SOLN SL PRN (09:54)
[2019-05-18] MEDS ORDERED: XOPENEX NEB INH PRN (09:54)
[2019-05-18] MEDS ORDERED: TRANSDERM-SCOP TD SCH (10:00)
[2019-05-18] MEDS ORDERED: MORPHINE IV ONE (10:15)
[2019-05-18] MEDS ORDERED: DEPACON 1,000 MG in NS 50 ML IV ONE (10:15)
--- NOTE | 2019-05-18 12:00 | GASTROENTEROLOGY PROGRESS NOTE ---
DATE: 05/18/2019 SUBJECTIVE: Mr. Mcduffie is a 59-year-old male, currently unresponsive. He has been extubated and is on palliative care with comfort measures. The patient is now DNR level 1. OBJECTIVE: Vital Signs: Temperature 98.7 degrees, pulse 95, respirations 30, blood pressure 89/49, oxygen saturation 100%. Patient's weight is 193 pounds. BMI is 31.2 kg/m2. General: Patient is unresponsive, chronically ill. HEENT: Pale conjunctivae. No scleral icterus. Neck: Supple. Decreased breath sounds heard in the anterior toribio. Abdomen: Distended, firm. No bowel sounds heard. Midline bud are dry and intact. Extremities: No clubbing, no cyanosis. 2+ pitting edema bilaterally. Neurologic: The patient is unresponsive. LABORATORY DATA: WBCs 8.66, RBC 2.34, hemoglobin is 7.1, hematocrit is 21.6, platelet count is 55,000. PT 27.8, INR is 2.51. Sodium is 148, potassium 4.6, chloride 110, carbon dioxide is 39, anion gap is 25, BUN is 118, creatinine is 2.9, glucose 235, calcium is 9.3, phosphorus 6.7, magnesium 3.0, total bilirubin 12.85, AST 52, ALT 59, alkaline phosphatase 89, albumin is 2.5. IMAGING: The patient's abdominal x-ray has shown interval improvement. His chest x-ray showed no significant interval change. IMPRESSION AND PLAN: 1. Decompensated liver cirrhosis. 2. Ascites. 3. Encephalopathy. 4. Anemia. 5. Coagulopathy. 6. Thrombocytopenia. 7. Small bowel obstruction status post laparotomy with ileocecal bypass. 8. Chronic hepatitis C. Mr. Mcduffie is a 59-year-old male who is currently extubated. The patient is now on palliative comfort care and is a DNR level 1. The patient's condition has been deteriorating significantly. We will continue to provide supportive care to the patient and follow the plan of care per PCP. This plan was discussed with Dr. Molnia. Please call us for any further questions or concerns. Dictated by TURNER Bazan for Catracho Molina MD [facility]
[2019-05-18] MEDS ORDERED: MORPHINE PCA IV PRN (13:15)
[2019-05-18] MEDS ORDERED: NS 1,000 ML ONE (14:01)
--- NOTE | 2019-05-18 15:08 | NEPHROLOGY PROGRESS NOTE ---
DATE: 05/18/2019 SUBJECTIVE: Today he is actively seizing at the time of my exam despite being on an Ativan drip. OBJECTIVE: Vital Signs: Blood pressure 207/158, heart rate 116, respiration 18, afebrile. Generally: As above. Heart: Regular. Lungs: Coarse with scattered crackles and rhonchi. Abdomen: With tense ascites. Extremities: 3+ edema. IMPRESSION: Acute kidney injury. Creatinine alberto from 2 to 2.9 today, and he is more acidotic. These findings do suggest overlying acute tubular necrosis. He is not a candidate for dialysis. I discussed the case directly with Dr. Gomez, and she is having discussions with the family regarding withdrawal of care. cc: Vic Dominguez MD
--- NOTE | 2019-05-18 15:27 | GENERAL SURGERY PROGRESS NOTE ---
DATE: 05/18/2019 Mr. Mcduffie' clinical situation continues to deteriorate. He now has repetitive jerking consistent with seizure activity or myoclonic activity. His BUN is up to 118, creatinine is up to 2.9. Lactate is now up to 9.6. Unfortunately, his situation continues to deteriorate and I have no further recommendations at this time. cc: Kirt Ellis MD
--- NOTE | 2019-05-18 19:02 | EEG REPORT ---
DATE: 05/18/2019 EEG NUMBER: [id number]. COMMENT: This is a digitally recorded EEG on a 59-year-old patient with persistent unresponsiveness and recent clinically apparent seizure. FINDINGS: During waking, EEG shows generalized high-amplitude sharp wave discharges occurring repetitively throughout the record. There are occasional brief pauses for 1 to 2 seconds during which time there is generalized slowing at low amplitude. There was no definite focal feature. INTERPRETATION: Abnormal EEG because of electrographic status epilepticus. CORRELATION: This would correlate with the clinically apparent seizure activity. cc: MD Tamiko Dolan III, MD [facility]
[2019-05-18 23:53] VITALS: BP 43/25
--- NOTE | 2019-05-19 21:46 | DISCHARGE SUMMARY ---
ADMISSION DATE: 04/20/2019 DISCHARGE DATE: 05/19/2019 FINAL DISCHARGE DIAGNOSES: 1. Acute hypoxemic respiratory failure. 2. Pneumonia secondary to Enterobacter, Enterobacter cloacae. 3. Septic shock. 4. Small bowel obstruction status post laparotomy with an open appendectomy and ileocolonic bypass. 5. Status epilepticus. 6. Global encephalopathy. 7. Decompensated alcoholic liver cirrhosis with refractory ascites. 8. Acute kidney injury. 9. Severe protein calorie malnutrition. 10. Severe thrombocytopenia. 11. Coagulopathy. 12. Hepatitis C. 13. Anemia. 14. Anion gap metabolic acidosis. 15. Hyperglycemia. CONSULTATIONS: 1. Nephrology consultation with Dr. Dominguez. 2. GI consultation with Dr. Molina. 3. General Surgery consultation with Dr. Ellis. 4. Pulmonary consultation with Dr. Westbrook. PROCEDURES: 1. Ultrasound-guided paracentesis performed on 04/30/2019 at which time 6.2 L of fluid was removed. 2. Ultrasound-guided paracentesis performed on 04/22/2019 at which time 4.5 L of ascites was removed. 3. Diagnostic laparoscopy with laparotomy with open appendectomy and ileocolonic [id number] bypass performed on 05/08/2019. IMAGIN. CT of the abdomen and pelvis performed on 04/20/2019, which revealed severe liver cirrhosis. Moderate ascites. 2. CT of the abdomen and pelvis performed on 04/25/2019, which revealed interval worsening. 3. Abdominal ultrasound performed on 04/30/2019, which revealed gallbladder wall thickening and ascites. 4. Upper GI and small bowel x-ray performed on 05/02/2019, which revealed a high-grade distal small-bowel obstruction. HOSPITAL COURSE: Mr. Mcduffie is a 59-year-old male with a history of liver cirrhosis, hepatitis C, and seizure disorder who presented to the ER with a chief complaint of abdominal pain as well as increasing abdominal girth. On admission, a CT of the abdomen and pelvis was done that revealed liver cirrhosis as well as ascites. On admission the patient was noted to have a hemoglobin of 9 with a hematocrit of 26. He is also noted to be in acute renal failure with a BUN of 55 and a creatinine of 3.6. In light of these findings, the patient was admitted to the hospitalist service. The patient was then admitted to the ICU and nephrology as well as GI were consulted. Blood cultures were obtained and broad-spectrum antibiotics were initiated. On 04/22/2019, the patient underwent an ultrasound-guided paracentesis at which time 4.5 L of peritoneal fluid were removed. Albumin was then infused following the large volume paracentesis. On the patient did well for few days however he developed shortness of breath. A chest x-ray was done that revealed pneumonia. The patient was then noted to not be having bowel movements and an abdominal x-ray was done that revealed a small-bowel obstruction. General Surgery was consulted. Over the course of the hospitalization it was noted that the patient was coagulopathic and suffering from decompensated alcoholic liver cirrhosis. His LFTs also were elevated with the bilirubin continuing to rise slowly over the course of the hospital stay. Conservative management was attempted for the small bowel obstruction. However, it became apparent that the patient was not responding to the conservative management and after discussion with the patient and his family, they opted for surgical intervention for the small-bowel obstruction. The patient underwent another ultrasound-guided paracentesis on 04/30/2019 at that time. 6 L of peritoneal fluid were removed. The patient also had an upper GI and small-bowel x-ray on May 02 that confirmed a high-grade distal small-bowel obstruction. On 05/08/2019, the patient was taken to the OR at which time a laparotomy with open appendectomy and ileocolonic [id number] was performed. Following the procedure, the patient was left on the ventilator. During the postoperative period, it was noted that the patient did not have return of bowel function. His ascites returned and the patient was noted to be coming more coagulopathic and more thrombocytopenic. The patient required several units of platelets over the course of the hospitalization, as well as vitamin K infusions and attempts were made to start the patient on tube feeds. However, he did not tolerate the tube feeds and ended up with high residuals each time. TPN was also initiated and the patient's renal function also continued to worsen as his GI and respiratory condition worsen. This was discussed with the patient, the patient's and son and they stated that they wanted to continue with the current management. The patient's medical condition continued to deteriorate. On 05/18/2019, the patient was noted to be in status epilepticus. An Ativan drip was started. IV Dilantin was given as well as IV Depakote with no response. Palliative care was consulted, who helped to juvenile counselor the family and they opted to make the patient a DNR level 1. After meeting with the family again, they opted to withdrawal care and have the patient extubated and placed on comfort measures. On 05/19/2019 at 12:32 a.m. the patient was pronounced . The patient's family was notified of the patient's . cc: Tamiko Gomez MD
== END 2019-05-19 00:32 | disposition expired | DRG 420 ==
LOC: P.ED 17:35 → ICU 23:17 → SUATTDRO 23:17 → 3N 05-18 12:04
PROVIDERS: ATTEND Internal Medicine